=== PATIENT | male | born 1935 | race Caucasian/White ===

== ENCOUNTER → 2017-02-21 | Outpatient (CLI) | payer MEDICARE ==
[~2017-02-21] MED LIST: ACET-62 PO; AMIO200T7 PO; ASPI81TA2 PO; CALC-696 PO; CALC600T12 PO; DABI150C PO; FAMO20TA8 PO; FERR-70 PO; FEXO180T94 PO; FLUT9.9S EA NOSTRIL; IOHEXOL 300 MG/ML 100ml INJECTION ONE; LEVO500T63 PO; LOVA20TA3 PO; MAGN400C PO; METR-116 PO; NAPR220C11 PO; NORMAL SALINE 100 ML ONE; SALINE FLUSH 10ml SYRINGE ONE; TAMS0.4C47 PO
--- NOTE | 2017-02-21 11:30 | DI ---
EXAM: CT ABD/PELVIS W/CONTRAST ONLY DATE: 02/21/2017 LOCATION OF DICTATION[facility] HISTORY: ITS.REASON: R19.04 Left lower quadrant abdominal swelling, mass and lump COMPARISON: There are no prior CT scans available for comparison at the time of interpretation PROCEDURE: Axial images were obtained throughout the entire abdomen and pelvis with IV contrast demonstration. 100 cc of Omnipaque 300 was administered for the exam. Coronal and sagittal reconstruction imaging was utilized. The current CT scan was performed using radiation dose-reduction techniques. FINDINGS: LUNG BASES: Bullous emphysematous lung changes and parenchymal scarring is seen at the lung bases. There is also scattered subpleural honeycombing suggesting underlying pulmonary fibrosis. The heart appears mildly enlarged and there is artifact from pacemaker wires. LIVER: Mildly enlarged measuring 19.5 cm demonstrating fatty infiltration. Hepatic parenchyma appears homogeneous without discrete lesions. SPLEEN: Enlarged measuring 16.6 cm appearing homogeneous without discrete lesions. GALLBLADDER: Minimal cholelithiasis is suspected but there is no evidence of wall thickening. PANCREAS: No focal enlargement, ductal dilatation or enhancing lesions. ADRENAL GLANDS: Not enlarged. KIDNEYS: Symmetrical size, contour and enhancement showing no evidence of hydronephrosis, hydroureter or ureterolith. VASCULAR: The abdominal aorta and IVC are normal caliber. Mild to moderate scattered plaque formation is seen in the abdominal aorta and iliac arteries. LYMPH NODES: No abdominal pelvic adenopathy. STOMACH BOWEL LOOPS: Stomach is decompressed. There is a small hiatal hernia the stomach is otherwise unremarkable. The bowel loops are of normal caliber, there is no evidence of mechanical bowel obstruction. There are scattered diverticula seen along the course of the colon which appears concentrated along the course of the descending colon and sigmoid colon. There is acute inflammatory involvement of the mid sigmoid colon which shows bowel wall thickening and enhancement consistent with acute diverticulitis. This inflamed loop of bowel extends into the region of a small left inguinal hernia and there is associated thickening and inflammatory change of the adjacent bowel wall. There is no evidence of bowel incarceration. There is no obvious pericolonic abscess collection, free air or free fluid. URINARY BLADDER: Normal size showing no wall thickening. There is mass effect on the base of the bladder by an enlarged prostate gland which appears somewhat irregular along the superior margin of the prostate gland and intraluminal extension of the irregular superior margin of the prostate gland is not excluded. PROSTATE: Enlarged measuring 4.8 cm the transverse dimension. There is some irregularity along the superior margin of the prostate gland and extension of the irregular mass effect on the superior margin of the prostate gland into the urinary bladder is not excluded. OSSEOUS STRUCTURES: Postsurgical changes are seen in the lumbar spine consistent with lumbosacral spine fusion. There is grade 2 anterolisthesis of L5 on S1 with bilateral L5 pars defects. PERITONEAL CAVITY: No free air or free fluid ABDOMINAL WALL: Small bilateral fat-containing inguinal hernias are evident but there is extension of the inflamed loop of sigmoid colon to the origin of the left inguinal hernia where diverticulitis is identified. There is also adjacent inflammatory involvement of the subcutaneous tissues of the adjacent abdominal wall including the adjacent left rectus abdominous muscle. IMPRESSION: 1. Findings are most consistent with acute diverticulitis involving the mid sigmoid colon. There is an inflamed loop of sigmoid colon extends to the origin of the left inguinal hernia and there is associated inflammatory involvement of the abdominal wall at the level of the left inguinal hernia suggesting cellulitis and possible myositis involving the left rectus abdominis muscle. Post therapeutic follow-up is recommended to ensure resolution as underlying inflammatory carcinoma is not excluded. There is no evidence of bowel incarceration at this time. 2. Hepatosplenomegaly. 3. The prostate gland is enlarged and irregular along the superior margin with potential extension of the irregular prostate gland into the urinary bladder. Further evaluation with cystoscopy is recommended. 4. No free air or free fluid. 5. Chronic emphysematous changes in the lung tucker with pulmonary fibrosis. A preliminary report was called to Dr. Arauz 02/21/2017 .
== END ==
LOC: IMA 09:18
PROVIDERS: ATTEND Internal Medicine
DX: R19.04 Left lower quadrant abdominal swelling, mass and lump (principal); K52.9 Noninfective gastroenteritis and colitis, unspecified; K40.90 Unilateral inguinal hernia, without obstruction or gangrene, not specified as recurrent; R16.2 Hepatomegaly with splenomegaly, not elsewhere classified; N40.0 Benign prostatic hyperplasia without lower urinary tract symptoms; J43.9 Emphysema, unspecified; J84.10 Pulmonary fibrosis, unspecified
CPT/HCPCS: 74177; J7050; Q9967

== ENCOUNTER 2017-02-25 10:10 | Inpatient (IN) | payer MEDICARE ==
[~2017-02-25] VITALS: Ht 185.4 cm; Wt 93.6 kg
[~2017-02-25 10:10] MED LIST changes: -ACET-62 PO; -CALC600T12 PO; -FAMO20TA8 PO; -FLUT9.9S EA NOSTRIL; -IOHEXOL 300 MG/ML 100ml INJECTION ONE; -LEVO500T63 PO; -METR-116 PO; -NORMAL SALINE 100 ML ONE; -SALINE FLUSH 10ml SYRINGE ONE
--- OUTSIDE RECORDS SUMMARY | 2017-02-25 10:13 | XMS REPORT | Continuity of Care Document ---
Author Author [facility] Organization [facility] Address Unknown Phone Unavailable Support Name Relationship Address Phone AUDRA GUEVARA MD Caregiver [address] [place] [address] [address] [place] [address] Unavailable AUDRA GUEVARA MD Caregiver [address] [place] [address] [place] [address] Unavailable ELLIOT MENDOZA DO Caregiver [address] [place] [address] [address] [place] [address] Unavailable JUJU PERALES Next Of Kin [address] [place] [address] Insurance Providers Guarantor Darvin Perales Address [address] [place] [address] [place] [address] Email DENIED NO TO PT [place] Payer Medicareadvantra Ppo Policy Number [id number] Subscriber's Name Darvin Perales Relationship 18 Self Group Number [id number] Advance Directives Directive Response Recorded Date/Time Ordered Resuscitation Status Full Code 10/25/16 8:42am Resuscitation Documents on File N FULL CODE 10/25/16 8:49am DPOA for Healthcare Only No 10/25/16 8:49am Living Will No 10/25/16 8:49am Problems Active Problems Medical Problem Onset Date Status Bradycardia Unknown Acute Brugada syndrome Unknown Chronic Essential hypertension Unknown Chronic Hyperlipidemia Unknown Chronic Near syncope Unknown Acute Observed seizure-like activity Unknown Acute Paroxysmal atrial fibrillation ~10/18/2016 Acute Presence of automatic implantable cardioverter-defibrillator Unknown Syncope and collapse Unknown Acute Ventricular tachycardia Unknown Chronic Surgical Problem Onset Date Status Status post cardiac pacemaker procedure Unknown Chronic Past Problems Medical Problem Onset Date Finger laceration Unknown Vagal reaction Unknown Visit for suture removal Unknown Medications Current Home Medications Medication Dose Units Route Directions Days Qty Instructions Start Date Amiodarone Hcl (Pacerone) 200 Mg Tablet 200 Mg Oral Onetime 30 Days 10/26/16 Amiodarone Hcl (Pacerone) 200 Mg Tablet 400 Mg Oral Three Times A Day 6 Days 36 Tablet 10/26/16 Aspirin 81 Mg Tab.chew 81 Mg Oral Daily 12/05/15 Calcium Carb/Mag Oxide/Vit D3 (Calcium Magnesium + D Tablet) 1 Each Tablet 1 Tab Oral Daily 03/14/16 Dabigatran Etexilate Mesylate (Pradaxa) 150 Mg Capsule 150 Mg Oral Twice A Day 30 Days 60 Capsule 10/26/16 Ferrous Sulfate 325 Mg Tablet 1 Tab Oral Bedtime BEST WITH FOOD. Fexofenadine Hcl (Ivanna Allergy) 180 Mg Tablet 1 Tab Oral Daily Do not drink Apple, Chilton, or Grapefruit juice within 4 hours of this medication, causes decreased absorption 10/24/16 Lovastatin 20 Mg Tablet 20 Mg Oral Daily 12/05/15 Magnesium Oxide (Magnesium) 400 Mg Capsule 400 Mg Oral Twice A Day 12/05/15 Naproxen Sodium (Aleve) 220 Mg Capsule 220 Mg Oral Twice Daily With Meals as needed for Pain 12/05/15 Tamsulosin Hcl 0.4 Mg Cap.er.24h 1 Cap Oral Bedtime 30 10/24/16 Social History Social History Problem Response Recorded Date/Time Onset Date Status Reason for Hospitalization Antiarrhythmic therapy 10/26/2016 11:02am Not Applicable Not Applicable Hx Substance Use No 10/24/2016 2:57pm Not Applicable Not Applicable Hx Alcohol Use Y RARE 10/24/2016 2:57pm Not Applicable Not Applicable Has the pt used tobacco in the last 12 months No 10/25/2016 8:51am Not Applicable Not Applicable Query Response Start Date Stop Date Smoking Status Never smoker Hospital Discharge Instructions Instructions: Care Instructions: I was in the hospital because (patient own words): THE DOCTOR SAID I SHOULD Discharge Diet: Resume heart healthy diet Discharge Activity: May resume usual activity as tolerated. Change positions from laying to standing slowly Follow Up Appointments: Follow up with Dr. Guevara on: 11/22/16 at 11:40 Pending Lab / Results: No Pending Lab Patient Instructions: New prescriptions: Amiodarone 400mg three times a day for 1 week, then on 11/01/16 you will take 200mg every day for antiarrhythmic. Pradaxa 150mg every morning and evening to reduce your risk of stroke. DO NOT STOP the medications without an order from Dr. Guevara. Expected Signs/Symptoms: NA Notify Physician If: chest pain, or if ICD device discharges. During Business Hours:: Please call the physician's office at [phone] After Business Hours:: Please call [phone] and have the electronic imaging system operator page the physician. Pain Management/Treatment: NA Wound/Incision Care: NA Condition at time of discharge: Good Plan of Care Discharge Date 10/26/16 12:06pm Disposition 01 DISCHARGED HOME, SELF-CARE Instructions/Education Provided DI for Atrial Fibrillation Prescriptions See Medication Section Care Plan and Goals See Discharge Instructions Section Functional Status Query Response Date Recorded Mobility Status Ambulatory October 25, 2016 3:49pm Assistive Devices None October 25, 2016 3:49pm Activity Limitations None October 25, 2016 3:49pm Feeding Ability Independent October 25, 2016 3:49pm Toileting Ability Independent October 25, 2016 3:49pm Grooming Ability Independent October 25, 2016 3:49pm Dressing Ability Independent October 25, 2016 3:49pm Driving Ability Independent October 25, 2016 3:49pm Housework Ability Independent October 25, 2016 3:49pm Meal Preparation Ability Independent October 25, 2016 3:49pm Stair Climbing Ability Independent October 25, 2016 3:49pm Ability to complete ADL's impeded by No change October 25, 2016 3:49pm Cognitive/Perceptual Impairments None October 25, 2016 3:49pm Allergies, Adverse Reactions, Alerts Allergen Type Severity Reaction Status Last Updated promethazine HCl Adverse Reaction Intermediate HALLUCINATIONS Active 12/05 Soap Allergy Unknown Active 12/05/15 Povidone-iodine Allergy Unknown Active 12/05/15 Immunizations Query Response on File Recorded Date/Time Hx Influenza Vaccination Y OCT 2016 10/25/16 8:51am Hx Pneumococcal Vaccination Y UP TO DATE OF 201510/25/16 8:51am Hx Influenza Vaccination Y OCT 2016 10/25/16 8:51am Influenza Vaccine Hx FALL 201407/27/16 10:33am Vital Signs Acute Vital Signs Vital Response Date/Time Temperature (Fahrenheit) 96.0 deg F (96.8 - 99.1) 10/25/2016 11:56pm Temperature (Calculated Celsius) 35.13174 degrees C (36.0 - 37.3) 10/25/2016 11:56pm Pulse Rate (adult) 66 bpm (60 - 100) 10/26/2016 8:00am Respiratory Rate 16 breaths/min (10 - 20) 10/26/2016 8:00am O2 Sat by Pulse Oximetry 94 % (90 - 100) 10/26/2016 8:00am Oxygen Delivery Method Room Air 10/26/2016 8:00am Blood Pressure 117/55 mm Hg 10/26/2016 8:00am Blood Pressure Source Automatic Cuff 10/26/2016 8:00am Height (Feet) 6 feet 10/25/2016 9:09am Height (Inches) 1.00 inches 10/25/2016 9:09am Weight (Kilograms) 94.100 kg 10/26/2016 8:00am Body Mass Index (BMI) 27.6 10/25/2016 8:48am Results Laboratory Results Test Name Result Units Flags Reference Collection Date/Time Result Date/ Time Comments White Blood Count 8.9 T/MM3 4.5-11.0 10/25/2016 9:10a10/25/2016 9: 26am Red Blood Count 4.40 M/MM3 L 4.50-5.90 10/25/2016 9:10a10/25/2016 9: 26am Hemoglobin 13.4 GM/DL L 13.5-17.5 10/25/2016 9:10/25/2016 9:26am Hematocrit 40.5 % L 41-53 10/25/2016 9:10/25/2016 9:26am Mean Corpuscular Volume 92.0 UM3 80-100 10/25/2016 9:10/25/2016 9: 26am Mean Corpuscular Hemoglobin 30.5 UUG 26-34 10/25/2016 9:10a2015 9:26am Mean Corpuscular Hemoglobin Concent 33.1 GM/DL 31-37 10/25/2016 9:10/25/2016 9:26am RDW Standard Deviation 42.9 FL 36.9-50.2 10/25/2016 9:10/25/2016 9 :26am Platelet Count 158 T/MM3 130-400 10/25/2016 9:10a10/25/2016 9:26am Mean Platelet Volume 9.0 UM3 L 9.4-12.4 10/25/2016 9:10a10/25/2016 9: 26am Neutrophils (%) (Auto) 67.1 % H 33-66 10/25/2016 9:10/25/2016 9: 26am Lymphocytes (%) (Auto) 16.2 % L 23-45 10/25/2016 9:10/25/2016 9: 26am Monocytes (%) (Auto) 14.1 % H 0-9.0 10/25/2016 9:10/25/2016 9:26am Eosinophils (%) (Auto) 2.2 % 0-4 10/25/2016 9:10/25/2016 9:26am Basophils (%) (Auto) 0.2 % 0-2 10/25/2016 9:10/25/2016 9:26am Immature Granulocyte % (Auto) 0.2 % 0.0-0.5 10/25/2016 9:2015 9:26am Absolute Neutrophils (auto) 6.0 T/MM3 1.8-7.7 10/25/2016 9:2015 9:26am Absolute Lymphocytes (auto) 1.5 T/MM3 1-4.8 10/25/2016 9:2015 9:26am Absolute Monocytes (auto) 1.3 T/MM3 H 0-0.8 10/25/2016 9:2015 9:26am Absolute Eosinophils (auto) 0.2 T/MM3 0-0.5 10/25/2016 9:2015 9:26am Absolute Basophils (auto) 0.0 T/MM3 0-0.2 10/25/2016 9:10/25/2016 9:26am Absolute Immature Granulocyte (auto 0.02 T/MM3 0.00-0.03 10/25/2016 9: 10/25/2016 9:26am Icterus Index < 2 0-7 10/26/2016 4:58am 10/26/2016 5:55am Chemistry Specimen Hemolysis < 15 0-25 10/26/2016 4:58am 10/26/2016 5 :55am 0-25: Specimen Exhibited No Hemolysis. Turbidity < 20 0-20 10/26/2016 4:58am 10/26/2016 5:55am Sodium Level 141 MEQ/L 134-144 10/26/2016 4:58am 10/26/2016 5:55am Potassium Level 4.5 MEQ/L 3.6-5 10/26/2016 4:58am 10/26/2016 5:55am Chloride Level 106 MEQ/L 98-107 10/26/2016 4:58am 10/26/2016 5:55am Carbon Dioxide Level 23 MEQ/L 22-30 10/26/2016 4:58am 10/26/2016 5: 55am Anion Gap 12 MEQ/L 5-15 10/26/2016 4:58am 10/26/2016 5:55am Blood Urea Nitrogen 23.0 MG/DL H 9-20 10/26/2016 4:58am 10/26/2016 5: 55am Creatinine 1.2 MG/DL D 0.8-1.5 10/26/2016 4:58am 10/26/2016 5:55am BUN/Creatinine Ratio 19 RATIO 6-26 10/26/2016 4:58am 10/26/2016 5:55am Glomerular Filtration Rate Calc 58 10/26/2016 4:58am 10/26/2016 5: 55am Glucose Level 99 MG/DL 75-110 10/26/2016 4:58am 10/26/2016 5:55am Calculated Osmolality 275 MOSM/KG 261-280 10/26/2016 4:58am 10/26/2016 5:55am Calcium Level 8.8 MG/DL 8.4-10.2 10/26/2016 4:58am 10/26/2016 5:55am Total Bilirubin 0.60 MG/DL 0.20-1.30 10/25/2016 9:10am 10/25/2016 9: 34am Alkaline Phosphatase 63 U/L 38-126 10/25/2016 9:10am 10/25/2016 9:34am Total Protein 7.3 G/DL 6.3-8.2 10/25/2016 9:10am 10/25/2016 9:34am Albumin 3.8 G/DL 3.5-5.0 10/25/2016 9:10am 10/25/2016 9:34am Globulin 3.5 G/DL 2.4-3.6 10/25/2016 9:10am 10/25/2016 9:34am Albumin/Globulin Ratio 1.1 RATIO 1.1-2.2 10/25/2016 9:10am 10/25/2016 9 :34am Aspartate Amino Transf (AST/SGOT) 32 U/L 17-59 10/25/2016 9:10am 2015 9:34am Alanine Aminotransferase (ALT/SGPT) 33 U/L 21-72 10/25/2016 9:10am 9:34am Magnesium Level 2.2 MG/DL 1.6-2.3 10/26/2016 4:58am 10/26/2016 5:55am Free Thyroxine 0.98 NG/DL 0.78-2.19 10/25/2016 9:10am 10/25/2016 4: 27pm Thyroid Stimulating Hormone (TSH) 2.92 MIU/L 0.47-4.68 10/25/2016 9: 10am 10/25/2016 10:03am Glucometer 96 mg/dL 75-110 10/26/2016 1:35am 10/26/2016 11:53am Procedures No known history of procedures. Encounters Encounter Location Arrival/Admit Date Discharge/Depart Date Attending Provider Discharged Inpatient (obs) [facility] 10/25/16 7:51am 10/26/16 12 :06pm AUDRA GUEVARA MD Departed Emergency Room [facility] 08/07/16 10:16am 08/07/16 11: 07am ADA HOPKINS APRN Registered Emergency Room [facility] 08/04/16 10:17am EDDIE KING APRN
--- OUTSIDE RECORDS SUMMARY | 2017-02-25 10:13 | XMS REPORT | Continuity of Care Document ---
Author Author [facility] Organization [facility] Address Unknown Phone Unavailable Allergies Active Description Code Type Severity Reaction Onset Reported/Identified Relationship to Patient Clinical Status Yes No Known Medication Allergies NKMA N/A N/A 08/23/2015 Medications Problems Procedures Results Encounters ACCT No. Visit Date/Time Discharge Status Pt. Type Provider Facility Loc./Unit Complaint [id number] 09/03/2015 15:10:00 2014 23:59:00 DIS Outpatient Rochelle Adams [facility] [address] [id number] 08/23/2015 11:14:00 2014 23:59:00 DIS Outpatient Rochelle Adams [facility] [address] NPT/GL 09/23 [place] BUT DID HAVE EXAM LAST YEAR
[2017-02-25] MEDS ORDERED: CALC600T12 PO (10:28)
[2017-02-25] MEDS ORDERED: FAMO20TA8 PO (10:30)
[2017-02-25] MEDS ORDERED: FLUT9.9S EA NOSTRIL (10:30)
[2017-02-25] MEDS ORDERED: DABI150C PO (10:30)
[2017-02-25] MEDS ORDERED: METR-116 PO (10:33)
[2017-02-25] MEDS ORDERED: ACET-62 PO (10:33)
[2017-02-25] MEDS ORDERED: LEVO500T63 PO (10:33)
[2017-02-25] MEDS ORDERED: NORMAL SALINE 1,000 ML IV ONE (11:55)
[2017-02-25] MEDS ORDERED: ONDANSETRON 4mg/2ml INJECTION IV ONE (12:00)
[2017-02-25] MEDS ORDERED: KETOROLAC 30mg/ml INJECTION IV ONE (12:00)
--- NOTE | 2017-02-25 12:00 | ERPDOC ---
Departure Impression Impression Referrals: ELLIOT MENDOZA DO (Family) Mental Status: Alert, Oriented HPI - Abdominal Pain General Chief Complaint: Abdominal Pain Stated Complaint: ABD PAIN/DIABETIC DIVERTICULITIS Time Seen by Provider: 11:55 HPI - Abdominal Pain Initial Comments 81-year-old gentleman presents with left lower quadrant abdominal pain, radiating into left upper quadrant. He has been diagnosed with diverticulitis before. He also has pain in the left pelvis. He feels a lump in his concern the infection is pushing through. Allergies: Coded Allergies: Soap (Verified Allergy, Unknown, 12/05/15) povidone-iodine (Verified Allergy, Unknown, 12/05/15) promethazine HCl (Verified Adverse Reaction, Intermediate, HALLUCINATIONS , 12/05/15) Past History Past Medical History Metabolic: hypercholesterolemia, hypertension, other Cardiac: A-fib, other GI: ulcers Musculoskeletal: back pain, osteoarthritis Surgical History General: appendix, back, hernia Cardiac: pacemaker Family History Family PMH: FOUND: cancer Vaccines Hx Influenza Vaccination: Yes (OCT 2016) Hx Pneumococcal Vaccination: Yes (UP TO DATE 2015) Social History Second Hand Exposure: No Quit Date: Nov 12, 1985 Substance Use Type: does not use Alcohol Intake: none Marital Status: Sexuality: female partner Housing: house Household Members: spouse Current Occupational Status: employed Physical Exam General Vitals and Pain First Documented Vital Signs Date Time Temp Pulse Resp B/P Pulse Ox O2 Delivery O2 Flow Rate FiO2 02/25/17 10:13 97.4 71 18 137/64 97 Room Air Weight: Kilograms: 88.300 Height (feet): 6 Height (inches): 1.00 Triage Pain Scale: Progress Results/Orders Orders Procedure Category Date Status Time Iv Lock (Ed Only) EDM 02/25/17 Transmitted 11:55 Nothing By Mouth (Ed EDM 02/25/17 Transmitted Only) 11:55 Cbc W/Auto LAB 02/25/17 Transmitted Diff-Reflex Manual 11:55 Cmp - Comprehensive LAB 02/25/17 Transmitted Metabolic 11:55 Lipase LAB 02/25/17 Transmitted 11:55 Ua, Dip Wreflex LAB 02/25/17 Transmitted Microsc & Canal Driver 11:55 Ct Abd/Pelvis CT 02/25/17 Transmitted W/Contrast Only 11:55 Normal Saline (Normal PHA 02/25/17 Transmitted Saline Iv) 11:55 Ondansetron Inj PHA 02/25/17 Transmitted (Zofran) 12:00 Ketorolac (Toradol) PHA 02/25/17 Transmitted 12:00 Lactate - Lactic Acid LAB 02/25/17 Transmitted Progress Progress Inguinal lump is reducible, I do think this is an inguinal hernia. CT is pending. We'll still workup the history of diverticulitis with left lower quadrant and upper quadrant pain. VIVIAN RICARDO MD Feb 25, 2017 12:00
--- OUTSIDE RECORDS SUMMARY | 2017-02-25 12:00 | XMS REPORT | Continuity of Care Document ---
Author Author [facility] Organization [facility] Address Unknown Phone Unavailable Allergies Active Description Code Type Severity Reaction Onset Reported/Identified Relationship to Patient Clinical Status Yes No Known Medication Allergies NKMA N/A N/A 08/23/2015 Medications Problems Procedures Results Encounters ACCT No. Visit Date/Time Discharge Status Pt. Type Provider Facility Loc./Unit Complaint [id number] 09/03/2015 15:10:00 2014 23:59:00 DIS Outpatient Rochelle Adams [facility] [address] [place] [id number] 08/23/2015 11:14:00 2014 23:59:00 DIS Outpatient Rochelle Adams [facility] [address] Opt NPT/GL 09/23 [place] BUT DID HAVE EXAM LAST YEAR
[2017-02-25] MEDS ORDERED: IOHEXOL 300 MG/ML 100ml INJECTION ONE (12:18)
[2017-02-25] MEDS ORDERED: SALINE FLUSH 10ml SYRINGE ONE (12:19)
[2017-02-25] MEDS ORDERED: NORMAL SALINE 100 ML ONE (12:19)
[2017-02-25 12:33] LABS: BLOOD, URINE NEGATIVE (NEGATIVE); COLOR,URINE YELLOW (YELLOW); LEUKOCYTE ESTERASE ,URINE NEGATIVE (NEGATIVE); NITRITE,URINE NEGATIVE (NEGATIVE); UROBILINOGEN,URINE 0.2 EU/DL (NORMAL)
[2017-02-25 12:38] LABS: BASOPHILS % (AUTO) 0.2 % (0-2); EOSINOPHILS # (AUTO) 0.2 T/MM3 (0-0.5); EOSINOPHILS % (AUTO) 1.5 % (0-4); HCT - HEMATOCRIT 39.9 % (41-53); HGB - HEMOGLOBIN 12.9 GM/DL (13.5-17.5); IMMATURE GRANULOCYTE # (AUTO) 0.03 T/MM3 (0.00-0.03); IMMATURE GRANULOCYTE % (AUTO) 0.3 % (0.0-0.5); LYMPHOCYTES # (AUTO) 1.6 T/MM3 (1-4.8); LYMPHOCYTES % (AUTO) 15.2 % (23-45); MEAN CORPUSCULAR HGB 27.9 UUG (26-34); MEAN CORPUSCULAR HGB CONC(MCHC 32.3 GM/DL (31-37); MEAN CORPUSCULAR VOLUME 86.2 UM3 (80-100); MEAN PLATELET VOLUME 8.7 UM3 (9.4-12.4); MONOCYTES # (AUTO) 1.7 T/MM3 (0-0.8); MONOCYTES % (AUTO) 16.3 % (0-9.0); NEUTROPHILS #(AUTO)-ABSOLUTE 6.8 T/MM3 (1.8-7.7); NEUTROPHILS % (AUTO) 66.5 % (33-66); RED BLOOD COUNT 4.63 M/MM3 (4.50-5.90); WBC - WHITE BLOOD COUNT 10.2 T/MM3 (4.5-11.0)
[2017-02-25 12:41] LABS: ALBUMIN 3.4 G/DL (3.5-5.0); ALBUMIN/GLOBULIN RATIO 0.9 RATIO (1.1-2.2); ALKALINE PHOSPHATASE 219 U/L (38-126); ALT (SGPT) 48 U/L (21-72); ANION GAP 12 MEQ/L (5-15); AST (SGOT) 65 U/L (17-59); BUN/CREATININE RATIO 15 RATIO (6-26); CALCIUM 9.1 MG/DL (8.4-10.2); CHLORIDE 102 MEQ/L (98-107); CO2 - CARBON DIOXIDE 24 MEQ/L (22-30); CREATININE 1.1 MG/DL (0.8-1.5); GLOMERULAR FILTRATION RATE 64; GLUCOSE 105 MG/DL (75-110); LIPASE 109 U/L (23-300); POTASSIUM 5.1 MEQ/L (3.6-5); SODIUM 138 MEQ/L (134-144); TOTAL PROTEIN 7.1 G/DL (6.3-8.2)
--- NOTE | 2017-02-25 14:15 | NUR ---
STATUS PT RESTING IN BED. FAMILY AT BEDSIDE. AWAITING DECISION ON CT REPORT
--- NOTE | 2017-02-25 15:30 | NUR ---
STATUS PT UP TO BATHROOM WITH STAND BY ASSIST.
--- NOTE | 2017-02-25 16:23 | DI ---
Indication: ITS.REASON: abdominal pain, patient has allergy to IV contrast/iodine PROCEDURE: CT ABD/PELVIS W/CONTRAST ONLY: Encounter: Initial Comparison: CT abdomen and pelvis dated February 21, 2017 Technique: Axial CT images were performed through the abdomen and pelvis after the administration of intravenous contrast. Coronal and sagittal two-dimensional reformats. Automated Exposure Control and Iterative Reconstruction dose reducing techniques were utilized. Contrast: Omnipaque 300 100 mL Findings: Fibrotic changes with bullous emphysema in both lower lobes. The liver appears normal. Gallbladder is unremarkable. The spleen, pancreas and adrenal glands are within normal limits. The kidneys are normal. No abdominal or pelvic lymphadenopathy. Bladder is unremarkable. Prostate is unremarkable. Sigmoid diverticulosis is again seen. There is a rim-enhancing abscess seen in the left anterior pelvis extending near or just deep to the inguinal canal with fluid and gas. This collection measures 4 x 4.6 cm on axial image #79 and is slightly larger than the comparison study from four days previously. The gas and feculent material within this collection suggests continuity with the sigmoid colon lumen. The collection starts approximately 1 1/2 to 2 cm above the left inguinal canal region and involves the abdominal wall and lateral aspect of the rectus sheath. No evidence of a bowel obstruction. No free intraperitoneal air. Bone windows show degenerative and postoperative changes in the lumbar spine. Impression: Slight interval increase in size of the left anterior lateral pelvic and inguinal canal region abscess presumably due to a perforated sigmoid diverticulitis. This collection probably communicates with the sigmoid colonic lumen. This would be accessible to percutaneous image guided aspiration and attempted drainage. Getting a locking loop drainage catheter to form within the small pocket could be challenging. Findings were reviewed with Drs. Davis and Soumya at 1615 on February 25, 2017. There is a preliminary report by [email or web address]. .
--- NOTE | 2017-02-25 16:39 | NUR ---
PO INTAKE PT PROVIDED WITH SANDWICH, JUICE AND APPLESAUCE PER DR HALEIGH CASON
--- NOTE | 2017-02-25 16:50 | NUR ---
STATUS DR WERNER AND DR RICARDO DISCUSS PT
--- NOTE | 2017-02-25 17:02 | NUR ---
IT GERRI RN ASSIGNS ROOM 138 TO PT WITH JAVIER MARCUS RN
--- OUTSIDE RECORDS SUMMARY | 2017-02-25 17:07 | XMS REPORT | Continuity of Care Document ---
Author Author [facility] Organization [facility] Address Unknown Phone Unavailable Allergies Active Description Code Type Severity Reaction Onset Reported/Identified Relationship to Patient Clinical Status Yes No Known Medication Allergies NKMA N/A N/A 08/23/2015 Medications Problems Procedures Results Encounters ACCT No. Visit Date/Time Discharge Status Pt. Type Provider Facility Loc./Unit Complaint [id number] 09/03/2015 15:10:00 2014 23:59:00 DIS Outpatient Rochelle Adams [facility] [address] [place] [id number] 08/23/2015 11:14:00 2014 23:59:00 DIS Outpatient Rochelle Adams [facility] [address] Opt NPT/GL 09/23 [place] BUT DID HAVE EXAM LAST YEAR
--- NOTE | 2017-02-25 17:11 | NUR ---
REPORT GIVEN TO DEBI NAYAK ON MEDICAL
[2017-02-25 17:15] VITALS: RESP 16
[2017-02-25 17:21] VITALS: BP 159/73; PULSE 75; RESP 16; TEMP 96.9; O2SAT 94
[2017-02-25 17:24] VITALS: Ht 185.4 cm; Wt 93.6 kg
--- NOTE | 2017-02-25 17:27 | HPPDOC ---
DINORA HAY V ENERGY RATER 02/25/17 1708: HPI - Adult Date DATE: 02/25/17 TIME: 17:02 General Chief Complaint: left inguinal hernia/abscess History of Present Illness Patient is a pleasant 81-year-old male who has had intermittent left inguinal discomfort for several weeks. He has been seen by his primary care provider, Dr. Arauz and was being monitored in the outpatient setting. On 02/[address] performed that did reveal some acute diverticulitis of the sigmoid colon. It is reported that he did start Flagyl and Levaquin at that time. Incidentally, he was found to have inflamed loop of sigmoid colon that extended into the origin of the left inguinal hernia associated with inflammation. Patient reports that this morning, pain seemed to worsen and he did have an episode of emesis, this prompting him to present to the emergency room for acute evaluation and treatment. Laboratory studies were obtained obtained in the ER. WBC count was found to be normal at 10.2, hemoglobin 12.9, hematocrit 39.9, platelet count 197. Sodium is normal at 138, potassium slightly elevated at 5.1, BUN 16, creatinine 1.1. AST is slightly elevated at 65 and ALT of 48. Venous lactate is normal 0.8, lipase 109. A urinalysis was obtained that was unremarkable. Repeat CT scan was performed today showing a slight interval increase in size of the left anterior lateral pelvis and inguinal canal region abscess, presumably due to perforated sigmoid diverticulitis. Given these findings, radiologistLyle was notified by the emergency room provider and verified that percutaneous guided aspiration and drainage could be arranged for tomorrow 02/26. The hospitalist services were then contacted and accepted patient for outpatient admission for further evaluation and treatment. It is expected that his stay will be less than 2 overnights. Past Medical History Past Medical History Hypertension. Atrial fibrillation. History of Burgada syndrome Pacemaker / defibrillator History of bleeding ulcer-1989 Surgical History Patient's Surgical History: Left inguinal hernia repair-2000 Appendectomy Hemorrhoidectomy Colonoscopy Lumbar spine surgery [id number] Current Medications Home Meds Reported Medications Levofloxacin (Levaquin) 500 Mg Tablet, 500 MG PO DAILY for diverticulitis 02/25/17 Metronidazole (Metronidazole) 500 Mg Tablet, 500 MG PO TID for diverticulitis 02/25/17 Acetaminophen (Acetaminophen) 500 Mg Tablet, 1000 MG PO Q8H Y for PAIN 02/25/17 Fluticasone Propionate (Flonase Allergy Relief 50 mcg/actuation Nasal) 9.9 Ml [place].susp, 1 SPRAY EA NOSTRIL HS 02/25/17 Famotidine (Famotidine) 20 Mg Tablet, 20 MG PO DAILY 02/25/17 Dabigatran Etexilate Mesylate (Pradaxa) 150 Mg Capsule, 150 MG PO BID 02/25/17 Calcium Carbonate (Calcium) 600 Mg Tablet, 600 MG PO DAILY 02/25/17 Tamsulosin HCl (Tamsulosin HCl) 0.4 Mg Cap.er.24h, 0.4 MG PO HS 10/24/16 Magnesium Oxide (Magnesium) 400 Mg Capsule, 400 MG PO BID 12/05/15 Lovastatin (Lovastatin) 20 Mg Tablet, 20 MG PO DAILY 12/05/15 Allergies: Coded Allergies: Soap (Verified Allergy, Unknown, 12/05/15) povidone-iodine (Verified Allergy, Unknown, 12/05/15) promethazine HCl (Verified Adverse Reaction, Intermediate, HALLUCINATIONS , 12/05/15) Family History Family History: Mother-breast cancer Father lived until he was 100, and of old age. Sister-breast cancer. Brother-prostate cancer Social History Smoking Status: Former smoker Second Hand Exposure: No Quit Date: Nov 12, 1985 Substance Use Type: does not use Alcohol Intake: none Marital Status: Sexuality: female partner Housing: house Household Members: spouse Current Occupational Status: employed Advance Directives: Yes Full Code Social History Comments Primary care provider, Dr. Arauz Keypuncher Dr. Cuevas Review of Systems GI Upper Abdomen: nausea, vomiting (this morning) Lower Abdomen: pain (left inguinal pain), see HPI All Other Systems All Other Systems: Reviewed (remainder of 10-point ROS Neg.) Physical Exam General General Nourishment: well nourished, well developed Vital Signs Vital Signs Date Time Temp Pulse Resp B/P Pulse Ox O2 Delivery O2 Flow Rate FiO2 02/25/17 10:13 97.4 71 18 137/64 97 Room Air Height (Feet): 6 Height (Inches): 1.00 Eyes Brief: FOUND: EOMI, PERRL Neck Brief: FOUND: midline, NOT FOUND: adenopathy, carotid bruits, tracheal deviation Respiratory Brief: FOUND: clear all tucker, equal bilaterally, NOT FOUND: wheezes Cardiovascular (brief) Cardiac Brief: FOUND: regular rate, regular rhythm, NOT FOUND: murmur, pedal edema Abdomen (brief) Abdominal Brief: FOUND: BS normo active x4, soft, tender (left inguinal groin tenderness) Integumentary (brief) Integumentary Brief: FOUND: dry, pink, warm Neurologic (brief) Neurological Brief: FOUND: cranial 2-12 intact, motor (result extremities equally 4) Neurologic RN Documented GCS Eye Opening: Verbal: Motor: Total: Psychiatric (brief) FOUND: alert, attentive, normal affect, oriented Laboratory Laboratory Tests Test 02/25/17 12:22 02/25/17 12:26 Urine Collection Type Voided-not cc-midstr Urine Color Yellow Urine Turbidity Clear Urine pH 6.5 Urine Specific [place] <=1.005 Urine Protein Negative Urine Glucose (UA) Negative Urine Ketones Negative Urine Blood Negative Urine Nitrite Negative Urine Bilirubin Negative Urine Urobilinogen 0.2EU/DL Urine Leukocyte Esterase Negative Urinalysis Comment Microscopic not ind. White Blood Count 10.2T/MM3 Red Blood Count 4.63M/MM3 Hemoglobin 12.9GM/DL Hematocrit 39.9% Mean Corpuscular Volume 86.2UM3 Mean Corpuscular Hemoglobin 27.9UUG Mean Corpuscular Hemoglobin Concent 32.3GM/DL RDW Standard Deviation 46.4FL Platelet Count 197T/MM3 Mean Platelet Volume 8.7UM3 Immature Granulocyte % (Auto) 0.3% Neutrophils (%) (Auto) 66.5% Lymphocytes (%) (Auto) 15.2% Monocytes (%) (Auto) 16.3% Eosinophils (%) (Auto) 1.5% Basophils (%) (Auto) 0.2% Absolute Immature Granulocyte (auto 0.03T/MM3 Absolute Neutrophils (auto) 6.8T/MM3 Absolute Lymphocytes (auto) 1.6T/MM3 Absolute Monocytes (auto) 1.7T/MM3 Absolute Eosinophils (auto) 0.2T/MM3 Absolute Basophils (auto) 0.0T/MM3 Turbidity < 20 Sodium Level 138MEQ/L Potassium Level 5.1MEQ/L Chloride Level 102MEQ/L Carbon Dioxide Level 24MEQ/L Anion Gap 12MEQ/L Blood Urea Nitrogen 16.0MG/DL Creatinine 1.1MG/DL Glomerular Filtration Rate Calc 64 BUN/Creatinine Ratio 15RATIO Glucose Level 105MG/DL Calculated Osmolality 267MOSM/KG Calcium Level 9.1MG/DL Total Bilirubin 0.90MG/DL Icterus Index < 2 Aspartate Amino Transf (AST/SGOT) 65U/L Alanine Aminotransferase (ALT/SGPT) 48U/L Alkaline Phosphatase 219U/L Total Protein 7.1G/DL Albumin 3.4G/DL Globulin 3.7G/DL Albumin/Globulin Ratio 0.9RATIO Lipase 109U/L Plasma Lactate 0.8MMOL/L Chemistry Specimen Hemolysis < 15 Assessment & Plan Problems: (1) Inguinal abscess Status: Acute (2) Diverticulitis Status: Acute Qualifiers: Diverticulitis complication: with abscess (3) Chronic anticoagulation Status: Chronic Assessment & Plan: Pradaxa chronically (4) Pacemaker Status: Chronic (5) Hyperlipidemia Status: Chronic (6) Essential hypertension Status: Chronic (7) Presence of automatic implantable cardioverter-defibrillator Status: Chronic (8) Brugada syndrome Status: Resolved (9) History of atrial fibrillation Status: Resolved Plan/Intensity of Service Admit patient to outpatient observation under the care of Dr. Worthy for inguinal abscess. ER Provider spoke with Lyle Seth- radiologist. Will plan for ultrasound-guided percutaneous drain tomorrow, Sunday02/26/17. Patient last took Pradaxa this morning 02/25/17. We will place this on hold now for scheduled procedure. He has been on Levaquin and Flagyl for antimicrobial coverage. Will switch to IV Zosyn for ongoing coverage. Will be able follow abscess cultures for further C/S. No evidence of sepsis currently. Normal saline at 100ml/hr for gentle hydration overnight. He may have regular diet now and NPO at midnight for planned procedure tomorrow SCDs to bilateral lower ext for DVT prophylaxis Up in room with assistance Will recheck CBC and BMP tomorrow morning to follow blood counts, renal function and electrolytes. Again he requests to be a Full Code and this order is written Will discuss further orders with attending, Dr Worthy Care will be turned over to PCP tomorrow morning- Dr Arauz. Code Status Full Code Hospital Course Summary Disclaimer The hospital course summary below is not to be considered part of the above Progress Note. Hospital Course Summary Admit patient to outpatient observation under the care of Dr. Worthy for inguinal abscess. ER Provider spoke with Lyle Seth- radiologist. Will plan for ultrasound-guided percutaneous drain tomorrow, Sunday02/26/17. Patient last took Pradaxa this morning 02/25/17. We will place this on hold now for scheduled procedure. He has been on Levaquin and Flagyl for antimicrobial coverage. Will switch to IV Zosyn for ongoing coverage. Will be able follow abscess cultures for further C/S. No evidence of sepsis currently. Normal saline at 100ml/hr for gentle hydration overnight. He may have regular diet now and NPO at midnight for planned procedure tomorrow SCDs to bilateral lower ext for DVT prophylaxis Up in room with assistance Will recheck CBC and BMP tomorrow morning to follow blood counts, renal function and electrolytes. Again he requests to be a Full Code and this order is written Will discuss further orders with attending, Dr Worthy Care will be turned over to PCP tomorrow morning- SHAI Pena MD 02/25/17 1805: Past Medical History Current Medications Home Meds Reported Medications Levofloxacin (Levaquin) 500 Mg Tablet, 500 MG PO DAILY for diverticulitis 02/25/17 Metronidazole (Metronidazole) 500 Mg Tablet, 500 MG PO TID for diverticulitis 02/25/17 Acetaminophen (Acetaminophen) 500 Mg Tablet, 1000 MG PO Q8H Y for PAIN 02/25/17 Fluticasone Propionate (Flonase Allergy Relief 50 mcg/actuation Nasal) 9.9 Ml [place].susp, 1 SPRAY EA NOSTRIL HS 02/25/17 Famotidine (Famotidine) 20 Mg Tablet, 20 MG PO DAILY 02/25/17 Dabigatran Etexilate Mesylate (Pradaxa) 150 Mg Capsule, 150 MG PO BID 02/25/17 Calcium Carbonate (Calcium) 600 Mg Tablet, 600 MG PO DAILY 02/25/17 Tamsulosin HCl (Tamsulosin HCl) 0.4 Mg Cap.er.24h, 0.4 MG PO HS 10/24/16 Magnesium Oxide (Magnesium) 400 Mg Capsule, 400 MG PO BID 12/05/15 Lovastatin (Lovastatin) 20 Mg Tablet, 20 MG PO DAILY 12/05/15 Allergies: Coded Allergies: Soap (Verified Allergy, Unknown, 12/05/15) povidone-iodine (Verified Allergy, Unknown, 12/05/15) promethazine HCl (Verified Adverse Reaction, Intermediate, HALLUCINATIONS , 12/05/15) Assessment & Plan Assessment 02/25/2017-I reviewed this chart, the patient history, and the ENERGY RATER's/PA's documented findings as above. We discussed and formulated the assessment and plan as above with the additions below.-Dr. Worthy The patient states he is having some mild increased pain in his left groin at this time but states that is better than when he went to the emergency room initially. He has had some nausea and vomiting but feels hungry now. He has had some chills but no fevers that he is aware of. He denies any chest pains or palpitations. He has had some progressive shortness of breath over the past 6 months. He had some diarrhea yesterday but that has resolved. He denies any hematemesis or red blood in his stools. He states his stools are dark because of iron. On exam he is alert and oriented and in no acute distress. Chest is clear to auscultation. Cardiovascular reveals a regular rate and rhythm with a 2/6 systolic murmur. Abdomen is soft and nontender. He does have a firm area about the size of a tennis ball in his left lower quadrant without any overlying erythema. Patient states this is the area where he has had the abscess. Extremities are free of clubbing cyanosis or edema. Skin is warm and dry and without rashes. Lab work was reviewed. CT was reviewed. I did call and discuss the above findings with Dr. Arauz. He agrees with keeping the patient nothing by mouth and holding pradaxa. He is considering a second surgical opinion prior to CT-guided drainage. We will therefore hold off on ordering the CT-guided drainage at this time. DINORA HAY APRN Feb 25, 2017 17:08 SHAI WORTHY MD Feb 25, 2017 18:05
[2017-02-25] MEDS ORDERED: MORPHINE SULFATE 2 MG SYRINGE IV PRN (17:45)
[2017-02-25] MEDS: NORMAL SALINE 1,000 ML IV SCH ×2 (18:05→23:45)
--- NOTE | 2017-02-25 18:14 | NUR ---
ADMISSION UPDATE PT ARRIVES TO ROOM 138 AT 1715. PT IS A&OX3, AND RATING HIS PAIN A 4/10 TO HIS LLQ. PTS IS AT BEDSIDE. PY IS ORIENTED TO HIS ROOM AND IS SHOWN HOW TO ORDER FOOD. PT WILL BE NPO AFTER MIDNIGHT FOR SURGERY TOMORROW, HE IS AWARE. VS ARE STABLE CHARTED. WILL CONTINUE TO MONITOR, SHUTDOWN PLANNER CALLED FOR ANTIBIOTIC ORDER FOR ZOSYN. SHE WILL BRING MED WHEN AVAILABLE. PT OFFERED PAIN MEDICATION BUT STATES HE DOES NOT NEED IT AT THIS TIME.
[2017-02-25] MEDS: PIPERACILLIN/TAZOBACTAM 3.375 G in NORMAL SALINE 100 ML IV SCH ×2 (18:56→21:00)
[2017-02-25 20:00] VITALS: RESP 18
[2017-02-25] MEDS: TAMSULOSIN 0.4 MG CAPSULE PO SCH (21:17)
[2017-02-25] MEDS: FLUTICASONE NASAL SPRAY 50 MCG EA NOSTRIL SCH (21:18)
[2017-02-25 23:57] VITALS: BP 144/65; PULSE 87; RESP 20; TEMP 100.7; O2SAT 95
[2017-02-26] MEDS: ACETAMINOPHEN 500 MG TABLET PO PRN ×2 (01:24→17:45)
--- NOTE | 2017-02-26 04:47 | NUR ---
SHIFT SUMMARY: PT IS A&OX3, HARD OF HEARING, FRIENDLY AND COOPERATIVE. PT SLEPT WELL THROUGH THE NIGHT AND DENIES PAIN. PT HAS BEEN NPO SINCE MIDNIGHT AWAITING THE POSSIBILITY OF A PERCUTANEOUS ASPIRATION PROCEDURE THIS MORNING. PT IS UP WITH STANDBY ASSIST, FLUIDS RUNNING, AND ON RA. SCHEDULED MEDICATIONS REC'D FROM [employer] INSURANCE SALESPERSON. CALL LIGHT WITHIN REACH, BED ALARM ON.
[2017-02-26] MEDS: NORMAL SALINE 1,000 ML IV SCH ×2 (05:38→17:32)
[2017-02-26 05:47] LABS: HCT - HEMATOCRIT 33.9 % (41-53); MEAN CORPUSCULAR HGB 27.9 UUG (26-34); MEAN CORPUSCULAR HGB CONC(MCHC 32.4 GM/DL (31-37); MEAN PLATELET VOLUME 9.7 UM3 (9.4-12.4); RED BLOOD COUNT 3.94 M/MM3 (4.50-5.90); WBC - WHITE BLOOD COUNT 8.9 T/MM3 (4.5-11.0)
[2017-02-26 05:58] LABS: ANION GAP 6 MEQ/L (5-15); BUN/CREATININE RATIO 16 RATIO (6-26); CALCIUM 7.9 MG/DL (8.4-10.2); CHLORIDE 107 MEQ/L (98-107); CO2 - CARBON DIOXIDE 23 MEQ/L (22-30); CREATININE 1.3 MG/DL (0.8-1.5); GLOMERULAR FILTRATION RATE 53; GLUCOSE 103 MG/DL (75-110); POTASSIUM 4.9 MEQ/L (3.6-5); SODIUM 136 MEQ/L (134-144)
[2017-02-26 06:42] LABS: BAND NEUTROPHILS # 0.2 T/MM3; EOSINOPHILS # (MANUAL) 0.1 T/MM3 (0-0.5); LYMPHOCYTES # (MANUAL) 1.2 T/MM3 (1-4.8); MONOCYTES # (MANUAL) 1.3 T/MM3 (0-0.8); NEUTROPHILS #(MANUAL)-ABSOLUTE 6.1 T/MM3 (1.8-7.7); TOTAL CELLS COUNTED 100 %
[2017-02-26 07:41] VITALS: BP 125/60; PULSE 62; RESP 18; TEMP 96.9; O2SAT 96
--- NOTE | 2017-02-26 07:41 | NUR ---
AM MED: NENOD POPPED UP ON PT'S EMAR AT 06:30 AM. SINCE PT MAY HAVE INGUINAL ABSCESS DRAINED THIS MORNING AND IS NPO, I WITHHELD IT AND PASSED WORD ON TO DAY SHIFT RN. DAY SHIFT RN WILL DISCUSS THIS SITUATION WITH DR. MENDOZA.
[2017-02-26 08:50] VITALS: PULSE 62; RESP 18
[2017-02-26] MEDS: PIPERACILLIN/TAZOBACTAM 3.375 G in NORMAL SALINE 100 ML IV SCH ×3 (08:57→21:33)
--- NOTE | 2017-02-26 09:11 | CONSPD ---
Consultation Info Date DATE: 02/26/17 TIME: 09:06 Date of Consultation: Feb 26, 2017 Reason for Consultation: Ingunal absess, HPI - Adult Date DATE: 02/26/17 TIME: 09:06 General Chief Complaint: left inguinal hernia/abscess History of Present Illness Per Dr. Joya Past Medical History Past Medical History Hypertension. Atrial fibrillation. History of Burgada syndrome Pacemaker / defibrillator History of bleeding ulcer-1989 Surgical History Patient's Surgical History: Left inguinal hernia repair-2000 Appendectomy Hemorrhoidectomy Colonoscopy 03-14-2007 = diverticulosis- [place] Flex Sig 10-18-2001, pt had syncopal episode and scope could not be completed-Dr. Hendrix Lumbar spine surgery 2001 [id number] Right knee scope 2008 Current Medications Home Meds Reported Medications Levofloxacin (Levaquin) 500 Mg Tablet, 500 MG PO DAILY for diverticulitis 02/25/17 Metronidazole (Metronidazole) 500 Mg Tablet, 500 MG PO TID for diverticulitis 02/25/17 Acetaminophen (Acetaminophen) 500 Mg Tablet, 1000 MG PO Q8H Y for PAIN 02/25/17 Fluticasone Propionate (Flonase Allergy Relief 50 mcg/actuation Nasal) 9.9 Ml [place].susp, 1 SPRAY EA NOSTRIL HS 02/25/17 Famotidine (Famotidine) 20 Mg Tablet, 20 MG PO DAILY 02/25/17 Dabigatran Etexilate Mesylate (Pradaxa) 150 Mg Capsule, 150 MG PO BID 02/25/17 Calcium Carbonate (Calcium) 600 Mg Tablet, 600 MG PO DAILY 02/25/17 Tamsulosin HCl (Tamsulosin HCl) 0.4 Mg Cap.er.24h, 0.4 MG PO HS 10/24/16 Magnesium Oxide (Magnesium) 400 Mg Capsule, 400 MG PO BID 12/05/15 Lovastatin (Lovastatin) 20 Mg Tablet, 20 MG PO DAILY 12/05/15 Allergies: Coded Allergies: Soap (Verified Allergy, Unknown, 12/05/15) povidone-iodine (Verified Allergy, Unknown, 12/05/15) promethazine HCl (Verified Adverse Reaction, Intermediate, HALLUCINATIONS , 12/05/15) Family History Family History: Mother-breast cancer Father lived until he was 100, and of old age. Sister-breast cancer. Brother-prostate cancer Social History Smoking Status: Former smoker Second Hand Exposure: No Quit Date: Nov 12, 1985 Substance Use Type: does not use Alcohol Intake: occasionally Marital Status: Sexuality: female partner Housing: house Household Members: spouse Current Occupational Status: employed (2 days a week), retired Advance Directives: Yes Full Code, No DPOA for Healthcare Only GS Review of Systems General REPORTS other (fatigue) Ear, Nose, and Throat REPORTS hearing problems Cardiovascular REPORTS other (pacemaker/defibrilator) Gastrointestional REPORTS other (see HPI) Musculoskeletal REPORTS back pain, REPORTS joint pain Hematologic REPORTS use of blood thinners 10-point Review of Systems otherwise negative except HPI GS Physical Exam Vital Signs Date Time Temp Pulse Resp B/P Pulse Ox O2 Delivery O2 Flow Rate FiO2 02/26/17 08:50 62 18 02/26/17 07:41 96.9 125/60 96 Room Air Height (Feet): 6 Height (Inches): 1.00 Weight (Kilograms): 89.400 BMI 26.2 Laboratory Laboratory Tests 02/25/17 12:26 02/26/17 04:31 Laboratory Tests 02/25/17 12:26 02/26/17 04:31 CARTER DAVIS APRN Feb 26, 2017 09:09
[2017-02-26] MEDS: KETOROLAC 15mg/ml INJECTION IV PRN ×2 (09:47→21:35)
[2017-02-26] MEDS ORDERED: LIDOCAINE 1% 30ml (STERI-PAK) ONE (13:07)
--- NOTE | 2017-02-26 13:13 | CONSF ---
DATE OF CONSULTATION 02/26/2017 FINDINGS Mr. Perales is an 81-year-old gentleman whom I was asked to see today as a result of his history for diverticulitis, left inguinal discomfort, recently obtained abnormal CT scan. Upon questioning Mr. Perales , he informs me that he has not felt well now for about the last three weeks. He informs me that he has noted a "general decline" in his overall health for the last several months but has been progressively "getting a lot worse" over the last three weeks. was also present during the interview process and participated in the interview process. Apparently Mr. Perales has been experiencing a component of some fever and chills over the last three weeks. He has been experiencing increasing left inguinal discomfort. This left inguinal discomfort is made worse with palpation. He denies specific increased pain with ambulation or movement. Patient states that he "feels pretty lousy this morning". He states he is experiencing a moderate amount of discomfort within the left inguinal region. Patient states that the area of involvement is "getting bigger". Apparently the patient did undergo a CT scan that revealed evidence for diverticulitis on February 21, 2017. The patient has been undergoing antibiotic therapy on an outpatient basis. Despite his attempt of managing his diverticulitis on an outpatient basis, he has continued to worsen as stated above. The patient states he has had some nausea and vomiting in association with the pain. He denies any prior bouts of diverticulitis in the past. PAST MEDICAL HISTORY Performed by my nurse practitioner, Vern Jackson. PAST SURGICAL HISTORY Performed by my nurse practitioner, Vern Jackson. It should be noted that apparently the patient did undergo a colonoscopy in 2006, about 10 years ago, which did reveal evidence for diverticulosis at that time. MEDICATIONS Performed by my nurse practitioner, Vern Jackson. ALLERGIES Performed by my nurse practitioner, Vern Jackson. SOCIAL HISTORY Performed by my nurse practitionerVern. FAMILY HISTORY Performed by my nurse practitionerVern. REVIEW OF SYSTEMS Performed by my nurse practitionerVern. PHYSICAL EXAMINATION GENERAL: Mr. Perales is an 81-year-old male who this morning did not appear to be in acute distress. VITALS: T-max 100.7. Last recorded temperature is 96.9, pulse 62, respirations 18, blood pressure 125/60, SAO2 96% on room air. HEENT: Normocephalic. Pupils are equally round and react to light and accommodation. CHEST: Clear to auscultation bilaterally. HEART: Regular rate and rhythm. Normal S1, S2, without gallops, murmurs or clicks. ABDOMEN: Visualization of the abdomen does not reveal any marked abnormalities. I do not see any evidence for significant erythema within the left inguinal region. Palpation of the abdomen itself was then undertaken. Abdomen was soft and nontender. Palpation however overlying the left inguinal region did indeed elicit a fair amount of discomfort to the patient. He did have a component of some voluntary and involuntary guarding with palpation within the left inguinal region. I did not appreciate any evidence for hepatomegaly or other abnormal masses. EXTREMITIES: Without clubbing, cyanosis, or edema. NEURO: Cranial nerves II-XII grossly intact. Patient without focal, motor, or sensory deficits. Of for HEENT: CHEST: HEART: Have extremities and neuro change ABDOMEN: ABDOMEN: LABORATORY/RADIOGRAPHIC EVALUATION Patient's white count yesterday was 10.2. Today his white count was 8.9. Hemoglobin slightly low at 11.0. BMP was obtained and found to be essentially within normal limits. BUN was slightly elevated 21.0. From a radiographic standpoint, the patient had a CT scan of his abdomen and pelvis yesterday. The patient was found to have interval increase in the size of the abscess involving the left lateral pelvic and inguinal canal region. This abscess is felt to be secondary to perforated sigmoid diverticulitis. There was felt to perhaps be some communication with the sigmoid colonic lumen. The abscess itself was about 4 cm x 4.6 cm. ASSESSMENT 81-year-old gentleman with probable bout of diverticulitis with associated abscess involving abdominal wall/left inguinal region. PLAN Radiographic-guided percutaneous drainage of left inguinal/abdominal wall abscess. Continue IV antibiotics. Serial abdominal examinations. I informed the patient that it would be my recommendation that today we do proceed as scheduled with a radiographic-guided drainage of this abscess involving the left inguinal region/anterior abdominal wall. Would recommend continued ongoing broad-spectrum antibiotics. Upon reviewing the patient's chart, he is on Zosyn 3.375 g IV q.6h. Hopefully this diverticular abscess will be able to be resolved nonoperatively with drainage and IV antibiotics. Will continue to follow along the patient's care and intervene accordingly. I informed the patient and his that there is a potential that this process may require surgical intervention if he fails to improve with medical management. If this abscess and diverticulitis are able to be managed nonoperatively, the patient will need to undergo a followup colonoscopy in 4-6 weeks' period of time. If this is able to be managed nonoperatively, will address the issue about proceeding with an elective sigmoid resection at a later date. Given the fact that he has not had prior bouts of diverticulitis, it is my first intuition that we will likely not recommend elective sigmoid resection at a delayed time if this process is able to be managed nonoperatively. ELSIE
--- NOTE | 2017-02-26 14:30 | DI ---
EXAM: US PERCUTANEOUS ABSC DRAINAGE LOCATION OF DICTATION: [place] HISTORY: ITS.REASON: left inguinal abscess COMPARISON: No prior studies available for comparison. Technique/findings: After obtaining informed consent and brief history, the patient was positioned supine on the ultrasound bed. The right lower abdomen/inguinal region was prepped and draped in normal sterile fashion. 1% lidocaine was used for local anesthesia. A small dermatotomy was made. An 8.5 Croatian catheter was advanced into the superficial abscess about the right lower abdomen. The catheter was deployed and secured in place. Approximately 15 cc of dark reddish-brown fluid was aspirated and sent for laboratory evaluation. The patient left the department in good condition. IMPRESSION: 1. Successful ultrasound-guided percutaneous abscess drainage catheter placement within the right lower abdomen. .
--- NOTE | 2017-02-26 14:52 | NUR ---
CM CM IN TO VISIT WITH PT. CM EXPLAINED ROLE AND PROVIDED CONTACT INFORMATION. PT DANY HOME NEEDS AT THIS TIME. PT AWARE TO CALL CM SHOULD NEEDS ARISE.
[2017-02-26] MEDS: CALCIUM CARBONATE 600 MG TABLET PO SCH (15:32)
[2017-02-26] MEDS: FAMOTIDINE 20 MG TABLET PO SCH (15:32)
[2017-02-26 16:00] VITALS: BP 140/66; PULSE 64; RESP 16; TEMP 97.3; O2SAT 98
[2017-02-26] MEDS: LOVASTATIN 20 MG TABLET PO SCH (17:45)
--- NOTE | 2017-02-26 18:16 | PNPDOC ---
Subjective Date DATE: 02/26/17 TIME: 18:08 Subjective Patient seen and examined. Chart notes and labs radiographs and consults all reviewed. Patient is back from interventional radiology where pigtail catheter drain was placed in the left lower abdomen. The radiology procedure report indicates right lower quadrant, but this was actually placed in the left lower quadrant. His and daughter at the bedside. Questions answered. He is feeling better at this time and is actually hungry. His only pain is at the surgical site. Location: abdomen Quality: acute, chronic Duration: other (worsening over 2-3 months) Associated Symptoms: abdominal pain, shortness of breath Objective Vital Signs Vital signs Vital Signs 02/26/17 02/26/17 02/26/17 07:41 08:50 16:00 Temp 96.9 97.3 Pulse 62 62 64 Resp 18 18 16 B/P 125/60 140/66 Pulse Ox 96 98 O2 Delivery Room Air Room Air Telemetry Rhythm: Sinus Rhythm Height (Feet): 6 Height (Inches): 1.00 Weight (Kilograms): 89.400 General General Appearance: Alert, Orientated x 3, Cooperative, No Acute Distress Eyes (Brief) Eyes: FOUND: EOMI, PERRL, NOT FOUND: scleral icterus Neck (Brief) Neck Brief: NOT FOUND: JVD, adenopathy, carotid bruits, thyromegaly Respiratory (Brief) Respiratory Brief: FOUND: clear all tucker, equal bilaterally, NOT FOUND: rales , wheezes Cardiovascular (Brief) Cardiac: FOUND: regular rate, regular rhythm, NOT FOUND: gallop, murmur, pedal edema Abdomen (Brief) Abdominal: FOUND: soft, tender (left lower quadrant with pigtail catheter drain placed), NOT FOUND: distended, hepatosplenomegaly Extremities (Brief) Extremity : Side: Bilateral Extremity Finding: NOT FOUND: edema, pain Lymphatic (Brief) Lymphatic Brief: FOUND: adenopathy (left inguinal), NOT FOUND: lymphedema Musculoskeletal (Brief) Musculoskeletal Brief: NOT FOUND: deformity, loss of motion, spasm, tenderness Integumentary (Brief) Integumentary: FOUND: dry, pink, warm, NOT FOUND: rash Neurologic (Brief) Neurologic: FOUND: cranial 2-12 intact, motor, sensory Psychiatric (Brief) Psychiatric: FOUND: alert, attentive, normal affect, oriented Laboratory Laboratory Laboratory Tests 02/26/17 04:31 Laboratory Tests 02/26/17 04:31 Microbiology Microbiology Microbiology Date/Time Source Procedure Growth Status 02/26/17 13:47 Abscess Gram Stain - Final Resulted 02/26/17 13:47 Abscess - Preliminary CULTURE INITIATED - RESULTS PENDING Resulted Radiology CT of the abdomen and procedure note of the pigtail catheter placed in the left lower quadrant reviewed Sepsis Diagnostic Criteria Sepsis Confirmed/Suspected Infection: Yes SIRS Criteria: Temp<=96.8 or >=100.4, RR > or = to 20 Severe Sepsis None Seen Assessment & Plan Problems: (1) Inguinal abscess Status: Acute (2) Diverticulitis Status: Acute Qualifiers: Diverticulitis site: large intestine Diverticulitis complication: with abscess Assessment & Plan: Pigtail catheter drain placed (3) Chronic anticoagulation Status: Chronic Assessment & Plan: Pradaxa chronically (4) Pacemaker Status: Chronic (5) Hyperlipidemia Status: Chronic (6) Essential hypertension Status: Chronic (7) 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 We discussed and formulated the assessment and plan as above with the additions below.-Dr. Worthy The patient states he is having some mild increased pain in his left groin at this time but states that is better than when he went to the emergency room initially. He has had some nausea and vomiting but feels hungry now. He has had some chills but no fevers that he is aware of. He denies any chest pains or palpitations. He has had some progressive shortness of breath over the past 6 months. He had some diarrhea yesterday but that has resolved. He denies any hematemesis or red blood in his stools. He states his stools are dark because of iron. On exam he is alert and oriented and in no acute distress. Chest is clear to auscultation. Cardiovascular reveals a regular rate and rhythm with a 2/6 systolic murmur. Abdomen is soft and nontender. He does have a firm area about the size of a tennis ball in his left lower quadrant without any overlying erythema. Patient states this is the area where he has had the abscess. Extremities are free of clubbing cyanosis or edema. Skin is warm and dry and without rashes. Lab work was reviewed. CT was reviewed. I did call and discuss the above findings with Dr. Mendoaz. He agrees with keeping the patient nothing by mouth and holding pradaxa. He is considering a second surgical opinion prior to CT-guided drainage. We will therefore hold off on ordering the CT-guided drainage at this time. Plan/Intensity of Service Admit patient to outpatient observation under the care of Dr. Worthy for inguinal abscess. ER Provider spoke with Lyle Seth- radiologist. Will plan for ultrasound-guided percutaneous drain tomorrow, Sunday02/26/17. Patient last took Pradaxa this morning 02/25/17. We will place this on hold now for scheduled procedure. He has been on Levaquin and Flagyl for antimicrobial coverage. Will switch to IV Zosyn for ongoing coverage. Will be able follow abscess cultures for further C/S. No evidence of sepsis currently. Normal saline at 100ml/hr for gentle hydration overnight. He may have regular diet now and NPO at midnight for planned procedure tomorrow SCDs to bilateral lower ext for DVT prophylaxis Up in room with assistance Will recheck CBC and BMP tomorrow morning to follow blood counts, renal function and electrolytes. Again he requests to be a Full Code and this order is written Will discuss further orders with attending, Dr Worthy Care will be turned over to PCP tomorrow morning- Dr Mendoza. Code Status Full Code Hospital Course Summary Disclaimer The hospital course summary below is not to be considered part of the above Progress Note. Hospital Course Summary Admit patient to outpatient observation under the care of Dr. Worthy for inguinal abscess. ER Provider spoke with Lyle Seth- alba. Will plan for ultrasound-guided percutaneous drain tomorrow, Sunday02/26/17. Patient last took Pradaxa this morning 02/25/17. We will place this on hold now for scheduled procedure. He has been on Levaquin and Flagyl for antimicrobial coverage. Will switch to IV Zosyn for ongoing coverage. Will be able follow abscess cultures for further C/S. No evidence of sepsis currently. Normal saline at 100ml/hr for gentle hydration overnight. He may have regular diet now and NPO at midnight for planned procedure tomorrow SCDs to bilateral lower ext for DVT prophylaxis Up in room with assistance Will recheck CBC and BMP tomorrow morning to follow blood counts, renal function and electrolytes. Again he requests to be a Full Code and this order is written Will discuss further orders with attending, Dr Worthy Care will be turned over to PCP tomorrow morning- Dr Mendoza. 02/26/2017: Patient is back from radiology where pigtail catheter drain was placed in the left lower quadrant. He is feeling better at this time. Surgical consultation appreciated. White count remains normal. He is on Zosyn. ELLIOT MENDOZA DO Feb 26, 2017 18:11
--- NOTE | 2017-02-26 19:40 | NUR ---
SHIFT SUMMARY PT IS PLEASANT AND COOPERATIVE. PT IS ALERT AND ORIENTED X3. PT HAD ULTRASOUND GUIDED PERCUTANEOUS DRAINAGE OF ABSCESS. PLACEMENT OF PATRICK DRAINAGE. PATRICK DRAINAGE IS SEROSANGUINEOUS. PT REPORTED ABDOMINAL PAIN AND TORADOL WAS GIVEN SEE EMAR. PT USES HIS URINAL. IV IS INFUSING ORDER THROUGH RIGHT AC.
[2017-02-26 20:00] VITALS: PULSE 64; RESP 20
[2017-02-26] MEDS: TAMSULOSIN 0.4 MG CAPSULE PO SCH (21:34)
[2017-02-26] MEDS: FLUTICASONE NASAL SPRAY 50 MCG EA NOSTRIL SCH (21:36)
[2017-02-27] VITALS (7 sets, daily range): BP systolic 139–144; BP diastolic 66–77; PULSE 64–81; RESP 17–22; TEMP 97.2–100.4; O2SAT 93–98
[2017-02-27] MEDS: PIPERACILLIN/TAZOBACTAM 3.375 G in NORMAL SALINE 100 ML IV SCH ×4 (02:56→23:01)
--- NOTE | 2017-02-27 06:44 | NUR ---
SHIFT SUMMARY: Pleasant and cooperative. PATRICK drain to left inguinal area secured with stat lock. Has experienced pain in the area of excised absess and drain. TORADOL 15 mg. given IV at 2200. Effective. Sleeps okay during the night. Uses call light after use of urinal. Takes clear liquids well. NS infuses at 100 cc/hr.
[2017-02-27] MEDS: CALCIUM CARBONATE 600 MG TABLET PO SCH (07:49)
[2017-02-27] MEDS: FAMOTIDINE 20 MG TABLET PO SCH (07:49)
[2017-02-27 09:37] LABS: HCT - HEMATOCRIT 37.2 % (41-53); HGB - HEMOGLOBIN 11.8 GM/DL (13.5-17.5); MEAN CORPUSCULAR HGB 27.4 UUG (26-34); MEAN CORPUSCULAR HGB CONC(MCHC 31.7 GM/DL (31-37); MEAN CORPUSCULAR VOLUME 86.5 UM3 (80-100); MEAN PLATELET VOLUME 9.2 UM3 (9.4-12.4); WBC - WHITE BLOOD COUNT 6.6 T/MM3 (4.5-11.0)
[2017-02-27] MEDS: NORMAL SALINE 1,000 ML IV SCH ×2 (09:45→15:17)
[2017-02-27 09:46] LABS: ALBUMIN 2.8 G/DL (3.5-5.0); ALBUMIN/GLOBULIN RATIO 0.9 RATIO (1.1-2.2); ALKALINE PHOSPHATASE 203 U/L (38-126); ALT (SGPT) 42 U/L (21-72); ANION GAP 9 MEQ/L (5-15); AST (SGOT) 58 U/L (17-59); BUN/CREATININE RATIO 11 RATIO (6-26); CHLORIDE 110 MEQ/L (98-107); CO2 - CARBON DIOXIDE 21 MEQ/L (22-30); CREATININE 1.2 MG/DL (0.8-1.5); GLOMERULAR FILTRATION RATE 58; GLUCOSE 106 MG/DL (75-110); POTASSIUM 4.6 MEQ/L (3.6-5); SODIUM 140 MEQ/L (134-144)
[2017-02-27 09:57] LABS: EOSINOPHILS # (MANUAL) 0.3 T/MM3 (0-0.5); LYMPHOCYTES # (MANUAL) 0.7 T/MM3 (1-4.8); MONOCYTES # (MANUAL) 0.7 T/MM3 (0-0.8); TOTAL CELLS COUNTED 100 %
--- NOTE | 2017-02-27 11:15 | NUR ---
HAKAN CM VISITED PT. CM EXPLAINED ROLE AND PROVIDED CONTACT INFORMATION. PT PLANS TO RETURN HOME AT TIME OF D/C FROM [facility]. PT DENIES NEEDS AT THIS TIME. PT IS AWARE TO CONTACT CM IF NEEDS [facility].
--- NOTE | 2017-02-27 14:04 | PNF ---
DATE 02/27/2017 FINDINGS Mr. Perales today states that he is experiencing less discomfort within the left inguinal region. He states he believes the swelling has also subsided within the left inguinal region. VITALS: Temperature - afebrile, normotensive. Current vitals include temperature 97.3, pulse 69, respirations 22, blood pressure 139/69, SaO2 93% on room air. HEENT: Normocephalic. Pupils are equal, round and reactive to light and accommodation. CHEST: Clear to auscultation bilaterally. HEART: Regular rate and rhythm. Normal S1 and S2 without gallops, murmurs or clicks. ABDOMEN: Abdomen soft. Palpation of the abdomen reveals it to be soft and nontender. Attention was focused to the left inguinal region. There does appear to be less swelling noted within the left inguinal region. There is no evidence of erythema. There is a drain exiting from the inguinal region. Patient informs me that the drain was emptied earlier this morning. One can see some purulent material within the drain itself. ASSESSMENT 81-year-old gentleman with left inguinal abscess most likely secondary to ruptured diverticulitis. Patient doing well from clinical standpoint. PLAN I did review the patient's chart. His white count continues on a downward trend and is 6.6 today. A CMP was obtained and found to be essentially within normal limits. Alk phos was slightly elevated at 203. Chloride was slightly elevated at 110. Initial culture from the aspiration yesterday did not reveal any growth. Gram stain does reveal gram-positive cocci and gram-negative rods. Many white blood cells were noted consistent with purulent material, consistent with drainage of an abscess. Overall I am pleased with the patient's progress at this time. Would recommend that we continue with broad-spectrum antibiotics at this time and continue to follow the patient from a clinical standpoint. Hopefully, this process will resolve with the percutaneous drainage and ongoing broad-spectrum intravenous antibiotics. ELSIE
[2017-02-27] MEDS: ACETAMINOPHEN 500 MG TABLET PO PRN (15:16)
--- NOTE | 2017-02-27 17:15 | PNPDOC ---
Subjective Date DATE: 02/27/17 TIME: 17:11 Subjective Patient was seen and examined in his room. Family at the bedside. I did discuss his morning lab findings as well as the initial Gram stain of the abscess drainage. I will continue him on Zosyn at this time. He indicates that his left lower quadrant abdominal pain has somewhat less than yesterday. He does have pain at the surgical site but otherwise normal. He denies any fevers, chills, night sweats, chills or rigors. He has a good appetite. Location: abdomen Quality: acute, chronic Duration: other (worsening over 2-3 months) Associated Symptoms: abdominal pain, shortness of breath Objective Vital Signs Vital signs Vital Signs 02/27/17 02/27/17 02/27/17 02/27/17 07:38 08:00 09:27 15:10 Temp 97.3 100.4 Pulse 69 69 69 81 Resp 22 17 22 22 B/P 139/69 144/77 Pulse Ox 93 93 96 O2 Delivery Room Air Room Air Room Air 02/27/17 16:48 Temp 97.2 Telemetry Rhythm: Sinus Rhythm Height (Feet): 6 Height (Inches): 1.00 Weight (Kilograms): 91.200 General General Appearance: Alert, Orientated x 3, Well Developed, Cooperative, No Acute Distress Eyes (Brief) Eyes: FOUND: EOMI, PERRL, NOT FOUND: scleral icterus Neck (Brief) Neck Brief: NOT FOUND: JVD, adenopathy, carotid bruits, thyromegaly Respiratory (Brief) Respiratory Brief: FOUND: clear all tucker, equal bilaterally, NOT FOUND: rales , wheezes Cardiovascular (Brief) Cardiac: FOUND: regular rate, regular rhythm, NOT FOUND: gallop, murmur, pedal edema Abdomen (Brief) Abdominal: FOUND: BS normo active x4, soft, tender (left lower quadrant at the surgical site), NOT FOUND: distended, hepatosplenomegaly Extremities (Brief) Extremity : Extremity Finding: NOT FOUND: edema, pain Lymphatic (Brief) Lymphatic Brief: NOT FOUND: adenopathy, lymphedema Musculoskeletal (Brief) Musculoskeletal Brief: NOT FOUND: deformity, loss of motion, spasm, tenderness Integumentary (Brief) Integumentary: FOUND: dry, pink, warm, NOT FOUND: rash Neurologic (Brief) Neurologic: FOUND: cranial 2-12 intact, motor, sensory Psychiatric (Brief) Psychiatric: FOUND: alert, attentive, normal affect, oriented Laboratory Laboratory Laboratory Tests 02/27/17 08:50 Laboratory Tests 02/27/17 08:50 Microbiology Microbiology Microbiology Date/Time Source Procedure Growth Status 02/26/17 13:47 Abscess Gram Stain - Final Resulted 02/26/17 13:47 Abscess - Preliminary No growth Resulted Sepsis Diagnostic Criteria Sepsis Confirmed/Suspected Infection: Yes SIRS Criteria: Temp<=96.8 or >=100.4, RR > or = to 20 Severe Sepsis None Seen Assessment & Plan Problems: (1) Inguinal abscess Status: Acute Assessment & Plan: Patient appears to be improving with abscess drain and antibiotics (2) Diverticulitis Status: Acute Qualifiers: Diverticulitis site: large intestine Diverticulitis complication: with abscess Assessment & Plan: Pigtail catheter drain placed (3) Chronic anticoagulation Status: Chronic Assessment & Plan: Pradaxa chronically (4) Pacemaker Status: Chronic (5) Hyperlipidemia Status: Chronic (6) Essential hypertension Status: Chronic (7) 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 We discussed and formulated the assessment and plan as above with the additions below.-Dr. Worthy The patient states he is having some mild increased pain in his left groin at this time but states that is better than when he went to the emergency room initially. He has had some nausea and vomiting but feels hungry now. He has had some chills but no fevers that he is aware of. He denies any chest pains or palpitations. He has had some progressive shortness of breath over the past 6 months. He had some diarrhea yesterday but that has resolved. He denies any hematemesis or red blood in his stools. He states his stools are dark because of iron. On exam he is alert and oriented and in no acute distress. Chest is clear to auscultation. Cardiovascular reveals a regular rate and rhythm with a 2/6 systolic murmur. Abdomen is soft and nontender. He does have a firm area about the size of a tennis ball in his left lower quadrant without any overlying erythema. Patient states this is the area where he has had the abscess. Extremities are free of clubbing cyanosis or edema. Skin is warm and dry and without rashes. Lab work was reviewed. CT was reviewed. I did call and discuss the above findings with Dr. Mendoza. He agrees with keeping the patient nothing by mouth and holding pradaxa. He is considering a second surgical opinion prior to CT-guided drainage. We will therefore hold off on ordering the CT-guided drainage at this time. Plan/Intensity of Service Admit patient to outpatient observation under the care of Dr. Worthy for inguinal abscess. ER Provider spoke with Lyle Seth- radiologist. Will plan for ultrasound-guided percutaneous drain tomorrow, Sunday02/26/17. Patient last took Pradaxa this morning 02/25/17. We will place this on hold now for scheduled procedure. He has been on Levaquin and Flagyl for antimicrobial coverage. Will switch to IV Zosyn for ongoing coverage. Will be able follow abscess cultures for further C/S. No evidence of sepsis currently. Normal saline at 100ml/hr for gentle hydration overnight. He may have regular diet now and NPO at midnight for planned procedure tomorrow SCDs to bilateral lower ext for DVT prophylaxis Up in room with assistance Will recheck CBC and BMP tomorrow morning to follow blood counts, renal function and electrolytes. Again he requests to be a Full Code and this order is written Will discuss further orders with attending, Dr Worthy Care will be turned over to PCP tomorrow morning- Dr Mendoza. Code Status Full Code Hospital Course Summary Disclaimer The hospital course summary below is not to be considered part of the above Progress Note. Hospital Course Summary Admit patient to outpatient observation under the care of Dr. Worthy for inguinal abscess. ER Provider spoke with Lyle Seth- radiologist. Will plan for ultrasound-guided percutaneous drain tomorrow, Sunday02/26/17. Patient last took Pradaxa this morning 02/25/17. We will place this on hold now for scheduled procedure. He has been on Levaquin and Flagyl for antimicrobial coverage. Will switch to IV Zosyn for ongoing coverage. Will be able follow abscess cultures for further C/S. No evidence of sepsis currently. Normal saline at 100ml/hr for gentle hydration overnight. He may have regular diet now and NPO at midnight for planned procedure tomorrow SCDs to bilateral lower ext for DVT prophylaxis Up in room with assistance Will recheck CBC and BMP tomorrow morning to follow blood counts, renal function and electrolytes. Again he requests to be a Full Code and this order is written Will discuss further orders with attending, Dr Worthy Care will be turned over to PCP tomorrow morning- Dr Mendoza. 02/26/2017: Patient is back from radiology where pigtail catheter drain was placed in the left lower quadrant. He is feeling better at this time. Surgical consultation appreciated. White count remains normal. He is on Zosyn. ELLIOT MENDOZA DO Feb 27, 2017 17:14
[2017-02-27] MEDS: LOVASTATIN 20 MG TABLET PO SCH (17:23)
--- NOTE | 2017-02-27 18:48 | NUR ---
UPDATE PT IS A&OX3, HAS BEEN COOPERATIVE TODAY, DID HAVE A TEMPERATURE DURING THE AFTERNOON AND WAS GIVEN 1000MG OF TYLENOL TO TREAT IT, PT NO LONGER HAS A FEVER. PT WAS ENCOURAGED TO AMBULATE BEFORE DINNER ORDERED BY PHYSICIAN, PT WOULD LIKE TO SO AFTER DINNER TODAY. PT HAS NOT COMPLAINED OF PAIN TODAY, JUST TENDERNESS TO [facility] WHERE PATRICK IS LOCATED.
[2017-02-27] MEDS: KETOROLAC 15mg/ml INJECTION IV PRN (20:45)
[2017-02-27] MEDS: FLUTICASONE NASAL SPRAY 50 MCG EA NOSTRIL SCH (22:00)
[2017-02-27] MEDS: TAMSULOSIN 0.4 MG CAPSULE PO SCH (23:01)
[2017-02-28] VITALS: BP 152/69; PULSE 67; RESP 18; TEMP 97.3; O2SAT 96
[2017-02-28] MEDS: PIPERACILLIN/TAZOBACTAM 3.375 G in NORMAL SALINE 100 ML IV SCH ×4 (03:00→21:40)
[2017-02-28] MEDS: NORMAL SALINE 1,000 ML IV SCH ×2 (03:00→15:23)
[2017-02-28] MEDS: KETOROLAC 15mg/ml INJECTION IV PRN ×2 (04:16→13:50)
[2017-02-28] MEDS: ACETAMINOPHEN 500 MG TABLET PO PRN ×2 (04:16→20:06)
[2017-02-28 05:27] LABS: HCT - HEMATOCRIT 34.5 % (41-53); HGB - HEMOGLOBIN 10.9 GM/DL (13.5-17.5); MEAN CORPUSCULAR HGB 27.2 UUG (26-34); MEAN CORPUSCULAR HGB CONC(MCHC 31.6 GM/DL (31-37); MEAN PLATELET VOLUME 9.1 UM3 (9.4-12.4); RED BLOOD COUNT 4.01 M/MM3 (4.50-5.90); WBC - WHITE BLOOD COUNT 8.4 T/MM3 (4.5-11.0)
[2017-02-28 05:44] LABS: ALBUMIN 2.6 G/DL (3.5-5.0); ALBUMIN/GLOBULIN RATIO 0.8 RATIO (1.1-2.2); ALKALINE PHOSPHATASE 206 U/L (38-126); ALT (SGPT) 46 U/L (21-72); ANION GAP 7 MEQ/L (5-15); AST (SGOT) 58 U/L (17-59); BUN/CREATININE RATIO 12 RATIO (6-26); CALCIUM 7.7 MG/DL (8.4-10.2); CHLORIDE 108 MEQ/L (98-107); CO2 - CARBON DIOXIDE 22 MEQ/L (22-30); CREATININE 1.1 MG/DL (0.8-1.5); GLOMERULAR FILTRATION RATE 64; GLUCOSE 102 MG/DL (75-110); POTASSIUM 4.3 MEQ/L (3.6-5); SODIUM 137 MEQ/L (134-144); TOTAL PROTEIN 5.7 G/DL (6.3-8.2)
[2017-02-28] MEDS: FAMOTIDINE 20 MG TABLET PO SCH (06:30)
[2017-02-28 06:43] LABS: BAND NEUTROPHILS # 0.3 T/MM3; BASOPHILS # (MANUAL) 0.1 T/MM3 (0-0.2); EOSINOPHILS # (MANUAL) 0.1 T/MM3 (0-0.5); LYMPHOCYTES # (MANUAL) 1.8 T/MM3 (1-4.8); MONOCYTES # (MANUAL) 0.9 T/MM3 (0-0.8); NEUTROPHILS #(MANUAL)-ABSOLUTE 5.3 T/MM3 (1.8-7.7); TOTAL CELLS COUNTED 100 %
[2017-02-28 07:28] VITALS: BP 130/66; PULSE 66; RESP 24; TEMP 96.1; O2SAT 66
--- NOTE | 2017-02-28 07:38 | NUR ---
SHIFT SUMMARY PT ALERT AND ORIENTED X 3. WALKED IN THE CARDOSO BEFORE BED. PT STATES IT FELT GOOD TO WALK. NO TEMP THROUGH THE NIGHT. TYLENOL 500 MG X 2 TABS GIVEN FOR PAIN. TORADOL 15 MG IVP GIVEN X 2 FOR [facility] PAIN. PT STATES THE PATRICK DRAIN IS PAINFUL. 15 ML OF BLOODY DRAINAGE OUT OF PATRICK AT 2300.
[2017-02-28] MEDS: CALCIUM CARBONATE 600 MG TABLET PO SCH (09:24)
--- NOTE | 2017-02-28 13:10 | PNF ---
DATE 02/28/2017 FINDINGS Mr. Perales is sitting upright on the side of the bed this morning eating a regular breakfast. He states he is feeling significantly better. OBJECTIVE VITALS: The patient did have low grade temperature last night of 100.4. This morning he is afebrile at 96.1. Pulse 66, respirations 24, blood pressure 130/66, SaO2 was stated at 66% although earlier it was 96%. I do believe this is a typo for he did not appear to be in acute distress on rounds. CHEST: Clear to auscultation bilaterally. HEART: Regular rate and rhythm. Normal S1, S2, without gallops, murmurs or clicks. ABDOMEN: Abdomen soft, completely nontender. Attention was focused to the left inguinal region. A drain is present within the left inguinal region. There is some brown purulent-like material within the catheter itself. There is only about perhaps 10-15 mL within the bulb suction. Palpation within the inguinal region did not reveal any significant tenderness to the patient. LABORATORY/RADIOGRAPHIC EVALUATION The patient had a CBC today and his white count remained stable at 8.4. Hemoglobin is overall stable at 10.9. The patient did not have a left shift. CMP obtained and reviewed. CMP essentially within normal limits. Alkaline phosphatase slightly elevated at 206. ASSESSMENT 81-year-old gentleman with probable diverticulitis with pericolonic abscess extending into left inguinal region. Status post percutaneous drainage of abscess. Patient doing well from a clinical standpoint. PLAN I did review the microbiology and cultures are still pending. As stated yesterday, he was found have gram-negative rods and gram positive cocci. It would be my thought that once we do have some culture and sensitivity results that we could place him on the appropriate oral antibiotics and discharge him to home with some additional oral antibiotics over the course of the next 10-14 days. I would leave the drain in over this course of period time. In perhaps two weeks or so, would recommend repeating CT scan to document resolution of this pericolonic inflammation and abscess. Will continue with broad-spectrum antibiotics today and hopefully tomorrow will have some culture results and will proceed accordingly. I would like to see the patient afebrile as well over a 24 hours period of time before discharge. ELSIE
[2017-02-28 15:04] VITALS: BP 145/71; PULSE 73; RESP 20; TEMP 98.8; O2SAT 95
[2017-02-28] MEDS: LOVASTATIN 20 MG TABLET PO SCH (17:40)
--- NOTE | 2017-02-28 17:55 | NUR ---
Shift Summary Patient alert and oriented x3. VSS. On RA. Patient up ad valeria in room. Patient walked in the halls with daughter this evening. IV infusing as ordered through right AC IV. Patient has had adequate urine output using urinal today, no BM. No c/o n/v/d. Patient c/o pain this afternoon around incision site for drain. Toradol given, see eMar. Drain was cleaned at incision site today and tegaderm dressing placed over site. 5ml of brown drainage removed from drain today.
--- NOTE | 2017-02-28 19:15 | PNPDOC ---
Subjective Date DATE: 02/28/17 TIME: 19:08 Subjective Patient seen and examined in his room. He did walk twice today. His pain is well controlled. He had all of his dinner with very mild nausea but no vomiting. His temperature climb briefly over 100 last night but is back down. His white count improves every day. I did review Dr. Joya surgical note and that was appreciated. Location: abdomen Quality: acute, chronic Duration: other (worsening over 2-3 months) Associated Symptoms: abdominal pain Objective Vital Signs Vital signs Vital Signs 02/28/17 02/28/17 07:28 15:04 Temp 96.1 98.8 Pulse 66 73 Resp 24 20 B/P 130/66 145/71 Pulse Ox 66 95 O2 Delivery Room Air Room Air Telemetry Rhythm: Sinus Rhythm Height (Feet): 6 Height (Inches): 1.00 Weight (Kilograms): 91.800 General General Appearance: Alert, Orientated x 3, Cooperative, No Acute Distress Eyes (Brief) Eyes: FOUND: EOMI, PERRL, NOT FOUND: scleral icterus Neck (Brief) Neck Brief: NOT FOUND: JVD, adenopathy, carotid bruits, thyromegaly Respiratory (Brief) Respiratory Brief: FOUND: clear all tucker, equal bilaterally, NOT FOUND: rales , wheezes Cardiovascular (Brief) Cardiac: FOUND: regular rate, regular rhythm, NOT FOUND: gallop, murmur, pedal edema Abdomen (Brief) Abdominal: FOUND: BS normo active x4, soft, tender (in the left lower quadrant at the surgical site), NOT FOUND: distended, hepatosplenomegaly Comments There is minimal drainage today with some brownish material as well as dark blood Extremities (Brief) Extremity : Extremity Finding: NOT FOUND: edema, pain Lymphatic (Brief) Lymphatic Brief: NOT FOUND: adenopathy, lymphedema Musculoskeletal (Brief) Musculoskeletal Brief: FOUND: extremities move equally, NOT FOUND: deformity, loss of motion, spasm, tenderness Integumentary (Brief) Integumentary: FOUND: dry, pink, warm, NOT FOUND: rash Comments Surgical site looks good without evidence of infection Psychiatric (Brief) Psychiatric: FOUND: alert, attentive, normal affect, oriented Laboratory Laboratory Laboratory Tests 02/28/17 04:28 Laboratory Tests 02/28/17 04:28 Microbiology Microbiology Microbiology Date/Time Source Procedure Growth Status 02/26/17 13:47 Abscess Gram Stain - Final Resulted 02/26/17 13:47 - Preliminary Gram Negative Noel Resulted Sepsis Diagnostic Criteria Sepsis Confirmed/Suspected Infection: Yes SIRS Criteria: Temp<=96.8 or >=100.4, RR > or = to 20 Severe Sepsis None Seen Assessment & Plan Problems: (1) Inguinal abscess Status: Acute Assessment & Plan: Patient appears to be improving with abscess drain and antibiotics (2) Diverticulitis Status: Acute Qualifiers: Diverticulitis site: large intestine Diverticulitis complication: with abscess Assessment & Plan: Pigtail catheter drain placed (3) Chronic anticoagulation Status: Chronic Assessment & Plan: Pradaxa chronically (4) Pacemaker Status: Chronic (5) Hyperlipidemia Status: Chronic (6) Essential hypertension Status: Chronic (7) 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 We discussed and formulated the assessment and plan as above with the additions below.-Dr. Worthy The patient states he is having some mild increased pain in his left groin at this time but states that is better than when he went to the emergency room initially. He has had some nausea and vomiting but feels hungry now. He has had some chills but no fevers that he is aware of. He denies any chest pains or palpitations. He has had some progressive shortness of breath over the past 6 months. He had some diarrhea yesterday but that has resolved. He denies any hematemesis or red blood in his stools. He states his stools are dark because of iron. On exam he is alert and oriented and in no acute distress. Chest is clear to auscultation. Cardiovascular reveals a regular rate and rhythm with a 2/6 systolic murmur. Abdomen is soft and nontender. He does have a firm area about the size of a tennis ball in his left lower quadrant without any overlying erythema. Patient states this is the area where he has had the abscess. Extremities are free of clubbing cyanosis or edema. Skin is warm and dry and without rashes. Lab work was reviewed. CT was reviewed. I did call and discuss the above findings with Dr. Mendoza. He agrees with keeping the patient nothing by mouth and holding pradaxa. He is considering a second surgical opinion prior to CT-guided drainage. We will therefore hold off on ordering the CT-guided drainage at this time. Plan/Intensity of Service Admit patient to outpatient observation under the care of Dr. Worthy for inguinal abscess. ER Provider spoke with Lyle Seth- radiologist. Will plan for ultrasound-guided percutaneous drain tomorrow, Sunday02/26/17. Patient last took Pradaxa this morning 02/25/17. We will place this on hold now for scheduled procedure. He has been on Levaquin and Flagyl for antimicrobial coverage. Will switch to IV Zosyn for ongoing coverage. Will be able follow abscess cultures for further C/S. No evidence of sepsis currently. Normal saline at 100ml/hr for gentle hydration overnight. He may have regular diet now and NPO at midnight for planned procedure tomorrow SCDs to bilateral lower ext for DVT prophylaxis Up in room with assistance Will recheck CBC and BMP tomorrow morning to follow blood counts, renal function and electrolytes. Again he requests to be a Full Code and this order is written Will discuss further orders with attending, Dr Worthy Care will be turned over to PCP tomorrow morning- Dr Mendoza. Code Status Full Code Hospital Course Summary Disclaimer The hospital course summary below is not to be considered part of the above Progress Note. Hospital Course Summary Admit patient to outpatient observation under the care of Dr. Worthy for inguinal abscess. ER Provider spoke with Lyle Seth- radiologist. Will plan for ultrasound-guided percutaneous drain tomorrow, Sunday02/26/17. Patient last took Pradaxa this morning 02/25/17. We will place this on hold now for scheduled procedure. He has been on Levaquin and Flagyl for antimicrobial coverage. Will switch to IV Zosyn for ongoing coverage. Will be able follow abscess cultures for further C/S. No evidence of sepsis currently. Normal saline at 100ml/hr for gentle hydration overnight. He may have regular diet now and NPO at midnight for planned procedure tomorrow SCDs to bilateral lower ext for DVT prophylaxis Up in room with assistance Will recheck CBC and BMP tomorrow morning to follow blood counts, renal function and electrolytes. Again he requests to be a Full Code and this order is written Will discuss further orders with attending, Dr Worthy Care will be turned over to PCP tomorrow morning- Dr Mendoza. 02/26/2017: Patient is back from radiology where pigtail catheter drain was placed in the left lower quadrant. He is feeling better at this time. Surgical consultation appreciated. White count remains normal. He is on Zosyn. 02/28/2017: Darvin continues to improve. He does have minimal nausea this evening after supper. His surgical site appears to be without infection. He has minimal brownish material with dark blood in his drain. Should he continue to improve without relapse of fever or an elevation in his white count, I anticipate him going home soon. He would continue with the drain as an outpatient. He would then follow up with myself as well as Dr. Joya as an outpatient final culture and sensitivity is still pending. Gram-negative noel as grown but has yet to be identified along with sensitivity. This would determine his outpatient oral antibiotics. ELLIOT MENDOZA DO Feb 28, 2017 19:12
[2017-02-28 21:30] VITALS: TEMP 99.9
[2017-02-28] MEDS: FLUTICASONE NASAL SPRAY 50 MCG EA NOSTRIL SCH (21:40)
[2017-02-28] MEDS: TAMSULOSIN 0.4 MG CAPSULE PO SCH (21:40)
[2017-03-01 00:45] VITALS: BP 138/66; PULSE 65; RESP 18; TEMP 97.6; O2SAT 95
[2017-03-01] MEDS: NORMAL SALINE 1,000 ML IV SCH ×2 (02:17→14:15)
[2017-03-01] MEDS: PIPERACILLIN/TAZOBACTAM 3.375 G in NORMAL SALINE 100 ML IV SCH ×2 (02:17→07:53)
--- NOTE | 2017-03-01 05:47 | NUR ---
SUMMARY PT ALERT AND ORIENTED. DENIES PAIN AT THIS TIME. PATRICK DRAIN WITH MINIMAL DRAINAGE. DRESSING WITH A LITTLE SEROSANGUINEOUS DRAINAGE. VSS. IV IN THE RT AC RUNNING NS AT 100 MLS/HR. PT SLEPT WELL THIS SHIFT.
[2017-03-01] MEDS: FAMOTIDINE 20 MG TABLET PO SCH (07:00)
[2017-03-01] MEDS: ACETAMINOPHEN 500 MG TABLET PO PRN (07:00)
[2017-03-01] MEDS: CALCIUM CARBONATE 600 MG TABLET PO SCH (07:53)
[2017-03-01 09:40] VITALS: BP 128/66; PULSE 84; RESP 18; TEMP 97.5; O2SAT 95
[2017-03-01] MEDS ORDERED: LEVOFLOXACIN 500 MG TABLET PO ONE (13:45)
--- NOTE | 2017-03-01 14:13 | NUR ---
[facility] Student nurse documentation reviewed by this community health nursing director.
[2017-03-01] MEDS ORDERED: RANITIDINE 150 MG TABLET PO ONE (14:15)
[2017-03-01] MEDS: KETOROLAC 15mg/ml INJECTION IV PRN (15:18)
[2017-03-01 15:22] VITALS: BP 172/73; PULSE 82; RESP 18; TEMP 97.8; O2SAT 97
--- NOTE | 2017-03-01 16:32 | PNF ---
DATE OF SERVICE 03/01/17 FINDINGS Mr. Perales was in good spirits today. Denies any element of abdominal pain. He informs me that he is "ready to go home." EXAM VITAL SIGNS: Afebrile, normotensive. Current vitals include temperature 97.5, pulse 84, respirations 18. HEENT: Normocephalic. Pupils are equally round and react to light and accommodation. CHEST: Clear to auscultation bilaterally. HEART: Regular rate and rhythm. Normal S1 and S2 without gallops, murmurs or clicks. ABDOMEN: Soft, nontender throughout. No tenderness noted within the left inguinal region. LABORATORY/RADIOGRAPHIC EVALUATION Lab was not repeated today. Cultures have begun to return revealing evidence for Staph and Pseudomonas. Pseudomonas is sensitive to Levaquin. ASSESSMENT 81-year-old gentleman with probable diverticulitis resulting in diverticular abscess with extension into the left inguinal region, status post percutaneous drainage. Patient currently doing well. PLAN I do believe we could go ahead and discharge the patient to home this evening. He is tolerating a regular diet. Would send the patient home on Levaquin 500 mg daily in conjunction with Flagyl 500 mg p.o. b.i.d. I would leave drain in place. Would recommend repeating CT scan in roughly two weeks to document resolution of this abscess. Following CT scan would then recommend discontinuing the drain in the office. Will plan on patient seeing me in the office in about two weeks. Will discuss the above plan with Dr. Arauz. He may wish to keep the patient overnight to document that he does not have another febrile episode while switching to p.o. antibiotics. I am quite pleased with the patient's progress. ELSIE
--- NOTE | 2017-03-01 16:59 | PNF ---
DATE 03/01/2017 FINDINGS Mr. Perales today is without complaints. He informs me that he is "ready go home." He informs me that Dr. Arauz earlier today had informed him that he was "ready to go but Dr. Arauz was going to check with me." EXAM VITAL SIGNS: Afebrile, normotensive. Current vitals include temperature 97.5, pulse 84, respirations 18, blood pressure 128/66, SAO2 95% room air. CHEST: Clear to auscultation bilaterally. HEART: Regular rate and rhythm. Normal S1 and S2 without gallops, murmurs or clicks. ABDOMEN: Palpation of the abdomen soft and completely nontender. Initially I did not evaluate the patient's left inguinal region for there were patient's friends within the room. I did go back and reexamine the inguinal region once his company had left. Unfortunately, there is indeed increasing induration and erythema surrounding the exit site of the drain. Palpation surrounding the exit site of the drain within the inguinal region does elicit a fair amount of discomfort to the patient. OpSite surrounding the insertion site of the drain was removed. One can see some purulent material coming forth from around the drain. Next, utilizing alcohol swab, the drain was stripped multiple times. Unfortunately, one could see what appeared to be that of feculent-like material coming forth from the drain itself and towards the PATRICK bulb. LABORATORY/RADIOGRAPHIC EVALUATION The patient did have microbiology results today that returned revealing Pseudomonas and Staph. ASSESSMENT 81-year-old gentleman with probable ruptured diverticulitis with associated pericolonic abscess extending into the left inguinal region. 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 PLAN I informed the patient I am a little concerned now that the area within the inguinal region is becoming more indurated and erythematous in nature. Furthermore, I am concerned after stripping his drain that it does appear there is some feculent-like material coming forth into the drain. I informed the patient that I did not feel that it was in his best interest to be discharged at this time. Will make the patient n.p.o. after midnight. Tomorrow will have Radiology place some contrast through his drain under fluoroscopy to see if indeed they can document if there is indeed a colocutaneous fistula. If they are unsuccessful with this attempt/method, will then proceed with repeat CT scan of pelvis with rectal contrast. 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 Will proceed, as stated above, tomorrow. I have reviewed electronic medical record and antibiotics have been changed appropriately, given the Pseudomonas findings. The patient has been subsequently changed to Levaquin and the Zosyn has been discontinued at this time. MTDD
[2017-03-01] MEDS: LOVASTATIN 20 MG TABLET PO SCH (17:40)
--- NOTE | 2017-03-01 18:34 | PNPDOC ---
Subjective Date DATE: 03/01/17 TIME: 18:13 Subjective Patient seen and examined. He admits to an increase in pain at the LLQ drain site. I examined the site and found it to have increased erythema, tender to palpation, and markedly more firm. I did review the culture and sensitivity wfrom the abscess with patient. It is positive for Pseudomonas most sensitive to Levaquin. I will make the appropriate antibiotic change. Tmax was 99.9 over the last 24 hours. I did indicate to the patient that I would have surgery re- evaluate him based on my exam today. Location: abdomen Quality: acute, chronic Duration: other (worsening over 2-3 months) Associated Symptoms: abdominal pain Objective Vital Signs Vital signs Vital Signs 03/01/17 03/01/17 09:40 15:22 Temp 97.5 97.8 Pulse 84 82 Resp 18 18 B/P 128/66 172/73 Pulse Ox 95 97 O2 Delivery Room Air Room Air Telemetry Rhythm: Sinus Rhythm Height (Feet): 6 Height (Inches): 1.00 Weight (Kilograms): 93.300 General General Appearance: Alert, Orientated x 3, Well Developed, Cooperative, Able to walk Eyes (Brief) Eyes: FOUND: EOMI, PERRL, NOT FOUND: scleral icterus Neck (Brief) Neck Brief: NOT FOUND: JVD, adenopathy, carotid bruits, thyromegaly Respiratory (Brief) Respiratory Brief: FOUND: clear all tucker, equal bilaterally, NOT FOUND: rales , wheezes Cardiovascular (Brief) Cardiac: FOUND: regular rate, regular rhythm, NOT FOUND: gallop, murmur, pedal edema Abdomen (Brief) Abdominal: FOUND: BS normo active x4, tender, NOT FOUND: distended, hepatosplenomegaly Comments area of induration, pain, and erythema at the LLQ drain site. Extremities (Brief) Extremity : Extremity Finding: NOT FOUND: edema, pain Lymphatic (Brief) Lymphatic Brief: NOT FOUND: adenopathy, lymphedema Musculoskeletal (Brief) Musculoskeletal Brief: NOT FOUND: deformity, loss of motion, spasm, tenderness Integumentary (Brief) Integumentary: FOUND: dry, warm Comments Erythema and induration at the drain site as above Neurologic (Brief) Neurologic: FOUND: cranial 2-12 intact, motor, sensory Psychiatric (Brief) Psychiatric: FOUND: alert, attentive, normal affect, oriented Sepsis Diagnostic Criteria Sepsis Confirmed/Suspected Infection: Yes SIRS Criteria: Temp<=96.8 or >=100.4, RR > or = to 20 Severe Sepsis None Seen Assessment & Plan Problems: (1) Inguinal abscess Status: Acute Assessment & Plan: Patient appears to be improving with abscess drain and antibiotics. Patient now has increased erythema, induration, and pain at the drain site. Pseudomonas cultured. 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 We discussed and formulated the assessment and plan as above with the additions below.-Dr. Worthy The patient states he is having some mild increased pain in his left groin at this time but states that is better than when he went to the emergency room initially. He has had some nausea and vomiting but feels hungry now. He has had some chills but no fevers that he is aware of. He denies any chest pains or palpitations. He has had some progressive shortness of breath over the past 6 months. He had some diarrhea yesterday but that has resolved. He denies any hematemesis or red blood in his stools. He states his stools are dark because of iron. On exam he is alert and oriented and in no acute distress. Chest is clear to auscultation. Cardiovascular reveals a regular rate and rhythm with a 2/6 systolic murmur. Abdomen is soft and nontender. He does have a firm area about the size of a tennis ball in his left lower quadrant without any overlying erythema. Patient states this is the area where he has had the abscess. Extremities are free of clubbing cyanosis or edema. Skin is warm and dry and without rashes. Lab work was reviewed. CT was reviewed. I did call and discuss the above findings with Dr. Mendoza. He agrees with keeping the patient nothing by mouth and holding pradaxa. He is considering a second surgical opinion prior to CT-guided drainage. We will therefore hold off on ordering the CT-guided drainage at this time. Plan/Intensity of Service Admit patient to outpatient observation under the care of Dr. Worthy for inguinal abscess. ER Provider spoke with Lyle Seth- radiologist. Will plan for ultrasound-guided percutaneous drain tomorrow, Sunday02/26/17. Patient last took Pradaxa this morning 02/25/17. We will place this on hold now for scheduled procedure. He has been on Levaquin and Flagyl for antimicrobial coverage. Will switch to IV Zosyn for ongoing coverage. Will be able follow abscess cultures for further C/S. No evidence of sepsis currently. Normal saline at 100ml/hr for gentle hydration overnight. He may have regular diet now and NPO at midnight for planned procedure tomorrow SCDs to bilateral lower ext for DVT prophylaxis Up in room with assistance Will recheck CBC and BMP tomorrow morning to follow blood counts, renal function and electrolytes. Again he requests to be a Full Code and this order is written Will discuss further orders with attending, Dr Worthy Care will be turned over to PCP tomorrow morning- Dr Mendoza. Code Status Full Code Hospital Course Summary Disclaimer The hospital course summary below is not to be considered part of the above Progress Note. Hospital Course Summary Admit patient to outpatient observation under the care of Dr. Worthy for inguinal abscess. ER Provider spoke with Lyle Seth- radiologist. Will plan for ultrasound-guided percutaneous drain tomorrow, Sunday02/26/17. Patient last took Pradaxa this morning 02/25/17. We will place this on hold now for scheduled procedure. He has been on Levaquin and Flagyl for antimicrobial coverage. Will switch to IV Zosyn for ongoing coverage. Will be able follow abscess cultures for further C/S. No evidence of sepsis currently. Normal saline at 100ml/hr for gentle hydration overnight. He may have regular diet now and NPO at midnight for planned procedure tomorrow SCDs to bilateral lower ext for DVT prophylaxis Up in room with assistance Will recheck CBC and BMP tomorrow morning to follow blood counts, renal function and electrolytes. Again he requests to be a Full Code and this order is written Will discuss further orders with attending, Dr Worthy Care will be turned over to PCP tomorrow morning- Dr Mendoza. 02/26/2017: Patient is back from radiology where pigtail catheter drain was placed in the left lower quadrant. He is feeling better at this time. Surgical consultation appreciated. White count remains normal. He is on Zosyn. 02/28/2017: Darvin continues to improve. He does have minimal nausea this evening after supper. His surgical site appears to be without infection. He has minimal brownish material with dark blood in his drain. Should he continue to improve without relapse of fever or an elevation in his white count, I anticipate him going home soon. He would continue with the drain as an outpatient. He would then follow up with myself as well as Dr. Joya as an outpatient final culture and sensitivity is still pending. Gram-negative giorgio as grown but has yet to be identified along with sensitivity. This would determine his outpatient oral antibiotics. 03/01/17: Today Darvin's drain site looks worse. It has erythema, induration, and pain. I have spoken with Dr. Joya and he has evaluated him and agrees. He will order CT with rectal contrast and evaluated for fistula formation tomorrow. He may need surgery following these findings. ELLIOT MENDOZA DO Mar 01, 2017 18:17
--- NOTE | 2017-03-01 18:53 | NUR ---
Shift Summary Patient alert and oriented x3. VSS. On RA. Patient complained of mild pain in left abscess area throughout the day but denied need for pain medication other than one dose of PRN Toradol. Patient up ad valeria in room and walked in halls today. IV infusing as ordered through right AC IV. Patient has had adequate output and several BM today. Complained of gas and bloating, Zantac ordered by Dr. Arauz. Adequate oral intake. Patient to get CT scan of abdomen with contrast tomorrow to determine whether surgery is necessary.
[2017-03-01] MEDS: TAMSULOSIN 0.4 MG CAPSULE PO SCH (21:44)
[2017-03-01] MEDS: RANITIDINE 150 MG TABLET PO SCH (21:44)
[2017-03-01] MEDS: FLUTICASONE NASAL SPRAY 50 MCG EA NOSTRIL SCH (22:00)
[2017-03-01 23:46] VITALS: BP 147/74; PULSE 86; RESP 18; TEMP 98.7; O2SAT 95
[2017-03-02] VITALS (22 sets, daily range): BP systolic 94–178; BP diastolic 51–79; PULSE 61–88; RESP 15–35; TEMP 96.3–97.2; O2SAT 90–97
[2017-03-02] MEDS: NORMAL SALINE 1,000 ML IV SCH ×4 (00:49→17:07)
[2017-03-02] MEDS ORDERED: LORAZEPAM 2 MG/ML INJECTION IV ONE (01:30)
--- NOTE | 2017-03-02 05:56 | NUR ---
SUMMARY PT IS ALERT AND ORIENTED, AD EDDIE IN ROOM. VSS. IV NS SALINE RUNNING AT 100 IN THE RT AC. NPO AT MIDNIGHT FOR PROCEDURE TODAY. PT HAD REPORTED BEING UNABLE TO SLEEP BECAUSE OF JITTERS ABOUT PROCEDURE, TELE-HOSPITALIST CONTACTED AND ORDER RECEIVED FOR ONE TIME DOSE OF ATIVAN O.5 MG PER IV. DOSE GIVEN AND PT WAS ABLE FALL ASLEEP SHORTLY AFTER.
[2017-03-02] MEDS ORDERED: LEVOFLOXACIN 500 MG TABLET PO SCH (06:30)
[2017-03-02] MEDS: FAMOTIDINE 20 MG TABLET PO SCH (07:22)
--- NOTE | 2017-03-02 08:00 | NUR ---
RECEIVED REPORT PATIENT IS ALERT AND ORIENTED. DENIES PAIN THIS MORNING. MAINTAINS NPO STATU FOR THE SCHEDULED PROCEDURE. RA. VSS. NS AT 100ML/HR PER RIGHT A/C PIV.
[2017-03-02 08:03] LABS: BASOPHILS % (AUTO) 0.1 % (0-2); EOSINOPHILS # (AUTO) 0.1 T/MM3 (0-0.5); EOSINOPHILS % (AUTO) 0.6 % (0-4); HCT - HEMATOCRIT 34.8 % (41-53); HGB - HEMOGLOBIN 11.2 GM/DL (13.5-17.5); IMMATURE GRANULOCYTE # (AUTO) 0.02 T/MM3 (0.00-0.03); IMMATURE GRANULOCYTE % (AUTO) 0.2 % (0.0-0.5); LYMPHOCYTES # (AUTO) 1.3 T/MM3 (1-4.8); LYMPHOCYTES % (AUTO) 11.7 % (23-45); MEAN CORPUSCULAR HGB 27.6 UUG (26-34); MEAN CORPUSCULAR HGB CONC(MCHC 32.2 GM/DL (31-37); MEAN CORPUSCULAR VOLUME 85.7 UM3 (80-100); MEAN PLATELET VOLUME 8.8 UM3 (9.4-12.4); MONOCYTES # (AUTO) 1.6 T/MM3 (0-0.8); MONOCYTES % (AUTO) 14.2 % (0-9.0); NEUTROPHILS #(AUTO)-ABSOLUTE 8.4 T/MM3 (1.8-7.7); NEUTROPHILS % (AUTO) 73.2 % (33-66); RED BLOOD COUNT 4.06 M/MM3 (4.50-5.90); WBC - WHITE BLOOD COUNT 11.5 T/MM3 (4.5-11.0)
[2017-03-02 08:12] LABS: ANION GAP 11 MEQ/L (5-15); BUN/CREATININE RATIO 12 RATIO (6-26); CALCIUM 8.1 MG/DL (8.4-10.2); CHLORIDE 107 MEQ/L (98-107); CO2 - CARBON DIOXIDE 22 MEQ/L (22-30); GLOMERULAR FILTRATION RATE 72; GLUCOSE 98 MG/DL (75-110); POTASSIUM 4.3 MEQ/L (3.6-5); SODIUM 140 MEQ/L (134-144)
[2017-03-02] MEDS: CALCIUM CARBONATE 600 MG TABLET PO SCH (09:00)
[2017-03-02] MEDS: RANITIDINE 150 MG TABLET PO SCH (09:00)
[2017-03-02] MEDS ORDERED: IOHEXOL 300 MG/ML 50ml INJECTION ONE (12:29)
--- NOTE | 2017-03-02 12:50 | NUR ---
RADIOLOGY IS HERE FOR PACK UP PATIENT FOR THE SCHEDULED DRAIN CHECK WITH FLUOROSCOPY.
--- NOTE | 2017-03-02 13:49 | DI ---
Indication: ITS.REASON: Evaluate for colocutaneous fistula PROCEDURE: ABSCESS DRAIN CHANGE/CHK FLUOR: Encounter: Initial Comparison: CT abdomen and pelvis dated February 25, 2017 Technique/findings: Patient was placed supine on the fluoroscopy table. Tetryl Wringer Operator fluoroscopic spot images were obtained of the pigtail catheter drain in the left lower pelvis. Next gentle hand injection of water soluble contrast was performed which showed fistulous connection of the abscess cavity with the sigmoid colon after approximately 5 mL of contrast had been injected. A total of 10 mL of contrast was injected with fluoroscopic spot images confirming contrast within the sigmoid colon lumen. A total of seven fluoroscopic spot images were obtained. Impression: The abscess drain has a fistulous connection to the sigmoid colon. Fluoroscopy dose 7.79 mGy .
--- NOTE | 2017-03-02 15:00 | NUR ---
PROCEDURE PATIENT LEAVES THE FLOOR TO OR PER CART. FAMILY ACCOMPANIES PATIENT TO OR WAITING AREA.
--- NOTE | 2017-03-02 15:22 | NUR ---
PANKAJ RIVAS RN HERE TO PLACE MIDLINE PREOP
[2017-03-02] MEDS ORDERED: METRONIDAZOLE IVPB 500 MG in NORMAL SALINE 100 ML IV ONE (15:45)
--- NOTE | 2017-03-02 16:01 | ANESPREOP ---
Anesthesia Record Date and Time DATE: 03/02/17 TIME: 15:58 Proposed Surgical Procedure I/D right inguinal area NPO since: 2199 Allergies: Coded Allergies: Soap (Verified Allergy, Unknown, 12/05/15) povidone-iodine (Verified Allergy, Unknown, 12/05/15) promethazine HCl (Verified Adverse Reaction, Intermediate, HALLUCINATIONS , 12/05/15) Ht/Wt/BMI Height: 6 ' 1.00 " Weight: 92.200 kg BMI: 26.2 kg/m2 Vital Signs Date Time Temp Pulse Resp B/P Pulse Ox O2 Delivery O2 Flow Rate FiO2 03/02/17 14:45 81 19 178/79 93 Room Air 03/02/17 08:00 96.5 Medications Inpatient Medications Current Medications Medications (Trade) Dose Ordered Sig/Blaine Start Time Stop Time Status Last Admin Dose Admin Sodium Chloride (Normal Saline IV) 1,000 ml @ 100 mls/hr Q10H 02/25/17 17:45 03/02/17 11:31 100 MLS/HR Ondansetron HCl (Zofran) 4 mg Q6H PRN 02/25/17 17:45 Morphine Sulfate (Morphine) 2 mg Q4H PRN 02/25/17 17:45 02/27/17 02:56 2 MG Calcium Carbonate (Caltrate) 600 mg DAILY 02/26/17 09:00 03/01/17 07:53 600 MG Fluticasone Propionate (Flonase) 1 spray HS 02/25/17 22:00 03/01/17 22:00 1 SPRAY Lovastatin (Mevacor) 20 mg WS 02/26/17 17:30 03/01/17 17:40 20 MG Tamsulosin HCl 0.4 mg 0.4 mg HS 02/25/17 22:00 03/01/17 21:44 0.4 MG Piperacillin Sod/ Tazobactam Sod/ Sodium Chloride (Zosyn/NS) 100 ml @ 200 mls/hr Q6HR 02/25/17 17:45 02/26/17 01:33 DC 02/25/17 21:00 200 MLS/HR Acetaminophen (Tylenol Extra Strength) 1,000 mg Q8H PRN 02/25/17 18:15 03/01/17 07:00 1,000 MG Famotidine 20 mg 20 mg ACB 02/26/17 06:30 03/02/17 07:22 20 MG Piperacillin Sod/ Tazobactam Sod/ Sodium Chloride (Zosyn/NS) 100 ml @ 200 mls/hr Q6HR 02/26/17 09:00 03/01/17 13:35 DC 03/01/17 07:53 200 MLS/HR Ketorolac Tromethamine (Toradol) 15 mg Q6H PRN 02/26/17 09:45 03/01/17 15:18 15 MG Levofloxacin (LEVAQUIN 500 mg tablet) 500 mg ACB 03/02/17 06:30 03/02/17 07:21 500 MG Ranitidine HCl (Zantac) 150 mg BID 03/01/17 21:00 03/01/17 21:44 150 MG Acetaminophen (Acetaminophen) 500 Mg Tablet, 1,000 MG PO Q8H PRN for PAIN, ( Reported) Last Taken: on 02/25/17 06 Calcium Carbonate (Calcium) 600 Mg Tablet, 600 MG PO DAILY, (Reported) Last Taken: on 02/25/17 08 Dabigatran Etexilate Mesylate (Pradaxa) 150 Mg Capsule, 150 MG PO BID, (Reported) Last Taken: on 02/25/17 08 Famotidine (Famotidine) 20 Mg Tablet, 20 MG PO DAILY, (Reported) Last Taken: on 02/25/17 08 Fluticasone Propionate (Flonase Allergy Relief 50 mcg/actuation Nasal) 9.9 Ml [place].susp, 1 SPRAY EA NOSTRIL HS, (Reported) Last Taken: on 02/24/17 2200 Levofloxacin (Levaquin) 500 Mg Tablet, 500 MG PO DAILY, (Reported) Last Taken: on 02/25/17 08 Lovastatin (Lovastatin) 20 Mg Tablet, 20 MG PO DAILY, (Reported) Last Taken: on 02/25/17 08 Magnesium Oxide (Magnesium) 400 Mg Capsule, 400 MG PO BID, (Reported) Last Taken: on 02/25/17 08 Metronidazole (Metronidazole) 500 Mg Tablet, 500 MG PO TID, (Reported) Last Taken: on 02/25/17 08 Tamsulosin HCl (Tamsulosin HCl) 0.4 Mg Cap.er.24h, 0.4 MG PO HS, (Reported) Last Taken: on 02/24/17 2200 Currently on Beta Zahida: No Medical/Surgical History Anesthesia PMH: Reports: *Hypertension, Arthritis, Cardiac Arrythmia (PPM AICD) , Murmur, Pacemaker, Denies: *Angina, *Diabetes, *SC, Anesthesia Reactions (NO AIRWAY ISSUES), Asthma, Blood Transfusion Reac, CHF, COPD, CVA/Stroke/TIA, Cancer, Clotting Problems, Deep Vein Thrombosis, Glaucoma, Hepatitis, Hiatal Hernia, Malignant Hyperthermia, Reflux, Renal Disease, Rheumatic Fever, Seizures , Sleep Apnea, Thyroid Disease Smoking Status: Former smoker Has pt. smoked today?: No Use Chewing Tobacco?: No Second Hand Exposure: No Quit Date: Nov 12, 1985 Substance Use Type: does not use Alcohol Intake: none Past Surgical History Orthopedic Surgeries: Yes - FUSION TO LOWER BACK Abdominal Surgeries: Yes - HERNIA REPAIR TO ABD/APPENDECTOMY Genitourinary Surgeries: No Cardiac Surgeries: Yes - PACEMAKER/DEBRIBILATOR Endocrine Surgeries: No Reproductive Surgeries: No Neurological Surgeries: No Ear Surgeries: No Nose Surgeries: No Throat Surgeries: No Other Surgeries: Yes - HEMORRHOIDECTOMY Anesthesia Adverse Reactions: FOUND none Family Hx of Anesthesia Advers: none Hx of Motion Sickness: No Pertinent Findings Laboratory Tests 03/02/17 07:46 EKG Rhythm: Sinus Rhythm Physical Exam Respiratory: Lungs clear Cardiovascular: FOUND Regular rate, rhythm, FOUND Systolic murmur Airway Assessment Mallampati Score: I TMD: 3 Fingerbreadths Neck Extension: Fair Teeth: Upper Dentures Overall Assessment: No Airway Concerns ASA: 3 Plan Anesthesia Plan: TIVA, LMA Discussion Discussed risks/options/alternatives of anesthesia and questions answered. Patient consents. Nursing pain assessment noted. Present: Children, Spouse Attestation Statement Prior to the delivery of any anesthetic medication, I examined the patient, developed the plan, obtained the patient's consent and discussed the risk and benefits of the procedure with the patient/guardian. MIRNA YOUNG CRNA Mar 02, 2017 16:00
[2017-03-02] MEDS ORDERED: PROPOFOL 500mg 50 ML IV ONE (16:14)
[2017-03-02] MEDS ORDERED: FENTANYL 250mcg/5ml INJECTION ONE (16:30)
[2017-03-02] MEDS ORDERED: BUPIVACAINE 0.25%/EPI 1:200,000 30ml SDV ONE (16:32)
--- NOTE | 2017-03-02 17:04 | GSPOSTPN ---
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 Vital Signs See Anesthesia and PACU record. CARTER DAVIS AGING DEPARTMENT SUPERVISOR Mar 02, 2017 17:04
--- NOTE | 2017-03-02 17:17 | ANESPO ---
Post-Op Note Date 03/02/17 Time: 17:15 Status Pt Participated in Evaluation: Pt participated in person Vital Signs Date Time Temp Pulse Resp B/P Pulse Ox O2 Delivery O2 Flow Rate FiO2 03/02/17 16:58 97.0 65 16 99/53 94 Room Air 6.00 Respiratory Function: Airway patent, Regular respirations Cardiovascular Function: Regular pulse Pain Level Intensity: 0 Unable to Assess Pain Due To: Pt Sleeping Hydration: IV infusing Complications during Recovery None apparent Follow-Up Instructions Instructions Per Surgeon MIRNA YOUNG CRNA Mar 02, 2017 17:17
[2017-03-02] MEDS ORDERED: HYDROMORPHONE 2mg/ml INJECTION IV PRN (17:30)
--- NOTE | 2017-03-02 17:45 | NUR ---
RETURN FROM OR PATIENT RETURNS FROM OR WITH DRESSING TO PREVIOUSLY SITE OF PIG TAIL DRAIN. NOTED NEW ORDERS TO LEAVE DRESSING IN PLACE UNTIL. POST OP VITAL SIGNS INITIATED. PATIENT IS ALERT AWAKE. RA. VSS.
--- NOTE | 2017-03-02 18:12 | PNF ---
DATE OF SERVICE 03/02/2017 FINDINGS The patient today was without new complaints. He denied significant abdominal pain. EXAM VITAL SIGNS: Afebrile, normotensive. Last recorded vitals include temperature 96.5, pulse 81, respirations 19, blood pressure 178/79, SAO2 93% on CHEST: Clear to auscultation bilaterally. HEART: Regular rate and rhythm. Normal S1 and S2 without gallops, murmurs or clicks. ABDOMEN: Palpation of the abdomen reveals it to be soft and completely nontender. Patient continues to have ongoing induration, erythema and discomfort within the left inguinal region adjacent to the exit site of the drain. Earlier today the patient did undergo a contrast study through his drain. Radiology contacted me earlier today stating that almost immediately after injecting contrast into the drain one could see contrast into the colon. There was definitely a fistulous connection between the sigmoid colon and the abscess indicative of a colocutaneous fistula. LABORATORY/RADIOGRAPHIC EVALUATION The patient had a CBC today and his white count is slightly elevated at 11.5. Hemoglobin is overall stable at 11.2. BMP was obtained and found be essentially within normal limits. Preliminary report from the culture and sensitivities reveal Pseudomonas and Staph. ASSESSMENT 81-year-old gentleman with probable bout of diverticulitis resulting in fistula formation to left inguinal region with associated abscess. Patient status post percutaneous drainage of abscess which unfortunately is not adequately draining the underlying abscess cavity. PLAN I did review the patient's radiographic evaluation earlier today. As stated above, I did discuss this with Radiology. It was my recommendation to the patient and his family that this afternoon we proceed with incision and drainage of the abscess within the left inguinal region so that the underlying stool and purulent material can be adequately drained. We would then be dealing more with a controlled colocutaneous fistula. Will add Flagyl to his antibiotic regimen. Will continue with broad-spectrum antibiotics over the weekend in an attempt to decrease the inflammatory process within the intraperitoneal cavity as well as within the inguinal region. I informed the patient it is my plan that on Sunday we would proceed with robotic-assisted laparoscopic sigmoid resection with creation of a coloproctostomy versus end colostomy. I informed the patient's family that we would discuss this to a greater extent over the weekend but that for this afternoon I would like to focus on proceeding with adequate incision and drainage of the abscess present within the left inguinal region. I did discuss what this procedure would entail and its associated risks which included but was not inclusive of bleeding and/or infection. Patient and family understood and wished to proceed as stated above. MTDD
[2017-03-02] MEDS: LOVASTATIN 20 MG TABLET PO SCH (18:23)
[2017-03-02] MEDS: KETOROLAC 15mg/ml INJECTION IV PRN (18:35)
--- NOTE | 2017-03-02 18:39 | PNPDOC ---
Subjective Date DATE: 03/02/17 TIME: 18:33 Subjective Patient seen and examined in his room. Family at the bedside. I discussed this case with Dr. Leo of surgery earlier today. 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 He is just back from surgery where they incised and drained this site. I agree with the addition of Flagyl to his antibiotic regimen and the plan for surgical resection and primary reanastomosis on Sunday. At this time he is complaining of abdominal pain 4 out of 10. He also has some mild wheezing in his left chest. Family states that he coughed up some dark material earlier today but are unsure of its origin. Location: abdomen Quality: acute, chronic Duration: other (worsening over 2-3 months) Associated Symptoms: abdominal pain Objective Vital Signs Vital signs Vital Signs 03/02/17 03/02/17 03/02/17 03/02/17 08:00 08:00 14:45 16:58 Temp 96.5 97.0 Pulse 88 88 81 65 Resp 17 17 19 16 B/P 147/68 178/79 99/53 Pulse Ox 92 93 94 O2 Delivery Room Air Room Air Room Air O2 Flow Rate 6.00 03/02/17 03/02/17 03/02/17 03/02/17 17:00 17:05 17:10 17:15 Pulse 64 61 61 74 Resp 15 22 24 20 B/P 100/52 103/51 94/52 109/57 Pulse Ox 91 93 94 94 O2 Delivery Mask Mask Mask Mask O2 Flow Rate 6.00 6.00 6.00 3.00 03/02/17 03/02/17 03/02/17 03/02/17 17:20 17:25 17:28 17:30 Pulse 77 70 69 Resp 22 27 20 19 B/P 135/57 136/60 141/65 Pulse Ox 93 92 90 O2 Delivery Room Air Room Air Room Air 03/02/17 03/02/17 03/02/17 03/02/17 17:35 17:40 17:42 17:45 Temp 97.2 96.3 Pulse 68 69 73 Resp 20 35 18 B/P 144/67 144/70 151/71 Pulse Ox 96 97 O2 Delivery Nasal Cannula Nasal Cannula Room Air O2 Flow Rate 2.00 2.00 03/02/17 18:18 Pulse 69 B/P 156/69 Pulse Ox 93 O2 Delivery Room Air Telemetry Rhythm: Sinus Rhythm Height (Feet): 6 Height (Inches): 1.00 Weight (Kilograms): 92.200 General General Appearance: Alert, Orientated x 3, Cooperative, Mild Distress Eyes (Brief) Eyes: FOUND: EOMI, PERRL, NOT FOUND: scleral icterus Comments Glasses Neck (Brief) Neck Brief: NOT FOUND: JVD, adenopathy, carotid bruits, thyromegaly Respiratory (Brief) Respiratory Brief: FOUND: wheezes (left anterior chest), NOT FOUND: clear all tucker Comments Soft bibasilar crackles that clear with deep inspiration consistent with atelectasis Cardiovascular (Brief) Cardiac: FOUND: regular rate, regular rhythm, NOT FOUND: gallop, murmur, pedal edema Abdomen (Brief) Abdominal: FOUND: soft, NOT FOUND: distended, hepatosplenomegaly Comments He has diminished bowel sounds but present. He is nontender to palpation on the right abdomen as well as the epigastric area. Left lower quadrant was not palpated due to recent surgery Extremities (Brief) Extremity : Extremity Finding: NOT FOUND: edema, pain Lymphatic (Brief) Lymphatic Brief: NOT FOUND: adenopathy, lymphedema Musculoskeletal (Brief) Musculoskeletal Brief: FOUND: extremities move equally, NOT FOUND: deformity, loss of motion, spasm, tenderness Integumentary (Brief) Integumentary: FOUND: dry, pink, warm Comments Surgical bandage in place over the left lower abdomen Neurologic (Brief) Neurologic: FOUND: cranial 2-12 intact, motor, sensory, NOT FOUND: facial droop , ptosis Psychiatric (Brief) Psychiatric: FOUND: alert, attentive, normal affect, oriented Laboratory Laboratory Laboratory Tests 03/02/17 07:46 Laboratory Tests 03/02/17 07:46 Radiology DATE OF EXAM: 03/02/17 ORDERING DOCTOR: CARLA LEO MD, FACS, CWS TYPE OF EXAM: ABSCESS DRAIN CHANGE/CHK FLUOR REASON FOR EXAM: rule out colocutanous fistula Indication: ITS.REASON: Evaluate for colocutaneous fistula PROCEDURE: ABSCESS DRAIN CHANGE/CHK FLUOR: Encounter: Initial Comparison: CT abdomen and pelvis dated February 25, 2017 Technique/findings: Patient was placed supine on the fluoroscopy table. Fire Control Technician G fluoroscopic spot images were obtained of the pigtail catheter drain in the left lower pelvis. Next gentle hand injection of water soluble contrast was performed which showed fistulous connection of the abscess cavity with the sigmoid colon after approximately 5 mL of contrast had been injected. A total of 10 mL of contrast was injected with fluoroscopic spot images confirming contrast within the sigmoid colon lumen. A total of seven fluoroscopic spot images were obtained. Impression: The abscess drain has a fistulous connection to the sigmoid colon. Fluoroscopy dose 7.79 mGy . Sepsis Diagnostic Criteria Sepsis Confirmed/Suspected Infection: Yes SIRS Criteria: Temp<=96.8 or >=100.4, RR > or = to 20 Severe Sepsis None Seen Assessment & Plan Problems: (1) Inguinal abscess Status: Acute Assessment & Plan: Patient appears to be improving with abscess drain and antibiotics. Patient now has increased erythema, induration, and pain at the drain site. Pseudomonas cultured. (2) Colocutaneous fistula Status: Acute Assessment & Plan: Abscess was incised and drained earlier today. Surgical correction of a colocutaneous fistula scheduled for Sunday (3) Diverticulitis Status: Acute Qualifiers: Diverticulitis site: large intestine Diverticulitis complication: with abscess Assessment & Plan: Pigtail catheter drain placed (4) Chronic anticoagulation Status: Chronic Assessment & Plan: Pradaxa chronically (5) Pacemaker Status: Chronic (6) Hyperlipidemia Status: Chronic (7) Essential hypertension Status: Chronic (8) Presence of automatic implantable cardioverter-defibrillator Status: Chronic (9) Brugada syndrome Status: Resolved (10) History of atrial fibrillation Status: Resolved Assessment 02/25/2017-I reviewed this chart, the patient history, and the SHOT PEEN OPERATOR's/PA's documented findings as above. We discussed and formulated the assessment and plan as above with the additions below.-Dr. Worthy The patient states he is having some mild increased pain in his left groin at this time but states that is better than when he went to the emergency room initially. He has had some nausea and vomiting but feels hungry now. He has had some chills but no fevers that he is aware of. He denies any chest pains or palpitations. He has had some progressive shortness of breath over the past 6 months. He had some diarrhea yesterday but that has resolved. He denies any hematemesis or red blood in his stools. He states his stools are dark because of iron. On exam he is alert and oriented and in no acute distress. Chest is clear to auscultation. Cardiovascular reveals a regular rate and rhythm with a 2/6 systolic murmur. Abdomen is soft and nontender. He does have a firm area about the size of a tennis ball in his left lower quadrant without any overlying erythema. Patient states this is the area where he has had the abscess. Extremities are free of clubbing cyanosis or edema. Skin is warm and dry and without rashes. Lab work was reviewed. CT was reviewed. I did call and discuss the above findings with Dr. Mendoza. He agrees with keeping the patient nothing by mouth and holding pradaxa. He is considering a second surgical opinion prior to CT-guided drainage. We will therefore hold off on ordering the CT-guided drainage at this time. Plan/Intensity of Service Admit patient to outpatient observation under the care of Dr. Worthy for inguinal abscess. ER Provider spoke with Lyle Seth- radiologist. Will plan for ultrasound-guided percutaneous drain tomorrow, Sunday02/26/17. Patient last took Pradaxa this morning 02/25/17. We will place this on hold now for scheduled procedure. He has been on Levaquin and Flagyl for antimicrobial coverage. Will switch to IV Zosyn for ongoing coverage. Will be able follow abscess cultures for further C/S. No evidence of sepsis currently. Normal saline at 100ml/hr for gentle hydration overnight. He may have regular diet now and NPO at midnight for planned procedure tomorrow SCDs to bilateral lower ext for DVT prophylaxis Up in room with assistance Will recheck CBC and BMP tomorrow morning to follow blood counts, renal function and electrolytes. Again he requests to be a Full Code and this order is written Will discuss further orders with attending, Dr Worthy Care will be turned over to PCP tomorrow morning- Dr Mendoza. Code Status Full Code Hospital Course Summary Disclaimer The hospital course summary below is not to be considered part of the above Progress Note. Hospital Course Summary Admit patient to outpatient observation under the care of Dr. Worthy for inguinal abscess. ER Provider spoke with Lyle Seth- alba. Will plan for ultrasound-guided percutaneous drain tomorrow, Sunday02/26/17. Patient last took Pradaxa this morning 02/25/17. We will place this on hold now for scheduled procedure. He has been on Levaquin and Flagyl for antimicrobial coverage. Will switch to IV Zosyn for ongoing coverage. Will be able follow abscess cultures for further C/S. No evidence of sepsis currently. Normal saline at 100ml/hr for gentle hydration overnight. He may have regular diet now and NPO at midnight for planned procedure tomorrow SCDs to bilateral lower ext for DVT prophylaxis Up in room with assistance Will recheck CBC and BMP tomorrow morning to follow blood counts, renal function and electrolytes. Again he requests to be a Full Code and this order is written Will discuss further orders with attending, Dr Worthy Care will be turned over to PCP tomorrow morning- Dr Mendoza. 02/26/2017: Patient is back from radiology where pigtail catheter drain was placed in the left lower quadrant. He is feeling better at this time. Surgical consultation appreciated. White count remains normal. He is on Zosyn. 02/28/2017: Darvin continues to improve. He does have minimal nausea this evening after supper. His surgical site appears to be without infection. He has minimal brownish material with dark blood in his drain. Should he continue to improve without relapse of fever or an elevation in his white count, I anticipate him going home soon. He would continue with the drain as an outpatient. He would then follow up with myself as well as Dr. Leo as an outpatient final culture and sensitivity is still pending. Gram-negative giorgio as grown but has yet to be identified along with sensitivity. This would determine his outpatient oral antibiotics. 03/01/17: Today Darvin's drain site looks worse. It has erythema, induration, and pain. I have spoken with Dr. Leo and he has evaluated him and agrees. He will order CT with rectal contrast and evaluated for fistula formation tomorrow. He may need surgery following these findings. ELLIOT MENDOZA DO Mar 02, 2017 18:37
[2017-03-02] MEDS: TAMSULOSIN 0.4 MG CAPSULE PO SCH (21:47)
[2017-03-02] MEDS: FLUTICASONE NASAL SPRAY 50 MCG EA NOSTRIL SCH (21:48)
[2017-03-03 00:01] VITALS: BP 153/72; PULSE 81; RESP 18; TEMP 99.1; O2SAT 95
[2017-03-03] MEDS: KETOROLAC 15mg/ml INJECTION IV PRN ×2 (05:06→22:48)
[2017-03-03] MEDS: HYDROCODONE/APAP 5 mg/325 mg TABLET PO PRN (05:06)
--- NOTE | 2017-03-03 05:15 | NUR ---
SHIFT SUMMARY PT ALERT AND ORIENTED X 3. PLEASANT AND COOPERATIVE WITH CARES. PT STAYED IN BED THROUGH NIGHT. USED THE URINAL PRN. PT DENIED PAIN UNTIL NOW. NORCO 5 MG GIVEN PER ORDER. PT HAD TEMP OF 99.1. STATES FEELING VERY DRY, ICE WATER PROVIDED.
[2017-03-03 05:24] LABS: BASOPHILS % (AUTO) 0.1 % (0-2); EOSINOPHILS # (AUTO) 0.2 T/MM3 (0-0.5); EOSINOPHILS % (AUTO) 1.6 % (0-4); HCT - HEMATOCRIT 31.2 % (41-53); HGB - HEMOGLOBIN 10.1 GM/DL (13.5-17.5); IMMATURE GRANULOCYTE # (AUTO) 0.03 T/MM3 (0.00-0.03); IMMATURE GRANULOCYTE % (AUTO) 0.3 % (0.0-0.5); LYMPHOCYTES % (AUTO) 10.5 % (23-45); MEAN CORPUSCULAR HGB 27.7 UUG (26-34); MEAN CORPUSCULAR HGB CONC(MCHC 32.4 GM/DL (31-37); MEAN CORPUSCULAR VOLUME 85.5 UM3 (80-100); MONOCYTES # (AUTO) 1.2 T/MM3 (0-0.8); MONOCYTES % (AUTO) 12.2 % (0-9.0); NEUTROPHILS #(AUTO)-ABSOLUTE 7.3 T/MM3 (1.8-7.7); NEUTROPHILS % (AUTO) 75.3 % (33-66); RED BLOOD COUNT 3.65 M/MM3 (4.50-5.90); WBC - WHITE BLOOD COUNT 9.7 T/MM3 (4.5-11.0)
[2017-03-03 05:41] LABS: ANION GAP 10 MEQ/L (5-15); BUN/CREATININE RATIO 18 RATIO (6-26); CHLORIDE 109 MEQ/L (98-107); CO2 - CARBON DIOXIDE 20 MEQ/L (22-30); GLOMERULAR FILTRATION RATE 72; GLUCOSE 105 MG/DL (75-110); POTASSIUM 4.3 MEQ/L (3.6-5); SODIUM 139 MEQ/L (134-144)
[2017-03-03 07:33] VITALS: BP 138/72; PULSE 78; RESP 18; TEMP 97.1; O2SAT 94
[2017-03-03 07:39] VITALS: PULSE 77
[2017-03-03] MEDS: LEVOFLOXACIN 500 mg IVPB 500 MG in D5W 100 ML IV SCH (08:31)
[2017-03-03] MEDS: PANTOPRAZOLE 40mg INJECTION IV SCH (08:31)
[2017-03-03 09:05] VITALS: O2SAT 95
[2017-03-03] MEDS: METRONIDAZOLE IVPB 500 MG in NORMAL SALINE 100 ML IV SCH ×2 (09:35→21:00)
--- NOTE | 2017-03-03 10:04 | OPNOTEF ---
DATE OF SERVICE 03/02/2017 SURGEON Joseph Joya MD PREOPERATIVE DIAGNOSIS Inadequately drained abscess involving left inguinal region secondary to colocutaneous fistula. POSTOPERATIVE DIAGNOSIS Inadequately drained abscess involving left inguinal region secondary to colocutaneous fistula. PROCEDURE Incision and drainage of abscess from left inguinal region. ANESTHESIA TIVA/local. BRIEF HISTORY/INDICATIONS Mr. Perales is an 81-year-old gentleman who recently presented with an area of tenderness and erythema involving the left inguinal region. He did have a CT scan that revealed evidence for diverticulitis with an associated abscess involving the left inguinal region. Patient did undergo placement of a percutaneous catheter into the abscess. This did result in improvement for about the first 24 to 48 hours but thereafter the abscess began to reaccumulate despite placement of the drain. It did appear that there was amandeep feculent material within the drain and therefore a study was performed earlier today under fluoroscopy through the previously placed drain. This radiograph evaluation revealed that the patient had direct communication with the abscess to an underlying portion of the colon. It was recommended to the patient and his family that he undergo a more formal incision and drainage of this abscess involving the left inguinal region so that it could be adequately drained. Patient presents this afternoon to undergo this procedure. DESCRIPTION OF PROCEDURE After informed consent was obtained, patient was brought to the operative suite, placed on the table in a supine fashion. The drain from the left inguinal region was removed by myself. One could then see amandeep stool-like purulent material begin to exit from the prior drain site. Left inguinal region was then prepped and draped in a sterile fashion. Formal time-out was then completed. Hemostat was then introduced into the small opening and into the underlying subcutaneous tissues. Hemostat did course in a [id number] and slightly medial direction. Then 0.25% Marcaine with epinephrine was injected overlying the skin in the same direction that the hemostat coursed. Skin overlying the hemostat was initially opened with a knife and then the underlying subcutaneous tissues were opened with cautery down to the underlying abscess cavity. Amandeep feculent and purulent material was suctioned and expressed. The fistula tract continued to course into the deeper tissues. The fistula tract was opened about 2 to 3 cm beneath the surface of the skin so that it was now adequately drained. Wound was then copiously irrigated and subsequently packed with a 2-inch Burke/gauze moistened in normal saline. Patient is in the process of awakening from his sedation and will be sent back to recovery room once deemed in stable condition. ELSIE
--- NOTE | 2017-03-03 11:09 | PNPDOC ---
Subjective Date DATE: 03/03/17 TIME: 11:00 Subjective F/U: Coverage for Dr Arauz. Doing well this morning-less ab pain since I/D yesterday. No nausea-did well with breakfast. Had sweats overnight, but no f/c. Breathing well without SOA cough or congestion. No chest pain. Urinating well. Objective Vital Signs Vital signs Vital Signs Date Time Temp Pulse Resp B/P Pulse Ox O2 Delivery O2 Flow Rate FiO2 03/03/17 09:05 95 Room Air 03/03/17 07:39 77 03/03/17 07:33 97.1 18 138/72 1.00 Telemetry Rhythm: Sinus Rhythm Height (Feet): 6 Height (Inches): 1.00 Weight (Kilograms): 94.600 General General Appearance: Alert, Orientated x 3, Well Nourished, Well Developed, Cooperative, Looks Stated Age Eyes (Brief) Eyes: FOUND: EOMI, PERRL, NOT FOUND: scleral icterus ENMT (Brief) ENMT: FOUND: hearing intact, mucosa moist Neck (Brief) Neck: FOUND: midline, NOT FOUND: nuchal rigidity, spasm Respiratory (Brief) Respiratory: FOUND: clear all tucker, equal bilaterally, NOT FOUND: rales, wheezes Cardiovascular (Brief) Cardiac: FOUND: regular rate, regular rhythm, NOT FOUND: pedal edema Abdomen (Brief) Abdominal: FOUND: BS normo active x4, soft, NOT FOUND: distended, tender Extremities (Brief) Extremity : Side: Bilateral Extremity: leg Extremity Finding: NOT FOUND: edema Musculoskeletal (Brief) Musculoskeletal: FOUND: extremities move equally, NOT FOUND: deformity, spasm Integumentary (Brief) Integumentary: FOUND: dry, other (Surgical ab wound covered and dry. ), warm Neurologic (Brief) Neurological: FOUND: cranial 2-12 intact, motor (Intact ) Psychiatric (Brief) Psychiatric: FOUND: alert, attentive, normal affect, oriented Laboratory Laboratory Laboratory Tests 03/02/17 07:46 03/03/17 04:55 Laboratory Tests 03/02/17 07:46 03/03/17 04:55 Sepsis Diagnostic Criteria Sepsis Confirmed/Suspected Infection: Yes SIRS Criteria: Temp<=96.8 or >=100.4, RR > or = to 20 Severe Sepsis None Seen Assessment & Plan Problems: (1) Inguinal abscess Status: Acute Assessment & Plan: Pseudomonas cultured. (2) Colocutaneous fistula Status: Acute Assessment & Plan: 03/02: Abscess was incised and drained. Surgical correction of a colocutaneous fistula scheduled for Sunday (03/05). 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 Continue Zosyn and metronidazole for antibiotic coverage. Continue pain control. Encourage activities. Recheck lab in am. Chart reviewed. Case discussed with CM. Time spent with pt care 25 minutes. DVT Prophylaxis: SCD'S Code Status Full Code Hospital Course Summary Disclaimer The hospital course summary below is not to be considered part of the above Progress Note. Hospital Course Summary 02/25 Admit patient to outpatient observation under the care of Dr. Worthy for inguinal abscess. ER Provider spoke with Lyle Seth- radiologist. Will plan for ultrasound-guided percutaneous drain tomorrow, Sunday02/26/17. Patient last took Pradaxa this morning 02/25/17. We will place this on hold now for scheduled procedure. He has been on Levaquin and Flagyl for antimicrobial coverage. Will switch to IV Zosyn for ongoing coverage. Will be able follow abscess cultures for further C/S. No evidence of sepsis currently. Normal saline at 100ml/hr for gentle hydration overnight. He may have regular diet now and NPO at midnight for planned procedure tomorrow SCDs to bilateral lower ext for DVT prophylaxis Up in room with assistance Will recheck CBC and BMP tomorrow morning to follow blood counts, renal function and electrolytes. Again he requests to be a Full Code and this order is written Will discuss further orders with attending, Dr Worthy Care will be turned over to PCP tomorrow morning- Dr Arauz. 02/26/2017: Patient is back from radiology where pigtail catheter drain was placed in the left lower quadrant. He is feeling better at this time. Surgical consultation appreciated. White count remains normal. He is on Zosyn. 02/28/2017: Darvin continues to improve. He does have minimal nausea this evening after supper. His surgical site appears to be without infection. He has minimal brownish material with dark blood in his drain. Should he continue to improve without relapse of fever or an elevation in his white count, I anticipate him going home soon. He would continue with the drain as an outpatient. He would then follow up with myself as well as Dr. Joya as an outpatient final culture and sensitivity is still pending. Gram-negative giorgio as grown but has yet to be identified along with sensitivity. This would determine his outpatient oral antibiotics. 03/01/17: Today Darvin's drain site looks worse. It has erythema, induration, and pain. I have spoken with Dr. Joya and he has evaluated him and agrees. He will order CT with rectal contrast and evaluated for fistula formation tomorrow. He may need surgery following these findings. 03/02/17: Discussed this case with Dr. Joya of surgery earlier today. 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 He is just back from surgery where they incised and drained this site. I agree with the addition of Flagyl to his antibiotic regimen and the plan for surgical resection and primary reanastomosis on Sunday. At this time he is complaining of abdominal pain 4 out of 10. He also has some mild wheezing in his left chest. Family states that he coughed up some dark material earlier today but are unsure of its origin. 03/03/17: Teressa covering for Dr Arauz: Doing well this morning-less ab pain since I/D yesterday. No nausea-did well with breakfast. Had sweats overnight, but no f/c. Breathing well without SOA cough or congestion. No chest pain. Urinating well. Will D/C IVF as taking po well and weight increased from admit. Continue Zosyn and metronidazole for antibiotic coverage. Continue pain control. Encourage activities. Recheck lab in am. PELON ALMODOVAR MD Mar 03, 2017 11:04
[2017-03-03] MEDS: MORPHINE SULFATE 4 MG SYRINGE IV PRN ×2 (11:18→22:47)
[2017-03-03] MEDS: ONDANSETRON 4mg/2ml INJECTION IV PRN (12:42)
--- NOTE | 2017-03-03 12:45 | NUR ---
Nausea Patient complains of nausea, zofran given.
--- NOTE | 2017-03-03 13:24 | PNF ---
DATE OF SERVICE 03/03/2017 FINDINGS Mr. Perales this morning was stating he was feeling better. He was having less discomfort. PHYSICAL EXAMINATION VITAL SIGNS: Afebrile. Normotensive. HEENT: Normocephalic. Pupils are equally round and react to light and accommodation. CHEST: Clear to auscultation bilaterally. HEART: Regular rate and rhythm. Normal S1 and S2 without gallops, murmurs or clicks. ABDOMEN: Attention was focused to the area of concern involving the left inguinal region. Packing was removed. This did elicit a fair amount of discomfort to the patient. He was given intravenous morphine as a result of his onset of discomfort. One could see amandeep stool within the wound. The dressing was beginning to become somewhat saturated with the stool-like contents. There was no evidence for active bleeding. LABORATORY/RADIOGRAPH EVALUATION Patient had a CBC today, and his white count was 9.7. Hemoglobin overall was stable at 10.1. BMP obtained and found to be essentially within normal limits. Chloride was evaluated at 109. ASSESSMENT An 81-year-old gentleman with probable bout of ruptured diverticulitis resulting in colocutaneous fistula. PLAN Orders were given to pack the wound on a b.i.d./p.r.n. basis. Will continue with broad-spectrum antibiotics to cover the organisms that are present within the culture. One is now beginning to see Pseudomonas bacteroides and Staph. Patient is on Levaquin and Flagyl. It is my thought that tomorrow we will go ahead and proceed with bowel prep and on Sunday proceed with robotic- assisted laparoscopic sigmoid resection with possible coloproctostomy, possible creation of end colostomy. Overall patient is stable this morning. [facility] CENTERBhargav
[2017-03-03 16:24] VITALS: BP 152/69; PULSE 94; RESP 16; TEMP 98.2; O2SAT 92
--- NOTE | 2017-03-03 16:54 | NUR ---
Status Patient alert and oriented, up in room on own. Able to rest this afternoon. Breathing comfortably on RA.
[2017-03-03] MEDS: LOVASTATIN 20 MG TABLET PO SCH (17:37)
[2017-03-03] MEDS: ACETAMINOPHEN 325 MG TABLET PO PRN (17:37)
[2017-03-03 20:00] VITALS: PULSE 94; RESP 16
[2017-03-03] MEDS: FLUTICASONE NASAL SPRAY 50 MCG EA NOSTRIL SCH (22:50)
[2017-03-03] MEDS: TAMSULOSIN 0.4 MG CAPSULE PO SCH (22:52)
[2017-03-04] VITALS: BP 136/66; PULSE 85; RESP 18; TEMP 98.7; O2SAT 92
--- NOTE | 2017-03-04 03:19 | NUR ---
STATUS PT ALERT AND ORIENTED X3. PLEASANT AND COOPERATIVE WITH CARES. SAT UP IN THE RECLINER TO WATCH A BASEBALL GAME. ABD DRESSING CHANGED AT THE START OF THE SHIFT AT 1999. PT TOLERATED IT WELL, NEW ABD APPLIED. WHEN PT IS READY FOR BED THE DRSG AND PACKING IN THE WOUND WILL BE CHANGED. PT SHAVED AND BRUSHED HIS TEETH BEFORE GOING TO BED. PT STATES HIS SPOUSE WAS STAYING HOME TODAY. DRSG WAS CHANGED WITH WOUND PACKING AROUND 2244. MORPHING 4 MG IVP GIVEN PER ORDER FOR DRSG CHANGE. OLD DRSG AND WOUND PACKING WAS REMOVED SLOWLY. NOTED A LARGE AMOUNT OF BROWN LIQUID STOOL ON GAUZE WITH RED DRAINAGE. 2" INCH SOF-FORM STRETCH GAUZE MOISTEN. GAUZE WAS PACKED INTO THE WOUND'S TUNNELING AREAS AND COVERED WITH ABD WITH FOAM TAPE. PT TOLERATED IT WELL, DENIED PAIN AFTER COMPLETED.
[2017-03-04 05:38] LABS: HGB - HEMOGLOBIN 9.2 GM/DL (13.5-17.5); MEAN CORPUSCULAR HGB 26.8 UUG (26-34); MEAN CORPUSCULAR HGB CONC(MCHC 30.7 GM/DL (31-37); MEAN CORPUSCULAR VOLUME 87.5 UM3 (80-100); MEAN PLATELET VOLUME 8.7 UM3 (9.4-12.4); RED BLOOD COUNT 3.43 M/MM3 (4.50-5.90); WBC - WHITE BLOOD COUNT 10.2 T/MM3 (4.5-11.0)
[2017-03-04 05:42] LABS: ANION GAP 8 MEQ/L (5-15); BUN/CREATININE RATIO 20 RATIO (6-26); CHLORIDE 109 MEQ/L (98-107); CO2 - CARBON DIOXIDE 22 MEQ/L (22-30); CREATININE 1.1 MG/DL (0.8-1.5); GLOMERULAR FILTRATION RATE 64; GLUCOSE 103 MG/DL (75-110); POTASSIUM 4.2 MEQ/L (3.6-5); SODIUM 139 MEQ/L (134-144)
[2017-03-04 06:25] LABS: BURR CELLS 1+; EOSINOPHILS # (MANUAL) 0.1 T/MM3 (0-0.5); LYMPHOCYTES # (MANUAL) 1.3 T/MM3 (1-4.8); MONOCYTES # (MANUAL) 0.7 T/MM3 (0-0.8); POIKILOCYTOSIS 1+; REACTIVE LYMPHOCYTES # 0.1 T/MM3 (0-0); TOTAL CELLS COUNTED 100 %
[2017-03-04 06:57] VITALS: BP 127/64; PULSE 76; RESP 16; TEMP 97.6; O2SAT 94
[2017-03-04] MEDS: PANTOPRAZOLE 40mg INJECTION IV SCH (08:20)
[2017-03-04] MEDS: METRONIDAZOLE IVPB 500 MG in NORMAL SALINE 100 ML IV SCH ×2 (08:20→22:51)
[2017-03-04] MEDS: LEVOFLOXACIN 500 mg IVPB 500 MG in D5W 100 ML IV SCH (09:35)
[2017-03-04] MEDS: ACETAMINOPHEN 325 MG TABLET PO PRN ×2 (09:35→15:37)
[2017-03-04] MEDS: MORPHINE SULFATE 4 MG SYRINGE IV PRN ×2 (09:57→20:08)
[2017-03-04] MEDS ORDERED: BISACODYL 5 MG E.C. TABLET PO ONE (10:00)
[2017-03-04] MEDS ORDERED: POLYETHYL.GLYCOL 3350 BOTTLE 238 GM PO ONE (13:00)
--- NOTE | 2017-03-04 15:07 | PNPDOC ---
Subjective Date DATE: 03/04/17 TIME: 14:59 Subjective F/U: Inguinal abscess, Colocutaneous fistula. Coverage for Dr Arauz. Doing okay this afternoon-on bowel prep for tomorrow. Feels stools just about to let go. Some ab bloating and cramping with bowel prep. No nausea. Breathing well, but needed O2 at night the last 2 nights. Rare cough; no pain with breathing. No chest pain or pressure. Denies f/c. Objective Vital Signs Vital signs Vital Signs Date Time Temp Pulse Resp B/P Pulse Ox O2 Delivery O2 Flow Rate FiO2 03/04/17 08:34 Room Air 03/04/17 06:57 97.6 76 16 127/64 94 1.00 Telemetry Rhythm: Sinus Rhythm Height (Feet): 6 Height (Inches): 1.00 Weight (Kilograms): 94.900 General General Appearance: Alert, Orientated x 3, Overweight, Well Nourished, Well Developed, Cooperative, Looks Stated Age Eyes (Brief) Eyes: FOUND: EOMI, PERRL, NOT FOUND: scleral icterus ENMT (Brief) ENMT: FOUND: hearing intact, mucosa moist Neck (Brief) Neck: FOUND: midline, NOT FOUND: nuchal rigidity, spasm Respiratory (Brief) Respiratory: FOUND: clear all tucker, equal bilaterally, NOT FOUND: rales, wheezes Cardiovascular (Brief) Cardiac: FOUND: regular rate, regular rhythm, NOT FOUND: pedal edema Abdomen (Brief) Abdominal: FOUND: BS normo active x4, soft, NOT FOUND: distended, tender Extremities (Brief) Extremity : Side: Bilateral Extremity: leg Extremity Finding: NOT FOUND: edema Musculoskeletal (Brief) Musculoskeletal: FOUND: extremities move equally, NOT FOUND: deformity, loss of motion, spasm, tenderness Psychiatric (Brief) Psychiatric: FOUND: alert, attentive, normal affect, oriented Laboratory Laboratory Laboratory Tests 03/03/17 04:55 03/04/17 04:40 Laboratory Tests 03/03/17 04:55 03/04/17 04:40 Sepsis Diagnostic Criteria Sepsis Confirmed/Suspected Infection: Yes SIRS Criteria: Temp<=96.8 or >=100.4, RR > or = to 20 Severe Sepsis None Seen Assessment & Plan Problems: (1) Inguinal abscess Status: Acute Assessment & Plan: Pseudomonas cultured. (2) Colocutaneous fistula Status: Acute Assessment & Plan: 03/02: Abscess was incised and drained. Surgical correction of a colocutaneous fistula scheduled for Sunday (03/05). 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 Continue Zosyn and metronidazole for antibiotic coverage. Start Incentive Spirometry to help pulmonary toilet. Continue pain control. Encourage activities. Recheck lab in am. Anticipate Dr Arauz's return in am. Chart reviewed. Time spent with pt care 25 minutes. DVT Prophylaxis: SCD'S Code Status Full Code Hospital Course Summary Disclaimer The hospital course summary below is not to be considered part of the above Progress Note. Hospital Course Summary 02/25 Admit patient to outpatient observation under the care of Dr. Worthy for inguinal abscess. ER Provider spoke with Lyle Seth- radiologist. Will plan for ultrasound-guided percutaneous drain tomorrow, Sunday02/26/17. Patient last took Pradaxa this morning 02/25/17. We will place this on hold now for scheduled procedure. He has been on Levaquin and Flagyl for antimicrobial coverage. Will switch to IV Zosyn for ongoing coverage. Will be able follow abscess cultures for further C/S. No evidence of sepsis currently. Normal saline at 100ml/hr for gentle hydration overnight. He may have regular diet now and NPO at midnight for planned procedure tomorrow SCDs to bilateral lower ext for DVT prophylaxis Up in room with assistance Will recheck CBC and BMP tomorrow morning to follow blood counts, renal function and electrolytes. Again he requests to be a Full Code and this order is written Will discuss further orders with attending, Dr Worthy Care will be turned over to PCP tomorrow morning- Dr Arauz. 02/26/2017: Patient is back from radiology where pigtail catheter drain was placed in the left lower quadrant. He is feeling better at this time. Surgical consultation appreciated. White count remains normal. He is on Zosyn. 02/28/2017: Darvin continues to improve. He does have minimal nausea this evening after supper. His surgical site appears to be without infection. He has minimal brownish material with dark blood in his drain. Should he continue to improve without relapse of fever or an elevation in his white count, I anticipate him going home soon. He would continue with the drain as an outpatient. He would then follow up with myself as well as Dr. Joya as an outpatient final culture and sensitivity is still pending. Gram-negative giorgio as grown but has yet to be identified along with sensitivity. This would determine his outpatient oral antibiotics. 03/01/17: Today Darvin's drain site looks worse. It has erythema, induration, and pain. I have spoken with Dr. Joya and he has evaluated him and agrees. He will order CT with rectal contrast and evaluated for fistula formation tomorrow. He may need surgery following these findings. 03/02/17: Discussed this case with Dr. Joya of surgery earlier today. 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 He is just back from surgery where they incised and drained this site. I agree with the addition of Flagyl to his antibiotic regimen and the plan for surgical resection and primary reanastomosis on Sunday. At this time he is complaining of abdominal pain 4 out of 10. He also has some mild wheezing in his left chest. Family states that he coughed up some dark material earlier today but are unsure of its origin. 03/03/17: Teressa covering for Dr Arauz: Doing well this morning-less ab pain since I/D yesterday. No nausea-did well with breakfast. Had sweats overnight, but no f/c. Breathing well without SOA cough or congestion. No chest pain. Urinating well. Will D/C IVF as taking po well and weight increased from admit. Continue Zosyn and metronidazole for antibiotic coverage. Continue pain control. Encourage activities. Recheck lab in am. 03/04/17: Teressa covering for Dr Arauz: Doing okay this afternoon-on bowel prep for tomorrow. Feels stools just about to let go. Some ab bloating and cramping with bowel prep. No nausea. Breathing well, but needed O2 at night the last 2 nights. Rare cough; no pain with breathing. No chest pain or pressure. Denies f/c. Start NS at 75cc/hr this evening in anticipation of Sx tomorrow. Continue Zosyn and metronidazole for antibiotic coverage. Start Incentive Spirometry to help pulmonary toilet. Continue pain control. Encourage activities. Recheck lab in am. Anticipate Dr Arauz's return in am. PELON ALMODOVAR MD Mar 04, 2017 15:03
[2017-03-04 15:16] VITALS: BP 149/71; PULSE 77; RESP 20; O2SAT 91
--- NOTE | 2017-03-04 17:45 | NUR ---
Status Patient completed bowel prep this afternoon. Has been having loose stools. Up on own in room. RA. Family has been at bedside.
[2017-03-04] MEDS: LOVASTATIN 20 MG TABLET PO SCH (18:03)
[2017-03-04] MEDS: TAMSULOSIN 0.4 MG CAPSULE PO SCH (22:51)
[2017-03-04] MEDS: NORMAL SALINE 1,000 ML IV SCH (22:51)
[2017-03-04] MEDS: FLUTICASONE NASAL SPRAY 50 MCG EA NOSTRIL SCH (22:52)
[2017-03-05] VITALS (31 sets, daily range): BP systolic 87–184; BP diastolic 43–84; PULSE 72–101; RESP 12–59; TEMP 97.4–97.7; O2SAT 83–98
[2017-03-05] MEDS: MORPHINE SULFATE 4 MG SYRINGE IV PRN ×3 (03:51→23:12)
--- NOTE | 2017-03-05 04:42 | NUR ---
SUMMARY PT ALERT, ORIENTED. VSS, 2L NC FOR NIGHT TIME ONLY. DRESSING CHANGED 2X THIS SHIFT. IV FLUIDS STARTED AT 2200 75 ML/HR IN MIDLINE IN UPPER RIGHT ARM, PT NPO AT 0000. PT AD EDDIE IN ROOM.
[2017-03-05 05:37] LABS: HCT - HEMATOCRIT 29.3 % (41-53); HGB - HEMOGLOBIN 9.5 GM/DL (13.5-17.5); MEAN CORPUSCULAR HGB 27.7 UUG (26-34); MEAN CORPUSCULAR HGB CONC(MCHC 32.4 GM/DL (31-37); MEAN CORPUSCULAR VOLUME 85.4 UM3 (80-100); MEAN PLATELET VOLUME 10.2 UM3 (9.4-12.4); RED BLOOD COUNT 3.43 M/MM3 (4.50-5.90)
[2017-03-05 05:43] LABS: ANION GAP 9 MEQ/L (5-15); BUN/CREATININE RATIO 17 RATIO (6-26); CALCIUM 7.9 MG/DL (8.4-10.2); CHLORIDE 108 MEQ/L (98-107); CO2 - CARBON DIOXIDE 21 MEQ/L (22-30); CREATININE 0.9 MG/DL (0.8-1.5); GLOMERULAR FILTRATION RATE 81; GLUCOSE 89 MG/DL (75-110); POTASSIUM 5.2 MEQ/L (3.6-5); SODIUM 138 MEQ/L (134-144)
[2017-03-05 06:19] LABS: BAND NEUTROPHILS # 0.2 T/MM3; EOSINOPHILS # (MANUAL) 0.1 T/MM3 (0-0.5); LYMPHOCYTES # (MANUAL) 1.4 T/MM3 (1-4.8); MONOCYTES # (MANUAL) 0.3 T/MM3 (0-0.8); TOTAL CELLS COUNTED 100 %
[2017-03-05] MEDS: PANTOPRAZOLE 40mg INJECTION IV SCH (09:08)
[2017-03-05] MEDS: METRONIDAZOLE IVPB 500 MG in NORMAL SALINE 100 ML IV SCH ×2 (09:08→22:56)
[2017-03-05] MEDS: LEVOFLOXACIN 500 mg IVPB 500 MG in D5W 100 ML IV SCH (09:09)
[2017-03-05] MEDS: NORMAL SALINE 1,000 ML IV SCH ×2 (10:37→15:04)
[2017-03-05] MEDS: ACETAMINOPHEN 325 MG TABLET PO PRN (11:08)
--- NOTE | 2017-03-05 11:21 | NUR ---
UPDATE PT IS A&OX3, WOUND IS DRY AND INTACT AT THIS TIME. PT IS NPO FOR SURGERY PROCEDURE TODAY. WILL CONTINUE TO MONITOR.
--- NOTE | 2017-03-05 11:27 | ANESPREOP ---
Anesthesia Record Date and Time DATE: 03/05/17 TIME: 11:25 Pre-Op Diagnosis Perforated sigmoid Proposed Surgical Procedure Sigmoid resection NPO since: 2199 Allergies: Coded Allergies: Soap (Verified Allergy, Unknown, 12/05/15) povidone-iodine (Verified Allergy, Unknown, 12/05/15) promethazine HCl (Verified Adverse Reaction, Intermediate, HALLUCINATIONS , 12/05/15) Ht/Wt/BMI Height: 6 ' 1.00 " Weight: 93.600 kg BMI: 26.2 kg/m2 Vital Signs Date Time Temp Pulse Resp B/P Pulse Ox O2 Delivery O2 Flow Rate FiO2 03/05/17 08:00 97.4 77 17 133/64 92 Room Air 03/04/17 06:57 1.00 Medications Inpatient Medications Current Medications Medications (Trade) Dose Ordered Sig/Blaine Start Time Stop Time Status Last Admin Dose Admin Sodium Chloride (Normal Saline IV) 1,000 ml @ 100 mls/hr Q10H 02/25/17 17:45 03/03/17 09:35 DC 03/02/17 17:07 100 MLS/HR Ondansetron HCl (Zofran) 4 mg Q6H PRN 02/25/17 17:45 03/03/17 12:42 4 MG Morphine Sulfate (Morphine) 2 mg Q4H PRN 02/25/17 17:45 03/02/17 17:03 DC 02/27/17 02:56 2 MG Calcium Carbonate (Caltrate) 600 mg DAILY 02/26/17 09:00 03/02/17 17:03 DC 03/01/17 07:53 600 MG Fluticasone Propionate (Flonase) 1 spray HS 02/25/17 22:00 03/04/17 22:52 1 SPRAY Lovastatin (Mevacor) 20 mg WS 02/26/17 17:30 03/04/17 18:03 20 MG Tamsulosin HCl 0.4 mg 0.4 mg HS 02/25/17 22:00 03/04/17 22:51 0.4 MG Piperacillin Sod/ Tazobactam Sod/ Sodium Chloride (Zosyn/NS) 100 ml @ 200 mls/hr Q6HR 02/25/17 17:45 02/26/17 01:33 DC 02/25/17 21:00 200 MLS/HR Acetaminophen (Tylenol Extra Strength) 1,000 mg Q8H PRN 02/25/17 18:15 03/02/17 17:03 DC 03/01/17 07:00 1,000 MG Famotidine 20 mg 20 mg ACB 02/26/17 06:30 03/02/17 17:03 DC 03/02/17 07:22 20 MG Piperacillin Sod/ Tazobactam Sod/ Sodium Chloride (Zosyn/NS) 100 ml @ 200 mls/hr Q6HR 02/26/17 09:00 03/01/17 13:35 DC 03/01/17 07:53 200 MLS/HR Ketorolac Tromethamine (Toradol) 15 mg Q6H PRN 02/26/17 09:45 03/03/17 22:48 15 MG Levofloxacin (LEVAQUIN 500 mg tablet) 500 mg ACB 03/02/17 06:30 03/02/17 15:45 DC 03/02/17 07:21 500 MG Ranitidine HCl 150 mg 150 mg BID 03/01/17 21:00 03/02/17 17:03 DC 03/01/17 21:44 150 MG Metronidazole 500 mg/Sodium Chloride 100 ml @ 100 mls/hr Q12H 03/03/17 09:00 03/05/17 09:08 100 MLS/HR Levofloxacin/ Dextrose/Water (LEVAQUIN 500 mg IVPB/D5W) 100 ml @ 100 mls/hr DAILY 03/03/17 09:00 03/05/17 09:09 100 MLS/HR Morphine Sulfate (Morphine) SEE DOSE Q1H PRN 03/02/17 17:00 03/05/17 03:51 4 MG Acetaminophen/ Hydrocodone Bitart (Waldorf 5/325) When taking PO well (f... Q5H PRN 03/02/17 17:00 03/03/17 05:06 1 TAB Pantoprazole Sodium (Protonix Iv) 40 mg DAILY 03/03/17 09:00 03/05/17 09:08 40 MG Hydromorphone HCl (Dilaudid) Dilaudid 0.5-1 mg IVP every 10 minutes... Q10M PRN 03/02/17 17:30 03/02/17 19:30 DC 03/02/17 17:28 0.5 MG Acetaminophen 650 mg 650 mg Q5H PRN 03/03/17 17:45 03/05/17 11:08 650 MG Sodium Chloride (Normal Saline IV) 1,000 ml @ 100 mls/hr Q10H 03/04/17 22:00 03/04/17 22:51 75 MLS/HR Acetaminophen (Acetaminophen) 500 Mg Tablet, 1,000 MG PO Q8H PRN for PAIN, ( Reported) Last Taken: on 02/25/17 06 Calcium Carbonate (Calcium) 600 Mg Tablet, 600 MG PO DAILY, (Reported) Last Taken: on 02/25/17799 Dabigatran Etexilate Mesylate (Pradaxa) 150 Mg Capsule, 150 MG PO BID, (Reported) Last Taken: on 02/25/17799 Famotidine (Famotidine) 20 Mg Tablet, 20 MG PO DAILY, (Reported) Last Taken: on 02/25/17799 Fluticasone Propionate (Flonase Allergy Relief 50 mcg/actuation Nasal) 9.9 Ml Printer.susp, 1 SPRAY EA NOSTRIL HS, (Reported) Last Taken: on 02/24/172199 Levofloxacin (Levaquin) 500 Mg Tablet, 500 MG PO DAILY, (Reported) Last Taken: on 02/25/17799 Lovastatin (Lovastatin) 20 Mg Tablet, 20 MG PO DAILY, (Reported) Last Taken: on 02/25/17799 Magnesium Oxide (Magnesium) 400 Mg Capsule, 400 MG PO BID, (Reported) Last Taken: on 02/25/17799 Metronidazole (Metronidazole) 500 Mg Tablet, 500 MG PO TID, (Reported) Last Taken: on 02/25/17799 Tamsulosin HCl (Tamsulosin HCl) 0.4 Mg Cap.er.24h, 0.4 MG PO HS, (Reported) Last Taken: on 02/24/172199 Currently on Beta Zahida: No Medical/Surgical History Anesthesia PMH: Reports: *Hypertension, Arthritis, Cardiac Arrythmia ([facility] AICD 03/2016- ), Hyperlipidemia, Murmur, Pacemaker, Denies: *Angina, *Diabetes, *AK, Anesthesia Reactions (NO AIRWAY ISSUES), Asthma, Blood Transfusion Reac, CHF, COPD, CVA/Stroke/TIA, Cancer, Clotting Problems, Deep Vein Thrombosis, Glaucoma , Hepatitis, Hiatal Hernia, Malignant Hyperthermia, Reflux, Renal Disease, Rheumatic Fever, Seizures, Sleep Apnea, Thyroid Disease Smoking Status: Former smoker Has pt. smoked today?: No Use Chewing Tobacco?: No Second Hand Exposure: No Quit Date: Nov 12, 1985 Substance Use Type: does not use Alcohol Intake: none Past Surgical History Orthopedic Surgeries: Yes - FUSION TO LOWER BACK Abdominal Surgeries: Yes - HERNIA REPAIR TO ABD/APPENDECTOMY Genitourinary Surgeries: No Cardiac Surgeries: Yes - PACEMAKER/DEBRIBILATOR Endocrine Surgeries: No Reproductive Surgeries: No Neurological Surgeries: No Ear Surgeries: No Nose Surgeries: No Throat Surgeries: No Other Surgeries: Yes - HEMORRHOIDECTOMY Anesthesia Adverse Reactions: FOUND none Family Hx of Anesthesia Advers: none Hx of Motion Sickness: No Pertinent Findings Laboratory Tests 03/05/17 04:13 EKG Rhythm: Sinus Rhythm Physical Exam Respiratory: Lungs clear Cardiovascular: FOUND Regular rate, rhythm, FOUND Systolic murmur Airway Assessment Mallampati Score: I TMD: 3 Fingerbreadths Neck Extension: Fair Teeth: Upper Dentures Overall Assessment: No Airway Concerns ASA: 3 Plan Anesthesia Plan: TIVA, LMA Discussion Discussed risks/options/alternatives of anesthesia and questions answered. Patient consents. Nursing pain assessment noted. Present: Children, Spouse Attestation Statement Prior to the delivery of any anesthetic medication, I examined the patient, developed the plan, obtained the patient's consent and discussed the risk and benefits of the procedure with the patient/guardian. NABILA MUNROE CRNA Mar 05, 2017 11:27
--- NOTE | 2017-03-05 11:44 | NUR ---
CM CM VISITED WITH PT AND SPOUSE. PT WILL HAVE PROCEDURE TODAY. PT/SPOUSE WILL DISCUSS D/C NEEDS. SPOUSE FEELS THAT LONG PT CAN WALK HE CAN RETURN HOME WITH HOME HEALTH. PT AWARE THAT CM WILL VISIT TOMORROW TO DISCUSS D/C PLAN. PT/SPOUSE AWARE TO CONTACT CM IF NEEDS ARISE.
[2017-03-05] MEDS ORDERED: HEPARIN SUB-Q 5,000 unit/0.5ml vial SQ ONE (15:15)
--- NOTE | 2017-03-05 15:22 | NUR ---
UPDATE PT HEADING TO PRE-OP AT THIS TIME BY WHEELCHAIR WITH RN.
[2017-03-05] MEDS ORDERED: BUPIVACAINE 0.25%/EPI 1:200,000 30ml SDV ONE (16:23)
[2017-03-05] MEDS ORDERED: FENTANYL 250mcg/5ml INJECTION ONE (16:48)
--- NOTE | 2017-03-05 18:26 | PNPDOC ---
Subjective Date DATE: 03/05/17 TIME: 18:25 Subjective Chart and labs reviewed. Patient unavailable to be seen. He is currently in surgery. Location: abdomen Quality: acute, chronic Duration: other (worsening over 2-3 months) Associated Symptoms: abdominal pain Objective Vital Signs Vital signs Vital Signs 03/05/17 03/05/17 08:00 08:00 Temp 97.4 Pulse 77 77 Resp 17 B/P 133/64 Pulse Ox 92 O2 Delivery Room Air Telemetry Rhythm: Sinus Rhythm Height (Feet): 6 Height (Inches): 1.00 Weight (Kilograms): 93.600 Extremities (Brief) Extremity : Extremity Finding: NOT FOUND: edema, pain Laboratory Laboratory Laboratory Tests 03/05/17 04:13 Laboratory Tests 03/05/17 04:13 Sepsis Diagnostic Criteria Sepsis Confirmed/Suspected Infection: Yes SIRS Criteria: Temp<=96.8 or >=100.4, RR > or = to 20 Severe Sepsis None Seen Assessment & Plan Problems: (1) Inguinal abscess Status: Acute Assessment & Plan: Pseudomonas cultured. (2) Colocutaneous fistula Status: Acute Assessment & Plan: 03/02: Abscess was incised and drained. Surgical correction of a colocutaneous fistula scheduled for Sunday (03/05). 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 Continue Zosyn and metronidazole for antibiotic coverage. Start Incentive Spirometry to help pulmonary toilet. Continue pain control. Encourage activities. Recheck lab in am. Anticipate Dr Mendoza's return in am. Chart reviewed. Time spent with pt care 25 minutes. Code Status Full Code Hospital Course Summary Disclaimer The hospital course summary below is not to be considered part of the above Progress Note. Hospital Course Summary 02/25 Admit patient to outpatient observation under the care of Dr. Worthy for inguinal abscess. ER Provider spoke with Lyle Seth- radiologist. Will plan for ultrasound-guided percutaneous drain tomorrow, Sunday02/26/17. Patient last took Pradaxa this morning 02/25/17. We will place this on hold now for scheduled procedure. He has been on Levaquin and Flagyl for antimicrobial coverage. Will switch to IV Zosyn for ongoing coverage. Will be able follow abscess cultures for further C/S. No evidence of sepsis currently. Normal saline at 100ml/hr for gentle hydration overnight. He may have regular diet now and NPO at midnight for planned procedure tomorrow SCDs to bilateral lower ext for DVT prophylaxis Up in room with assistance Will recheck CBC and BMP tomorrow morning to follow blood counts, renal function and electrolytes. Again he requests to be a Full Code and this order is written Will discuss further orders with attending, Dr Worthy Care will be turned over to PCP tomorrow morning- Dr Mendoza. 02/26/2017: Patient is back from radiology where pigtail catheter drain was placed in the left lower quadrant. He is feeling better at this time. Surgical consultation appreciated. White count remains normal. He is on Zosyn. 02/28/2017: Darvin continues to improve. He does have minimal nausea this evening after supper. His surgical site appears to be without infection. He has minimal brownish material with dark blood in his drain. Should he continue to improve without relapse of fever or an elevation in his white count, I anticipate him going home soon. He would continue with the drain as an outpatient. He would then follow up with myself as well as Dr. Joya as an outpatient final culture and sensitivity is still pending. Gram-negative giorgio as grown but has yet to be identified along with sensitivity. This would determine his outpatient oral antibiotics. 03/01/17: Today Darvin's drain site looks worse. It has erythema, induration, and pain. I have spoken with Dr. Joya and he has evaluated him and agrees. He will order CT with rectal contrast and evaluated for fistula formation tomorrow. He may need surgery following these findings. 03/02/17: Discussed this case with Dr. Joya of surgery earlier today. 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 He is just back from surgery where they incised and drained this site. I agree with the addition of Flagyl to his antibiotic regimen and the plan for surgical resection and primary reanastomosis on Sunday. At this time he is complaining of abdominal pain 4 out of 10. He also has some mild wheezing in his left chest. Family states that he coughed up some dark material earlier today but are unsure of its origin. 03/03/17: Teressa covering for Dr Mendoza: Doing well this morning-less ab pain since I/D yesterday. No nausea-did well with breakfast. Had sweats overnight, but no f/c. Breathing well without SOA cough or congestion. No chest pain. Urinating well. Will D/C IVF as taking po well and weight increased from admit. Continue Zosyn and metronidazole for antibiotic coverage. Continue pain control. Encourage activities. Recheck lab in am. 03/04/17: Teressa covering for Dr Mendoza: Doing okay this afternoon-on bowel prep for tomorrow. Feels stools just about to let go. Some ab bloating and cramping with bowel prep. No nausea. Breathing well, but needed O2 at night the last 2 nights. Rare cough; no pain with breathing. No chest pain or pressure. Denies f/c. Start NS at 75cc/hr this evening in anticipation of Sx tomorrow. Continue Zosyn and metronidazole for antibiotic coverage. Start Incentive Spirometry to help pulmonary toilet. Continue pain control. Encourage activities. Recheck lab in am. Anticipate Dr Mendoza's return in am. ELLIOT MENDOZA DO Mar 05, 2017 18:26
[2017-03-05] MEDS ORDERED: DESFLURANE 240 ML LIQUID IH ONE (19:06)
[2017-03-05] MEDS ORDERED: ROCURONIUM 50mg/5ml INJECTION IV ONE (19:12)
--- NOTE | 2017-03-05 19:16 | NUR ---
END OF SHIFT SUMMARY PT STILL IN SURGERY AT THIS TIME, REPORT GIVEN TO DEEDEE NAYAK IN CCU FOR CONTINUED CARE. PTS BELONGINGS PLACE ON CART INSIDE ROOM 138, PTS FAMILY STILL IN ROOM WAITING FOR PT TO COME OUT OF SURGERY, PTS FAMILY IS AWARE PT WILL BE GOING TO CCU AFTER HE IS DONE WITH SURGERY.
--- NOTE | 2017-03-05 21:15 | GSPOSTPN ---
Procedure Procedure Date: Mar 05, 2017 Surgeon: Toan Assisting Surgeon: Vern Jackson Anesthesia: Local, GETA ASA: 3 Procedure 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 GS Diagnosis Postop Diagnosis Colocutaneous fistula with abscess left inguinal region. Complications Complications Estimated Blood Loss See Anesthesia Record. Vital Signs See Anesthesia and PACU record. CARTER JACKSON FLEXOGRAPHIC PRESS PLATE SETTER Mar 05, 2017 21:15
--- NOTE | 2017-03-05 21:25 | NUR ---
TRANSFER TO CCU1 PER BED FROM OR. PT INTUBATED AND NOT RESPONSIVE TO PAIN. RT HERE TO SET UP VENT. NABILA FIELD SERVICE REP HERE. DR LEO HERE.
[2017-03-05] MEDS: TAMSULOSIN 0.4 MG CAPSULE PO SCH (22:00)
[2017-03-05] MEDS: LOVASTATIN 20 MG TABLET PO SCH (22:00)
[2017-03-05] MEDS: FLUTICASONE NASAL SPRAY 50 MCG EA NOSTRIL SCH (22:00)
[2017-03-05] MEDS: MIDAZOLAM 2mg/2ml INJECTION IV PRN ×4 (22:19→23:21)
--- NOTE | 2017-03-05 22:30 | NUR ---
FAMILY HERE TO SEE PT. PT OPENS EYES AND AT TIMES MOVING HEAD BACK AND FORTH, TRYING TO GRAB AT ET TUBE. HANDS ARE RESTRAINED WITH SOFT RESTRAINS. SEE MAR FOR MEDS GIVEN.
[2017-03-05] MEDS: KETOROLAC 15mg/ml INJECTION IV PRN (22:56)
[2017-03-05] MEDS: ONDANSETRON 4mg/2ml INJECTION IV PRN (23:20)
--- NOTE | 2017-03-05 23:30 | NUR ---
DR LEO CALLED ABOUT PT RESTLESSNESS, OVER RIDING VENT AND STATUS REPORT. DR LEO WANTS TO LEAVE ORDERS IS.
[2017-03-06] VITALS (106 sets, daily range): BP systolic 76–168; BP diastolic 41–75; PULSE 63–96; RESP 9–46; TEMP 96.9–98.9; O2SAT 79–100
[2017-03-06] MEDS ORDERED: NORMAL SALINE 500 ML IV ONE ×2 (00:15→20:45)
--- NOTE | 2017-03-06 00:30 | NUR ---
EMESIS MOD AMT OF BROWN/BLOOD TINGED EMESIS. TURNED PT TO SIDE AND ET AND MOUTH SUCTIONED.
[2017-03-06] MEDS: MIDAZOLAM 2mg/2ml INJECTION IV PRN (00:34)
[2017-03-06] MEDS: MORPHINE SULFATE 4 MG SYRINGE IV PRN ×6 (02:47→20:18)
--- NOTE | 2017-03-06 02:47 | NUR ---
COMFORT AWAKE, COUGHS. SUCTIONED SM AMT ORAL SECRETIONS, MOD AMT AGUIAR PER ET TUBE. MS 4 MG IVP SLOWLY GIVEN FOR COMFORT.
--- NOTE | 2017-03-06 02:49 | NUR ---
DRESSING MOD AMT SEROUS DRAINAGE TO LEFT ABD DRESSING, LINENS. DRESSING REINFORCED.
[2017-03-06] MEDS ORDERED: BUMETANIDE 1 MG/4 ML INJECTION IV PRN (03:45)
[2017-03-06] MEDS: KETOROLAC 15mg/ml INJECTION IV PRN ×2 (05:29→13:45)
[2017-03-06] MEDS: NORMAL SALINE 1,000 ML IV SCH ×2 (05:31→17:10)
--- NOTE | 2017-03-06 05:39 | NUR ---
Comfort Toradol 15 mg IVP slowly given for comfort. Wakens easily, occas coughing noted . Repositioned .
--- NOTE | 2017-03-06 05:41 | NUR ---
Fluid Balance BP more stable since fluid bolus given earlier. HR 60's. Urine output borderline, with last 2 hrs below 25 cc per hr. Bumex 2 mg IVP slowly given as ordered for lo urine output.
[2017-03-06] MEDS ORDERED: MIDAZOLAM 2mg/2ml INJECTION IV PRN (06:30)
[2017-03-06] MEDS ORDERED: FENTANYL 250mcg/5ml INJECTION ONE (07:17)
[2017-03-06] MEDS ORDERED: ONDANSETRON 4mg/2ml INJECTION ONE (07:45)
[2017-03-06] MEDS ORDERED: DEXAMETHASONE 4mg/ml - 1ml INJECTION ONE (07:45)
[2017-03-06 07:49] LABS: BASOPHILS % (AUTO) 0.1 % (0-2); EOSINOPHILS % (AUTO) 0.2 % (0-4); HCT - HEMATOCRIT 30.4 % (41-53); HGB - HEMOGLOBIN 9.4 GM/DL (13.5-17.5); IMMATURE GRANULOCYTE # (AUTO) 0.04 T/MM3 (0.00-0.03); IMMATURE GRANULOCYTE % (AUTO) 0.3 % (0.0-0.5); LYMPHOCYTES # (AUTO) 1.1 T/MM3 (1-4.8); LYMPHOCYTES % (AUTO) 8.3 % (23-45); MEAN CORPUSCULAR HGB 27.4 UUG (26-34); MEAN CORPUSCULAR HGB CONC(MCHC 30.9 GM/DL (31-37); MEAN CORPUSCULAR VOLUME 88.6 UM3 (80-100); MEAN PLATELET VOLUME 9.1 UM3 (9.4-12.4); MONOCYTES # (AUTO) 1.4 T/MM3 (0-0.8); MONOCYTES % (AUTO) 10.3 % (0-9.0); NEUTROPHILS % (AUTO) 80.8 % (33-66); RED BLOOD COUNT 3.43 M/MM3 (4.50-5.90); WBC - WHITE BLOOD COUNT 13.6 T/MM3 (4.5-11.0)
[2017-03-06 08:03] LABS: ALBUMIN 2.3 G/DL (3.5-5.0); ALBUMIN/GLOBULIN RATIO 0.8 RATIO (1.1-2.2); ALKALINE PHOSPHATASE 125 U/L (38-126); ALT (SGPT) 41 U/L (21-72); ANION GAP 9 MEQ/L (5-15); AST (SGOT) 55 U/L (17-59); BUN/CREATININE RATIO 19 RATIO (6-26); CALCIUM 7.7 MG/DL (8.4-10.2); CHLORIDE 112 MEQ/L (98-107); CO2 - CARBON DIOXIDE 22 MEQ/L (22-30); GLOMERULAR FILTRATION RATE 72; GLUCOSE 99 MG/DL (75-110); POTASSIUM 4.2 MEQ/L (3.6-5); SODIUM 143 MEQ/L (134-144); TOTAL PROTEIN 5.3 G/DL (6.3-8.2)
--- NOTE | 2017-03-06 08:04 | ANESPO ---
Post-Op Note Date 03/06/17 Time: 08:00 Status Pt Participated in Evaluation: Pt intubated Vital Signs Date Time Temp Pulse Resp B/P Pulse Ox O2 Delivery O2 Flow Rate FiO2 03/06/17 07:56 18 03/06/17 06:00 40 03/06/17 06:00 69 115/54 94 03/06/17 05:45 Mechanical Ventilator 03/06/17 04:20 98.0 03/04/17 06:57 1.00 Respiratory Function: Regular respirations, Intubated Cardiovascular Function: Regular pulse Telemetry Pattern: SR Mental Status: Alert/oriented Pain Level Intensity: 0 Unable to Assess Pain Due To: Pt Sleeping Hydration: IV infusing Complications during Recovery None apparent Post-Anesthesia Notes Patient transported to ICU room 1 last night. I had initially extubated in the operating room but unfortunately he was unable to maintain adequate oxygen saturations. I then reintubated him in the OR and called for a vent in the ICU. He responds to voice this AM and is maintaining a saturation of 95% on 30% oxygen. Follow-Up Instructions Instructions Per Surgeon NABILA MUNROE PRISON KEEPER Mar 06, 2017 08:04
[2017-03-06] MEDS ORDERED: DESFLURANE 240 ML LIQUID IH ONE (08:21)
--- NOTE | 2017-03-06 08:27 | NUR ---
RESTRAINT BILATERAL UE RESTRAINTS DISCONTINUED POST EXTUBATION. PT IS ALERT TO PERSON AND PLACE, CALM AND COOPERATIVE.
--- NOTE | 2017-03-06 08:52 | DI ---
Indication: ITS.REASON: intubated PROCEDURE: CHEST 1 VIEW: Encounter: Initial Comparison: March 15, 2016 Findings: Endotracheal tube in place with the tip projecting 5.2 cm above the lizzie. Left cardiac pacemaker defibrillator. Multiple overlying monitoring leads. No gross pneumothorax on this semiupright view. Subcutaneous emphysema in the left chest wall consistent with the patient's recent surgery. Moderate emphysematous changes with increasing prominence of the perihilar interstitial markings. Heart size and mediastinal contours are grossly stable. Impression: 1. Endotracheal tube appears in satisfactory position. 2. Moderate pulmonary edema. .
[2017-03-06] MEDS: METRONIDAZOLE IVPB 500 MG in NORMAL SALINE 100 ML IV SCH ×2 (08:53→20:46)
[2017-03-06] MEDS: PANTOPRAZOLE 40mg INJECTION IV SCH (08:53)
--- NOTE | 2017-03-06 08:57 | PNSURG ---
Subjective DATE: 03/06/17 TIME: 08:51 Interval History Post robotic repair colocutaneous fistula. He remained intubated over night, extubated earlier this am. States he hurts everywhere with activity. Not so much at rest. Nursing changed the ABD LLQ earlier this am. Objective Vital Signs Date Time Temp Pulse Resp B/P Pulse Ox O2 Delivery O2 Flow Rate FiO2 03/06/17 08:39 68 16 03/06/17 08:00 97.9 118/56 97 Nasal Cannula 2.00 03/06/17 07:45 40 Height (Feet): 6 Height (Inches): 1.00 Weight (Kilograms): 93.600 BMI 26.2 General Appearance: Alert, Awake, Orientated x 3 Respiratory: FOUND: other (crackles bilateral) Cardiac: FOUND: regular rate, regular rhythm Abdominal Brief: FOUND: appropriately tender, hypoactive bowel sounds Incision: FOUND: marina present (at trocar sites), NOT FOUND: erythema Wound Management Wound : Location Modifier: Left, Lower Wound Location: Abdomen (wound packed with Kerlex roll last night) Laboratory Laboratory Tests 03/04/17 04:40 03/05/17 04:13 03/06/17 07:34 Laboratory Tests 03/04/17 04:40 03/05/17 04:13 03/06/17 07:34 Procedure Procedure Date: Mar 05, 2017 Surgeon: Toan Echeverria 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 GS Assessment & Plan Problems: (1) Diverticulitis Status: Acute Qualifiers: Diverticulitis site: large intestine Diverticulitis complication: with abscess (2) Colocutaneous fistula Status: Acute (3) Inguinal abscess Status: Acute Assessment Doing ok for less about 12 hours post robotic repair of colocutaneous fistula and removal of mesh as well as debridement of left inguinal abscess. Extubated this morning. Labs stable, not surprised with bump in WBC. Will start clears. Continue ABX as ordered. DVT Prophylaxis: SCD'S, Lovenox GI Prophylaxis: Protonix Code Status Full Code Hospital Course Summary Disclaimer The visit summary below is not to be considered part of the above Progress Note. Hospital Course Summary 02/25 Admit patient to outpatient observation under the care of Dr. Worthy for inguinal abscess. ER Provider spoke with Lyle Seth- radiologist. Will plan for ultrasound-guided percutaneous drain tomorrow, Sunday02/26/17. Patient last took Pradaxa this morning 02/25/17. We will place this on hold now for scheduled procedure. He has been on Levaquin and Flagyl for antimicrobial coverage. Will switch to IV Zosyn for ongoing coverage. Will be able follow abscess cultures for further C/S. No evidence of sepsis currently. Normal saline at 100ml/hr for gentle hydration overnight. He may have regular diet now and NPO at midnight for planned procedure tomorrow SCDs to bilateral lower ext for DVT prophylaxis Up in room with assistance Will recheck CBC and BMP tomorrow morning to follow blood counts, renal function and electrolytes. Again he requests to be a Full Code and this order is written Will discuss further orders with attending, Dr Worthy Care will be turned over to PCP tomorrow morning- Dr Arauz. 02/26/2017: Patient is back from radiology where pigtail catheter drain was placed in the left lower quadrant. He is feeling better at this time. Surgical consultation appreciated. White count remains normal. He is on Zosyn. 02/28/2017: Darvin continues to improve. He does have minimal nausea this evening after supper. His surgical site appears to be without infection. He has minimal brownish material with dark blood in his drain. Should he continue to improve without relapse of fever or an elevation in his white count, I anticipate him going home soon. He would continue with the drain as an outpatient. He would then follow up with myself as well as Dr. Joya as an outpatient final culture and sensitivity is still pending. Gram-negative giorgio as grown but has yet to be identified along with sensitivity. This would determine his outpatient oral antibiotics. 03/01/17: Today Darvin's drain site looks worse. It has erythema, induration, and pain. I have spoken with Dr. Joya and he has evaluated him and agrees. He will order CT with rectal contrast and evaluated for fistula formation tomorrow. He may need surgery following these findings. 03/02/17: Discussed this case with Dr. Joya of surgery earlier today. 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 He is just back from surgery where they incised and drained this site. I agree with the addition of Flagyl to his antibiotic regimen and the plan for surgical resection and primary reanastomosis on Sunday. At this time he is complaining of abdominal pain 4 out of 10. He also has some mild wheezing in his left chest. Family states that he coughed up some dark material earlier today but are unsure of its origin. 03/03/17: Plasmon covering for Dr Arauz: Doing well this morning-less ab pain since I/D yesterday. No nausea-did well with breakfast. Had sweats overnight, but no f/c. Breathing well without SOA cough or congestion. No chest pain. Urinating well. Will D/C IVF as taking po well and weight increased from admit. Continue Zosyn and metronidazole for antibiotic coverage. Continue pain control. Encourage activities. Recheck lab in am. 03/04/17: Teressa covering for Dr Arauz: Doing okay this afternoon-on bowel prep for tomorrow. Feels stools just about to let go. Some ab bloating and cramping with bowel prep. No nausea. Breathing well, but needed O2 at night the last 2 nights. Rare cough; no pain with breathing. No chest pain or pressure. Denies f/c. Start NS at 75cc/hr this evening in anticipation of Sx tomorrow. Continue Zosyn and metronidazole for antibiotic coverage. Start Incentive Spirometry to help pulmonary toilet. Continue pain control. Encourage activities. Recheck lab in am. Anticipate Dr Arauz's return in am. CARTER DAVIS APRN Mar 06, 2017 08:54
[2017-03-06] MEDS ORDERED: ALBUTEROL/IPRATROPIUM INHAL. 2.5mg-0.5mg/3ml Neb. AEROSOL PRN (09:15)
--- NOTE | 2017-03-06 09:37 | OPNOTEF ---
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 PROCEDURE Robotic-assisted laparoscopic takedown of colocutaneous fistula with repair of colotomy, extraction of previously placed mesh plug, surgical debridement of wound within the left inguinal region, intraoperative sigmoidoscopy. ANESTHESIA General endotracheal. EBL AND FLUIDS Please see chart. BRIEF HISTORY/INDICATIONS Mr. Perales is an 81-year-old gentleman who I was recently asked to see as a result of a suspected bout of diverticulitis. It was felt the patient had a bout of diverticulitis that had ruptured and extended into his inguinal region. He initially underwent a percutaneous drainage of this abscess within the left inguinal region that appeared to be arising from the colon. The area of erythema and induration within the left inguinal region initially improved but began to reoccur. The drain was stripped and then one could see that the drain had become "clogged" and there appeared to be some fecal material within the drain itself. Radiologic examination was then performed through the drain. Under fluoroscopy contrast was injected into the drain and, unfortunately, one could quickly see the contrast entering into the colon indicative that the patient had essentially a colocutaneous fistula. The abscess cavity within the inguinal region was then incised in the operative setting and the wound was packed. It was recommended to the patient that he undergo surgical intervention in regard to this colocutaneous fistula. For completeness please refer to notes included in the patient's chart. FINDINGS Upon laparoscopy liver edge was smooth without nodularities. There was a segment of sigmoid colon that was densely adherent to the left inguinal region. During the process of freeing the segment of colon from the left inguinal region, one could see a previously placed mesh plug that appeared to have eroded through the peritoneum and was within the bowel wall itself of the colon. Once the colon had been excised, there was a resultant colotomy where the mesh had been that was on the order about a qtvrghkgyp-pmk-p-half to 2 cm in diameter. I elected to repair the colotomy primarily and excise the visible mesh. This was able to be completed without incident. Intraoperative colonoscopy was also performed to evaluate the repair of the colon. The inguinal region was also explored and debrided. DESCRIPTION OF PROCEDURE After informed consent was obtained, the patient was brought to the operative suite and placed on the table in supine fashion. The abdomen was then prepped and draped in sterile fashion. Formal time-out was then completed. 0.25% Marcaine with epinephrine was injected just beneath the left subcostal margin. A 4-5 mm incision was made through the area of analgesia. A Veress needle was then introduced through this small incision into the peritoneal cavity. Pneumoperitoneum was established to a patient pressure of 15 mmHg utilizing carbon dioxide. Additional 0.25% Marcaine with epinephrine was injected just above and to the right of the umbilicus. A 1.5 cm incision was then made overlying the area of analgesia. A 12 mm port was then advanced through this small incision and into the peritoneal cavity. Laparoscope was then inserted and one could see the Veress needle as it coursed through the anterior abdominal wall within the left upper quadrant. Veress needle was removed under direct visualization. Two 8 mm da Debora ports were then placed within the epigastric region along the left lateral abdominal wall. Additional 12 mm da Debora staple port was placed within the right lower quadrant just medial to the right anterior iliac spine. A 12 mm air-assist port was also placed within the right upper quadrant under direct visualization. Abdominal cavity was explored via laparoscope. There were some adhesions between the omentum and the right lateral abdominal wall. These adhesions were taken down under direct visualization. Next, the robot was then docked overlying the patient's left hip. The patient was placed in Trendelenburg position and slightly rotated towards his right. Next, attention was then focused to the segment of sigmoid colon that was adherent to the left inguinal region. Utilizing laparoscopic scissors and a fenestrated bipolar grasper, the colon was began to be freed from the anterior abdominal wall. During the process, the colon was entered. There was essentially no spillage of stool contents. One could then see that there was a previously placed mesh plug that had protruded through the internal ring and appeared to have eroded into the colon wall itself. The mesh was completely excised from the colon itself. This resulted in a colotomy that was on the order of about a naravhhkcb-cwk-ldrp to 2 cm in dimension along the antimesenteric portion of the sigmoid:. Edges of this colotomy were then incised/"freshened up" under direct visualization. Next I placed two stay sutures along the apex of the colotomy. The colotomy was then closed in two layers transversely. The first layer was closed in a running fashion utilizing a 2-0 V-Loc suture. Next, this suture line was then closed by placing numerous single interrupted sutures of 3-0 Vicryl. The Lembert sutures were then tied sequentially resulting in a nice imbrication of the adjacent colon overlying the repair. Next, attention was then focused towards removal of the mesh itself. There was a large mesh plug that was adherent to the left inguinal region. The mesh plug, with careful meticulous dissection, was eventually able to be excised in its entirety and removed. Once the mesh had been excised and the colon had been repaired, attention was then directed towards evaluating the anastomosis. Utilizing the third arm of the robot, a bowel grasper/Graptor was placed through the third arm and the sigmoid colon was grasped proximal to the repair. A colonoscope was then inserted into the anus and advanced past the repair. The colon was then insufflated. I also placed saline overlying the colotomy as the colonoscope was being insufflated. There was no evidence of any extravasation of air bubbles from the repair. I.e. the repair appeared to be airtight. The repair of the colotomy did not narrow the lumen of the colon to any extent. The colonoscope was then slowly withdrawn and the air within the colon was suctioned. Robot was then undocked. The camera port, stapler port within the right lower quadrant and the air-assist port were all closed in a [id number] fashion laparoscopically with 0 Vicryl utilizing laparoscopic suture passer. Remaining ports were then removed under direct visualization. Previously placed 0 Vicryl sutures were then tied securely resulting in imbrication of the fascia at the larger port sites. All skin incisions were then closed with marina. It should be noted that prior to removing the ports the irrigant was suctioned till clear. There was no evidence for bleeding. Next, once the incisions had been closed, a sterile towel was placed overlying the abdomen. Attention was then focused to the left inguinal region. Previously placed OpSite was removed. Packing was then removed. Attention was then focused to the wound. The prior wound within the left inguinal region did tunnel out laterally about 3-4 cm beneath the surface of the skin. The skin overlying the area of the wound that was tunneling was then opened with a knife and further divided with electrocautery. The wound was then further debrided utilizing a sharp surgical curette, tissue forceps and electrocautery. All nonviable tissue was excised. One could still see one small piece of mesh externally within the internal ring. This piece of mesh was grasped and retracted outwardly and excised. Wound was then packed with Kerlix moistened in normal saline. The patient was subsequently sent to the ICU in stable condition. Additionally, it should be noted that Vern Jackson APRN, was present throughout the entire case and played a pivotal role in providing assistance and exposure during the course of the procedure. ELSIE
[2017-03-06] MEDS: LEVOFLOXACIN 500 mg IVPB 500 MG in D5W 100 ML IV SCH (09:53)
--- NOTE | 2017-03-06 10:38 | NUR ---
CM CM VISITED PT AND FAMILY. PT STATES HE FEELS BETTER THAN EXPECTED. PT/FAMILY AWARE TO CONTACT CM IF NEEDS ARISE.
[2017-03-06] MEDS: ALBUTEROL/IPRATROPIUM INHAL. 2.5mg-0.5mg/3ml Neb. AEROSOL SCH ×3 (10:43→18:57)
--- NOTE | 2017-03-06 13:34 | PNPDOC ---
Subjective Date DATE: 03/06/17 TIME: 13:27 Subjective Patient seen and examined in the ICU. Surgical report reviewed and appreciated. Labs also reviewed as well as chest x-ray. Family at bedside. Darvin has some abdominal pain this morning which is in his upper abdomen most consistent with gas pains. He does have bowel sounds. He denies any chest pain at this time. He does however, indicate that while he was intubated the endotracheal tube seemed to progress up against something and cough his ability to breathe. This caused him quite a scare and he related the story to me in detail. He is much better at this time. Location: abdomen Quality: acute, chronic Duration: other (worsening over 2-3 months) Associated Symptoms: abdominal pain Objective Vital Signs Vital signs Vital Signs 03/06/17 03/06/17 03/06/17 03/06/17 01:30 01:34 01:45 02:00 Pulse 63 63 67 Resp 14 14 13 23 B/P 105/55 106/58 114/57 Pulse Ox 97 97 98 03/06/17 03/06/17 03/06/17 03/06/17 02:00 02:15 02:30 02:36 Pulse 64 65 74 Resp 15 13 19 B/P 120/58 127/60 Pulse Ox 99 100 100 O2 Delivery Mechanical Ventilator FiO2 40 40 30 03/06/17 03/06/17 03/06/17 03/06/17 02:46 02:47 03:00 03:00 Pulse 73 69 Resp 15 15 9 B/P 140/65 125/58 Pulse Ox 98 98 O2 Delivery Mechanical Ventilator Mechanical Ventilator FiO2 40 03/06/17 03/06/17 03/06/17 03/06/17 03:15 03:30 03:45 03:47 Pulse 72 70 70 Resp 32 20 24 14 B/P 134/61 137/59 124/60 Pulse Ox 98 98 98 O2 Delivery Mechanical Ventilator Mechanical Ventilator Mechanical Ventilator 03/06/17 03/06/17 03/06/17 03/06/17 04:00 04:00 04:00 04:15 Pulse 69 71 71 Resp 19 19 20 B/P 129/60 121/57 Pulse Ox 96 97 O2 Delivery Mechanical Ventilator Mechanical Ventilator FiO2 40 03/06/17 03/06/17 03/06/17 03/06/17 04:20 04:30 04:45 04:55 Temp 98.0 Pulse 69 72 70 Resp 23 21 20 B/P 123/60 122/58 Pulse Ox 95 96 99 O2 Delivery Mechanical Ventilator Mechanical Ventilator FiO2 30 03/06/17 03/06/17 03/06/17 03/06/17 05:00 05:00 05:15 05:30 Pulse 70 80 73 Resp 24 43 16 B/P 121/60 112/48 127/59 Pulse Ox 95 97 94 O2 Delivery Mechanical Ventilator Mechanical Ventilator Mechanical Ventilator FiO2 40 03/06/17 03/06/17 03/06/17 03/06/17 05:45 06:00 06:00 06:15 Pulse 69 69 67 Resp 13 22 21 B/P 134/61 115/54 113/54 Pulse Ox 93 94 94 O2 Delivery Mechanical Ventilator Mechanical Ventilator FiO2 40 03/06/17 03/06/17 03/06/17 03/06/17 06:30 06:45 07:00 07:00 Pulse 66 66 66 Resp 25 22 18 B/P 113/56 112/55 111/55 Pulse Ox 94 94 95 O2 Delivery Mechanical Ventilator Mechanical Ventilator Mechanical Ventilator FiO2 40 03/06/17 03/06/17 03/06/17 03/06/17 07:15 07:30 07:35 07:45 Pulse 65 77 72 Resp 16 13 17 13 B/P 98/54 127/60 127/55 Pulse Ox 94 96 97 O2 Delivery Mechanical Ventilator Mechanical Ventilator Mechanical Ventilator 03/06/17 03/06/17 03/06/17 03/06/17 07:45 07:56 08:00 08:39 Temp 97.9 Pulse 68 68 Resp 18 16 16 B/P 118/56 Pulse Ox 97 O2 Delivery Nasal Cannula O2 Flow Rate 2.00 FiO2 40 03/06/17 03/06/17 03/06/17 03/06/17 10:35 10:35 10:50 11:11 Pulse 75 75 Resp 18 17 Pulse Ox 96 03/06/17 13:14 Resp 19 Telemetry Rhythm: Sinus Rhythm Height (Feet): 6 Height (Inches): 1.00 Weight (Kilograms): 93.600 General General Appearance: Alert, Obese, Orientated x 3, Cooperative, Mild Distress Eyes (Brief) Eyes: FOUND: EOMI, PERRL, NOT FOUND: scleral icterus Neck (Brief) Neck Brief: NOT FOUND: JVD, adenopathy, carotid bruits, thyromegaly Respiratory (Brief) Respiratory Brief: FOUND: equal bilaterally, rales (bibasilar), NOT FOUND: clear all tucker, wheezes Cardiovascular (Brief) Cardiac: FOUND: pedal edema (trace), regular rate, regular rhythm, NOT FOUND: gallop, murmur Abdomen (Brief) Abdominal: FOUND: distended (mildly) Comments He has bowel sounds on his right abdomen Extremities (Brief) Extremity : Extremity Finding: NOT FOUND: edema, pain Lymphatic (Brief) Lymphatic Brief: NOT FOUND: adenopathy, lymphedema Musculoskeletal (Brief) Musculoskeletal Brief: NOT FOUND: deformity, loss of motion, spasm, tenderness Integumentary (Brief) Integumentary: FOUND: dry, pink, warm, NOT FOUND: rash Neurologic (Brief) Neurologic: FOUND: cranial 2-12 intact, motor, sensory Psychiatric (Brief) Psychiatric: FOUND: attentive, normal affect, NOT FOUND: alert (awake) Laboratory Laboratory Laboratory Tests 03/06/17 07:34 Laboratory Tests 03/06/17 07:34 Microbiology Microbiology Microbiology Date/Time Source Procedure Growth Status 03/06/17 07:35 Sputum Endotracheal Wash Gram Stain Pending Resulted 03/06/17 07:35 Sputum Endotracheal Wash Sputum Culture - Preliminary CULTURE INITIATED - RESULTS PENDING Resulted Radiology Chest x-ray reviewed demonstrating pulmonary edema and appropriate endotracheal tube placement Sepsis Diagnostic Criteria Sepsis Confirmed/Suspected Infection: Yes SIRS Criteria: Temp<=96.8 or >=100.4, RR > or = to 20 Severe Sepsis None Seen Assessment & Plan Problems: (1) Inguinal abscess Status: Acute Assessment & Plan: Pseudomonas cultured. (2) Colocutaneous fistula Status: Acute Assessment & Plan: 03/02: Abscess was incised and drained. Surgical correction of a colocutaneous fistula scheduled for Sunday (03/05). 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 Continue Zosyn and metronidazole for antibiotic coverage. Start Incentive Spirometry to help pulmonary toilet. Continue pain control. Encourage activities. Recheck lab in am. Anticipate Dr Mendoza's return in am. Chart reviewed. Time spent with pt care 25 minutes. Code Status Full Code Hospital Course Summary Disclaimer The hospital course summary below is not to be considered part of the above Progress Note. Hospital Course Summary 02/25 Admit patient to outpatient observation under the care of Dr. Worthy for inguinal abscess. ER Provider spoke with Lyle Seth- radiologist. Will plan for ultrasound-guided percutaneous drain tomorrow, Sunday02/26/17. Patient last took Pradaxa this morning 02/25/17. We will place this on hold now for scheduled procedure. He has been on Levaquin and Flagyl for antimicrobial coverage. Will switch to IV Zosyn for ongoing coverage. Will be able follow abscess cultures for further C/S. No evidence of sepsis currently. Normal saline at 100ml/hr for gentle hydration overnight. He may have regular diet now and NPO at midnight for planned procedure tomorrow SCDs to bilateral lower ext for DVT prophylaxis Up in room with assistance Will recheck CBC and BMP tomorrow morning to follow blood counts, renal function and electrolytes. Again he requests to be a Full Code and this order is written Will discuss further orders with attending, Dr Worthy Care will be turned over to PCP tomorrow morning- Dr Mendoza. 02/26/2017: Patient is back from radiology where pigtail catheter drain was placed in the left lower quadrant. He is feeling better at this time. Surgical consultation appreciated. White count remains normal. He is on Zosyn. 02/28/2017: Darvin continues to improve. He does have minimal nausea this evening after supper. His surgical site appears to be without infection. He has minimal brownish material with dark blood in his drain. Should he continue to improve without relapse of fever or an elevation in his white count, I anticipate him going home soon. He would continue with the drain as an outpatient. He would then follow up with myself as well as Dr. Joya as an outpatient final culture and sensitivity is still pending. Gram-negative giorgio as grown but has yet to be identified along with sensitivity. This would determine his outpatient oral antibiotics. 03/01/17: Today Darvin's drain site looks worse. It has erythema, induration, and pain. I have spoken with Dr. Joya and he has evaluated him and agrees. He will order CT with rectal contrast and evaluated for fistula formation tomorrow. He may need surgery following these findings. 03/02/17: Discussed this case with Dr. Joya of surgery earlier today. 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 He is just back from surgery where they incised and drained this site. I agree with the addition of Flagyl to his antibiotic regimen and the plan for surgical resection and primary reanastomosis on Sunday. At this time he is complaining of abdominal pain 4 out of 10. He also has some mild wheezing in his left chest. Family states that he coughed up some dark material earlier today but are unsure of its origin. 03/03/17: Blink Booking covering for Dr Mendoza: Doing well this morning-less ab pain since I/D yesterday. No nausea-did well with breakfast. Had sweats overnight, but no f/c. Breathing well without SOA cough or congestion. No chest pain. Urinating well. Will D/C IVF as taking po well and weight increased from admit. Continue Zosyn and metronidazole for antibiotic coverage. Continue pain control. Encourage activities. Recheck lab in am. 03/04/17: Teressa covering for Dr Mendoza: Doing okay this afternoon-on bowel prep for tomorrow. Feels stools just about to let go. Some ab bloating and cramping with bowel prep. No nausea. Breathing well, but needed O2 at night the last 2 nights. Rare cough; no pain with breathing. No chest pain or pressure. Denies f/c. Start NS at 75cc/hr this evening in anticipation of Sx tomorrow. Continue Zosyn and metronidazole for antibiotic coverage. Start Incentive Spirometry to help pulmonary toilet. Continue pain control. Encourage activities. Recheck lab in am. Anticipate Dr Mendoza's return in am. 03/06/2017: Patient came back from surgery late last night. He is extubated now awake and still groggy. He answers questions appropriately. He denies any chest pain but does complain of some abdominal pain actually in his upper abdomen. He does have bowel sounds. His surgery appears to have gone well. ELLIOT MENDOZA DO Mar 06, 2017 13:30
[2017-03-06] MEDS: LOVASTATIN 20 MG TABLET PO SCH (17:10)
--- NOTE | 2017-03-06 18:49 | PNF ---
DATE OF SERVICE 03/06/2017 FINDINGS Mr. Perales was seen earlier this morning. The patient was extubated earlier today. He informs me that he was experiencing some incisional discomfort but overall did not have severe pain. EXAM Vitals: Afebrile, normotensive. Please refer to EMR. CHEST: Clear to auscultation bilaterally. HEART: Regular rate and rhythm. Normal S1 and S2 without gallops, murmurs or clicks. ABDOMEN: Palpation of the abdomen reveals some minimal incisional tenderness. There is no evidence for guarding or rebound. LABORATORY/RADIOGRAPHIC EVALUATION The patient had a CBC this morning that was unremarkable. White count is minimally elevated at 13.6. Hemoglobin overall stable at 9.4. CMP obtained and found to be without marked abnormalities. ASSESSMENT 81-year-old gentleman status post robotic-assisted laparoscopic repair of colocutaneous fistula with repair of colotomy and extraction of mesh. The patient is currently doing well. PLAN Will continue with current care. Will go ahead and give some clear liquids. Will continue to monitor closely. Will likely transfer out of unit tomorrow if the patient continues to improve. ELSIE
[2017-03-06] MEDS: ONDANSETRON 4mg/2ml INJECTION IV PRN (19:08)
--- NOTE | 2017-03-06 20:10 | NUR ---
STATUS PT ORIENTED X3. REPORTS SOME GAS PAIN, PT IS NOTED TO BE DISTENDED AND HAVE TYMPANIC BOWEL SOUNDS. PT DENIES BEING ABLE TO PASS ANY GAS. PT WAS GIVEN SOME MORPHINE FOR PAIN RATING 8/10.
[2017-03-06] MEDS ORDERED: BISACODYL 10 MG SUPPOSITORY RECTALLY ONE (20:45)
[2017-03-06] MEDS: TAMSULOSIN 0.4 MG CAPSULE PO SCH (20:45)
[2017-03-06] MEDS: ENOXAPARIN 40 MG/0.4 ML INJECTION SQ SCH (20:46)
--- NOTE | 2017-03-06 21:55 | NUR ---
STATUS PT REPORTS GAS PAIN IS BETTER. STILL DENIES PASSING ANY GAS BUT REPORTS THAT THERE IS LESS PRESSURE
[2017-03-06] MEDS: FLUTICASONE NASAL SPRAY 50 MCG EA NOSTRIL SCH (22:00)
[2017-03-07] VITALS (32 sets, daily range): BP systolic 96–169; BP diastolic 46–79; PULSE 75–100; RESP 14–46; TEMP 97.6–98.4; O2SAT 91–99
[2017-03-07] MEDS: KETOROLAC 15mg/ml INJECTION IV PRN ×2 (00:03→08:02)
[2017-03-07] MEDS: NORMAL SALINE 1,000 ML IV SCH (01:26)
[2017-03-07] MEDS: MORPHINE SULFATE 4 MG SYRINGE IV PRN ×6 (03:50→17:58)
--- NOTE | 2017-03-07 06:24 | NUR ---
STATUS PT DIDN'T SLEEP MUCH THROUGH THE NIGHT. PT WAS UP SEVERAL TIMES WALKING AROUND IN THE ROOM WITH ASSIST OF TWO WITH A GAIT BELT. PT CONTINUES TO REPORT BEING UNCOMFORTABLE FROM GAS PAIN. PT WAS ABLE TO PASS SOME GAS. URINE OUTPUT HAS REMAINED BORDERLINE AND IS STARTING TO GET CLOUDY AND DARKER IN COLOR.
[2017-03-07] MEDS: ALBUTEROL/IPRATROPIUM INHAL. 2.5mg-0.5mg/3ml Neb. AEROSOL SCH ×4 (07:02→19:06)
--- NOTE | 2017-03-07 08:46 | DI ---
Indication: ITS.REASON: ? post op ileus? PROCEDURE: KUB W/UPRIGHT: Encounter: Initial Comparison: CT abdomen and pelvis dated February 25, 2017 Findings: Small bilateral pleural effusions. No free intraperitoneal air identified. Overlying monitoring leads. Extensive subcutaneous gas in the lower abdomen and pelvis probably related to the patient's recent surgery. Surgical skin marina noted in the right lower abdominal region. Postoperative changes in the lumbar spine. Colonic air-fluid levels are noted with a dilated cecum. Dilated small bowel is seen in the left upper abdomen measuring up to 5 cm in diameter. Impression: Generalized dilation of small and large bowel consistent with an ileus. .
[2017-03-07] MEDS: METRONIDAZOLE IVPB 500 MG in NORMAL SALINE 100 ML IV SCH ×2 (09:00→21:43)
[2017-03-07 09:15] LABS: HCT - HEMATOCRIT 31.3 % (41-53); HGB - HEMOGLOBIN 9.6 GM/DL (13.5-17.5); MEAN CORPUSCULAR HGB 27.1 UUG (26-34); MEAN CORPUSCULAR HGB CONC(MCHC 30.7 GM/DL (31-37); MEAN CORPUSCULAR VOLUME 88.4 UM3 (80-100); MEAN PLATELET VOLUME 8.6 UM3 (9.4-12.4); RED BLOOD COUNT 3.54 M/MM3 (4.50-5.90); WBC - WHITE BLOOD COUNT 13.1 T/MM3 (4.5-11.0)
[2017-03-07] MEDS ORDERED: BISACODYL 10 MG SUPPOSITORY RECTALLY ONE (09:15)
[2017-03-07 09:20] LABS: ALBUMIN 2.4 G/DL (3.5-5.0); ALBUMIN/GLOBULIN RATIO 0.8 RATIO (1.1-2.2); ALKALINE PHOSPHATASE 107 U/L (38-126); ALT (SGPT) 38 U/L (21-72); ANION GAP 9 MEQ/L (5-15); AST (SGOT) 49 U/L (17-59); BUN/CREATININE RATIO 19 RATIO (6-26); CALCIUM 7.9 MG/DL (8.4-10.2); CHLORIDE 112 MEQ/L (98-107); CO2 - CARBON DIOXIDE 23 MEQ/L (22-30); GLOMERULAR FILTRATION RATE 72; GLUCOSE 115 MG/DL (75-110); POTASSIUM 3.8 MEQ/L (3.6-5); SODIUM 144 MEQ/L (134-144); TOTAL PROTEIN 5.5 G/DL (6.3-8.2)
[2017-03-07 09:32] LABS: BAND NEUTROPHILS # 0.1 T/MM3; EOSINOPHILS # (MANUAL) 0.4 T/MM3 (0-0.5); LYMPHOCYTES # (MANUAL) 1.2 T/MM3 (1-4.8); MONOCYTES # (MANUAL) 0.4 T/MM3 (0-0.8); POIKILOCYTOSIS 1+; TOTAL CELLS COUNTED 100 %
--- NOTE | 2017-03-07 09:43 | PNSURG ---
Subjective DATE: 03/07/17 TIME: 09:37 Interval History [facility] No stool, but states he has passed a lot of flatus. He feels that the "gas/bloating" has decreased since yesterday. Denies nausea this am, but was troubled with some nausea last evening. States he does not have an appetite, nothing sounds good. Urine output down again, breath sounds slightly course, more at the right base. Objective Vital Signs Date Time Temp Pulse Resp B/P Pulse Ox O2 Delivery O2 Flow Rate FiO2 03/07/17 09:00 82 28 107/53 95 Nasal Cannula 3.00 03/07/17 08:17 97.6 03/06/17 07:45 40 Height (Feet): 6 Height (Inches): 1.00 Weight (Kilograms): 95.400 BMI 26.2 General Appearance: Alert, Awake, Orientated x 3, No Acute Distress Respiratory: FOUND: rales (faint crackles right base) Cardiac: FOUND: irregular rhythm Abdominal Brief: FOUND: appropriately tender, hypoactive bowel sounds, soft Incision: FOUND: Clean, Dry, Intact, marina present, NOT FOUND: erythema Wound Management Wound : Location Modifier: Left, Lower Wound Location: Abdomen Wound Drainage Amount: Minimal Wound Drainage Description: Serosanguineous (no purulence or feces visible) Wound Bed: gran red Wound Length (cm): 11 (11 cm) Wound Width (cm): 2 (2 ccm) Wound Depth (cm): 2 Exposed: subtissue, muscle Wound Packing Type: FOUND: Gauze Roll Wound Primary Dressing Type: Gauze Pads Wound Undermining : Wound Undermining (cm): 5 (5 cm along the cephalad boreder, and aobut 1-2 cm on the medial and lateral corners.) Male: FOUND: other (Chow in place, urine dark parag, output marginal at best, 7 ml to low 20's ml per hour over the last 15 hours) Laboratory Trend Hemoglobin Test 03/05/17 04:13 03/06/17 07:34 03/07/17 08:39 Hemoglobin 9.5GM/DL (13.5-17.5) 9.4GM/DL (13.5-17.5) 9.6GM/DL (13.5-17.5) Trend WBC's Test 03/05/17 04:13 03/06/17 07:34 03/07/17 08:39 White Blood Count 9.0T/MM3 (4.5-11.0) 13.6T/MM3 (4.5-11.0) 13.1T/MM3 (4.5-11.0) Laboratory Tests 03/05/17 04:13 03/06/17 07:34 03/07/17 08:39 Laboratory Tests 03/05/17 04:13 03/06/17 07:34 03/07/17 08:39 Imaging 03-07 KUB upright Findings: Small bilateral pleural effusions. No free intraperitoneal air identified. Overlying monitoring leads. Extensive subcutaneous gas in the lower abdomen and pelvis probably related to the patient's recent surgery. Surgical skin marina noted in the right lower abdominal region. Postoperative changes in the lumbar spine. Colonic air-fluid levels are noted with a dilated cecum. Dilated small bowel is seen in the left upper abdomen measuring up to 5 cm in diameter. Impression: Generalized dilation of small and large bowel consistent with an ileus. 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 Assessment & Plan Problems: (1) Diverticulitis Status: Acute Qualifiers: Diverticulitis site: large intestine Diverticulitis complication: with abscess (2) Colocutaneous fistula Status: Resolved (3) Inguinal abscess Status: Acute (4) Oliguria Status: Acute Assessment Oliguria, will bolus another 500 ml cautiously and give 0.5 mg Bumex IV. Potassium slowly drifting down, will change IVF to D5 1/2 with 10 KCL Encourage Breeze, the high protein juice. KUB indicates likely ileus pattern, although he is passing flatus and not nauseated, will continue clears today, possible advance to fulls this evening if he is still doing well and/or has some stool. HOpe to start feeding the gut soon and avoid PICC and TPN. WBC still 13.1 (13.6 yesterday) some of this may be stress response. Continue ABX as ordered. Daily labs Lovenox daily. Protonix daily. Keep in CCU today if possible. Consider transfer to floor tonight or tomorrow. Daily packing changes of the left inguinal wound and plan possible wound vac tomorrow. DVT Prophylaxis: SCD'S, Lovenox GI Prophylaxis: Protonix Code Status Full Code Hospital Course Summary Disclaimer The visit summary below is not to be considered part of the above Progress Note. Hospital Course Summary 02/25 Admit patient to outpatient observation under the care of Dr. Worthy for inguinal abscess. ER Provider spoke with Lyle Seth- radiologist. Will plan for ultrasound-guided percutaneous drain tomorrow, Sunday02/26/17. Patient last took Pradaxa this morning 02/25/17. We will place this on hold now for scheduled procedure. He has been on Levaquin and Flagyl for antimicrobial coverage. Will switch to IV Zosyn for ongoing coverage. Will be able follow abscess cultures for further C/S. No evidence of sepsis currently. Normal saline at 100ml/hr for gentle hydration overnight. He may have regular diet now and NPO at midnight for planned procedure tomorrow SCDs to bilateral lower ext for DVT prophylaxis Up in room with assistance Will recheck CBC and BMP tomorrow morning to follow blood counts, renal function and electrolytes. Again he requests to be a Full Code and this order is written Will discuss further orders with attending, Dr Worthy Care will be turned over to PCP tomorrow morning- Dr Arauz. 02/26/2017: Patient is back from radiology where pigtail catheter drain was placed in the left lower quadrant. He is feeling better at this time. Surgical consultation appreciated. White count remains normal. He is on Zosyn. 02/28/2017: Darvin continues to improve. He does have minimal nausea this evening after supper. His surgical site appears to be without infection. He has minimal brownish material with dark blood in his drain. Should he continue to improve without relapse of fever or an elevation in his white count, I anticipate him going home soon. He would continue with the drain as an outpatient. He would then follow up with myself as well as Dr. Joya as an outpatient final culture and sensitivity is still pending. Gram-negative giorgio as grown but has yet to be identified along with sensitivity. This would determine his outpatient oral antibiotics. 03/01/17: Today Darvin's drain site looks worse. It has erythema, induration, and pain. I have spoken with Dr. Joya and he has evaluated him and agrees. He will order CT with rectal contrast and evaluated for fistula formation tomorrow. He may need surgery following these findings. 03/02/17: Discussed this case with Dr. Joya of surgery earlier today. 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 He is just back from surgery where they incised and drained this site. I agree with the addition of Flagyl to his antibiotic regimen and the plan for surgical resection and primary reanastomosis on Sunday. At this time he is complaining of abdominal pain 4 out of 10. He also has some mild wheezing in his left chest. Family states that he coughed up some dark material earlier today but are unsure of its origin. 03/03/17: Teressa covering for Dr Arauz: Doing well this morning-less ab pain since I/D yesterday. No nausea-did well with breakfast. Had sweats overnight, but no f/c. Breathing well without SOA cough or congestion. No chest pain. Urinating well. Will D/C IVF as taking po well and weight increased from admit. Continue Zosyn and metronidazole for antibiotic coverage. Continue pain control. Encourage activities. Recheck lab in am. 03/04/17: Teressa covering for Dr Arauz: Doing okay this afternoon-on bowel prep for tomorrow. Feels stools just about to let go. Some ab bloating and cramping with bowel prep. No nausea. Breathing well, but needed O2 at night the last 2 nights. Rare cough; no pain with breathing. No chest pain or pressure. Denies f/c. Start NS at 75cc/hr this evening in anticipation of Sx tomorrow. Continue Zosyn and metronidazole for antibiotic coverage. Start Incentive Spirometry to help pulmonary toilet. Continue pain control. Encourage activities. Recheck lab in am. Anticipate Dr Arauz's return in am. 03/06/2017: Patient came back from surgery late last night. He is extubated now awake and still groggy. He answers questions appropriately. He denies any chest pain but does complain of some abdominal pain actually in his upper abdomen. He does have bowel sounds. His surgery appears to have gone well. 03-07 Surgery note Oliguria, will bolus another 500 ml cautiously and give 0.5 mg Bumex IV. Potassium slowly drifting down, will change IVF to D5 1/2 with 10 KCL Encourage Breeze, the high protein juice. KUB indicates likely ileus pattern, although he is passing flatus and not nauseated, will continue clears today, possible advance to fulls this evening if he is still doing well and/or has some stool. HOpe to start feeding the gut soon and avoid PICC and TPN. WBC still 13.1 (13.6 yesterday) some of this may be stress response. Continue ABX as ordered. Keep in CCU today if possible. Consider transfer to floor tonight or tomorrow. Daily packing changes of the left inguinal wound and plan possible wound vac tomorrow. CARTER DAVIS APRN Mar 07, 2017 09:42
[2017-03-07] MEDS ORDERED: BUMETANIDE 1 MG/4 ML INJECTION IV ONE (09:45)
[2017-03-07] MEDS ORDERED: NORMAL SALINE 500 ML IV SCH (09:45)
[2017-03-07] MEDS: PANTOPRAZOLE 40mg INJECTION IV SCH (10:00)
[2017-03-07] MEDS: LEVOFLOXACIN 500 mg IVPB 500 MG in D5W 100 ML IV SCH (10:00)
[2017-03-07] MEDS: D5 IV SCH ×2 (12:00→17:48)
[2017-03-07] MEDS: POTASSIUM CHLORIDE IV SCH ×2 (12:00→17:48)
[2017-03-07] MEDS: 1/2 NS IV SCH ×2 (12:00→17:48)
[2017-03-07] MEDS: ONDANSETRON 4mg/2ml INJECTION IV PRN (17:59)
[2017-03-07] MEDS: LOVASTATIN 20 MG TABLET PO SCH (17:59)
--- NOTE | 2017-03-07 18:09 | PNPDOC ---
Subjective Date DATE: 03/07/17 TIME: 17:59 Subjective Patient seen and examined in the ICU. He states that he had nausea last night and even has a little bit right now. He did walk some inside the ICU last night and this morning passed a lot of flatus. He had one small mucousy bowel movement today. At this time he has some low-grade nausea and decreased bowel sounds with mild abdominal distention. He denies chest pain or shortness of breath. He has coughed up some blood tinged sputum today. His weight is up approximately 3 kg from the time prior to surgery. I did discuss the possibility of transferring him to the medical floor with Dr. Joya. At this time however I think I will leave him in the ICU tonight and have him try to walk some more. If his abdominal exam was better I would transfer him tonight. Location: abdomen Quality: acute, chronic Duration: other (worsening over 2-3 months) Associated Symptoms: abdominal pain Objective Vital Signs Vital signs Vital Signs 03/07/17 03/07/17 03/07/17 03/07/17 06:00 07:00 07:00 07:00 Pulse 83 85 88 Resp 19 22 18 B/P 167/79 165/76 Pulse Ox 93 96 96 O2 Delivery Nasal Cannula O2 Flow Rate 3.00 03/07/17 03/07/17 03/07/17 03/07/17 07:13 08:00 08:17 08:36 Temp 97.6 Pulse 87 87 92 91 Resp 22 22 19 B/P 96/46 101/54 Pulse Ox 95 93 O2 Delivery Nasal Cannula Nasal Cannula O2 Flow Rate 3.00 3.00 03/07/17 03/07/17 03/07/17 03/07/17 09:00 10:01 10:04 11:00 Pulse 82 83 75 Resp 28 28 16 19 B/P 107/53 136/63 129/61 Pulse Ox 95 96 97 O2 Delivery Nasal Cannula Nasal Cannula Nasal Cannula O2 Flow Rate 3.00 3.00 3.00 03/07/17 03/07/17 03/07/17 03/07/17 11:45 11:50 11:50 12:00 Pulse 77 77 Resp 9 15 14 Pulse Ox 98 03/07/17 03/07/17 03/07/17 03/07/17 12:00 12:02 13:00 13:33 Pulse 77 72 80 Resp 14 24 23 B/P 126/61 117/57 Pulse Ox 99 93 O2 Delivery Nasal Cannula Nasal Cannula O2 Flow Rate 3.00 3.00 03/07/17 03/07/17 03/07/17 03/07/17 14:00 14:33 15:02 15:22 Pulse 75 89 78 Resp 18 26 23 B/P 123/58 167/72 Pulse Ox 91 92 O2 Delivery Nasal Cannula Nasal Cannula O2 Flow Rate 3.00 3.00 03/07/17 03/07/17 03/07/17 03/07/17 15:22 15:34 15:36 16:00 Temp 97.9 Pulse 84 83 78 Resp 14 14 21 B/P 138/61 Pulse Ox 95 91 O2 Delivery Nasal Cannula O2 Flow Rate 3.00 Telemetry Rhythm: Sinus Rhythm Height (Feet): 6 Height (Inches): 1.00 Weight (Kilograms): 95.400 General General Appearance: Alert, Overweight, Cooperative, Mild Distress Eyes (Brief) Eyes: FOUND: EOMI, PERRL Neck (Brief) Neck Brief: NOT FOUND: JVD, adenopathy, carotid bruits, thyromegaly Respiratory (Brief) Respiratory Brief: FOUND: clear all tucker, equal bilaterally, NOT FOUND: rales , wheezes Cardiovascular (Brief) Cardiac: FOUND: regular rate, regular rhythm (with occasional ectopy), NOT FOUND: gallop, murmur Abdomen (Brief) Abdominal: FOUND: distended (mildly), tender (mildly), NOT FOUND: BS normo active x4 (diminished bowel sounds but present) (Brief) Comments Chow catheter in place Extremities (Brief) Extremity : Extremity Finding: NOT FOUND: edema, pain Lymphatic (Brief) Lymphatic Brief: NOT FOUND: adenopathy, lymphedema Musculoskeletal (Brief) Musculoskeletal Brief: NOT FOUND: deformity, loss of motion, spasm, tenderness Integumentary (Brief) Integumentary: FOUND: dry, pink, warm, NOT FOUND: rash Neurologic (Brief) Neurologic: FOUND: cranial 2-12 intact, motor, sensory Psychiatric (Brief) Psychiatric: FOUND: alert, attentive, normal affect, oriented Laboratory Laboratory Laboratory Tests 03/07/17 08:39 Laboratory Tests 03/07/17 08:39 Microbiology Microbiology Microbiology Date/Time Source Procedure Growth Status 03/06/17 07:35 Sputum Endotracheal Wash Gram Stain - Final Resulted 03/06/17 07:35 Sputum Endotracheal Wash Sputum Culture - Preliminary CULTURE INITIATED - RESULTS PENDING Resulted Radiology DATE OF EXAM: 03/07/17 ORDERING DOCTOR: CARTER DAVIS APRN TYPE OF EXAM: KUB W/UPRIGHT REASON FOR EXAM: ? post op ileus? Indication: ITS.REASON: ? post op ileus? PROCEDURE: KUB W/UPRIGHT: Encounter: Initial Comparison: CT abdomen and pelvis dated February 25, 2017 Findings: Small bilateral pleural effusions. No free intraperitoneal air identified. Overlying monitoring leads. Extensive subcutaneous gas in the lower abdomen and pelvis probably related to the patient's recent surgery. Surgical skin marina noted in the right lower abdominal region. Postoperative changes in the lumbar spine. Colonic air-fluid levels are noted with a dilated cecum. Dilated small bowel is seen in the left upper abdomen measuring up to 5 cm in diameter. Impression: Generalized dilation of small and large bowel consistent with an ileus. . Sepsis Diagnostic Criteria Sepsis Confirmed/Suspected Infection: Yes SIRS Criteria: Temp<=96.8 or >=100.4, RR > or = to 20 Severe Sepsis None Seen Assessment & Plan Problems: (1) Inguinal abscess Status: Acute Assessment & Plan: Pseudomonas cultured. (2) Colocutaneous fistula Status: Acute Assessment & Plan: 03/02: Abscess was incised and drained. Surgical correction of a colocutaneous fistula scheduled for Sunday (03/05). 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 Continue Zosyn and metronidazole for antibiotic coverage. Start Incentive Spirometry to help pulmonary toilet. Continue pain control. Encourage activities. Recheck lab in am. Anticipate Dr Mendoza's return in am. Chart reviewed. Time spent with pt care 25 minutes. Code Status Full Code Hospital Course Summary Disclaimer The hospital course summary below is not to be considered part of the above Progress Note. Hospital Course Summary 02/25 Admit patient to outpatient observation under the care of Dr. Worthy for inguinal abscess. ER Provider spoke with Lyle Seth- radiologist. Will plan for ultrasound-guided percutaneous drain tomorrow, Sunday02/26/17. Patient last took Pradaxa this morning 02/25/17. We will place this on hold now for scheduled procedure. He has been on Levaquin and Flagyl for antimicrobial coverage. Will switch to IV Zosyn for ongoing coverage. Will be able follow abscess cultures for further C/S. No evidence of sepsis currently. Normal saline at 100ml/hr for gentle hydration overnight. He may have regular diet now and NPO at midnight for planned procedure tomorrow SCDs to bilateral lower ext for DVT prophylaxis Up in room with assistance Will recheck CBC and BMP tomorrow morning to follow blood counts, renal function and electrolytes. Again he requests to be a Full Code and this order is written Will discuss further orders with attending, Dr Worthy Care will be turned over to PCP tomorrow morning- Dr Mendoza. 02/26/2017: Patient is back from radiology where pigtail catheter drain was placed in the left lower quadrant. He is feeling better at this time. Surgical consultation appreciated. White count remains normal. He is on Zosyn. 02/28/2017: Darvin continues to improve. He does have minimal nausea this evening after supper. His surgical site appears to be without infection. He has minimal brownish material with dark blood in his drain. Should he continue to improve without relapse of fever or an elevation in his white count, I anticipate him going home soon. He would continue with the drain as an outpatient. He would then follow up with myself as well as Dr. Joya as an outpatient final culture and sensitivity is still pending. Gram-negative giorgio as grown but has yet to be identified along with sensitivity. This would determine his outpatient oral antibiotics. 03/01/17: Today Darvin's drain site looks worse. It has erythema, induration, and pain. I have spoken with Dr. Joya and he has evaluated him and agrees. He will order CT with rectal contrast and evaluated for fistula formation tomorrow. He may need surgery following these findings. 03/02/17: Discussed this case with Dr. Joya of surgery earlier today. 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 He is just back from surgery where they incised and drained this site. I agree with the addition of Flagyl to his antibiotic regimen and the plan for surgical resection and primary reanastomosis on Sunday. At this time he is complaining of abdominal pain 4 out of 10. He also has some mild wheezing in his left chest. Family states that he coughed up some dark material earlier today but are unsure of its origin. 03/03/17: Bomgar covering for Dr Mendoza: Doing well this morning-less ab pain since I/D yesterday. No nausea-did well with breakfast. Had sweats overnight, but no f/c. Breathing well without SOA cough or congestion. No chest pain. Urinating well. Will D/C IVF as taking po well and weight increased from admit. Continue Zosyn and metronidazole for antibiotic coverage. Continue pain control. Encourage activities. Recheck lab in am. 03/04/17: Bomgar covering for Dr Mendoza: Doing okay this afternoon-on bowel prep for tomorrow. Feels stools just about to let go. Some ab bloating and cramping with bowel prep. No nausea. Breathing well, but needed O2 at night the last 2 nights. Rare cough; no pain with breathing. No chest pain or pressure. Denies f/c. Start NS at 75cc/hr this evening in anticipation of Sx tomorrow. Continue Zosyn and metronidazole for antibiotic coverage. Start Incentive Spirometry to help pulmonary toilet. Continue pain control. Encourage activities. Recheck lab in am. Anticipate Dr Mendoza's return in am. 03/06/2017: Patient came back from surgery late last night. He is extubated now awake and still groggy. He answers questions appropriately. He denies any chest pain but does complain of some abdominal pain actually in his upper abdomen. He does have bowel sounds. His surgery appears to have gone well. 03-07 Surgery note Oliguria, will bolus another 500 ml cautiously and give 0.5 mg Bumex IV. Potassium slowly drifting down, will change IVF to D5 1/2 with 10 KCL Encourage Breeze, the high protein juice. KUB indicates likely ileus pattern, although he is passing flatus and not nauseated, will continue clears today, possible advance to fulls this evening if he is still doing well and/or has some stool. HOpe to start feeding the gut soon and avoid PICC and TPN. WBC still 13.1 (13.6 yesterday) some of this may be stress response. Continue ABX as ordered. Keep in CCU today if possible. Consider transfer to floor tonight or tomorrow. Daily packing changes of the left inguinal wound and plan wound vac tomorrow. 03/07/2017: I discussed this case with Dr. Joya. I also discussed the events of today with nursing staff. Patient did walk some today and he did pass a large amount of flatus earlier. He had a small mucous stool earlier today. At this time he has mildly nauseous with some abdominal distention and decreased bowel sounds. I don't I would transfer him out tonight to the medical floor, however I think I will keep him in the ICU tonight. I would hate for him to have more trouble with the developing or worsening ileus on the medical floor and be transferred back. I'll have him walk again tonight and use Zofran for nausea. Hopefully, he will continue to improve enough to be transferred in the morning. ELLIOT MENDOZA DO Mar 07, 2017 18:02
--- NOTE | 2017-03-07 19:20 | NUR ---
Status: the patient has sat up in the chair this pm. He walked x2 with o2 on at 2l/nc. Pain is treated with prn MS. The patient reports pain relief. He is passing flatus and has passed x1 mucoid stool. The patient is taking clear liquids but reports feeling bloated and slightly nauseated. Zofran 4 mg IV is given for the nausea.
[2017-03-07] MEDS: ENOXAPARIN 40 MG/0.4 ML INJECTION SQ SCH (21:42)
[2017-03-07] MEDS: TAMSULOSIN 0.4 MG CAPSULE PO SCH (21:42)
[2017-03-07] MEDS: FLUTICASONE NASAL SPRAY 50 MCG EA NOSTRIL SCH (22:20)
--- NOTE | 2017-03-07 22:44 | NUR ---
DRSG CHANGE PREFORMED PER DO, PT TOLERATED PROCEDURE WELL, RESTING IN BED, WILL CONTINUE TO MONITOR.
[2017-03-08] VITALS (25 sets, daily range): BP systolic 124–174; BP diastolic 56–78; PULSE 7–93; RESP 16–27; TEMP 96.4–98.8; O2SAT 90–97
[2017-03-08] MEDS: KETOROLAC 15mg/ml INJECTION IV PRN ×2 (04:33→18:01)
[2017-03-08 04:59] LABS: BASOPHILS % (AUTO) 0.2 % (0-2); EOSINOPHILS # (AUTO) 0.2 T/MM3 (0-0.5); EOSINOPHILS % (AUTO) 2.3 % (0-4); HCT - HEMATOCRIT 29.9 % (41-53); HGB - HEMOGLOBIN 9.4 GM/DL (13.5-17.5); IMMATURE GRANULOCYTE # (AUTO) 0.02 T/MM3 (0.00-0.03); IMMATURE GRANULOCYTE % (AUTO) 0.2 % (0.0-0.5); LYMPHOCYTES # (AUTO) 0.9 T/MM3 (1-4.8); LYMPHOCYTES % (AUTO) 8.7 % (23-45); MEAN CORPUSCULAR HGB 27.5 UUG (26-34); MEAN CORPUSCULAR HGB CONC(MCHC 31.4 GM/DL (31-37); MEAN CORPUSCULAR VOLUME 87.4 UM3 (80-100); MEAN PLATELET VOLUME 8.6 UM3 (9.4-12.4); MONOCYTES # (AUTO) 1.4 T/MM3 (0-0.8); MONOCYTES % (AUTO) 12.7 % (0-9.0); NEUTROPHILS #(AUTO)-ABSOLUTE 8.1 T/MM3 (1.8-7.7); NEUTROPHILS % (AUTO) 75.9 % (33-66); RED BLOOD COUNT 3.42 M/MM3 (4.50-5.90); WBC - WHITE BLOOD COUNT 10.6 T/MM3 (4.5-11.0)
--- NOTE | 2017-03-08 05:08 | NUR ---
ACTIVITY THIS RN HAS MADE SEVERAL ATTEMPTS TO HELP PT REPOSITION THIS SHIFT, PT REFUSES MAKING STATEMENTS LIKE "I'M TOO COMFORTABLE TO MOVE RIGHT NOW" & "I TRIED THAT ALREADY AND I DIDN'T LIKE IT". RN HAS PROVIDED PT WITH EDU ON MOBILITY, RISK FACTORS, ETC SEVERAL TIMES THIS SHIFT, PT IS UNINTERESTED, ROLLS HIS EYES, AND AT TIMES IS SOMEWHAT ARGUMENTATIVE. RN REQUESTS PT PREFORM IS THIS AM, PT IS RELUCTANT BUT AGREES, IS NOTED TO BE VERY BREATHLESS UPON COMPLETION. RN DID PLACE PT ON CONTINUOUS LATERAL ROTATION FOR APPROX 2.5-3HRS DURING THE NIGHT, PT PROMPTLY REQUESTS TO HAVE IT TURNED OFF, EDU REINFORCED, PT LAUGHS. LUNGS ARE COURSE THROUGHOUT. WILL CONTINUE TO MONITOR AND REINFORCE EDU.
[2017-03-08 05:09] LABS: ANION GAP 8 MEQ/L (5-15); BUN/CREATININE RATIO 16 RATIO (6-26); CALCIUM 7.6 MG/DL (8.4-10.2); CHLORIDE 107 MEQ/L (98-107); CO2 - CARBON DIOXIDE 25 MEQ/L (22-30); CREATININE 0.8 MG/DL (0.8-1.5); GLOMERULAR FILTRATION RATE 93; GLUCOSE 129 MG/DL (75-110); POTASSIUM 3.8 MEQ/L (3.6-5); SODIUM 140 MEQ/L (134-144)
--- NOTE | 2017-03-08 05:16 | NUR ---
PO PT IS WITNESSES TRYING TO DRINK FLUIDS WITH HOB APPROX 15 DEGREES, RN PROVIDES EDU ON CHOKING/ASPIRATION RISK, PT ROLLS HIS EYES AND ALLOWS RN TO ELEVATE HIS HOB TO APPROX 25 DEGREES.
[2017-03-08] MEDS: ALBUTEROL/IPRATROPIUM INHAL. 2.5mg-0.5mg/3ml Neb. AEROSOL SCH ×4 (06:35→21:12)
[2017-03-08] MEDS: HYDROCODONE/APAP 5 mg/325 mg TABLET PO PRN ×3 (06:58→21:35)
[2017-03-08] MEDS: METRONIDAZOLE IVPB 500 MG in NORMAL SALINE 100 ML IV SCH ×2 (08:15→20:52)
[2017-03-08] MEDS: PANTOPRAZOLE 40mg INJECTION IV SCH (08:15)
[2017-03-08] MEDS: D5 IV SCH ×4 (08:29→18:38)
[2017-03-08] MEDS: POTASSIUM CHLORIDE IV SCH ×4 (08:29→18:38)
[2017-03-08] MEDS: 1/2 NS IV SCH ×4 (08:29→18:38)
[2017-03-08] MEDS: MORPHINE SULFATE 4 MG SYRINGE IV PRN (08:40)
--- NOTE | 2017-03-08 09:00 | NUR ---
Strong spontaneous cough after dressing change. O2 down to one liter NC, sats in low 90s.
[2017-03-08] MEDS ORDERED: BISACODYL 10 MG SUPPOSITORY RECTALLY ONE ×2 (09:15→18:30)
--- NOTE | 2017-03-08 09:31 | PNSURG ---
Subjective DATE: 03/08/17 TIME: 09:24 Interval History He has had a couple of small stools, denies nausea currently. His abd is a little more distended than yesterday but not tender on palpation. Will continue full liquids sparingly. Dulcolax suppository. Will hold off on wound vac till next week, allow more time for the colonic and inguinal fistula incisions/wounds to heal. Urine output better. He is transferring to the surgical floor. Objective Vital Signs Date Time Temp Pulse Resp B/P Pulse Ox O2 Delivery O2 Flow Rate FiO2 03/08/17 08:00 97.4 77 27 124/56 94 Nasal Cannula 2.00 03/06/17 07:45 40 Height (Feet): 6 Height (Inches): 1.00 Weight (Kilograms): 95.400 BMI 26.2 General Appearance: Alert, Awake, Orientated x 2 Respiratory: FOUND: clear all tucker Cardiac: FOUND: irregular rhythm (slightly) Abdominal Brief: FOUND: BS normo active x4, appropriately tender, distended Incision: FOUND: marina present, NOT FOUND: erythema Wound Management Wound : Location Modifier: Left, Lower Wound Location: Abdomen Wound Drainage Amount: Minimal Wound Drainage Description: Serosanguineous (no purulence or feces visible) Wound Bed: gran red Wound Length (cm): 11 (11 cm) Wound Width (cm): 2 (2 ccm) Wound Depth (cm): 2 Exposed: subtissue, muscle Wound Packing Type: FOUND: Gauze Roll Wound Primary Dressing Type: Gauze Pads Wound Undermining : Wound Undermining (cm): 5 (5 cm along the cephalad boreder, and aobut 1-2 cm on the medial and lateral corners.) Laboratory Laboratory Tests 03/06/17 07:34 03/07/17 08:39 03/08/17 04:45 Laboratory Tests 03/06/17 07:34 03/07/17 08:39 03/08/17 04:45 Procedure Procedure Date: Mar 05, 2017 Surgeon: Toan Echeverria 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 GS Assessment & Plan Problems: (1) Diverticulitis Status: Acute Qualifiers: Diverticulitis site: large intestine Diverticulitis complication: with abscess (2) Colocutaneous fistula Status: Resolved (3) Inguinal abscess Status: Acute (4) Oliguria Status: Acute Assessment He has had a couple of small stools, denies nausea currently. His abd is a little more distended than yesterday but not particularly tender on palpation. Will continue full liquids sparingly. Dulcolax suppository. Will hold off on wound vac till next week, allow more time for the colonic and inguinal fistula incisions/wounds to heal. Urine output better. He is transferring to the surgical floor. DVT Prophylaxis: SCD'S, Lovenox GI Prophylaxis: Protonix Code Status Full Code Hospital Course Summary Disclaimer The visit summary below is not to be considered part of the above Progress Note. Hospital Course Summary 02/25 Admit patient to outpatient observation under the care of Dr. Worthy for inguinal abscess. ER Provider spoke with Lyle Seth- radiologist. Will plan for ultrasound-guided percutaneous drain tomorrow, Sunday02/26/17. Patient last took Pradaxa this morning 02/25/17. We will place this on hold now for scheduled procedure. He has been on Levaquin and Flagyl for antimicrobial coverage. Will switch to IV Zosyn for ongoing coverage. Will be able follow abscess cultures for further C/S. No evidence of sepsis currently. Normal saline at 100ml/hr for gentle hydration overnight. He may have regular diet now and NPO at midnight for planned procedure tomorrow SCDs to bilateral lower ext for DVT prophylaxis Up in room with assistance Will recheck CBC and BMP tomorrow morning to follow blood counts, renal function and electrolytes. Again he requests to be a Full Code and this order is written Will discuss further orders with attending, Dr Worthy Care will be turned over to PCP tomorrow morning- Dr Arauz. 02/26/2017: Patient is back from radiology where pigtail catheter drain was placed in the left lower quadrant. He is feeling better at this time. Surgical consultation appreciated. White count remains normal. He is on Zosyn. 02/28/2017: Darvin continues to improve. He does have minimal nausea this evening after supper. His surgical site appears to be without infection. He has minimal brownish material with dark blood in his drain. Should he continue to improve without relapse of fever or an elevation in his white count, I anticipate him going home soon. He would continue with the drain as an outpatient. He would then follow up with myself as well as Dr. Joya as an outpatient final culture and sensitivity is still pending. Gram-negative giorgio as grown but has yet to be identified along with sensitivity. This would determine his outpatient oral antibiotics. 03/01/17: Today Darvin's drain site looks worse. It has erythema, induration, and pain. I have spoken with Dr. Joya and he has evaluated him and agrees. He will order CT with rectal contrast and evaluated for fistula formation tomorrow. He may need surgery following these findings. 03/02/17: Discussed this case with Dr. Joya of surgery earlier today. 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 He is just back from surgery where they incised and drained this site. I agree with the addition of Flagyl to his antibiotic regimen and the plan for surgical resection and primary reanastomosis on Sunday. At this time he is complaining of abdominal pain 4 out of 10. He also has some mild wheezing in his left chest. Family states that he coughed up some dark material earlier today but are unsure of its origin. 03/03/17: Teressa covering for Dr Arauz: Doing well this morning-less ab pain since I/D yesterday. No nausea-did well with breakfast. Had sweats overnight, but no f/c. Breathing well without SOA cough or congestion. No chest pain. Urinating well. Will D/C IVF as taking po well and weight increased from admit. Continue Zosyn and metronidazole for antibiotic coverage. Continue pain control. Encourage activities. Recheck lab in am. 03/04/17: Teressa covering for Dr Arauz: Doing okay this afternoon-on bowel prep for tomorrow. Feels stools just about to let go. Some ab bloating and cramping with bowel prep. No nausea. Breathing well, but needed O2 at night the last 2 nights. Rare cough; no pain with breathing. No chest pain or pressure. Denies f/c. Start NS at 75cc/hr this evening in anticipation of Sx tomorrow. Continue Zosyn and metronidazole for antibiotic coverage. Start Incentive Spirometry to help pulmonary toilet. Continue pain control. Encourage activities. Recheck lab in am. Anticipate Dr Arauz's return in am. 03/06/2017: Patient came back from surgery late last night. He is extubated now awake and still groggy. He answers questions appropriately. He denies any chest pain but does complain of some abdominal pain actually in his upper abdomen. He does have bowel sounds. His surgery appears to have gone well. 03-07 Surgery note Oliguria, will bolus another 500 ml cautiously and give 0.5 mg Bumex IV. Potassium slowly drifting down, will change IVF to D5 1/2 with 10 KCL Encourage Breeze, the high protein juice. KUB indicates likely ileus pattern, although he is passing flatus and not nauseated, will continue clears today, possible advance to fulls this evening if he is still doing well and/or has some stool. HOpe to start feeding the gut soon and avoid PICC and TPN. WBC still 13.1 (13.6 yesterday) some of this may be stress response. Continue ABX as ordered. Keep in CCU today if possible. Consider transfer to floor tonight or tomorrow. Daily packing changes of the left inguinal wound and plan possible wound vac tomorrow. 03/07/2017: I discussed this case with Dr. Joya. I also discussed the events of today with nursing staff. Patient did walk some today and he did pass a large amount of flatus earlier. He had a small mucous stool earlier today. At this time he has mildly nauseous with some abdominal distention and decreased bowel sounds. I don't I would transfer him out tonight to the medical floor, however I think I will keep him in the ICU tonight. I would hate for him to have more trouble with the developing or worsening ileus on the medical floor and be transferred back. I'll have him walk again tonight and use Zofran for nausea. Hopefully, he will continue to improve enough to be transferred in the morning. 03-08 He has had a couple of small stools, denies nausea currently. His abd is a little more distended than yesterday but not tender on palpation. Will continue full liquids sparingly. Dulcolax suppository. Will hold off on wound vac till next week, allow more time for the colonic and inguinal fistula incisions/wounds to heal. Urine output better. He is transferring to the surgical floor. CARTER DAVIS APRN Mar 08, 2017 09:27
[2017-03-08] MEDS: LEVOFLOXACIN 500 mg IVPB 500 MG in D5W 100 ML IV SCH (09:52)
--- NOTE | 2017-03-08 10:00 | NUR ---
Ambulates well 150 feet in CCU, trialed without O2, becomes slightly short of breath. When returns Sats in upper 80s. O2 at 1L put back on, quickly returns to 93%. Strong coarse nonproductive cough with splinting.
--- NOTE | 2017-03-08 13:13 | NUR ---
CM CM IN TO VISIT PATIENT, HE IS A&O. IS PRESENT AND ASKED TO SPEAK WITH ME. SHE HAS CONCERNS WITH PATIENT GOING HOME UNTIL HE IS STRONGER, PATIENT AND ARE AGREEABLE TO LOOKING AT IRU AFTER IP DISCHARGE. IRU SCREEN PLACED. CM CONTACT INFORMATION GIVEN.
--- NOTE | 2017-03-08 13:35 | NUR ---
Transferred to surgical unit per ambulation and wheelchair after report given to MALINI Hood. And after tang DCd and dulcolax suppository given. walks 100 feet on R/A with mild shortness of breath.
[2017-03-08] MEDS: MAG-AL + SIM LIQUID 30 ML UDC PO PRN (15:25)
[2017-03-08] MEDS: LOVASTATIN 20 MG TABLET PO SCH (17:45)
--- NOTE | 2017-03-08 18:07 | PNF ---
DATE OF SERVICE 03/08/2017 FINDINGS Mr. Perales was sitting upright and eating lunch when seen earlier today. He states he has had a couple of small bowel movements. He states that he continues to "feel better each day." EXAM VITAL SIGNS: Afebrile, normotensive. Please refer to EMR. ABDOMEN: Soft. Minimal incisional tenderness present. No evidence for guarding or rebound. LABORATORY/RADIOGRAPHIC EVALUATION The patient had CBC today and his white count was 10.6. Hemoglobin is stable at 9.4. BMP obtained and found to be within normal limits. The nurse practitioner had looked at his inguinal incision and stated that the wound is markedly improved. ASSESSMENT 81-year-old gentleman status post takedown of colocutaneous fistula with excision of mesh within the left inguinal region and repair of colotomy. Patient currently doing well. PLAN Transfer to floor. Continue with current care. I am quite pleased with the patient's progress. I would like to delay utilizing negative wound pressure therapy for about a week after surgery within the wound involving the left inguinal region. I am concerned that the pressure may be transmitted to the peritoneal cavity and would prefer not to have any type of negative pressure applied to the repair of the colotomy. After a week's duration from his recent surgery, however, I would recommend that we begin to utilize negative wound pressure therapy to facilitate closure of the wound involving the left inguinal region. ELSIE
--- NOTE | 2017-03-08 18:24 | NUR ---
STATUS PT A/O X3. UP WITH ASSIST OF ONE WITH GAIT BELT. PT COMPLAINS OF PAIN RATING 6-7/10. PRN NORCO AND TORADOL GIVEN DOCUMENTED. PT ON 1L PER NC, TOLERATING WELL. SOA WITH ACTIVITY. PT AMBULATED IN HALLS WITH ASSITANCE. PT ABLE TO URINATE AFTER ROLAND REMOVAL. PRN MAALOX GIVEN FOR INDIGESTION. PT RESTING IN BED WITH ALARM. CALL LIGHT WITHIN REACH. WILL CONTINUE TO MONITOR.
--- NOTE | 2017-03-08 18:28 | PNPDOC ---
Subjective Date DATE: 03/08/17 TIME: 18:22 Subjective Patient was seen and examined in the ICU earlier today. This evening he is transferred to the surgical floor. He seems to have more distention in his abdomen this evening than this morning. He states that he has had very little pass per rectum. He denies chest pain or shortness of breath. He states that he did walk 5 times today. Surgical note reviewed and appreciated. Darvin maintains a sense of humor but appears to me to be suffering from the distention in his abdomen. Location: abdomen Quality: acute, chronic Duration: other (worsening over 2-3 months) Associated Symptoms: abdominal pain Objective Vital Signs Vital signs Vital Signs 03/08/17 03/08/17 03/08/17 03/08/17 06:34 06:36 06:42 07:00 Pulse 76 79 79 Resp 13 26 Pulse Ox 93 94 O2 Delivery Nasal Cannula O2 Flow Rate 2.00 03/08/17 03/08/17 03/08/17 03/08/17 08:00 08:00 09:00 09:40 Temp 97.4 Pulse 84 77 75 Resp 18 21 18 B/P 124/56 140/64 Pulse Ox 94 91 O2 Delivery Nasal Cannula Nasal Cannula O2 Flow Rate 2.00 1.00 03/08/17 03/08/17 03/08/17 03/08/17 10:00 10:06 10:08 10:12 Pulse 74 82 75 Resp 23 14 B/P 137/61 Pulse Ox 92 93 O2 Delivery Nasal Cannula O2 Flow Rate 1.00 03/08/17 03/08/17 03/08/17 03/08/17 11:00 12:00 12:00 13:00 Temp 98.1 Pulse 78 71 75 78 Resp 26 20 22 20 B/P 126/61 140/66 134/63 Pulse Ox 93 96 90 O2 Delivery Nasal Cannula Nasal Cannula Room Air O2 Flow Rate 1.00 1.00 03/08/17 03/08/17 03/08/17 03/08/17 13:39 13:39 14:15 14:19 Temp 96.4 Pulse 87 75 81 Resp 18 18 82 B/P 153/69 Pulse Ox 92 93 O2 Delivery Nasal Cannula O2 Flow Rate 1.00 03/08/17 03/08/17 03/08/17 14:22 16:28 16:52 Temp 97.6 Pulse 88 86 Resp 16 B/P 159/75 Pulse Ox 95 O2 Delivery Nasal Cannula O2 Flow Rate 1.00 Telemetry Rhythm: Sinus Rhythm Height (Feet): 6 Height (Inches): 1.00 Weight (Kilograms): 95.400 General General Appearance: Alert, Orientated x 3, Cooperative, Mild Distress Eyes (Brief) Eyes: FOUND: EOMI, PERRL, NOT FOUND: scleral icterus Neck (Brief) Neck Brief: NOT FOUND: JVD, adenopathy, carotid bruits, thyromegaly Respiratory (Brief) Respiratory Brief: FOUND: equal bilaterally, rales (soft bibasilar), NOT FOUND : wheezes Cardiovascular (Brief) Cardiac: FOUND: pedal edema, regular rate, regular rhythm, NOT FOUND: gallop, murmur Abdomen (Brief) Abdominal: FOUND: distended, tender, NOT FOUND: BS normo active x4, soft Comments Diminished bowel sounds throughout, yet present Extremities (Brief) Extremity : Side: Bilateral Extremity Finding: FOUND: edema, NOT FOUND: pain Lymphatic (Brief) Lymphatic Brief: NOT FOUND: adenopathy, lymphedema Musculoskeletal (Brief) Musculoskeletal Brief: FOUND: extremities move equally, NOT FOUND: deformity, loss of motion, spasm, tenderness Integumentary (Brief) Integumentary: FOUND: dry, pink, warm, NOT FOUND: rash Neurologic (Brief) Neurologic: FOUND: cranial 2-12 intact, motor, sensory Psychiatric (Brief) Psychiatric: FOUND: alert, attentive, normal affect, oriented Laboratory Laboratory Laboratory Tests 03/08/17 04:45 Laboratory Tests 03/08/17 04:45 Microbiology Microbiology Microbiology Date/Time Source Procedure Growth Status 03/06/17 07:35 Sputum Endotracheal Wash Gram Stain - Final Resulted 03/06/17 07:35 Sputum Endotracheal Wash Sputum Culture - Preliminary EARLY GROWTH Resulted Sepsis Diagnostic Criteria Sepsis Confirmed/Suspected Infection: Yes SIRS Criteria: Temp<=96.8 or >=100.4, RR > or = to 20 Severe Sepsis None Seen Assessment & Plan Problems: (1) Inguinal abscess Status: Acute Assessment & Plan: Pseudomonas cultured. (2) Colocutaneous fistula Status: Resolved Assessment & Plan: 03/02: Abscess was incised and drained. Surgical correction of a colocutaneous fistula scheduled for Sunday (03/05). 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 He is more distended today Plan/Intensity of Service Start NS at 75cc/hr this evening in anticipation of Sx tomorrow. Continue Zosyn and metronidazole for antibiotic coverage. Start Incentive Spirometry to help pulmonary toilet. Continue pain control. Encourage activities. Recheck lab in am. Anticipate Dr Mendoza's return in am. Chart reviewed. Time spent with pt care 25 minutes. Code Status Full Code Hospital Course Summary Disclaimer The hospital course summary below is not to be considered part of the above Progress Note. Hospital Course Summary 02/25 Admit patient to outpatient observation under the care of Dr. Worthy for inguinal abscess. ER Provider spoke with Lyle Seth- radiologist. Will plan for ultrasound-guided percutaneous drain tomorrow, Sunday02/26/17. Patient last took Pradaxa this morning 02/25/17. We will place this on hold now for scheduled procedure. He has been on Levaquin and Flagyl for antimicrobial coverage. Will switch to IV Zosyn for ongoing coverage. Will be able follow abscess cultures for further C/S. No evidence of sepsis currently. Normal saline at 100ml/hr for gentle hydration overnight. He may have regular diet now and NPO at midnight for planned procedure tomorrow SCDs to bilateral lower ext for DVT prophylaxis Up in room with assistance Will recheck CBC and BMP tomorrow morning to follow blood counts, renal function and electrolytes. Again he requests to be a Full Code and this order is written Will discuss further orders with attending, Dr Worthy Care will be turned over to PCP tomorrow morning- Dr Mendoza. 02/26/2017: Patient is back from radiology where pigtail catheter drain was placed in the left lower quadrant. He is feeling better at this time. Surgical consultation appreciated. White count remains normal. He is on Zosyn. 02/28/2017: Darvin continues to improve. He does have minimal nausea this evening after supper. His surgical site appears to be without infection. He has minimal brownish material with dark blood in his drain. Should he continue to improve without relapse of fever or an elevation in his white count, I anticipate him going home soon. He would continue with the drain as an outpatient. He would then follow up with myself as well as Dr. Joya as an outpatient final culture and sensitivity is still pending. Gram-negative giorgio as grown but has yet to be identified along with sensitivity. This would determine his outpatient oral antibiotics. 03/01/17: Today Darvin's drain site looks worse. It has erythema, induration, and pain. I have spoken with Dr. Joya and he has evaluated him and agrees. He will order CT with rectal contrast and evaluated for fistula formation tomorrow. He may need surgery following these findings. 03/02/17: Discussed this case with Dr. Joya of surgery earlier today. 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 He is just back from surgery where they incised and drained this site. I agree with the addition of Flagyl to his antibiotic regimen and the plan for surgical resection and primary reanastomosis on Sunday. At this time he is complaining of abdominal pain 4 out of 10. He also has some mild wheezing in his left chest. Family states that he coughed up some dark material earlier today but are unsure of its origin. 03/03/17: Trendient covering for Dr Mendoza: Doing well this morning-less ab pain since I/D yesterday. No nausea-did well with breakfast. Had sweats overnight, but no f/c. Breathing well without SOA cough or congestion. No chest pain. Urinating well. Will D/C IVF as taking po well and weight increased from admit. Continue Zosyn and metronidazole for antibiotic coverage. Continue pain control. Encourage activities. Recheck lab in am. 03/04/17: Teressa covering for Dr Mendoza: Doing okay this afternoon-on bowel prep for tomorrow. Feels stools just about to let go. Some ab bloating and cramping with bowel prep. No nausea. Breathing well, but needed O2 at night the last 2 nights. Rare cough; no pain with breathing. No chest pain or pressure. Denies f/c. Start NS at 75cc/hr this evening in anticipation of Sx tomorrow. Continue Zosyn and metronidazole for antibiotic coverage. Start Incentive Spirometry to help pulmonary toilet. Continue pain control. Encourage activities. Recheck lab in am. Anticipate Dr Mendoza's return in am. 03/06/2017: Patient came back from surgery late last night. He is extubated now awake and still groggy. He answers questions appropriately. He denies any chest pain but does complain of some abdominal pain actually in his upper abdomen. He does have bowel sounds. His surgery appears to have gone well. 03-07 Surgery note Oliguria, will bolus another 500 ml cautiously and give 0.5 mg Bumex IV. Potassium slowly drifting down, will change IVF to D5 1/2 with 10 KCL Encourage Breeze, the high protein juice. KUB indicates likely ileus pattern, although he is passing flatus and not nauseated, will continue clears today, possible advance to fulls this evening if he is still doing well and/or has some stool. HOpe to start feeding the gut soon and avoid PICC and TPN. WBC still 13.1 (13.6 yesterday) some of this may be stress response. Continue ABX as ordered. Keep in CCU today if possible. Consider transfer to floor tonight or tomorrow. Daily packing changes of the left inguinal wound and plan possible wound vac tomorrow. 03/08/2017: Patient appears more distended today. His weight is up approximately 10 kg. I will encourage him to walk, give Dulcolax suppository, and Bumex 1 mg IV ELLIOT MENDOZA DO Mar 08, 2017 18:25
[2017-03-08] MEDS ORDERED: BUMETANIDE 1 MG/4 ML INJECTION IV ONE (18:30)
--- NOTE | 2017-03-08 20:22 | NUR ---
FLUSH BAG FOUND THAT ABX WASN'T COMPATIBLE WITH CURRENT FLUIDS THAT ARE HANGING, PUT IN ORDER FOR A NORMAL SALINE FLUSH BAG. NEW PRIMARY TUBING PLACED FOR ABX USE ONLY.
[2017-03-08] MEDS: ENOXAPARIN 40 MG/0.4 ML INJECTION SQ SCH (20:51)
[2017-03-08] MEDS: TAMSULOSIN 0.4 MG CAPSULE PO SCH (20:52)
[2017-03-08] MEDS: FLUTICASONE NASAL SPRAY 50 MCG EA NOSTRIL SCH (20:52)
[2017-03-08] MEDS: NS 500 ML IV PRN (20:52)
[2017-03-09] VITALS (10 sets, daily range): BP systolic 139–156; BP diastolic 67–75; PULSE 78–88; RESP 16–18; TEMP 96.1–97.8; O2SAT 91–98
[2017-03-09] MEDS: ONDANSETRON 4mg/2ml INJECTION IV PRN ×2 (01:35→07:05)
[2017-03-09] MEDS: KETOROLAC 15mg/ml INJECTION IV PRN (01:35)
[2017-03-09] MEDS: 1/2 NS IV SCH ×3 (04:23→15:56)
[2017-03-09] MEDS: D5 IV SCH ×3 (04:23→15:56)
[2017-03-09] MEDS: POTASSIUM CHLORIDE IV SCH ×3 (04:23→15:56)
[2017-03-09] MEDS: HYDROCODONE/APAP 5 mg/325 mg TABLET PO PRN (04:46)
[2017-03-09 05:18] LABS: BASOPHILS % (AUTO) 0.2 % (0-2); EOSINOPHILS # (AUTO) 0.3 T/MM3 (0-0.5); EOSINOPHILS % (AUTO) 3.2 % (0-4); HGB - HEMOGLOBIN 9.2 GM/DL (13.5-17.5); IMMATURE GRANULOCYTE # (AUTO) 0.04 T/MM3 (0.00-0.03); IMMATURE GRANULOCYTE % (AUTO) 0.4 % (0.0-0.5); LYMPHOCYTES # (AUTO) 0.9 T/MM3 (1-4.8); LYMPHOCYTES % (AUTO) 9.5 % (23-45); MEAN CORPUSCULAR HGB 27.5 UUG (26-34); MEAN CORPUSCULAR HGB CONC(MCHC 31.7 GM/DL (31-37); MEAN CORPUSCULAR VOLUME 86.8 UM3 (80-100); MEAN PLATELET VOLUME 9.1 UM3 (9.4-12.4); MONOCYTES % (AUTO) 10.8 % (0-9.0); NEUTROPHILS #(AUTO)-ABSOLUTE 6.9 T/MM3 (1.8-7.7); NEUTROPHILS % (AUTO) 75.9 % (33-66); RED BLOOD COUNT 3.34 M/MM3 (4.50-5.90); WBC - WHITE BLOOD COUNT 9.1 T/MM3 (4.5-11.0)
[2017-03-09 05:28] LABS: ANION GAP 8 MEQ/L (5-15); BUN/CREATININE RATIO 14 RATIO (6-26); CALCIUM 7.7 MG/DL (8.4-10.2); CHLORIDE 106 MEQ/L (98-107); CO2 - CARBON DIOXIDE 25 MEQ/L (22-30); CREATININE 0.9 MG/DL (0.8-1.5); GLOMERULAR FILTRATION RATE 81; GLUCOSE 129 MG/DL (75-110); POTASSIUM 3.6 MEQ/L (3.6-5); SODIUM 139 MEQ/L (134-144)
[2017-03-09] MEDS: ALBUTEROL/IPRATROPIUM INHAL. 2.5mg-0.5mg/3ml Neb. AEROSOL SCH ×4 (07:00→19:36)
[2017-03-09] MEDS ORDERED: BISACODYL 10 MG SUPPOSITORY RECTALLY ONE (07:30)
[2017-03-09] MEDS: LEVOFLOXACIN 500 mg IVPB 500 MG in D5W 100 ML IV SCH (07:37)
[2017-03-09] MEDS: METRONIDAZOLE IVPB 500 MG in NORMAL SALINE 100 ML IV SCH ×2 (07:37→20:44)
--- NOTE | 2017-03-09 07:41 | NUR ---
SHIFT REPORT PT A/O X3. VITAL SIGNS STABLE ON 1 LITER 02 NC. UP WITH ASSIST OF ONE WITH GAIT BELT. PT COMPLAINS OF PAIN RATING 4/10. PRN NORCO AND TORADOL GIVEN (SEE MAR). TOLERATING WELL. ZOFRAN GIVEN FOR SEVERAL BOUTS OF NAUSEA THROUGHOUT SHIFT. PT RESTING IN CHAIR WITH ALARM. CALL LIGHT WITHIN REACH. WILL CONTINUE TO MONITOR.
[2017-03-09] MEDS: PANTOPRAZOLE 40mg INJECTION IV SCH (07:43)
--- NOTE | 2017-03-09 08:07 | PNSURG ---
Subjective DATE: 03/09/17 TIME: 07:59 Interval History He has taken a step backwards today, more abd distention, nausea and vomiting, stating he spent about an hour vomiting earlier. KUB looks like post op ileus. We discussed NG placement, that it is uncomfortable going in, but patients often feel better once it is down. He indicated he would like to try the NG. He had a few small mucous BM's in the last 2 days. Urine output is ok. Objective Vital Signs Date Time Temp Pulse Resp B/P Pulse Ox O2 Delivery O2 Flow Rate FiO2 03/09/17 04:00 96.5 81 16 139/67 94 Nasal Cannula 1.50 03/06/17 07:45 40 Height (Feet): 6 Height (Inches): 1.00 Weight (Kilograms): 95.400 BMI 26.2 General Appearance: Alert, Awake, Orientated x 3 Respiratory: FOUND: clear bilaterally Incision: FOUND: marina present, NOT FOUND: erythema Wound Management Wound : Location Modifier: Left, Lower Wound Location: Abdomen Wound Drainage Amount: Minimal Wound Drainage Description: Serosanguineous (no purulence or feces visible) Wound Bed: gran red Wound Length (cm): 11 (11 cm) Wound Width (cm): 2 (2 ccm) Wound Depth (cm): 2 Exposed: subtissue, muscle Wound Packing Type: FOUND: Gauze Roll Wound Primary Dressing Type: Gauze Pads Wound Undermining : Wound Undermining (cm): 5 (5 cm along the cephalad boreder, and aobut 1-2 cm on the medial and lateral corners.) Male: FOUND: other (adequate output) Laboratory Laboratory Tests 03/07/17 08:39 03/08/17 04:45 03/09/17 04:21 Laboratory Tests 03/07/17 08:39 03/08/17 04:45 03/09/17 04:21 Imaging ABD series, looks like post op ileus, official report pending Procedure Procedure Date: Mar 05, 2017 Surgeon: Toan Echeverria 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 GS Assessment & Plan Problems: (1) Ileus, postoperative Status: Acute (2) Diverticulitis Status: Acute Qualifiers: Diverticulitis site: large intestine Diverticulitis complication: with abscess (3) Colocutaneous fistula Status: Resolved (4) Inguinal abscess Status: Acute (5) Oliguria Status: Acute Assessment Change diet to sips and chips place NG repeat films tomorrow consider PICC and TPN daily labs ADDENDUM: PICC line inserted and TPN started at 50 ml.hr for 8 hours, then 75 ml.hr for 8 hours, then 100 ml/hr. Q6/hr BGM with SSI low dose regular after TPN started DVT Prophylaxis: SCD'S, Lovenox GI Prophylaxis: Protonix Code Status Full Code Hospital Course Summary Disclaimer The visit summary below is not to be considered part of the above Progress Note. Hospital Course Summary 02/25 Admit patient to outpatient observation under the care of Dr. Worthy for inguinal abscess. ER Provider spoke with Lyle Seth- radiologist. Will plan for ultrasound-guided percutaneous drain tomorrow, Sunday02/26/17. Patient last took Pradaxa this morning 02/25/17. We will place this on hold now for scheduled procedure. He has been on Levaquin and Flagyl for antimicrobial coverage. Will switch to IV Zosyn for ongoing coverage. Will be able follow abscess cultures for further C/S. No evidence of sepsis currently. Normal saline at 100ml/hr for gentle hydration overnight. He may have regular diet now and NPO at midnight for planned procedure tomorrow SCDs to bilateral lower ext for DVT prophylaxis Up in room with assistance Will recheck CBC and BMP tomorrow morning to follow blood counts, renal function and electrolytes. Again he requests to be a Full Code and this order is written Will discuss further orders with attending, Dr Worthy Care will be turned over to PCP tomorrow morning- Dr Arauz. 02/26/2017: Patient is back from radiology where pigtail catheter drain was placed in the left lower quadrant. He is feeling better at this time. Surgical consultation appreciated. White count remains normal. He is on Zosyn. 02/28/2017: Darvin continues to improve. He does have minimal nausea this evening after supper. His surgical site appears to be without infection. He has minimal brownish material with dark blood in his drain. Should he continue to improve without relapse of fever or an elevation in his white count, I anticipate him going home soon. He would continue with the drain as an outpatient. He would then follow up with myself as well as Dr. Joya as an outpatient final culture and sensitivity is still pending. Gram-negative giorgio as grown but has yet to be identified along with sensitivity. This would determine his outpatient oral antibiotics. 03/01/17: Today Darvin's drain site looks worse. It has erythema, induration, and pain. I have spoken with Dr. Joya and he has evaluated him and agrees. He will order CT with rectal contrast and evaluated for fistula formation tomorrow. He may need surgery following these findings. 03/02/17: Discussed this case with Dr. Joya of surgery earlier today. 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 He is just back from surgery where they incised and drained this site. I agree with the addition of Flagyl to his antibiotic regimen and the plan for surgical resection and primary reanastomosis on Sunday. At this time he is complaining of abdominal pain 4 out of 10. He also has some mild wheezing in his left chest. Family states that he coughed up some dark material earlier today but are unsure of its origin. 03/03/17: Teressa covering for Dr Arauz: Doing well this morning-less ab pain since I/D yesterday. No nausea-did well with breakfast. Had sweats overnight, but no f/c. Breathing well without SOA cough or congestion. No chest pain. Urinating well. Will D/C IVF as taking po well and weight increased from admit. Continue Zosyn and metronidazole for antibiotic coverage. Continue pain control. Encourage activities. Recheck lab in am. 03/04/17: Teressa covering for Dr Arauz: Doing okay this afternoon-on bowel prep for tomorrow. Feels stools just about to let go. Some ab bloating and cramping with bowel prep. No nausea. Breathing well, but needed O2 at night the last 2 nights. Rare cough; no pain with breathing. No chest pain or pressure. Denies f/c. Start NS at 75cc/hr this evening in anticipation of Sx tomorrow. Continue Zosyn and metronidazole for antibiotic coverage. Start Incentive Spirometry to help pulmonary toilet. Continue pain control. Encourage activities. Recheck lab in am. Anticipate Dr Arauz's return in am. 03/06/2017: Patient came back from surgery late last night. He is extubated now awake and still groggy. He answers questions appropriately. He denies any chest pain but does complain of some abdominal pain actually in his upper abdomen. He does have bowel sounds. His surgery appears to have gone well. 03-07 Surgery note Oliguria, will bolus another 500 ml cautiously and give 0.5 mg Bumex IV. Potassium slowly drifting down, will change IVF to D5 1/2 with 10 KCL Encourage Breeze, the high protein juice. KUB indicates likely ileus pattern, although he is passing flatus and not nauseated, will continue clears today, possible advance to fulls this evening if he is still doing well and/or has some stool. HOpe to start feeding the gut soon and avoid PICC and TPN. WBC still 13.1 (13.6 yesterday) some of this may be stress response. Continue ABX as ordered. Keep in CCU today if possible. Consider transfer to floor tonight or tomorrow. Daily packing changes of the left inguinal wound and plan possible wound vac tomorrow. 03/08/2017: Patient appears more distended today. His weight is up approximately 10 kg. I will encourage him to walk, give Dulcolax suppository, and Bumex 1 mg IV 03/09/2017 Surgery note: Change diet to sips and chips place NG repeat films tomorrow PICC line inserted and TPN started at 50 ml.hr for 8 hours, then 75 ml.hr for 8 hours, then 100 ml/hr. Q6/hr BGM with SSI low dose regular after TPN started CARTER DAVIS APRN Mar 09, 2017 08:02
--- NOTE | 2017-03-09 08:20 | NUR ---
NG INSERTION 16 FR NG TUBE IN INSERTED. THERE IS INSTANT DRAINAGE TO INTERMITTENT LOW SUCTION. PATIENT TOLERATES PROCEDURE WELL. THE NG LAST MARKING IS AT THE NOSTRIL ENTRY. WILL CONTINUE TO MONITOR. DRAINAGE IN LIGHT YELLOW.
--- NOTE | 2017-03-09 08:20 | NUR ---
NG 30"MARKING AT NOSTRIL ENTRY. Addendum: 03/09/17 at 0834 by ROSALES MAHER RN Amended: Links added.
--- NOTE | 2017-03-09 09:17 | DI ---
Indication: ITS.REASON: post op ileus, weight up 10 kg PROCEDURE: PA view of the chest with supine and upright AP views of the abdomen Encounter: Initial Comparison: Chest x-ray dated March 06, 2017 and KUB dated March 07, 2017 FINDINGS: Endotracheal tube has been removed. Left pacemaker defibrillator. Lungs are hypoinflated with bibasilar atelectasis. Emphysema is also noted. Patchy right upper and left lower lobe opacities are not significantly changed. No pneumothorax. Small pleural effusions. Heart size and mediastinal contours are stable. Pulmonary vascular congestion is improved. No free air identified. Air-fluid levels in small and large bowel are again noted. Subcutaneous emphysema is seen in the lower abdomen and pelvis. Spinal fusion hardware. Small bowel is dilated up to 5.6 cm in the left lower abdomen. The overall degree of bowel distention is slightly improved from the comparison study. Cecum is dilated up to 13.3 cm. Impression: 1. Mild pulmonary edema superimposed upon a background of emphysema. 2. Slight improvement in the generalized postoperative ileus. .
--- NOTE | 2017-03-09 10:17 | NUR ---
CM CM IN TO VISIT WITH PT. HE IS SLEEPY. HIS IS PRESENT. CM INTRODUCES SELF. SHE REASSURES THEM AT IRU SCREEN HAS BEEN PLACED AND IS PENDING UNTIL CLOSER TO DC. THEY ARE REASSURED THAT CM STAFF WILL CONTINUE TO FOLLOW AND ASSESS FOR DC NEEDS. THEY ARE GIVEN UPDATED CM CONTACT INFORMATION.
--- NOTE | 2017-03-09 14:25 | NUR ---
PICC CONSENT IS SIGNED, PATIENT IS ON HIS WAY TO RADIOLOGY PER WHEELCHAIR FOR PICC PLACEMENT WITH FLUORO
--- NOTE | 2017-03-09 15:54 | NUR ---
TPN CONSULT: Today's Labs: NA 134 CL 106 BUN 13 K 3.6 CO2 25 CR 0.9 GLU 129 OSM 270, CA 7.7 LYTES WNL, WILL BEGIN STANDARD TPN WITH ADDIDTIONAL 20MEQ KCL PER Tequila DAVIS'S RATE INSTRUCTIONS VIA PICC LINE. Thank you.
--- NOTE | 2017-03-09 15:56 | DI ---
Indication:ITS.REASON: TPN AND ANTIBIOTICS ADMINISTRATION Procedure:PICC LINE INSERTION w FLUORO PICC LINE INSERTION: After discussing the details of the procedure, including risks, the patient wished to proceed. Informed consent was obtained. A preprocedural timeout was performed to confirm the correct patient and procedure. Using aseptic technique and local lidocaine anesthetic, the patient's existing midline located in the right basilic vein was slightly retracted. The hub of the midline catheter was removed and a .018 guidewire was advanced through the midline and into the vein. The midline catheter was removed and discarded. Then using fluoroscopic guidance, a dual lumen 5 Fr PICC line was advanced with the tip placed within the distal SVC. Catheter length is 43 cm. A fluoroscopic image was then taken and archived. I was able to aspirate blood and inject freely through both ports. The procedure was completed without complication. Following this, the patient was taken back to his room on the surgical floor. Impression:Successful right-sided PICC line placement with tip residing in the distal SVC. Fluoroscopy dose: 12.47 mGy (Cumulative air kerma) Lyle Stallings RPA/ERINN performed this under my personal supervision. .
--- NOTE | 2017-03-09 16:37 | PNF ---
DATE 03/09/2017 FINDINGS The patient unfortunately began to develop a fair amount of nausea and vomiting. KUB and upright was obtained and he was found to have evidence for ileus. NG was placed earlier today. Patient states that he is feeling better. He states that they have gotten off "about a liter of fluid" of his stomach. OBJECTIVE VITALS: Afebrile. Normotensive. Current vitals include temperature 96.6, pulse 84, respirations 18, blood pressure 143/70, SAO2 95% on 1 liter per nasal cannula. HEENT: Normocephalic. Pupils are equally round and react to light and accommodation. CHEST: Clear to auscultation bilaterally. HEART: Regular rate and rhythm. Normal S1, S2, without gallops, murmurs or clicks. ABDOMEN: Palpation of the abdomen reveals it to be soft. It does appear there is less distention. The patient does not have any element of guarding or rebound. LABORATORY/RADIOGRAPHIC EVALUATION CBC was obtained and his white count is on a downward trend at 9.1. Hemoglobin overall stable at 9.2. BMP was obtained and found to be within normal limits. Radiographically, the patient had a KUB and upright. He does have marked distention of his colon and small bowel. I am little concerned in the fact that the cecum is significantly dilated but does appear to be slightly less dilated in comparison to yesterday. ASSESSMENT 81-year-old gentleman status post robotic assisted laparoscopic takedown of colocutaneous fistula, most likely secondary to erosion into the colon of the previously placed mesh plug. Mesh plug extracted. Patient with development of postoperative ileus. PLAN As stated above, an NG was placed earlier today. I do believe the patient may have a prolonged ileus and it may be beneficial to go ahead and proceed with placement of a PICC line and initiate hyperalimentation/TPN at this time. Orders will be placed. Will continue to follow the patient closely. ELSIE
[2017-03-09] MEDS ORDERED: MULTI TRACE ELEMENTS IV SCH ×4 (17:00)
[2017-03-09] MEDS ORDERED: [UNRECOGNIZED DRUG - OTHER] IV SCH ×4 (17:00)
[2017-03-09] MEDS ORDERED: POTASSIUM CHLORIDE IV SCH ×4 (17:00)
[2017-03-09] MEDS ORDERED: MULTI VIT INF IV SCH ×4 (17:00)
[2017-03-09] MEDS ORDERED: BUMETANIDE 2.5mg INJECTION IV ONE (17:15)
--- NOTE | 2017-03-09 17:15 | PNPDOC ---
Subjective Date DATE: 03/09/17 TIME: 17:09 Subjective Patient seen and examined in his room. His is at the bedside. Questions answered. Surgical note reviewed and appreciated. I had ordered a KUB for this morning. It demonstrated significant ileus. At that time NG tube was placed to intermittent suction. Darvin states that he is better since the NG tube placement and indicates that they have "removed 1 quart and there on the second one now." This has given him some relief, however he still distended in his abdomen. He denies chest pain or shortness of breath. Location: abdomen Quality: acute, chronic Duration: other (worsening over 2-3 months) Associated Symptoms: abdominal pain Objective Vital Signs Vital signs Vital Signs 03/09/17 03/09/17 03/09/17 03/09/17 08:00 08:00 10:49 10:50 Temp 96.1 Pulse 78 78 85 Resp 16 16 18 B/P 143/70 Pulse Ox 93 95 O2 Delivery Nasal Cannula O2 Flow Rate 1.00 03/09/17 03/09/17 03/09/17 03/09/17 10:54 12:00 15:20 15:20 Temp 97.8 Pulse 84 88 70 Resp 18 16 B/P 154/73 Pulse Ox 93 98 O2 Delivery Nasal Cannula O2 Flow Rate 1.00 03/09/17 03/09/17 03/09/17 15:20 15:20 16:00 Temp 97.4 Pulse 75 83 Resp 16 B/P 156/72 Pulse Ox 93 O2 Delivery Nasal Cannula Nasal Cannula O2 Flow Rate 1.50 1.00 Telemetry Rhythm: Sinus Rhythm Height (Feet): 6 Height (Inches): 1.00 Weight (Kilograms): 95.400 General General Appearance: Cooperative, Mild Distress Comments Fatigued Eyes (Brief) Eyes: FOUND: EOMI, PERRL, NOT FOUND: scleral icterus Neck (Brief) Neck Brief: NOT FOUND: JVD, adenopathy, carotid bruits, thyromegaly Respiratory (Brief) Respiratory Brief: FOUND: clear all tucker, equal bilaterally, rales (soft bibasilar) Cardiovascular (Brief) Cardiac: FOUND: pedal edema, regular rate, regular rhythm, NOT FOUND: gallop, murmur Abdomen (Brief) Abdominal: FOUND: distended, tender, NOT FOUND: BS normo active x4 (diminished bowel sounds), hepatosplenomegaly, soft Extremities (Brief) Extremity : Side: Bilateral Extremity Finding: FOUND: edema, NOT FOUND: pain Lymphatic (Brief) Lymphatic Brief: NOT FOUND: adenopathy, lymphedema Musculoskeletal (Brief) Musculoskeletal Brief: FOUND: extremities move equally, NOT FOUND: deformity, loss of motion, spasm, tenderness Integumentary (Brief) Integumentary: FOUND: dry, pink, warm, NOT FOUND: rash Neurologic (Brief) Neurologic: FOUND: cranial 2-12 intact, motor, sensory Psychiatric (Brief) Psychiatric: FOUND: attentive, oriented Laboratory Laboratory Laboratory Tests 03/09/17 04:21 Laboratory Tests 03/09/17 04:21 Radiology DATE OF EXAM: 03/09/17 ORDERING DOCTOR: ELLIOT MENDOZA DO TYPE OF EXAM: ABDOMEN ACUTE (INC. CHEST) REASON FOR EXAM: post op ileus, weight up 10 kg Indication: ITS.REASON: post op ileus, weight up 10 kg PROCEDURE: PA view of the chest with supine and upright AP views of the abdomen Encounter: Initial Comparison: Chest x-ray dated March 06, 2017 and KUB dated March 07, 2017 FINDINGS: Endotracheal tube has been removed. Left pacemaker defibrillator. Lungs are hypoinflated with bibasilar atelectasis. Emphysema is also noted. Patchy right upper and left lower lobe opacities are not significantly changed. No pneumothorax. Small pleural effusions. Heart size and mediastinal contours are stable. Pulmonary vascular congestion is improved. No free air identified. Air-fluid levels in small and large bowel are again noted. Subcutaneous emphysema is seen in the lower abdomen and pelvis. Spinal fusion hardware. Small bowel is dilated up to 5.6 cm in the left lower abdomen. The overall degree of bowel distention is slightly improved from the comparison study. Cecum is dilated up to 13.3 cm. Impression: 1. Mild pulmonary edema superimposed upon a background of emphysema. 2. Slight improvement in the generalized postoperative ileus. . Sepsis Diagnostic Criteria Sepsis Confirmed/Suspected Infection: Yes SIRS Criteria: Temp<=96.8 or >=100.4, RR > or = to 20 Severe Sepsis None Seen Assessment & Plan Problems: (1) Postoperative ileus Status: Acute Assessment & Plan: He has walking and passing small amount of flatus. He is more distended today. 03/09/2017: NG tube placed this morning with good output. (2) Inguinal abscess Status: Acute Assessment & Plan: Pseudomonas cultured. (3) Colocutaneous fistula Status: Resolved Assessment & Plan: 03/02: Abscess was incised and drained. Surgical correction of a colocutaneous fistula scheduled for Sunday (03/05). 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 Continue Zosyn and metronidazole for antibiotic coverage. Start Incentive Spirometry to help pulmonary toilet. Continue pain control. Encourage activities. Recheck lab in am. Anticipate Dr Mendoza's return in am. Chart reviewed. Time spent with pt care 25 minutes. Code Status Full Code Hospital Course Summary Disclaimer The hospital course summary below is not to be considered part of the above Progress Note. Hospital Course Summary 02/25 Admit patient to outpatient observation under the care of Dr. Worthy for inguinal abscess. ER Provider spoke with Lyle Seth- radiologist. Will plan for ultrasound-guided percutaneous drain tomorrow, Sunday02/26/17. Patient last took Pradaxa this morning 02/25/17. We will place this on hold now for scheduled procedure. He has been on Levaquin and Flagyl for antimicrobial coverage. Will switch to IV Zosyn for ongoing coverage. Will be able follow abscess cultures for further C/S. No evidence of sepsis currently. Normal saline at 100ml/hr for gentle hydration overnight. He may have regular diet now and NPO at midnight for planned procedure tomorrow SCDs to bilateral lower ext for DVT prophylaxis Up in room with assistance Will recheck CBC and BMP tomorrow morning to follow blood counts, renal function and electrolytes. Again he requests to be a Full Code and this order is written Will discuss further orders with attending, Dr Worthy Care will be turned over to PCP tomorrow morning- Dr Mendoza. 02/26/2017: Patient is back from radiology where pigtail catheter drain was placed in the left lower quadrant. He is feeling better at this time. Surgical consultation appreciated. White count remains normal. He is on Zosyn. 02/28/2017: Darvin continues to improve. He does have minimal nausea this evening after supper. His surgical site appears to be without infection. He has minimal brownish material with dark blood in his drain. Should he continue to improve without relapse of fever or an elevation in his white count, I anticipate him going home soon. He would continue with the drain as an outpatient. He would then follow up with myself as well as Dr. Joya as an outpatient final culture and sensitivity is still pending. Gram-negative giorgio as grown but has yet to be identified along with sensitivity. This would determine his outpatient oral antibiotics. 03/01/17: Today Darvin's drain site looks worse. It has erythema, induration, and pain. I have spoken with Dr. Joya and he has evaluated him and agrees. He will order CT with rectal contrast and evaluated for fistula formation tomorrow. He may need surgery following these findings. 03/02/17: Discussed this case with Dr. Joya of surgery earlier today. 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 He is just back from surgery where they incised and drained this site. I agree with the addition of Flagyl to his antibiotic regimen and the plan for surgical resection and primary reanastomosis on Sunday. At this time he is complaining of abdominal pain 4 out of 10. He also has some mild wheezing in his left chest. Family states that he coughed up some dark material earlier today but are unsure of its origin. 03/03/17: Teressa covering for Dr Mendoza: Doing well this morning-less ab pain since I/D yesterday. No nausea-did well with breakfast. Had sweats overnight, but no f/c. Breathing well without SOA cough or congestion. No chest pain. Urinating well. Will D/C IVF as taking po well and weight increased from admit. Continue Zosyn and metronidazole for antibiotic coverage. Continue pain control. Encourage activities. Recheck lab in am. 03/04/17: Teerssa covering for Dr Mendoza: Doing okay this afternoon-on bowel prep for tomorrow. Feels stools just about to let go. Some ab bloating and cramping with bowel prep. No nausea. Breathing well, but needed O2 at night the last 2 nights. Rare cough; no pain with breathing. No chest pain or pressure. Denies f/c. Start NS at 75cc/hr this evening in anticipation of Sx tomorrow. Continue Zosyn and metronidazole for antibiotic coverage. Start Incentive Spirometry to help pulmonary toilet. Continue pain control. Encourage activities. Recheck lab in am. Anticipate Dr Mendoza's return in am. 03/06/2017: Patient came back from surgery late last night. He is extubated now awake and still groggy. He answers questions appropriately. He denies any chest pain but does complain of some abdominal pain actually in his upper abdomen. He does have bowel sounds. His surgery appears to have gone well. 03-07 Surgery note Oliguria, will bolus another 500 ml cautiously and give 0.5 mg Bumex IV. Potassium slowly drifting down, will change IVF to D5 1/2 with 10 KCL Encourage Breeze, the high protein juice. KUB indicates likely ileus pattern, although he is passing flatus and not nauseated, will continue clears today, possible advance to fulls this evening if he is still doing well and/or has some stool. HOpe to start feeding the gut soon and avoid PICC and TPN. WBC still 13.1 (13.6 yesterday) some of this may be stress response. Continue ABX as ordered. Keep in CCU today if possible. Consider transfer to floor tonight or tomorrow. Daily packing changes of the left inguinal wound and plan possible wound vac tomorrow. 03/08/2017: Patient appears more distended today. His weight is up approximately 10 kg. I will encourage him to walk, give Dulcolax suppository, and Bumex 1 mg IV 03/09/2017 Surgery note: Change diet to sips and chips place NG repeat films tomorrow PICC line inserted and TPN started at 50 ml.hr for 8 hours, then 75 ml.hr for 8 hours, then 100 ml/hr. Q6/hr BGM with SSI low dose regular after TPN started ELLIOT MENDOZA DO Mar 09, 2017 17:12
[2017-03-09] MEDS: FAT EMULSION 20% 100 ML IV SCH (17:23)
[2017-03-09 17:24] LABS: ALBUMIN 2.5 G/DL (3.5-5.0); ALBUMIN/GLOBULIN RATIO 0.8 RATIO (1.1-2.2); ALKALINE PHOSPHATASE 122 U/L (38-126); ALT (SGPT) 38 U/L (21-72); ANION GAP 9 MEQ/L (5-15); AST (SGOT) 39 U/L (17-59); BUN/CREATININE RATIO 15 RATIO (6-26); CALCIUM 7.9 MG/DL (8.4-10.2); CHLORIDE 106 MEQ/L (98-107); CO2 - CARBON DIOXIDE 24 MEQ/L (22-30); CREATININE 0.8 MG/DL (0.8-1.5); GLOMERULAR FILTRATION RATE 93; GLUCOSE 114 MG/DL (75-110); PHOSPHORUS 2.6 MG/DL (2.5-4.5); POTASSIUM 3.8 MEQ/L (3.6-5); SODIUM 139 MEQ/L (134-144); TOTAL PROTEIN 5.6 G/DL (6.3-8.2)
[2017-03-09] MEDS: LOVASTATIN 20 MG TABLET PO SCH (18:35)
--- NOTE | 2017-03-09 19:00 | NUR ---
EOS PATIENT HAS STAYED ON RECLINER ALL DAY. NO COMPLAINS OF NAUSEA AFTER THE NG INSERTION. PATIENT STAYS RESTING QUIETLY READING A NEWS PAPER.
[2017-03-09] MEDS: NORMAL SALINE 1,000 ML IV SCH (19:28)
[2017-03-09] MEDS: ENOXAPARIN 40 MG/0.4 ML INJECTION SQ SCH (20:43)
[2017-03-09] MEDS: TAMSULOSIN 0.4 MG CAPSULE PO SCH (21:29)
[2017-03-09] MEDS: FLUTICASONE NASAL SPRAY 50 MCG EA NOSTRIL SCH (21:33)
[2017-03-10] VITALS (13 sets, daily range): BP systolic 144–171; BP diastolic 65–80; PULSE 79–93; RESP 16–20; TEMP 96.5–97.8; O2SAT 91–94
[2017-03-10] MEDS: KETOROLAC 15mg/ml INJECTION IV PRN ×2 (02:56→21:07)
[2017-03-10] MEDS ORDERED: PANTOPRAZOLE 40 MG TABLET PO SCH (06:30)
--- NOTE | 2017-03-10 06:43 | NUR ---
Shift summary: PT a/ox3, pt took pain medication as needed overnight. PT On 1.5 L oxygen via NC. RN had 400 out of NG, yellow/green drainage. PT would not let RN changed dressing late last night, states it was just changed. PT used urinal overnight without any issues. PT did not have any bowel movements for RN. LABS drawn out of picc line, TPN/fluids held for 10 minutes before lab draw and wasted before lab collected. PT has pitting edema on legs. PT ambulated to restroom and tolerated well. PT got back in recliner and slept from [id number] in recliner.
[2017-03-10 07:13] LABS: BASOPHILS % (AUTO) 0.1 % (0-2); EOSINOPHILS # (AUTO) 0.3 T/MM3 (0-0.5); EOSINOPHILS % (AUTO) 3.2 % (0-4); HCT - HEMATOCRIT 29.9 % (41-53); HGB - HEMOGLOBIN 9.6 GM/DL (13.5-17.5); IMMATURE GRANULOCYTE # (AUTO) 0.04 T/MM3 (0.00-0.03); IMMATURE GRANULOCYTE % (AUTO) 0.4 % (0.0-0.5); LYMPHOCYTES # (AUTO) 1.3 T/MM3 (1-4.8); LYMPHOCYTES % (AUTO) 12.8 % (23-45); MEAN CORPUSCULAR HGB 27.6 UUG (26-34); MEAN CORPUSCULAR HGB CONC(MCHC 32.1 GM/DL (31-37); MEAN CORPUSCULAR VOLUME 85.9 UM3 (80-100); MEAN PLATELET VOLUME 8.7 UM3 (9.4-12.4); MONOCYTES # (AUTO) 1.5 T/MM3 (0-0.8); MONOCYTES % (AUTO) 14.8 % (0-9.0); NEUTROPHILS #(AUTO)-ABSOLUTE 6.7 T/MM3 (1.8-7.7); NEUTROPHILS % (AUTO) 68.7 % (33-66); RED BLOOD COUNT 3.48 M/MM3 (4.50-5.90); WBC - WHITE BLOOD COUNT 9.8 T/MM3 (4.5-11.0)
[2017-03-10 07:19] LABS: ANION GAP 9 MEQ/L (5-15); BUN/CREATININE RATIO 14 RATIO (6-26); CALCIUM 7.7 MG/DL (8.4-10.2); CHLORIDE 104 MEQ/L (98-107); CO2 - CARBON DIOXIDE 29 MEQ/L (22-30); CREATININE 0.9 MG/DL (0.8-1.5); GLOMERULAR FILTRATION RATE 81; GLUCOSE 105 MG/DL (75-110); POTASSIUM 3.6 MEQ/L (3.6-5); SODIUM 142 MEQ/L (134-144)
[2017-03-10] MEDS: ALBUTEROL/IPRATROPIUM INHAL. 2.5mg-0.5mg/3ml Neb. AEROSOL SCH ×4 (07:29→19:28)
[2017-03-10] MEDS: POTASSIUM CHLORIDE IV SCH ×12 (09:00→20:01)
[2017-03-10] MEDS: MULTI VIT INF IV SCH ×12 (09:00→20:01)
[2017-03-10] MEDS: [UNRECOGNIZED DRUG - OTHER] IV SCH ×12 (09:00→20:01)
[2017-03-10] MEDS: MULTI TRACE ELEMENTS IV SCH ×12 (09:00→20:01)
[2017-03-10] MEDS: LEVOFLOXACIN 500 mg IVPB 500 MG in D5W 100 ML IV SCH (09:22)
[2017-03-10] MEDS: METRONIDAZOLE IVPB 500 MG in NORMAL SALINE 100 ML IV SCH (10:33)
[2017-03-10] MEDS ORDERED: VANCOMYCIN 1,000 MG in NORMAL SALINE 250 ML IV SCH (11:00)
[2017-03-10] MEDS ORDERED: ERTAPENEM 1 G in NORMAL SALINE 100 ML IV SCH (11:00)
--- NOTE | 2017-03-10 11:14 | PNPDOC ---
JUAN ANTONIO TOUSSAINT AGRICULTURAL ECONOMICS TEACHER 03/10/17 1106: Subjective Date DATE: 03/10/17 TIME: 11:03 Subjective Darvin is seen today in follow up. He is up in chair, a bit confused. NGT is in place. Working with nursing staff. Denies acute pain. D/W nursing. LE edematous today. Chart reviewed for collateral information. Objective Vital Signs Vital signs Vital Signs Date Time Temp Pulse Resp B/P Pulse Ox O2 Delivery O2 Flow Rate FiO2 03/10/17 09:11 79 16 03/10/17 08:02 97.7 144/70 91 Nasal Cannula 1.50 03/06/17 07:45 40 Telemetry Rhythm: Sinus Rhythm Height (Feet): 6 Height (Inches): 1.00 Weight (Kilograms): 95.400 General General Appearance: Alert, Confused, Cooperative, No Acute Distress Eyes (Brief) Eyes: FOUND: EOMI, PERRL, NOT FOUND: scleral icterus Neck (Brief) Neck: FOUND: midline, NOT FOUND: JVD, nuchal rigidity, spasm Respiratory (Brief) Respiratory: FOUND: equal bilaterally, symmetrical, NOT FOUND: rales, wheezes Comments Diminished air flow in bases. No crackles on anterior exam. Cardiovascular (Brief) Cardiac: FOUND: pedal edema (2+), regular rate, regular rhythm, NOT FOUND: murmur Abdomen (Brief) Abdominal: FOUND: distended (Hypoactive BS x 4 quadrants. ), soft, tender Comments Distended. Mildly tender. NGT to LIS- light green. Extremities (Brief) Extremity : Side: Bilateral Extremity Finding: FOUND: edema Musculoskeletal (Brief) Musculoskeletal: NOT FOUND: deformity, tenderness Integumentary (Brief) Integumentary: FOUND: dry, warm Laboratory Laboratory Laboratory Tests 03/09/17 04:21 03/09/17 16:23 03/10/17 06:41 Laboratory Tests 03/09/17 04:21 03/10/17 06:41 Microbiology Microbiology MANY WHITE BLOOD CELLS SPUTUM CULTURE Final 03/10/17-0736 Organism 1 S. AUREUS, METH-RESISTANT QUANTITY: SLIGHT GROWTH Organism 2 NORMAL RESPIRATORY GABRIELLA QUANTITY: SLIGHT GROWTH * This is a corrected result. * A prior result that was reported as final has been changed. MRSA INTERP SOL ------ --------- CIPROFLOXACIN R >=8 CLINDAMYCIN R DOXYCYCLINE S <=0.5 ERYTHROMYCIN R >=8 GENTAMICIN S <=0.5 LEVOFLOXACIN R >=8 LINEZOLID S 2 OXACILLIN R TETRACYCLINE S <=1 TRIMETH/SULFA S <=10 VANCOMYCIN S <=0.5 MANY WHITE BLOOD CELLS WOUND CULTURE DEEP TISS-AER/AN Final 03/03/17-829 Organism 1 PSEUDOMONAS AERUGINOSA QUANTITY: SLIGHT GROWTH Organism 2 BACTEROIDES CACCAE Organism 3 BIFIDOBACTERIUM SPECIES P AERUGINO B CACCAE BIFIDOB SP INTERP SOL INTERP SOL INTERP SOL ------ --------- ------ --------- ------ --------- CEFEPIME S <=1 CEFTAZIDIME S 2 GENTAMICIN S <=1 LEVOFLOXACIN S 0.5 MEROPENEM S 0.5 TOBRAMYCIN S <=1 AMOX/CLAV ACID S 2 S 6 CLINDAMYCIN S 1.0 S .125 METRONIDAZOLE S 3 I 12 PIPERACILL/TAZO S <=4 Radiology KUB- Prelim (my impression- images reviewed) Some improvement of ileus. NGT is in small bowel- will need to pull back a little. Mild-mod pulmonary edema. Sepsis Diagnostic Criteria Sepsis Confirmed/Suspected Infection: Yes SIRS Criteria: Temp<=96.8 or >=100.4, RR > or = to 20 Severe Sepsis None Seen Assessment & Plan Problems: (1) Postoperative ileus Status: Acute Assessment & Plan: He has walking and passing small amount of flatus. He is more distended today. 03/09/2017: NG tube placed this morning with good output. (2) Inguinal abscess Status: Acute Assessment & Plan: Pseudomonas cultured. (3) Colocutaneous fistula Status: Resolved Assessment & Plan: 03/02: Abscess was incised and drained. Surgical correction of a colocutaneous fistula scheduled for Sunday (03/05). 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 Arauz *Resp. failure s/p vent- Now on O2. Continue nebs. MRSA on sputum cx. Will add Vanco. Pharmacy consult for management. *Pulmonary edema- Unknown EF, but has PPM. Will add BID Lasix and replace KCL IV today as well. May need to bump the KCL in TPN. Add tele. *FEN- Stopped IVF. Agree with TPN, Lipids. Routine BG check, PRN insulin. *Intraabdominal abscess s/p surgical resection with ileus- Reviewed cultures from abscess. Need to add better anaerobic coverage. Change Levaquin/Flagyl to Invanz. NGT- pull back 2 inches. Some mild improvement in ileus. Continue supportive care. Change PPI back to IV until able to tolerate PO. Surgery team following. Pain control- consider DC Toradol after 5 day max. Monitor kidney function carefully. *AFib, Chronic anticoagulation Holding pradaxa. Continue low dose LMWH. Add tele. HR is controlled. Not requiring rate controlling meds at home. Hold Statin due to NPO status. Very ill, medically complex. Continue supportive care. Recheck KUB, labs in AM. DVT Prophylaxis: Lovenox Code Status Full Code Hospital Course Summary Disclaimer The hospital course summary below is not to be considered part of the above Progress Note. Hospital Course Summary 02/25 Admit patient to outpatient observation under the care of Dr. Worthy for inguinal abscess. ER Provider spoke with Lyle Seth- radiologist. Will plan for ultrasound-guided percutaneous drain tomorrow, Sunday02/26/17. Patient last took Pradaxa this morning 02/25/17. We will place this on hold now for scheduled procedure. He has been on Levaquin and Flagyl for antimicrobial coverage. Will switch to IV Zosyn for ongoing coverage. Will be able follow abscess cultures for further C/S. No evidence of sepsis currently. Normal saline at 100ml/hr for gentle hydration overnight. He may have regular diet now and NPO at midnight for planned procedure tomorrow SCDs to bilateral lower ext for DVT prophylaxis Up in room with assistance Will recheck CBC and BMP tomorrow morning to follow blood counts, renal function and electrolytes. Again he requests to be a Full Code and this order is written Will discuss further orders with attending, Dr Worthy Care will be turned over to PCP tomorrow morning- Dr Arauz. 02/26/2017: Patient is back from radiology where pigtail catheter drain was placed in the left lower quadrant. He is feeling better at this time. Surgical consultation appreciated. White count remains normal. He is on Zosyn. 02/28/2017: Darvin continues to improve. He does have minimal nausea this evening after supper. His surgical site appears to be without infection. He has minimal brownish material with dark blood in his drain. Should he continue to improve without relapse of fever or an elevation in his white count, I anticipate him going home soon. He would continue with the drain as an outpatient. He would then follow up with myself as well as Dr. Joya as an outpatient final culture and sensitivity is still pending. Gram-negative giorgio as grown but has yet to be identified along with sensitivity. This would determine his outpatient oral antibiotics. 03/01/17: Today Darvin's drain site looks worse. It has erythema, induration, and pain. I have spoken with Dr. Joya and he has evaluated him and agrees. He will order CT with rectal contrast and evaluated for fistula formation tomorrow. He may need surgery following these findings. 03/02/17: Discussed this case with Dr. Joya of surgery earlier today. 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 He is just back from surgery where they incised and drained this site. I agree with the addition of Flagyl to his antibiotic regimen and the plan for surgical resection and primary reanastomosis on Sunday. At this time he is complaining of abdominal pain 4 out of 10. He also has some mild wheezing in his left chest. Family states that he coughed up some dark material earlier today but are unsure of its origin. 03/03/17: Teressa covering for Dr Arauz: Doing well this morning-less ab pain since I/D yesterday. No nausea-did well with breakfast. Had sweats overnight, but no f/c. Breathing well without SOA cough or congestion. No chest pain. Urinating well. Will D/C IVF as taking po well and weight increased from admit. Continue Zosyn and metronidazole for antibiotic coverage. Continue pain control. Encourage activities. Recheck lab in am. 03/04/17: Teressa covering for Dr Arauz: Doing okay this afternoon-on bowel prep for tomorrow. Feels stools just about to let go. Some ab bloating and cramping with bowel prep. No nausea. Breathing well, but needed O2 at night the last 2 nights. Rare cough; no pain with breathing. No chest pain or pressure. Denies f/c. Start NS at 75cc/hr this evening in anticipation of Sx tomorrow. Continue Zosyn and metronidazole for antibiotic coverage. Start Incentive Spirometry to help pulmonary toilet. Continue pain control. Encourage activities. Recheck lab in am. Anticipate Dr Arauz's return in am. 03/06/2017: Patient came back from surgery late last night. He is extubated now awake and still groggy. He answers questions appropriately. He denies any chest pain but does complain of some abdominal pain actually in his upper abdomen. He does have bowel sounds. His surgery appears to have gone well. 03-07 Surgery note Oliguria, will bolus another 500 ml cautiously and give 0.5 mg Bumex IV. Potassium slowly drifting down, will change IVF to D5 1/2 with 10 KCL Encourage Breeze, the high protein juice. KUB indicates likely ileus pattern, although he is passing flatus and not nauseated, will continue clears today, possible advance to fulls this evening if he is still doing well and/or has some stool. HOpe to start feeding the gut soon and avoid PICC and TPN. WBC still 13.1 (13.6 yesterday) some of this may be stress response. Continue ABX as ordered. Keep in CCU today if possible. Consider transfer to floor tonight or tomorrow. Daily packing changes of the left inguinal wound and plan possible wound vac tomorrow. 03/08/2017: Patient appears more distended today. His weight is up approximately 10 kg. I will encourage him to walk, give Dulcolax suppository, and Bumex 1 mg IV 03/09/2017 Surgery note: Change diet to sips and chips place NG repeat films tomorrow PICC line inserted and TPN started at 50 ml.hr for 8 hours, then 75 ml.hr for 8 hours, then 100 ml/hr. Q6/hr BGM with SSI low dose regular after TPN started 03/10/17- Teressa covering for Dr. Arauz *Resp. failure s/p vent- Now on O2. Continue nebs. MRSA on sputum cx. Will add Vanco. Pharmacy consult for management. *Pulmonary edema- Unknown EF, but has PPM. Will add BID Lasix and replace KCL IV today as well. May need to bump the KCL in TPN. Add tele. *FEN- Stopped IVF. Agree with TPN, Lipids. Routine BG check, PRN insulin. *Intraabdominal abscess s/p surgical resection with ileus- Reviewed cultures from abscess. Need to add better anaerobic coverage. Change Levaquin/Flagyl to Invanz. NGT- pull back 2 inches. Some mild improvement in ileus. Continue supportive care. Change PPI back to IV until able to tolerate PO. Surgery team following. Pain control- consider DC Toradol after 5 day max. Monitor kidney function carefully. *AFib, Chronic anticoagulation Holding pradaxa. Continue low dose LMWH. Add tele. HR is controlled. Not requiring rate controlling meds at home. Hold Statin due to NPO status. Very ill, medically complex. Continue supportive care. Recheck KUB, labs in AM. PELON ALMODOVAR MD 03/10/17 1600: Assessment & Plan Problems: (1) Postoperative ileus Status: Acute Assessment & Plan: 03/09/2017: NG tube placed this morning with good output. (2) Inguinal abscess Status: Acute Assessment & Plan: Pseudomonas cultured. (3) Colocutaneous fistula Status: Resolved Assessment & Plan: 03/02: Abscess was incised and drained. Surgical correction of a colocutaneous fistula scheduled for Sunday (03/05). 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 Have independently interviewed and examined pt. Chart reviewed. Case discussed with my AGRICULTURAL ECONOMICS TEACHER. Care plan developed with my supervision; agree with above. Doing okay. Tolerating the NG - ab feels less distended. Passing flatus. Some nausea. Mild ab pain. Notes SOA and congestion. Does have increased ab pain if coughs. No f/c. No chest pain or pressure. Lungs: decreased, basilar blunting. No distress on O2. CV: regular AB; Soft, distended. Mild, diffuse tenderness. BS decreased EXT: +2 edema MSE; awake alert appropriate Plan: Vancomycin added for MRSA in sputum. Levaquin/metronidazole changed to Invanz for better abdominal coverage. Lasix 40mg IV BID to help motivate fluids. Encourage IS and Acapella use. Wean O2 as able. TPN for nutritional support due to NPO for ileus. Monitor lab. Continue with supportive care. Case discussed with Dr Joya this morning. JUAN ANTONIO TOUSSAINT APRN Mar 10, 2017 11:06 PELON ALMODOVAR MD Mar 10, 2017 16:00
[2017-03-10] MEDS: MEROPENEM IV SCH ×2 (11:51→17:12)
[2017-03-10] MEDS: NORMAL SALINE IV SCH ×2 (11:51→17:12)
[2017-03-10] MEDS: POTASSIUM CHLORIDE 10 MEQ in WATER FOR INJECTION 100 ML IV SCH ×7 (12:03→18:13)
[2017-03-10] MEDS: FAT EMULSION 20% 100 ML IV SCH (16:14)
[2017-03-10] MEDS: FUROSEMIDE 40 MG/4 ML INJECTION IV SCH (17:13)
[2017-03-10] MEDS: INSULIN REGULAR 100 UNIT/ML SQ PRN (18:16)
--- NOTE | 2017-03-10 19:08 | NUR ---
Summary Pt A&OX3. Pt on 1.5L NC. Pt has been up in the recliner most of this shift, family has visited throughout day. PICC to the right upper arm flushes and aspirates well. NG tube in place to low intermittent suction. Pt up to BR multiple times today with adequate urine output, passing gas. Pt ambulated in hallway and tolerated well. Dressing change done as ordered, Pt tolerated well. Pt has denied nausea. In recliner at this time w/ chair alarm and call light w/in reach.
[2017-03-10] MEDS: ENOXAPARIN 40 MG/0.4 ML INJECTION SQ SCH (21:10)
[2017-03-10] MEDS: VANCOMYCIN 1,250 MG in NORMAL SALINE 250 ML IV SCH (21:10)
[2017-03-10] MEDS: TAMSULOSIN 0.4 MG CAPSULE PO SCH (22:24)
[2017-03-10] MEDS: FLUTICASONE NASAL SPRAY 50 MCG EA NOSTRIL SCH (22:24)
[2017-03-11] VITALS (12 sets, daily range): BP systolic 131–155; BP diastolic 61–73; PULSE 83–91; RESP 16–18; TEMP 95.2–98.2; O2SAT 88–94
--- NOTE | 2017-03-11 | NUR ---
Chart Check 24 hour chart check completed
[2017-03-11] MEDS: NORMAL SALINE IV SCH ×3 (00:23→17:17)
[2017-03-11] MEDS: MEROPENEM IV SCH ×3 (00:23→17:17)
[2017-03-11 05:48] LABS: HCT - HEMATOCRIT 30.8 % (41-53); HGB - HEMOGLOBIN 9.9 GM/DL (13.5-17.5); MEAN CORPUSCULAR HGB 27.3 UUG (26-34); MEAN CORPUSCULAR HGB CONC(MCHC 32.1 GM/DL (31-37); MEAN CORPUSCULAR VOLUME 84.8 UM3 (80-100); MEAN PLATELET VOLUME 9.1 UM3 (9.4-12.4); RED BLOOD COUNT 3.63 M/MM3 (4.50-5.90); WBC - WHITE BLOOD COUNT 8.6 T/MM3 (4.5-11.0)
[2017-03-11 05:56] LABS: ANION GAP 8 MEQ/L (5-15); BUN/CREATININE RATIO 21 RATIO (6-26); CALCIUM 7.8 MG/DL (8.4-10.2); CHLORIDE 103 MEQ/L (98-107); CO2 - CARBON DIOXIDE 29 MEQ/L (22-30); CREATININE 0.8 MG/DL (0.8-1.5); GLOMERULAR FILTRATION RATE 93; GLUCOSE 103 MG/DL (75-110); POTASSIUM 3.9 MEQ/L (3.6-5); SODIUM 140 MEQ/L (134-144)
[2017-03-11] MEDS: INSULIN REGULAR 100 UNIT/ML SQ PRN (06:12)
[2017-03-11 06:27] LABS: BAND NEUTROPHILS # 0.1 T/MM3; BASOPHILS # (MANUAL) 0.1 T/MM3 (0-0.2); EOSINOPHILS # (MANUAL) 0.7 T/MM3 (0-0.5); LYMPHOCYTES # (MANUAL) 1.5 T/MM3 (1-4.8); MONOCYTES # (MANUAL) 0.9 T/MM3 (0-0.8); NEUTROPHILS #(MANUAL)-ABSOLUTE 5.2 T/MM3 (1.8-7.7); TOTAL CELLS COUNTED 100 %
--- NOTE | 2017-03-11 06:47 | NUR ---
shift summary pt has slept off and on during the night, alert and oriented x 3. pt on 2L o2 via nc, otherwise vss. pt transferred to recliner early this morning because he thought it would help him breathe and sleep better. pt given toradol for pain, see emar. tpn and ns infusing as ordered. contact/droplet precautions in use. PICC to the right upper arm, dual lumens flush and aspirate well. NG tube to low intermittent suction. pt transfers with assist x one to bathroom. Dressing change completed last night per order, pt tolerated well. denies n/v. npo-sips and chips diet. In recliner at this time w/ chair alarm and call light w/in reach. will continue to monitor.
[2017-03-11] MEDS: ALBUTEROL/IPRATROPIUM INHAL. 2.5mg-0.5mg/3ml Neb. AEROSOL SCH ×3 (07:20→21:00)
[2017-03-11] MEDS: PANTOPRAZOLE 40mg INJECTION IV SCH (08:38)
[2017-03-11] MEDS: FUROSEMIDE 40 MG/4 ML INJECTION IV SCH ×2 (08:38→17:17)
[2017-03-11] MEDS: VANCOMYCIN 1,250 MG in NORMAL SALINE 250 ML IV SCH ×2 (09:46→20:49)
--- NOTE | 2017-03-11 09:57 | PNF ---
DATE 03/10/2017 FINDINGS Mr. Perales today states he is feeling better. He states he has passed a little bit of flatus. EXAM VITAL SIGNS: Afebrile, normotensive. Please refer to EMR. ABDOMEN: Slightly less distended. The dressing was just replaced in the left inguinal region by the nurse just prior to my arrival. I therefore elected not to remove the dressing. Nurse reports that the wound did appear clean with no evidence for stool content within the wound. LABORATORY/RADIOGRAPHIC EVALUATION The patient had a BMP, CBC today that was within normal limits. White count is stable at 9.8. Hemoglobin stable at 9.6. BMP within normal limits. Blood sugars have been stable since initiating hyperalimentation. ASSESSMENT 81-year-old gentleman status post robotic-assisted laparoscopic takedown of colocutaneous fistula with repair of colotomy and removal of mesh/foreign body. Patient with development postoperative ileus which does appear to be improving. PLAN The patient also had KUB and upright obtained today. There does appear to fortunately be less distention of the cecum and colon. There is still a fair amount of air, however, both within the colon and small bowel but overall I do believe there is less distention. I will continue at this point in time with hyperalimentation, NG suction and serial abdominal examinations. Hopefully over the next 24-48 hours the patient's bowel activity will return and his NG can be discontinued at that time. ELSIE
[2017-03-11] MEDS: NOZIN NASAL SWAB NS SCH ×2 (10:35→17:17)
--- NOTE | 2017-03-11 11:16 | PNPDOC ---
Subjective Date DATE: 03/11/17 TIME: 11:06 Subjective F/U: Colocutaneous fistula, post op ileus. Coverage for Dr Arauz. Doing okay today. Urinating often with Lasix. Had 3050cc urine out yesterday. No nausea with NG tube - 630cc NG output yesterday (880 today so far). Reports is passing flatus. Breathing stable-some SOA, but little cough/congestion. No chest pain. No f/c. Strength decreased. Objective Vital Signs Vital signs Vital Signs Date Time Temp Pulse Resp B/P Pulse Ox O2 Delivery O2 Flow Rate FiO2 03/11/17 07:29 90 03/11/17 07:29 98.2 16 143/69 92 Nasal Cannula 2.00 Telemetry Rhythm: Sinus Rhythm Height (Feet): 6 Height (Inches): 1.00 Weight (Kilograms): 96.500 General General Appearance: Alert, Orientated x 3, Overweight, Well Nourished, Well Developed, Cooperative, Looks Stated Age Eyes (Brief) Eyes: FOUND: EOMI, PERRL, NOT FOUND: scleral icterus ENMT (Brief) ENMT: FOUND: hearing intact, mucosa moist Neck (Brief) Neck: FOUND: midline, NOT FOUND: nuchal rigidity, spasm Respiratory (Brief) Respiratory: FOUND: clear all tucker, equal bilaterally, NOT FOUND: rales, wheezes Cardiovascular (Brief) Cardiac: FOUND: regular rate, regular rhythm Abdomen (Brief) Abdominal: FOUND: distended (slight ), other (NG output 630 yesterday), soft, NOT FOUND: BS normo active x4 (Decreased but present ), tender Extremities (Brief) Extremity : Side: Bilateral Extremity: leg Extremity Finding: FOUND: edema (+1 ), other (SCD in place ) Musculoskeletal (Brief) Musculoskeletal: FOUND: extremities move equally, NOT FOUND: deformity, spasm Integumentary (Brief) Integumentary: FOUND: dry, warm Neurologic (Brief) Neurological: FOUND: cranial 2-12 intact, motor (Intact ) Psychiatric (Brief) Psychiatric: FOUND: alert, attentive, normal affect, oriented Laboratory Laboratory Laboratory Tests 03/09/17 16:23 03/10/17 06:41 03/11/17 04:35 Laboratory Tests 03/10/17 06:41 03/11/17 04:35 Sepsis Diagnostic Criteria Sepsis Confirmed/Suspected Infection: Yes SIRS Criteria: Temp<=96.8 or >=100.4, RR > or = to 20 Severe Sepsis None Seen Assessment & Plan Problems: (1) Postoperative ileus Status: Acute Assessment & Plan: 03/09/2017: NG tube placed this morning with good output. (2) Inguinal abscess Status: Acute Assessment & Plan: Pseudomonas cultured. (3) Colocutaneous fistula Status: Resolved Assessment & Plan: 03/02: Abscess was incised and drained. Surgical correction of a colocutaneous fistula scheduled for Sunday (03/05). 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 Continue Invanz for abdominal coverage - Day #2. Levaquin/Metronidazole stopped on 03/10. Continue Lasix 40mg IV BID to help motivate fluids. Edema and weight are decreasing. Creatinine stable. Encourage IS and Acapella use. Wean O2 as able. Continue TPN for nutritional support due to NPO for ileus. Monitor lab. Continue with supportive care. Anticipate Dr Arauz's return in am. Time spent with pt's care 35 minutes. DVT Prophylaxis: SCD'S, Lovenox Code Status Full Code Hospital Course Summary Disclaimer The hospital course summary below is not to be considered part of the above Progress Note. Hospital Course Summary 02/25 Admit patient to outpatient observation under the care of Dr. Worthy for inguinal abscess. ER Provider spoke with Lyle Seth- radiologist. Will plan for ultrasound-guided percutaneous drain tomorrow, Sunday02/26/17. Patient last took Pradaxa this morning 02/25/17. We will place this on hold now for scheduled procedure. He has been on Levaquin and Flagyl for antimicrobial coverage. Will switch to IV Zosyn for ongoing coverage. Will be able follow abscess cultures for further C/S. No evidence of sepsis currently. Normal saline at 100ml/hr for gentle hydration overnight. He may have regular diet now and NPO at midnight for planned procedure tomorrow SCDs to bilateral lower ext for DVT prophylaxis Up in room with assistance Will recheck CBC and BMP tomorrow morning to follow blood counts, renal function and electrolytes. Again he requests to be a Full Code and this order is written Will discuss further orders with attending, Dr Worthy Care will be turned over to PCP tomorrow morning- Dr Arauz. 02/26/2017: Patient is back from radiology where pigtail catheter drain was placed in the left lower quadrant. He is feeling better at this time. Surgical consultation appreciated. White count remains normal. He is on Zosyn. 02/28/2017: Darvin continues to improve. He does have minimal nausea this evening after supper. His surgical site appears to be without infection. He has minimal brownish material with dark blood in his drain. Should he continue to improve without relapse of fever or an elevation in his white count, I anticipate him going home soon. He would continue with the drain as an outpatient. He would then follow up with myself as well as Dr. Joya as an outpatient final culture and sensitivity is still pending. Gram-negative giorgio as grown but has yet to be identified along with sensitivity. This would determine his outpatient oral antibiotics. 03/01/17: Today Darvin's drain site looks worse. It has erythema, induration, and pain. I have spoken with Dr. Joya and he has evaluated him and agrees. He will order CT with rectal contrast and evaluated for fistula formation tomorrow. He may need surgery following these findings. 03/02/17: Discussed this case with Dr. Joya of surgery earlier today. 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 He is just back from surgery where they incised and drained this site. I agree with the addition of Flagyl to his antibiotic regimen and the plan for surgical resection and primary reanastomosis on Sunday. At this time he is complaining of abdominal pain 4 out of 10. He also has some mild wheezing in his left chest. Family states that he coughed up some dark material earlier today but are unsure of its origin. 03/03/17: [email or web address] covering for Dr Arauz: Doing well this morning-less ab pain since I/D yesterday. No nausea-did well with breakfast. Had sweats overnight, but no f/c. Breathing well without SOA cough or congestion. No chest pain. Urinating well. Will D/C IVF as taking po well and weight increased from admit. Continue Zosyn and metronidazole for antibiotic coverage. Continue pain control. Encourage activities. Recheck lab in am. 03/04/17: [email or web address] covering for Dr Arauz: Doing okay this afternoon-on bowel prep for tomorrow. Feels stools just about to let go. Some ab bloating and cramping with bowel prep. No nausea. Breathing well, but needed O2 at night the last 2 nights. Rare cough; no pain with breathing. No chest pain or pressure. Denies f/c. Start NS at 75cc/hr this evening in anticipation of Sx tomorrow. Continue Zosyn and metronidazole for antibiotic coverage. Start Incentive Spirometry to help pulmonary toilet. Continue pain control. Encourage activities. Recheck lab in am. Anticipate Dr Arauz's return in am. 03/06/2017: Patient came back from surgery late last night. He is extubated now awake and still groggy. He answers questions appropriately. He denies any chest pain but does complain of some abdominal pain actually in his upper abdomen. He does have bowel sounds. His surgery appears to have gone well. 03-07 Surgery note Oliguria, will bolus another 500 ml cautiously and give 0.5 mg Bumex IV. Potassium slowly drifting down, will change IVF to D5 1/2 with 10 KCL Encourage Breeze, the high protein juice. KUB indicates likely ileus pattern, although he is passing flatus and not nauseated, will continue clears today, possible advance to fulls this evening if he is still doing well and/or has some stool. HOpe to start feeding the gut soon and avoid PICC and TPN. WBC still 13.1 (13.6 yesterday) some of this may be stress response. Continue ABX as ordered. Keep in CCU today if possible. Consider transfer to floor tonight or tomorrow. Daily packing changes of the left inguinal wound and plan possible wound vac tomorrow. 03/08/2017: Patient appears more distended today. His weight is up approximately 10 kg. I will encourage him to walk, give Dulcolax suppository, and Bumex 1 mg IV 03/09/2017 Surgery note: Change diet to sips and chips place NG repeat films tomorrow PICC line inserted and TPN started at 50 ml.hr for 8 hours, then 75 ml.hr for 8 hours, then 100 ml/hr. Q6/hr BGM with SSI low dose regular after TPN started 03/10/17- Teressa covering for Dr. Arauz *Resp. failure s/p vent- Now on O2. Continue nebs. MRSA on sputum cx. Will add Vanco. Pharmacy consult for management. *Pulmonary edema- Unknown EF, but has PPM. Will add BID Lasix and replace KCL IV today as well. May need to bump the KCL in TPN. Add tele. *FEN- Stopped IVF. Agree with TPN, Lipids. Routine BG check, PRN insulin. *Intraabdominal abscess s/p surgical resection with ileus- Reviewed cultures from abscess. Need to add better anaerobic coverage. Change Levaquin/Flagyl to Invanz. NGT- pull back 2 inches. Some mild improvement in ileus. Continue supportive care. Change PPI back to IV until able to tolerate PO. Surgery team following. Pain control- consider DC Toradol after 5 day max. Monitor kidney function carefully. *AFib, Chronic anticoagulation Holding pradaxa. Continue low dose LMWH. Add tele. HR is controlled. Not requiring rate controlling meds at home. Hold Statin due to NPO status. Very ill, medically complex. Continue supportive care. Recheck KUB, labs in AM. 03/11/17 Teressa-covering for Dr Arauz Doing okay today. Urinating often with Lasix. Had 3050cc urine out yesterday. No nausea with NG tube - 630cc NG output yesterday (880 today so far). Reports is passing flatus. Breathing stable-some SOA, but little cough/congestion. No chest pain. No f/c. Strength decreased. Continue Vancomycin for MRSA in sputum - Add Nozin nasally. Continue Invanz for abdominal coverage - Day #2. Levaquin/Metronidazole stopped on 03/10. Continue Lasix 40mg IV BID to help motivate fluids. Edema and weight are decreasing. Creatinine stable. Encourage IS and Acapella use. Wean O2 as able. Continue TPN for nutritional support due to NPO for ileus. Monitor lab. Continue with supportive care. Anticipate Dr Arauz's return in am. PELON ALMODOVAR MD Mar 11, 2017 11:09
--- NOTE | 2017-03-11 13:09 | PNF ---
DATE 03/11/2017 FINDINGS Mr. Perales this morning states that he is feeling better. He has had a couple of small liquidy stools. Exam VITAL SIGNS: Afebrile, normotensive. ABDOMEN: Soft. Minimal incisional tenderness present. No evidence for guarding or rebound. LABORATORY/RADIOGRAPHIC EVALUATION Patient had a CBC today that was unremarkable. White count is stable at 8.6. Hemoglobin stable at 9.9. BMP obtained and found to be within normal limits. Blood sugars are stable. ASSESSMENT 81-year-old gentleman status post robotic-assisted laparoscopic takedown of colocutaneous fistula with repair of colotomy and excision of inguinal mesh plug. Patient currently making improvement. PLAN Radiographically, he did have a KUB and upright obtained today. I did review the films and it does appear that he has significantly less colonic distention. There is still some small bowel distention suggesting an ongoing ileus. Clinically, however, the patient is having stools. Will go ahead and clamp his NG today and begin him on some clear liquids. Otherwise, will continue with current care at this time. If he tolerates his NG being clamped and clear liquids, will discontinue NG this evening. ELSIE
[2017-03-11 13:25] LABS: C. DIFFICILE TOXIN B NEGATIVE (NEGATIVE)
--- NOTE | 2017-03-11 13:49 | DI ---
Indication: ITS.REASON: ILEUS PROCEDURE: KUB W/UPRIGHT: Encounter: Initial Comparison: March 10, 2017 Findings: Nasogastric tube remains in place. Motion artifact limits portions of the exam. No obvious free intraperitoneal air. Dilated small bowel loops are again seen in the left abdomen up to 5.3 cm in diameter, similar to the prior exam. There is some scattered colonic gas present. Subcutaneous emphysema is again noted. Impression: No significant change in small and large bowel distention, most likely due to postoperative ileus. .
--- NOTE | 2017-03-11 14:06 | DI ---
Indication: ITS.REASON: f/u ileus PROCEDURE: KUB W/UPRIGHT: Encounter: Initial Comparison: March 07, 2017 Findings: New nasogastric tube in place with the tip in the first portion of the duodenum. Small and large bowel air-fluid levels present. Subcutaneous emphysema noted. Dilated small bowel loops up to 5.1 cm in the left upper quadrant. Gas is present distally to the level of the rectum. Impression: Findings of a postoperative ileus. .
[2017-03-11] MEDS: ONDANSETRON 4mg/2ml INJECTION IV PRN (15:07)
--- NOTE | 2017-03-11 15:30 | NUR ---
NG CLAMPED NG AT 1200. PT NOW COMPLAINS OF NAUSEA. GIVEN IV ZOFRAN AND HOOKED NG BACK UP TO LOW INTERMITTENT SUCTIONING.
--- NOTE | 2017-03-11 15:35 | NUR ---
STATUS PT CURRENTLY RESTING IN BED WITH BED ALARM ON AND CALL LIGHT IN REACH. PT USES CALL LIGHT APPROPRIATELY. BEDSIDE REPORT COMPLETE WITH MALINI DUNLAP. PT DENIES PAIN OR THE NEED FOR PAIN MEDICATION AT THIS TIME. WILL CONTINUE TO MONITOR.
[2017-03-11] MEDS: FAT EMULSION 20% 100 ML IV SCH (15:57)
[2017-03-11] MEDS: MULTI TRACE ELEMENTS IV SCH ×4 (15:58)
[2017-03-11] MEDS: [UNRECOGNIZED DRUG - OTHER] IV SCH ×4 (15:58)
[2017-03-11] MEDS: POTASSIUM CHLORIDE IV SCH ×4 (15:58)
[2017-03-11] MEDS: MULTI VIT INF IV SCH ×4 (15:58)
--- NOTE | 2017-03-11 18:42 | NUR ---
PROGRESS NOTE THIS RN ASSUMED PT CARE AT 1500. PT IS ALERT AND ORIENTED X3. VITAL SIGNS ARE STABLE, PT IS ON 1L O2 PER NC. THE PT HAS BEEN UP TO THE RECLINER SEVERAL TIMES THIS SHIFT AND HAS TOLERATED WELL. THE PT IS CURRENTLY RESTING IN THE RECLINER. NG IS CLAMPED AT THIS TIME AND PT IS TOLERATING WELL. PT IS ON A CLEAR LIQUID DIET AND HAD SOME NAUSEA EARLIER IN THE SHIFT. THE PT HAS HAD ADEQUATE URINE OUTPUT AND SEVERAL SMALL BOWEL MOVEMENTS THIS SHIFT. PT ENCOURAGED TO USE THE IS. DRESSING TO ABDOMEN IS C/D/I. NO OTHER CONCERNS NOTED. WILL CONTINUE TO MONITOR.
[2017-03-11] MEDS: TAMSULOSIN 0.4 MG CAPSULE PO SCH (20:49)
[2017-03-11] MEDS: ENOXAPARIN 40 MG/0.4 ML INJECTION SQ SCH (20:49)
[2017-03-11] MEDS: FLUTICASONE NASAL SPRAY 50 MCG EA NOSTRIL SCH (20:49)
[2017-03-12] VITALS (11 sets, daily range): BP systolic 124–157; BP diastolic 56–67; PULSE 85–89; RESP 16–22; TEMP 96.1–99.2; O2SAT 91–100
[2017-03-12] MEDS: NOZIN NASAL SWAB NS SCH ×3 (00:27→16:32)
[2017-03-12] MEDS: NORMAL SALINE IV SCH ×3 (00:28→16:32)
[2017-03-12] MEDS: MEROPENEM IV SCH ×3 (00:28→16:32)
--- NOTE | 2017-03-12 02:31 | NUR ---
UP TO RECLINER PT STATED THAT HE CAN'T SLEEP IN BED AND REQUESTED MOVING TO THE RECLINER. PT ASSISTED TO CHAIR. PT REPORTS MINIMAL PAIN WHEN MOVING. DENIES NEED FOR ANY PAIN MEDS AT THIS TIME
[2017-03-12] MEDS: NORMAL SALINE 1,000 ML IV SCH (04:54)
[2017-03-12 04:56] LABS: BASOPHILS % (AUTO) 0.2 % (0-2); EOSINOPHILS # (AUTO) 0.3 T/MM3 (0-0.5); EOSINOPHILS % (AUTO) 3.2 % (0-4); HCT - HEMATOCRIT 32.2 % (41-53); HGB - HEMOGLOBIN 10.1 GM/DL (13.5-17.5); IMMATURE GRANULOCYTE # (AUTO) 0.06 T/MM3 (0.00-0.03); IMMATURE GRANULOCYTE % (AUTO) 0.7 % (0.0-0.5); LYMPHOCYTES % (AUTO) 10.8 % (23-45); MEAN CORPUSCULAR HGB 26.6 UUG (26-34); MEAN CORPUSCULAR HGB CONC(MCHC 31.4 GM/DL (31-37); MEAN PLATELET VOLUME 8.6 UM3 (9.4-12.4); MONOCYTES # (AUTO) 1.8 T/MM3 (0-0.8); MONOCYTES % (AUTO) 19.1 % (0-9.0); NEUTROPHILS #(AUTO)-ABSOLUTE 6.1 T/MM3 (1.8-7.7); RED BLOOD COUNT 3.79 M/MM3 (4.50-5.90); WBC - WHITE BLOOD COUNT 9.2 T/MM3 (4.5-11.0)
[2017-03-12 05:03] LABS: ALBUMIN 2.5 G/DL (3.5-5.0); ALBUMIN/GLOBULIN RATIO 0.8 RATIO (1.1-2.2); ALKALINE PHOSPHATASE 101 U/L (38-126); ALT (SGPT) 31 U/L (21-72); ANION GAP 6 MEQ/L (5-15); AST (SGOT) 36 U/L (17-59); BUN/CREATININE RATIO 24 RATIO (6-26); CALCIUM 8.2 MG/DL (8.4-10.2); CHLORIDE 99 MEQ/L (98-107); CO2 - CARBON DIOXIDE 31 MEQ/L (22-30); CREATININE 0.8 MG/DL (0.8-1.5); GLOMERULAR FILTRATION RATE 93; GLUCOSE 137 MG/DL (75-110); MAGNESIUM 1.9 MG/DL (1.6-2.3); PHOSPHORUS 3.2 MG/DL (2.5-4.5); POTASSIUM 3.6 MEQ/L (3.6-5); SODIUM 136 MEQ/L (134-144); TOTAL PROTEIN 5.5 G/DL (6.3-8.2)
--- NOTE | 2017-03-12 06:43 | NUR ---
STATUS PT SLEPT WELL ONCE UP IN THE CHAIR. PT DENIES PAIN, SOA OR CHEST PAIN. PT REQUESTED SOME APPLE JUICE. NG IS CLAMPED AND PT DENIES NAUSEA
[2017-03-12] MEDS: FUROSEMIDE 40 MG/4 ML INJECTION IV SCH ×2 (08:36→16:32)
[2017-03-12] MEDS: PANTOPRAZOLE 40mg INJECTION IV SCH (08:37)
[2017-03-12] MEDS: VANCOMYCIN 1,250 MG in NORMAL SALINE 250 ML IV SCH (09:00)
--- NOTE | 2017-03-12 09:29 | NUR ---
CM CM VISITED PT AND DAUGHTER. CM DISCUSSED D/C PLAN. PT IS GOING TO VISIT WITH . PT NURSE WILL GET PT/OT ON BOARD TO EVALUATE PT NEEDS. PT/FAMILY AWARE TO CONTACT CM IF NEEDS ARISE.
[2017-03-12] MEDS: ALBUTEROL/IPRATROPIUM INHAL. 2.5mg-0.5mg/3ml Neb. AEROSOL SCH ×2 (09:30→19:16)
[2017-03-12] MEDS: VANCOMYCIN 2,000 MG in NORMAL SALINE 500 ML IV SCH ×2 (09:56→22:14)
--- NOTE | 2017-03-12 10:02 | NUR ---
VANCOMYCIN CONSULT: Vancomycin Trough = 11.03 mcg/ml. Today's SCr = 0.8 mg/dl. Will give Vancomycin 2,000 mg IV q12hrs. Will continue to monitor and make adjustments accordingly. Thank you.
--- NOTE | 2017-03-12 13:13 | NUR ---
High Risk Screen R/T NPO or clear liquids > 3 days while in the hospital Diet: Full liquid diet Patient is receiving TPN 100ml @ 50 ml/hour. Patient described his current appetite as "light". Patient was agreeable to adding anibal carter. Addendum: 03/12/17 at 1628 by HANNA YUN FANS notified to sent chocolate anna saeke RD available @ [phone] Addendum: 03/12/17 at [address] Student charting reviewed by Quality Assurance Practice Manager.
--- NOTE | 2017-03-12 13:36 | NUR ---
IRU referral received. Met with patient and shared about programmatic expectations of IRU. Patient acknowledged expectation of 3 hours of therapy, 5 days/week. He stated that at the moment, this sounds like a lot. Shared about rest breaks and acknowledged that therapy expectations are high and some patients are not able to tolerate. Agreed that he will have better sense of his ability to meet expectations when PT/OT evals are completed. Explained process for IRU admission. Discharge date is unknown. Will review case with Dr. Davis when PT/OT notes are available.
[2017-03-12] MEDS: MULTI VIT INF IV SCH ×4 (14:15)
[2017-03-12] MEDS: [UNRECOGNIZED DRUG - OTHER] IV SCH ×4 (14:15)
[2017-03-12] MEDS: MULTI TRACE ELEMENTS IV SCH ×4 (14:15)
[2017-03-12] MEDS: POTASSIUM CHLORIDE IV SCH ×4 (14:15)
--- NOTE | 2017-03-12 14:34 | PNPDOC ---
Subjective Date DATE: 03/12/17 TIME: 14:25 Subjective Patient seen and examined. Chart, notes, radiographs, labs from the weekend reviewed. NGT has been removed. He still has some distension and abdominal soreness. Denies CP, SOB. He is working with PT today.He is on TPN. He does smile today and converse easily. Location: abdomen Quality: acute, chronic Duration: other (worsening over 2-3 months) Associated Symptoms: abdominal pain Objective Vital Signs Vital signs Vital Signs 03/12/17 03/12/17 03/12/17 03/12/17 04:31 07:12 08:09 09:20 Temp 97.9 97.9 Pulse 87 88 88 Resp 18 16 16 16 B/P 140/67 157/67 Pulse Ox 93 93 100 O2 Delivery Nasal Cannula Room Air O2 Flow Rate 2.00 03/12/17 03/12/17 03/12/17 09:20 09:35 11:51 Temp 97.6 Pulse 88 88 85 Resp 16 B/P 147/67 Pulse Ox 91 O2 Delivery Room Air Telemetry Rhythm: Sinus Rhythm Height (Feet): 6 Height (Inches): 1.00 Weight (Kilograms): 93.900 General General Appearance: Alert, Orientated x 3, Cooperative, No Acute Distress Eyes (Brief) Eyes: FOUND: EOMI, PERRL, NOT FOUND: scleral icterus Neck (Brief) Neck Brief: NOT FOUND: JVD, adenopathy, carotid bruits, thyromegaly Respiratory (Brief) Respiratory Brief: FOUND: clear all tucker, equal bilaterally, NOT FOUND: rales , wheezes Cardiovascular (Brief) Cardiac: FOUND: regular rate, regular rhythm, NOT FOUND: gallop, murmur, pedal edema Abdomen (Brief) Abdominal: FOUND: distended, soft, tender, NOT FOUND: BS normo active x4 ( diminished), hepatosplenomegaly Extremities (Brief) Extremity : Extremity Finding: NOT FOUND: edema, pain Lymphatic (Brief) Lymphatic Brief: NOT FOUND: adenopathy, lymphedema Musculoskeletal (Brief) Musculoskeletal Brief: NOT FOUND: deformity, loss of motion, spasm, tenderness Integumentary (Brief) Integumentary: FOUND: dry, pink, warm, NOT FOUND: rash Neurologic (Brief) Neurologic: FOUND: cranial 2-12 intact, motor, sensory, NOT FOUND: facial droop , ptosis Pt. dx of Ischemic stroke: No Psychiatric (Brief) Psychiatric: FOUND: alert, attentive, normal affect, oriented Laboratory Laboratory Laboratory Tests 03/12/17 04:17 Laboratory Tests 03/12/17 04:17 Radiology Reviewed Sepsis Diagnostic Criteria Sepsis Confirmed/Suspected Infection: Yes SIRS Criteria: Temp<=96.8 or >=100.4, RR > or = to 20 Severe Sepsis None Seen Assessment & Plan Problems: (1) Postoperative ileus Status: Acute Assessment & Plan: 03/09/2017: NG tube placed this morning with good output. NGT removed. (2) Inguinal abscess Status: Acute Assessment & Plan: Pseudomonas cultured. (3) Colocutaneous fistula Status: Resolved Assessment & Plan: 03/02: Abscess was incised and drained. Surgical correction of a colocutaneous fistula scheduled for Sunday (03/05). 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 Continue Invanz for abdominal coverage - Day #2. Levaquin/Metronidazole stopped on 03/10. Continue Lasix 40mg IV BID to help motivate fluids. Edema and weight are decreasing. Creatinine stable. Encourage IS and Acapella use. Wean O2 as able. Continue TPN for nutritional support due to NPO for ileus. Monitor lab. Continue with supportive care. Anticipate Dr Mendoza's return in am. Time spent with pt's care 35 minutes. Code Status Full Code Hospital Course Summary Disclaimer The hospital course summary below is not to be considered part of the above Progress Note. Hospital Course Summary 02/25 Admit patient to outpatient observation under the care of Dr. Worthy for inguinal abscess. ER Provider spoke with Lyle Seth- radiologist. Will plan for ultrasound-guided percutaneous drain tomorrow, Sunday02/26/17. Patient last took Pradaxa this morning 02/25/17. We will place this on hold now for scheduled procedure. He has been on Levaquin and Flagyl for antimicrobial coverage. Will switch to IV Zosyn for ongoing coverage. Will be able follow abscess cultures for further C/S. No evidence of sepsis currently. Normal saline at 100ml/hr for gentle hydration overnight. He may have regular diet now and NPO at midnight for planned procedure tomorrow SCDs to bilateral lower ext for DVT prophylaxis Up in room with assistance Will recheck CBC and BMP tomorrow morning to follow blood counts, renal function and electrolytes. Again he requests to be a Full Code and this order is written Will discuss further orders with attending, Dr Worthy Care will be turned over to PCP tomorrow morning- Dr Mendoza. 02/26/2017: Patient is back from radiology where pigtail catheter drain was placed in the left lower quadrant. He is feeling better at this time. Surgical consultation appreciated. White count remains normal. He is on Zosyn. 02/28/2017: Darvin continues to improve. He does have minimal nausea this evening after supper. His surgical site appears to be without infection. He has minimal brownish material with dark blood in his drain. Should he continue to improve without relapse of fever or an elevation in his white count, I anticipate him going home soon. He would continue with the drain as an outpatient. He would then follow up with myself as well as Dr. Joya as an outpatient final culture and sensitivity is still pending. Gram-negative giorgio as grown but has yet to be identified along with sensitivity. This would determine his outpatient oral antibiotics. 03/01/17: Today Darvin's drain site looks worse. It has erythema, induration, and pain. I have spoken with Dr. Joya and he has evaluated him and agrees. He will order CT with rectal contrast and evaluated for fistula formation tomorrow. He may need surgery following these findings. 03/02/17: Discussed this case with Dr. Joya of surgery earlier today. 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 He is just back from surgery where they incised and drained this site. I agree with the addition of Flagyl to his antibiotic regimen and the plan for surgical resection and primary reanastomosis on Sunday. At this time he is complaining of abdominal pain 4 out of 10. He also has some mild wheezing in his left chest. Family states that he coughed up some dark material earlier today but are unsure of its origin. 03/03/17: [employer] covering for Dr Mendoza: Doing well this morning-less ab pain since I/D yesterday. No nausea-did well with breakfast. Had sweats overnight, but no f/c. Breathing well without SOA cough or congestion. No chest pain. Urinating well. Will D/C IVF as taking po well and weight increased from admit. Continue Zosyn and metronidazole for antibiotic coverage. Continue pain control. Encourage activities. Recheck lab in am. 03/04/17: [employer] covering for Dr Mendoza: Doing okay this afternoon-on bowel prep for tomorrow. Feels stools just about to let go. Some ab bloating and cramping with bowel prep. No nausea. Breathing well, but needed O2 at night the last 2 nights. Rare cough; no pain with breathing. No chest pain or pressure. Denies f/c. Start NS at 75cc/hr this evening in anticipation of Sx tomorrow. Continue Zosyn and metronidazole for antibiotic coverage. Start Incentive Spirometry to help pulmonary toilet. Continue pain control. Encourage activities. Recheck lab in am. Anticipate Dr Mendoza's return in am. 03/06/2017: Patient came back from surgery late last night. He is extubated now awake and still groggy. He answers questions appropriately. He denies any chest pain but does complain of some abdominal pain actually in his upper abdomen. He does have bowel sounds. His surgery appears to have gone well. 03-07 Surgery note Oliguria, will bolus another 500 ml cautiously and give 0.5 mg Bumex IV. Potassium slowly drifting down, will change IVF to D5 1/2 with 10 KCL Encourage Breeze, the high protein juice. KUB indicates likely ileus pattern, although he is passing flatus and not nauseated, will continue clears today, possible advance to fulls this evening if he is still doing well and/or has some stool. HOpe to start feeding the gut soon and avoid PICC and TPN. WBC still 13.1 (13.6 yesterday) some of this may be stress response. Continue ABX as ordered. Keep in CCU today if possible. Consider transfer to floor tonight or tomorrow. Daily packing changes of the left inguinal wound and plan possible wound vac tomorrow. 03/08/2017: Patient appears more distended today. His weight is up approximately 10 kg. I will encourage him to walk, give Dulcolax suppository, and Bumex 1 mg IV 03/09/2017 Surgery note: Change diet to sips and chips place NG repeat films tomorrow PICC line inserted and TPN started at 50 ml.hr for 8 hours, then 75 ml.hr for 8 hours, then 100 ml/hr. Q6/hr BGM with SSI low dose regular after TPN started 03/10/17- [employer] covering for Dr. Mendoza *Resp. failure s/p vent- Now on O2. Continue nebs. MRSA on sputum cx. Will add Vanco. Pharmacy consult for management. *Pulmonary edema- Unknown EF, but has PPM. Will add BID Lasix and replace KCL IV today as well. May need to bump the KCL in TPN. Add tele. *FEN- Stopped IVF. Agree with TPN, Lipids. Routine BG check, PRN insulin. *Intraabdominal abscess s/p surgical resection with ileus- Reviewed cultures from abscess. Need to add better anaerobic coverage. Change Levaquin/Flagyl to Invanz. NGT- pull back 2 inches. Some mild improvement in ileus. Continue supportive care. Change PPI back to IV until able to tolerate PO. Surgery team following. Pain control- consider DC Toradol after 5 day max. Monitor kidney function carefully. *AFib, Chronic anticoagulation Holding pradaxa. Continue low dose LMWH. Add tele. HR is controlled. Not requiring rate controlling meds at home. Hold Statin due to NPO status. Very ill, medically complex. Continue supportive care. Recheck KUB, labs in AM. 03/11/17 Teressa-covering for Dr Mendoza Doing okay today. Urinating often with Lasix. Had 3050cc urine out yesterday. No nausea with NG tube - 630cc NG output yesterday (880 today so far). Reports is passing flatus. Breathing stable-some SOA, but little cough/congestion. No chest pain. No f/c. Strength decreased. Continue Vancomycin for MRSA in sputum - Add Nozin nasally. Continue Invanz for abdominal coverage - Day #2. Levaquin/Metronidazole stopped on 03/10. Continue Lasix 40mg IV BID to help motivate fluids. Edema and weight are decreasing. Creatinine stable. Encourage IS and Acapella use. Wean O2 as able. Continue TPN for nutritional support due to NPO for ileus. Monitor lab. Continue with supportive care. Anticipate Dr Mendoza's return in am. 03/12/2017: Patient improving. NGT discontinued. He is working with PT today. ELLIOT MENDOZA DO March 12, 2017 14:28
--- NOTE | 2017-03-12 14:53 | PDWOUND ---
Wound Documentation Wound Management Wound : Location Modifier: Left, Lower Wound Location: Abdomen Wound Type: Surgical Wound Dressing Frequency: three times per week Wound Duration: one week Wound Dressing Status: FOUND: Moist Wound Drainage Amount: Minimal Wound Drainage Description: Serosanguineous (no purulence or feces visible) Wound Bed: gran red Periwound Description: Clear Wound Length (cm): 10 (11 cm) Wound Width (cm): 1 (2 ccm) Wound Depth (cm): 2 Exposed: subtissue, muscle Wound Packing Type: FOUND: Black Foam Wound Primary Dressing Type: Clear Adhesive Cover Wound Undermining : Wound Undermining (cm): 2 (5 cm along the cephalad boreder, and aobut 1-2 cm on the medial and lateral corners.) Undermining Location (o'clock): 7-2 Comments Wound is clean beefy red, Adaptic placed in the medial end of wound where it is deeper. pt has some pain with the incersion of black foam. one piece placed covered and sensor track applied. Good suction obtained. CHUCK VAIL RN March 12, 2017 14:53
[2017-03-12] MEDS: FAT EMULSION 20% 100 ML IV SCH (16:32)
--- NOTE | 2017-03-12 17:37 | NUR ---
STATUS PT ALERT AND ORIENTED X3 TODAY. VITAL SIGNS STABLE ON 2L OF O2 VIA NC. THIS RN ATTEMPTED TO WEAN PT TO ROOM AIR, HOWEVER O2 SATURATIONS DECREASED INTO THE MID 80'S. PT UP X1 STANDBY ASSIST. PHYSICAL THERAPY CONSULTED AND ASSISTED PT IN AMBULATING HALLS. PT TOLERATED WELL. PT UP IN CHAIR THE MAJORITY OF THE SHIFT. ADEQUATE URINARY OUTPUT OBTAINED IN URINAL. NG DISCONTINUED THIS AM AND DIET ADVANCED TO A FULL LIQUID DIET TODAY. PT HAS TOLERATED FULL LIQUIDS AND DENIES N/V THIS SHIFT. PT HAS HAD A SOFT BROWN/GREEN BM X2 THIS SHIFT. PT IN CHAIR AT THIS TIME WITH ALARM ON. PRESENT IN ROOM. WILL CONTINUE TO MONITOR CLOSELY.
[2017-03-12] MEDS: ENOXAPARIN 40 MG/0.4 ML INJECTION SQ SCH (20:37)
[2017-03-12] MEDS: FLUTICASONE NASAL SPRAY 50 MCG EA NOSTRIL SCH (22:00)
[2017-03-12] MEDS: TAMSULOSIN 0.4 MG CAPSULE PO SCH (22:06)
[2017-03-13] VITALS (14 sets, daily range): BP systolic 70–152; BP diastolic 31–71; PULSE 84–101; RESP 16–20; TEMP 96.5–100.4; O2SAT 90–96
[2017-03-13] MEDS: NORMAL SALINE IV SCH ×3 (01:25→16:56)
[2017-03-13] MEDS: MEROPENEM IV SCH ×3 (01:25→16:56)
[2017-03-13] MEDS: NOZIN NASAL SWAB NS SCH ×3 (01:25→16:54)
[2017-03-13] MEDS: NORMAL SALINE 1,000 ML IV SCH (03:09)
--- NOTE | 2017-03-13 05:31 | NUR ---
SHIFT SUMMARY PATIENT ALERT AND ORIENTED X3 THIS SHIFT. VITAL SIGNS ARE STABLE ON 2L NC. PATIENT AMBULATES WITH ASSIST X1. PATIENT HAS DENIED ANY PAIN, NAUSEA, OR VOMITING THIS SHIFT. PATIENT HAS LITTLE DRAINAGE FROM WOUND VAC. DRESSING IS DRY AND INTACT. WILL CONTINUE TO MONITOR.
[2017-03-13] MEDS: PANTOPRAZOLE 40mg INJECTION IV SCH (08:30)
[2017-03-13] MEDS: FUROSEMIDE 40 MG/4 ML INJECTION IV SCH ×2 (08:31→16:55)
[2017-03-13] MEDS: HYDROCODONE/APAP 5 mg/325 mg TABLET PO PRN (08:49)
--- NOTE | 2017-03-13 10:15 | PNF ---
DATE OF SERVICE 03/12/2017 FINDINGS Mr. Perales states he is feeling significantly better. He has been tolerating liquids without difficulty. His NG was discontinued yesterday. He has had several loose bowel movements. EXAM VITAL SIGNS: Afebrile, normotensive. Please refer to EMR. ABDOMEN: Soft, nontender. Attention was focused to the left inguinal region. The wound within the left inguinal region continues to show marked improvement. There is good granulation tissue throughout. No evidence for necrosis. No evidence for colonic contents within the wound. LABORATORY/RADIOGRAPHIC EVALUATION The patient had a CBC today that was unremarkable. White count stable at 9.2. Hemoglobin stable at 10.1. CMP obtained and reviewed. The patient did have C. diff toxin that fortunately was negative. ASSESSMENT 81-year-old gentleman status post robotic-assisted laparoscopic takedown of colocutaneous fistula with repair of colotomy and excision of mesh plug from within the left inguinal region. Patient doing well. PLAN Will go ahead and advance to full liquids. Will go ahead and begin to utilize negative wound pressure therapy to facilitate healing of the wound with the left inguinal region. Will put Adaptic within the deeper portion of the wound medially. Will then place black foam. Will not use VeraFlo VAC in case there is still some potential communication between the peritoneal cavity and the wound itself. Otherwise, will continue with current care. ELSIE
--- NOTE | 2017-03-13 10:37 | NUR ---
VANCOMYCIN CONSULT: Vancomycin Trough = 23.13 mcg/ml. Today's SCr = 0.8 mg/dl. Will reduce Vancomycin to 1,500 mg IV q12hrs. Will continue to monitor and make adjustments accordingly. Thank you.
[2017-03-13] MEDS: ALBUTEROL/IPRATROPIUM INHAL. 2.5mg-0.5mg/3ml Neb. AEROSOL SCH ×2 (10:43→19:34)
[2017-03-13] MEDS: MULTI VIT INF IV SCH ×8 (11:24→17:52)
[2017-03-13] MEDS: MULTI TRACE ELEMENTS IV SCH ×8 (11:24→17:52)
[2017-03-13] MEDS: [UNRECOGNIZED DRUG - OTHER] IV SCH ×8 (11:24→17:52)
[2017-03-13] MEDS: POTASSIUM CHLORIDE IV SCH ×8 (11:24→17:52)
--- NOTE | 2017-03-13 13:30 | NUR ---
BP Physical Therapy here to work with patient. Patient became dizzy when standing up, so the radiation therapy technologist checked his BP. It was 113/54 while sitting and dropped to 82/39 and eventually to 70/31 when standing. Patient was put back to bed and BP returned to normal. See VS intervention documentation. Will monitor. Addendum: 03/13/17 at 1558 by MAYELIN SARMIENTO RN 1315 BP 113/54 sitting 1317 BP 82/39 standing 1319 111/56 sitting (after rest) 1322 85/36 standing 1323 88/39 standing 1325 70/31 (still standing)
[2017-03-13] MEDS: VANCOMYCIN 1,500 MG in NORMAL SALINE 500 ML IV SCH (14:17)
--- NOTE | 2017-03-13 14:23 | NUR ---
CM CM VISITED WITH PT REGARDING D/C PLAN. PT WANTS TO RETURN HOME WITH [facility] TO CHANGE MANAGE WOUND VAC IN CONJUNCTION WITH [facility].PT IS AWARE THAT CM ORDERED HOME WOUND VAC TODAY FROM [facility]. PT IS AWARE TO CONTACT CM IF NEEDS [facility].
--- NOTE | 2017-03-13 15:52 | NUR ---
STATUS Patient has had no further dizziness. Has been up to bathroom and is now sitting in the recliner without complaints.
[2017-03-13] MEDS: FAT EMULSION 20% 100 ML IV SCH (16:54)
--- NOTE | 2017-03-13 18:17 | NUR ---
PHYSICIAN CONTACT DR. MENDOZA IN ROOM FOR PT EVAL/ASSMT
--- NOTE | 2017-03-13 18:31 | PNPDOC ---
Subjective Date DATE: 03/13/17 TIME: 18:26 Subjective Patient seen and examined. at the bedside. He is up to his recliner. Darvin states that he walked earlier today and also worked with physical therapy. He states that soon after his blood pressure dropped down pretty low but he was okay after he sat for a while. He smiles and converses well today. We also discussed his wound VAC and how he and his would be able to take care of that at home. At this time he denies chest pain or shortness of breath. He also denies nausea or vomiting. He states he did have a bowel movement earlier today. Location: abdomen Quality: acute, chronic Duration: other (worsening over 2-3 months) Associated Symptoms: abdominal pain Objective Vital Signs Vital signs Vital Signs 03/13/17 03/13/17 03/13/17 03/13/17 07:58 10:22 10:24 12:00 Temp 96.5 97.9 Pulse 88 81 86 Resp 18 18 18 B/P 134/62 129/59 Pulse Ox 93 96 94 O2 Delivery Nasal Cannula Nasal Cannula O2 Flow Rate 2.00 2.00 03/13/17 03/13/17 03/13/17 03/13/17 13:15 13:17 13:19 13:22 Pulse 86 86 84 87 B/P 113/54 82/39 111/56 85/36 03/13/17 03/13/17 03/13/17 13:23 13:25 16:15 Temp 97.5 Pulse 85 86 97 Resp 16 B/P 88/39 70/31 147/65 Pulse Ox 92 O2 Delivery Nasal Cannula O2 Flow Rate 2.00 Telemetry Rhythm: Sinus Rhythm Height (Feet): 6 Height (Inches): 1.00 Weight (Kilograms): 94.100 General General Appearance: Alert, Orientated x 3, Cooperative, No Acute Distress Eyes (Brief) Eyes: FOUND: EOMI, PERRL, NOT FOUND: scleral icterus Neck (Brief) Neck Brief: NOT FOUND: JVD, adenopathy, carotid bruits, thyromegaly Respiratory (Brief) Respiratory Brief: FOUND: clear all tucker, equal bilaterally, NOT FOUND: rales , wheezes Cardiovascular (Brief) Cardiac: FOUND: pedal edema, regular rate, regular rhythm, NOT FOUND: gallop, murmur Abdomen (Brief) Abdominal: FOUND: BS normo active x4, distended (much less distended), soft, tender (mildly tender), NOT FOUND: hepatosplenomegaly Extremities (Brief) Extremity : Side: Bilateral Extremity Finding: FOUND: edema (trace), NOT FOUND: pain Lymphatic (Brief) Lymphatic Brief: NOT FOUND: adenopathy, lymphedema Musculoskeletal (Brief) Musculoskeletal Brief: NOT FOUND: deformity, loss of motion, spasm, tenderness Integumentary (Brief) Integumentary: FOUND: dry, pink, warm, NOT FOUND: rash Neurologic (Brief) Neurologic: FOUND: cranial 2-12 intact, motor, sensory Psychiatric (Brief) Psychiatric: FOUND: alert, attentive, normal affect, oriented Sepsis Diagnostic Criteria Sepsis Confirmed/Suspected Infection: Yes SIRS Criteria: Temp<=96.8 or >=100.4, RR > or = to 20 Severe Sepsis None Seen Assessment & Plan Problems: (1) Postoperative ileus Status: Acute Assessment & Plan: 03/09/2017: NG tube placed this morning with good output. NGT removed. (2) Inguinal abscess Status: Acute Assessment & Plan: Pseudomonas cultured. (3) Colocutaneous fistula Status: Resolved Assessment & Plan: 03/02: Abscess was incised and drained. Surgical correction of a colocutaneous fistula scheduled for Sunday (03/05). 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 Continue Invanz for abdominal coverage - Day #2. Levaquin/Metronidazole stopped on 03/10. Continue Lasix 40mg IV BID to help motivate fluids. Edema and weight are decreasing. Creatinine stable. Encourage IS and Acapella use. Wean O2 as able. Continue TPN for nutritional support due to NPO for ileus. Monitor lab. Continue with supportive care. Anticipate Dr Mendoza's return in am. Time spent with pt's care 35 minutes. Code Status Full Code Hospital Course Summary Disclaimer The hospital course summary below is not to be considered part of the above Progress Note. Hospital Course Summary 02/25 Admit patient to outpatient observation under the care of Dr. Worthy for inguinal abscess. ER Provider spoke with Lyle Seth- radiologist. Will plan for ultrasound-guided percutaneous drain tomorrow, Sunday02/26/17. Patient last took Pradaxa this morning 02/25/17. We will place this on hold now for scheduled procedure. He has been on Levaquin and Flagyl for antimicrobial coverage. Will switch to IV Zosyn for ongoing coverage. Will be able follow abscess cultures for further C/S. No evidence of sepsis currently. Normal saline at 100ml/hr for gentle hydration overnight. He may have regular diet now and NPO at midnight for planned procedure tomorrow SCDs to bilateral lower ext for DVT prophylaxis Up in room with assistance Will recheck CBC and BMP tomorrow morning to follow blood counts, renal function and electrolytes. Again he requests to be a Full Code and this order is written Will discuss further orders with attending, Dr Worthy Care will be turned over to PCP tomorrow morning- Dr Mendoza. 02/26/2017: Patient is back from radiology where pigtail catheter drain was placed in the left lower quadrant. He is feeling better at this time. Surgical consultation appreciated. White count remains normal. He is on Zosyn. 02/28/2017: Darvin continues to improve. He does have minimal nausea this evening after supper. His surgical site appears to be without infection. He has minimal brownish material with dark blood in his drain. Should he continue to improve without relapse of fever or an elevation in his white count, I anticipate him going home soon. He would continue with the drain as an outpatient. He would then follow up with myself as well as Dr. Joya as an outpatient final culture and sensitivity is still pending. Gram-negative giorgio as grown but has yet to be identified along with sensitivity. This would determine his outpatient oral antibiotics. 03/01/17: Today Darvin's drain site looks worse. It has erythema, induration, and pain. I have spoken with Dr. Joya and he has evaluated him and agrees. He will order CT with rectal contrast and evaluated for fistula formation tomorrow. He may need surgery following these findings. 03/02/17: Discussed this case with Dr. Joya of surgery earlier today. 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 He is just back from surgery where they incised and drained this site. I agree with the addition of Flagyl to his antibiotic regimen and the plan for surgical resection and primary reanastomosis on Sunday. At this time he is complaining of abdominal pain 4 out of 10. He also has some mild wheezing in his left chest. Family states that he coughed up some dark material earlier today but are unsure of its origin. 03/03/17: Teressa covering for Dr Mendoza: Doing well this morning-less ab pain since I/D yesterday. No nausea-did well with breakfast. Had sweats overnight, but no f/c. Breathing well without SOA cough or congestion. No chest pain. Urinating well. Will D/C IVF as taking po well and weight increased from admit. Continue Zosyn and metronidazole for antibiotic coverage. Continue pain control. Encourage activities. Recheck lab in am. 03/04/17: Teressa covering for Dr Mendoza: Doing okay this afternoon-on bowel prep for tomorrow. Feels stools just about to let go. Some ab bloating and cramping with bowel prep. No nausea. Breathing well, but needed O2 at night the last 2 nights. Rare cough; no pain with breathing. No chest pain or pressure. Denies f/c. Start NS at 75cc/hr this evening in anticipation of Sx tomorrow. Continue Zosyn and metronidazole for antibiotic coverage. Start Incentive Spirometry to help pulmonary toilet. Continue pain control. Encourage activities. Recheck lab in am. Anticipate Dr Mendoza's return in am. 03/06/2017: Patient came back from surgery late last night. He is extubated now awake and still groggy. He answers questions appropriately. He denies any chest pain but does complain of some abdominal pain actually in his upper abdomen. He does have bowel sounds. His surgery appears to have gone well. 4-26 Surgery note Oliguria, will bolus another 500 ml cautiously and give 0.5 mg Bumex IV. Potassium slowly drifting down, will change IVF to D5 1/2 with 10 KCL Encourage Breeze, the high protein juice. KUB indicates likely ileus pattern, although he is passing flatus and not nauseated, will continue clears today, possible advance to fulls this evening if he is still doing well and/or has some stool. HOpe to start feeding the gut soon and avoid PICC and TPN. WBC still 13.1 (13.6 yesterday) some of this may be stress response. Continue ABX as ordered. Keep in CCU today if possible. Consider transfer to floor tonight or tomorrow. Daily packing changes of the left inguinal wound and plan possible wound vac tomorrow. 03/08/2017: Patient appears more distended today. His weight is up approximately 10 kg. I will encourage him to walk, give Dulcolax suppository, and Bumex 1 mg IV 03/09/2017 Surgery note: Change diet to sips and chips place NG repeat films tomorrow PICC line inserted and TPN started at 50 ml.hr for 8 hours, then 75 ml.hr for 8 hours, then 100 ml/hr. Q6/hr BGM with SSI low dose regular after TPN started 03/10/17- Teressa covering for Dr. Mendoza *Resp. failure s/p vent- Now on O2. Continue nebs. MRSA on sputum cx. Will add Vanco. Pharmacy consult for management. *Pulmonary edema- Unknown EF, but has PPM. Will add BID Lasix and replace KCL IV today as well. May need to bump the KCL in TPN. Add tele. *FEN- Stopped IVF. Agree with TPN, Lipids. Routine BG check, PRN insulin. *Intraabdominal abscess s/p surgical resection with ileus- Reviewed cultures from abscess. Need to add better anaerobic coverage. Change Levaquin/Flagyl to Invanz. NGT- pull back 2 inches. Some mild improvement in ileus. Continue supportive care. Change PPI back to IV until able to tolerate PO. Surgery team following. Pain control- consider DC Toradol after 5 day max. Monitor kidney function carefully. *AFib, Chronic anticoagulation Holding pradaxa. Continue low dose LMWH. Add tele. HR is controlled. Not requiring rate controlling meds at home. Hold Statin due to NPO status. Very ill, medically complex. Continue supportive care. Recheck KUB, labs in AM. 03/11/17 Teressa-covering for Dr Mendoza Doing okay today. Urinating often with Lasix. Had 3050cc urine out yesterday. No nausea with NG tube - 630cc NG output yesterday (880 today so far). Reports is passing flatus. Breathing stable-some SOA, but little cough/congestion. No chest pain. No f/c. Strength decreased. Continue Vancomycin for MRSA in sputum - Add Nozin nasally. Continue Invanz for abdominal coverage - Day #2. Levaquin/Metronidazole stopped on 03/10. Continue Lasix 40mg IV BID to help motivate fluids. Edema and weight are decreasing. Creatinine stable. Encourage IS and Acapella use. Wean O2 as able. Continue TPN for nutritional support due to NPO for ileus. Monitor lab. Continue with supportive care. Anticipate Dr Mendoza's return in am. 03/12/2017: Patient improving. NGT discontinued. He is working with PT today. 03/13/2017: Patient continues to improve. He will probably be discharged to inpatient rehabilitation prior to going home. At this time he is afebrile and risks precipitating well with physical therapy. ELLIOT MENDOZA DO March 13, 2017 18:29
--- NOTE | 2017-03-13 19:33 | NUR ---
SUMMARY PT WILLING TO TRY PROTEIN DRINK BUT ONLY ABLE TO TOLERATE 1/3 OF IT. DENIES PAIN. DENIES N/V AFTER FULL LIQUID SUPPER OF WHICH HE HAD 20%.
[2017-03-13] MEDS: TAMSULOSIN 0.4 MG CAPSULE PO SCH (22:16)
[2017-03-13] MEDS: ENOXAPARIN 40 MG/0.4 ML INJECTION SQ SCH (22:17)
[2017-03-13] MEDS: FLUTICASONE NASAL SPRAY 50 MCG EA NOSTRIL SCH (22:18)
[2017-03-14] VITALS (8 sets, daily range): BP systolic 95–143; BP diastolic 51–67; PULSE 74–95; RESP 14–23; TEMP 95.9–98.6; O2SAT 89–94
[2017-03-14] MEDS: MEROPENEM IV SCH ×3 (00:33→17:38)
[2017-03-14] MEDS: NORMAL SALINE IV SCH ×3 (00:33→17:38)
[2017-03-14] MEDS: ONDANSETRON 4mg/2ml INJECTION IV PRN (00:34)
[2017-03-14] MEDS: MORPHINE SULFATE 4 MG SYRINGE IV PRN (00:35)
--- NOTE | 2017-03-14 00:40 | NUR ---
C/O of nausea and lower abdominal pain at 0030. ZOFRAN 4 mg IV given at 0034 for nausea. MORPHINE 2 mg. given at 0037 for pain. Abdomen is soft with hypoactive bowel sounds auscultated. Patient has been drinking water this evening.
[2017-03-14] MEDS: NOZIN NASAL SWAB NS SCH ×3 (01:00→17:38)
--- NOTE | 2017-03-14 01:30 | NUR ---
Resting more comfortably now. Pt. reports "feeling better". He burps a few times. Pt. reports feeling "so dry". Continues to drink water. No longer feels nauseated. Pain has subsided. Noticed pt. tounge is dark brown and very dry. Oral care, using toothbrush & toothpaste; mouthwash & toothette swab provided.
[2017-03-14] MEDS: VANCOMYCIN 1,500 MG in NORMAL SALINE 500 ML IV SCH ×2 (02:00→12:08)
[2017-03-14] MEDS: NORMAL SALINE 1,000 ML IV SCH (04:17)
--- NOTE | 2017-03-14 05:00 | NUR ---
Ambulates to bathroom with assistance of two. Weak but steady on his feet. Denies feeling light headed or dizzy. Voids and has small amount loose/liquidy brown stool. Patient asks to sit in chair. Assisted to chair. O2 at 2/L per NC. PICC line intact to right upper arm with TPN infusing at 50 cc/hr via Red port and NS infusing at 25 cc/hr in purple port. Denies pain. SCDs on. Wound Vac functioning to inguinal wound.
[2017-03-14 06:46] LABS: ANION GAP 7 MEQ/L (5-15); BUN/CREATININE RATIO 24 RATIO (6-26); CALCIUM 7.8 MG/DL (8.4-10.2); CHLORIDE 99 MEQ/L (98-107); CO2 - CARBON DIOXIDE 32 MEQ/L (22-30); CREATININE 0.9 MG/DL (0.8-1.5); GLOMERULAR FILTRATION RATE 81; GLUCOSE 114 MG/DL (75-110); POTASSIUM 3.8 MEQ/L (3.6-5); SODIUM 138 MEQ/L (134-144)
--- NOTE | 2017-03-14 07:00 | NUR ---
END OF SHIFT SUMMARY: Alert and orientated. Lungs clear. Telemetry on. Pt. has inplanted Pacemaker. Tele does not show pacer spikes. Tele shows Sinus rythum with heartrate in 70s-80s during the night. Laproscopic incision with 5 marina intact to mid abdominal area. Another Laproscopic incision with 3 marina intact to the left of umbilicus. No drainage. Skin surrounding incisions is red. Wound with Wound Vac attached to left lower quadrant/ inguinal area. PICC line to right upper arm working fine. Blood was drawn from purple port this morning; however sample was rejected due to being hemalized. Sits in reclining chair.
--- NOTE | 2017-03-14 07:49 | PNSURG ---
Subjective DATE: 03/14/17 TIME: 07:41 Interval History He is in the recliner, smiling as I enter the room. He is pleased with diet and bowel function. Still on oxygen by NC. He is working with PT. The would vac has retained a good seal. Objective Vital Signs Date Time Temp Pulse Resp B/P Pulse Ox O2 Delivery O2 Flow Rate FiO2 03/14/17 04:41 97.5 74 16 110/52 91 Room Air 03/14/17 00:37 1.50 Height (Feet): 6 Height (Inches): 1.00 Weight (Kilograms): 94.100 BMI 26.2 General Appearance: Alert, Awake, Orientated x 3 Respiratory: FOUND: clear bilaterally Cardiac: FOUND: irregular rhythm (occasional skip), regular rate, regular rhythm Abdominal Brief: FOUND: BS normo active x4, soft, NOT FOUND: distended, tender Incision: FOUND: Clean, Dry, Intact, erythema (mild around staple legs consistent with foreign body reaction rather than true infection.), open to air , marina present Wound Management Wound : Location Modifier: Left, Lower Wound Location: Abdomen Wound Type: Surgical Wound Dressing Frequency: three times per week Wound Duration: one week Wound Dressing Status: FOUND: Moist Wound Drainage Amount: Minimal Wound Drainage Description: Serosanguineous (no purulence or feces visible) Wound Bed: gran red Periwound Description: Clear Wound Length (cm): 10 (11 cm) Wound Width (cm): 1 (2 ccm) Wound Depth (cm): 2 Exposed: subtissue, muscle Wound Packing Type: FOUND: Black Foam Wound Primary Dressing Type: Clear Adhesive Cover Wound Undermining : Wound Undermining (cm): 2 (5 cm along the cephalad boreder, and aobut 1-2 cm on the medial and lateral corners.) Undermining Location (o'clock): 7-2 Comments Foam nicely compressed, no leak indicated on machine. Laboratory Laboratory Tests 03/12/17 04:17 03/14/17 06:24 Laboratory Tests 03/12/17 04:17 Procedure Procedure Date: Mar 05, 2017 Surgeon: Toan Echeverria 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 GS Assessment & Plan Problems: (1) Ileus, postoperative Status: Resolved (2) Diverticulitis Status: Resolved Qualifiers: Diverticulitis site: large intestine Diverticulitis complication: with abscess (3) Colocutaneous fistula Status: Resolved (4) Inguinal abscess Status: Acute (5) Oliguria Status: Acute (6) Methicillin resistant Staphylococcus aureus culture positive Status: Acute Assessment Doing well, regular diet, having moderate BM.s Denies chest pain. Remains on oxygen by NC. Wound vac left inguinal area in tact, plan change 2-3 times a week and eventually delayed primary closure. Plan staple removal March 19. MRSA cultured sputum, on Vanco DVT Prophylaxis: SCD'S, Lovenox GI Prophylaxis: Protonix Code Status Full Code Hospital Course Summary Disclaimer The visit summary below is not to be considered part of the above Progress Note. Hospital Course Summary 02/25 Admit patient to outpatient observation under the care of Dr. Worthy for inguinal abscess. ER Provider spoke with Lyle Seth- radiologist. Will plan for ultrasound-guided percutaneous drain tomorrow, Sunday02/26/17. Patient last took Pradaxa this morning 02/25/17. We will place this on hold now for scheduled procedure. He has been on Levaquin and Flagyl for antimicrobial coverage. Will switch to IV Zosyn for ongoing coverage. Will be able follow abscess cultures for further C/S. No evidence of sepsis currently. Normal saline at 100ml/hr for gentle hydration overnight. He may have regular diet now and NPO at midnight for planned procedure tomorrow SCDs to bilateral lower ext for DVT prophylaxis Up in room with assistance Will recheck CBC and BMP tomorrow morning to follow blood counts, renal function and electrolytes. Again he requests to be a Full Code and this order is written Will discuss further orders with attending, Dr Worthy Care will be turned over to PCP tomorrow morning- Dr Arauz. 02/26/2017: Patient is back from radiology where pigtail catheter drain was placed in the left lower quadrant. He is feeling better at this time. Surgical consultation appreciated. White count remains normal. He is on Zosyn. 02/28/2017: Darvin continues to improve. He does have minimal nausea this evening after supper. His surgical site appears to be without infection. He has minimal brownish material with dark blood in his drain. Should he continue to improve without relapse of fever or an elevation in his white count, I anticipate him going home soon. He would continue with the drain as an outpatient. He would then follow up with myself as well as Dr. Joya as an outpatient final culture and sensitivity is still pending. Gram-negative giorgio as grown but has yet to be identified along with sensitivity. This would determine his outpatient oral antibiotics. 03/01/17: Today Darvin's drain site looks worse. It has erythema, induration, and pain. I have spoken with Dr. Joya and he has evaluated him and agrees. He will order CT with rectal contrast and evaluated for fistula formation tomorrow. He may need surgery following these findings. 03/02/17: Discussed this case with Dr. Joya of surgery earlier today. 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 He is just back from surgery where they incised and drained this site. I agree with the addition of Flagyl to his antibiotic regimen and the plan for surgical resection and primary reanastomosis on Sunday. At this time he is complaining of abdominal pain 4 out of 10. He also has some mild wheezing in his left chest. Family states that he coughed up some dark material earlier today but are unsure of its origin. 03/03/17: Teressa covering for Dr Arauz: Doing well this morning-less ab pain since I/D yesterday. No nausea-did well with breakfast. Had sweats overnight, but no f/c. Breathing well without SOA cough or congestion. No chest pain. Urinating well. Will D/C IVF as taking po well and weight increased from admit. Continue Zosyn and metronidazole for antibiotic coverage. Continue pain control. Encourage activities. Recheck lab in am. 03/04/17: Teressa covering for Dr Arauz: Doing okay this afternoon-on bowel prep for tomorrow. Feels stools just about to let go. Some ab bloating and cramping with bowel prep. No nausea. Breathing well, but needed O2 at night the last 2 nights. Rare cough; no pain with breathing. No chest pain or pressure. Denies f/c. Start NS at 75cc/hr this evening in anticipation of Sx tomorrow. Continue Zosyn and metronidazole for antibiotic coverage. Start Incentive Spirometry to help pulmonary toilet. Continue pain control. Encourage activities. Recheck lab in am. Anticipate Dr Arauz's return in am. 03/06/2017: Patient came back from surgery late last night. He is extubated now awake and still groggy. He answers questions appropriately. He denies any chest pain but does complain of some abdominal pain actually in his upper abdomen. He does have bowel sounds. His surgery appears to have gone well. 03-07 Surgery note Oliguria, will bolus another 500 ml cautiously and give 0.5 mg Bumex IV. Potassium slowly drifting down, will change IVF to D5 1/2 with 10 KCL Encourage Breeze, the high protein juice. KUB indicates likely ileus pattern, although he is passing flatus and not nauseated, will continue clears today, possible advance to fulls this evening if he is still doing well and/or has some stool. HOpe to start feeding the gut soon and avoid PICC and TPN. WBC still 13.1 (13.6 yesterday) some of this may be stress response. Continue ABX as ordered. Keep in CCU today if possible. Consider transfer to floor tonight or tomorrow. Daily packing changes of the left inguinal wound and plan possible wound vac tomorrow. 03/08/2017: Patient appears more distended today. His weight is up approximately 10 kg. I will encourage him to walk, give Dulcolax suppository, and Bumex 1 mg IV 03/09/2017 Surgery note: Change diet to sips and chips place NG repeat films tomorrow PICC line inserted and TPN started at 50 ml.hr for 8 hours, then 75 ml.hr for 8 hours, then 100 ml/hr. Q6/hr BGM with SSI low dose regular after TPN started 03/10/17- Teressa covering for Dr. Arauz *Resp. failure s/p vent- Now on O2. Continue nebs. MRSA on sputum cx. Will add Vanco. Pharmacy consult for management. *Pulmonary edema- Unknown EF, but has PPM. Will add BID Lasix and replace KCL IV today as well. May need to bump the KCL in TPN. Add tele. *FEN- Stopped IVF. Agree with TPN, Lipids. Routine BG check, PRN insulin. *Intraabdominal abscess s/p surgical resection with ileus- Reviewed cultures from abscess. Need to add better anaerobic coverage. Change Levaquin/Flagyl to Invanz. NGT- pull back 2 inches. Some mild improvement in ileus. Continue supportive care. Change PPI back to IV until able to tolerate PO. Surgery team following. Pain control- consider DC Toradol after 5 day max. Monitor kidney function carefully. *AFib, Chronic anticoagulation Holding pradaxa. Continue low dose LMWH. Add tele. HR is controlled. Not requiring rate controlling meds at home. Hold Statin due to NPO status. Very ill, medically complex. Continue supportive care. Recheck KUB, labs in AM. 03/11/17 Teressa-covering for Dr Arauz Doing okay today. Urinating often with Lasix. Had 3050cc urine out yesterday. No nausea with NG tube - 630cc NG output yesterday (880 today so far). Reports is passing flatus. Breathing stable-some SOA, but little cough/congestion. No chest pain. No f/c. Strength decreased. Continue Vancomycin for MRSA in sputum - Add Nozin nasally. Continue Invanz for abdominal coverage - Day #2. Levaquin/Metronidazole stopped on 03/10. Continue Lasix 40mg IV BID to help motivate fluids. Edema and weight are decreasing. Creatinine stable. Encourage IS and Acapella use. Wean O2 as able. Continue TPN for nutritional support due to NPO for ileus. Monitor lab. Continue with supportive care. Anticipate Dr Arauz's return in am. 03/12/2017: Patient improving. NGT discontinued. He is working with PT today. 03/13/2017: Patient continues to improve. He will probably be discharged to inpatient rehabilitation prior to going home. At this time he is afebrile and risks precipitating well with physical therapy. CARTER DAVIS VEIN ACCESS TECHNICIAN March 14, 2017 07:45
--- NOTE | 2017-03-14 08:15 | PNF ---
DATE OF SERVICE March 13, 2017 FINDINGS Mr. Perales this evening is without complaints. He denies any nausea or vomiting. He did have some lower abdominal discomfort this morning which resolved after a bowel movement. He is requesting some regular food. EXAM VITAL SIGNS: Afebrile, normotensive. The patient was slightly hypotensive this morning with a blood pressure of 82/39. Current blood pressure is 147/65. ABDOMEN: Soft, nontender. Wound VAC in place. LABORATORY/RADIOGRAPHIC EVALUATION Blood sugars have been stable. 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 Patient with development of postoperative ileus that seems to have now resolved. Patient with positive MRSA sputum culture. PLAN From a general surgical standpoint, will go ahead and advance the patient's diet to regular. Will decrease TPN rate in half to 50 cc/hr. Tomorrow if he is tolerating a regular diet will go ahead and DC TPN at that time to limit his fluids. Overall I am pleased with the patient's slow progress. ELSIE
[2017-03-14] MEDS: PANTOPRAZOLE 40mg INJECTION IV SCH (08:27)
[2017-03-14] MEDS: FUROSEMIDE 40 MG/4 ML INJECTION IV SCH ×2 (08:27→17:38)
[2017-03-14] MEDS: MULTI VIT INF IV SCH ×4 (08:41)
[2017-03-14] MEDS: MULTI TRACE ELEMENTS IV SCH ×4 (08:41)
[2017-03-14] MEDS: [UNRECOGNIZED DRUG - OTHER] IV SCH ×4 (08:41)
[2017-03-14] MEDS: POTASSIUM CHLORIDE IV SCH ×4 (08:41)
[2017-03-14] MEDS: ALBUTEROL/IPRATROPIUM INHAL. 2.5mg-0.5mg/3ml Neb. AEROSOL SCH ×2 (09:43→19:55)
--- NOTE | 2017-03-14 10:58 | NUR ---
VANCOMYCIN SHORT REVIEW: Today's SCr = 0.9mg/dL. Calculated CrCl = 71mL/min Will continue the Vancomycin 1,500mg IV Q12hrs. Will continue to monitor and make adjustments accordingly. Thank you.
--- NOTE | 2017-03-14 15:26 | PNPDOC ---
Subjective Date DATE: 03/14/17 TIME: 15:19 Subjective Patient seen and examined. Daughter at bedside. He was sleeping in his recliner , but awakened easily.Hungry today. +BM this AM. He is tolerating his meds and PT well, yet still weak and lightheaded with standing.Denies CP or SOB. Location: abdomen Quality: acute, chronic Duration: other (worsening over 2-3 months) Associated Symptoms: abdominal pain Objective Vital Signs Vital signs Vital Signs 03/14/17 03/14/17 03/14/17 03/14/17 04:41 08:17 09:35 09:35 Temp 97.5 96.2 Pulse 74 79 81 Resp 16 18 24 B/P 110/52 143/67 Pulse Ox 91 90 94 O2 Delivery Room Air Nasal Cannula O2 Flow Rate 1.50 03/14/17 03/14/17 09:47 12:23 Temp 96.3 Pulse 80 81 Resp 16 B/P 95/51 Pulse Ox 89 O2 Delivery Room Air Telemetry Rhythm: Sinus Rhythm Height (Feet): 6 Height (Inches): 1.00 Weight (Kilograms): 93.600 General General Appearance: Alert, Well Nourished, Well Developed, Cooperative, No Acute Distress Eyes (Brief) Eyes: FOUND: EOMI, PERRL, NOT FOUND: scleral icterus Neck (Brief) Neck Brief: NOT FOUND: JVD, adenopathy, carotid bruits, thyromegaly Respiratory (Brief) Respiratory Brief: FOUND: clear all tucker, equal bilaterally, rales, NOT FOUND : wheezes Cardiovascular (Brief) Cardiac: FOUND: pedal edema, regular rate, regular rhythm, NOT FOUND: gallop, murmur Abdomen (Brief) Abdominal: FOUND: soft, NOT FOUND: distended, hepatosplenomegaly, tender Extremities (Brief) Extremity : Side: Bilateral Extremity Finding: FOUND: edema (trace), NOT FOUND: pain Lymphatic (Brief) Lymphatic Brief: NOT FOUND: adenopathy, lymphedema Musculoskeletal (Brief) Musculoskeletal Brief: NOT FOUND: deformity, loss of motion, spasm, tenderness Integumentary (Brief) Integumentary: FOUND: pink, warm, NOT FOUND: rash Neurologic (Brief) Neurologic: FOUND: cranial 2-12 intact, motor, sensory Psychiatric (Brief) Psychiatric: FOUND: alert, attentive, normal affect, oriented Laboratory Laboratory Laboratory Tests 03/14/17 06:24 Sepsis Diagnostic Criteria Sepsis Confirmed/Suspected Infection: Yes SIRS Criteria: Temp<=96.8 or >=100.4, RR > or = to 20 Severe Sepsis None Seen Assessment & Plan Problems: (1) Postoperative ileus Status: Acute Assessment & Plan: 03/09/2017: NG tube placed this morning with good output. NGT removed. (2) Inguinal abscess Status: Acute Assessment & Plan: Pseudomonas cultured. (3) Colocutaneous fistula Status: Resolved Assessment & Plan: 03/02: Abscess was incised and drained. Surgical correction of a colocutaneous fistula scheduled for Sunday (03/05). 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 He is on Vanco (13) Abnormal sputum Status: Acute Assessment & Plan: MRSA in sputum Plan/Intensity of Service Continue Vancomycin for MRSA in sputum - Add Nozin nasally. Continue Invanz for abdominal coverage - Day #2. Levaquin/Metronidazole stopped on 03/10. Continue Lasix 40mg IV BID to help motivate fluids. Edema and weight are decreasing. Creatinine stable. Encourage IS and Acapella use. Wean O2 as able. Continue TPN for nutritional support due to NPO for ileus. Monitor lab. Continue with supportive care. Anticipate Dr Mendoza's return in am. Time spent with pt's care 35 minutes. Code Status Full Code Hospital Course Summary Disclaimer The hospital course summary below is not to be considered part of the above Progress Note. Hospital Course Summary 02/25 Admit patient to outpatient observation under the care of Dr. Worthy for inguinal abscess. ER Provider spoke with Lyle Seth- radiologist. Will plan for ultrasound-guided percutaneous drain tomorrow, Sunday02/26/17. Patient last took Pradaxa this morning 02/25/17. We will place this on hold now for scheduled procedure. He has been on Levaquin and Flagyl for antimicrobial coverage. Will switch to IV Zosyn for ongoing coverage. Will be able follow abscess cultures for further C/S. No evidence of sepsis currently. Normal saline at 100ml/hr for gentle hydration overnight. He may have regular diet now and NPO at midnight for planned procedure tomorrow SCDs to bilateral lower ext for DVT prophylaxis Up in room with assistance Will recheck CBC and BMP tomorrow morning to follow blood counts, renal function and electrolytes. Again he requests to be a Full Code and this order is written Will discuss further orders with attending, Dr Worthy Care will be turned over to PCP tomorrow morning- Dr Mendoza. 02/26/2017: Patient is back from radiology where pigtail catheter drain was placed in the left lower quadrant. He is feeling better at this time. Surgical consultation appreciated. White count remains normal. He is on Zosyn. 02/28/2017: Darvin continues to improve. He does have minimal nausea this evening after supper. His surgical site appears to be without infection. He has minimal brownish material with dark blood in his drain. Should he continue to improve without relapse of fever or an elevation in his white count, I anticipate him going home soon. He would continue with the drain as an outpatient. He would then follow up with myself as well as Dr. Joya as an outpatient final culture and sensitivity is still pending. Gram-negative giorgio as grown but has yet to be identified along with sensitivity. This would determine his outpatient oral antibiotics. 03/01/17: Today Darvin's drain site looks worse. It has erythema, induration, and pain. I have spoken with Dr. Joya and he has evaluated him and agrees. He will order CT with rectal contrast and evaluated for fistula formation tomorrow. He may need surgery following these findings. 03/02/17: Discussed this case with Dr. Joya of surgery earlier today. 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 He is just back from surgery where they incised and drained this site. I agree with the addition of Flagyl to his antibiotic regimen and the plan for surgical resection and primary reanastomosis on Sunday. At this time he is complaining of abdominal pain 4 out of 10. He also has some mild wheezing in his left chest. Family states that he coughed up some dark material earlier today but are unsure of its origin. 03/03/17: Teressa covering for Dr Mendoza: Doing well this morning-less ab pain since I/D yesterday. No nausea-did well with breakfast. Had sweats overnight, but no f/c. Breathing well without SOA cough or congestion. No chest pain. Urinating well. Will D/C IVF as taking po well and weight increased from admit. Continue Zosyn and metronidazole for antibiotic coverage. Continue pain control. Encourage activities. Recheck lab in am. 03/04/17: Teressa covering for Dr Mendoza: Doing okay this afternoon-on bowel prep for tomorrow. Feels stools just about to let go. Some ab bloating and cramping with bowel prep. No nausea. Breathing well, but needed O2 at night the last 2 nights. Rare cough; no pain with breathing. No chest pain or pressure. Denies f/c. Start NS at 75cc/hr this evening in anticipation of Sx tomorrow. Continue Zosyn and metronidazole for antibiotic coverage. Start Incentive Spirometry to help pulmonary toilet. Continue pain control. Encourage activities. Recheck lab in am. Anticipate Dr Mendoza's return in am. 03/06/2017: Patient came back from surgery late last night. He is extubated now awake and still groggy. He answers questions appropriately. He denies any chest pain but does complain of some abdominal pain actually in his upper abdomen. He does have bowel sounds. His surgery appears to have gone well. 03-07 Surgery note Oliguria, will bolus another 500 ml cautiously and give 0.5 mg Bumex IV. Potassium slowly drifting down, will change IVF to D5 1/2 with 10 KCL Encourage Breeze, the high protein juice. KUB indicates likely ileus pattern, although he is passing flatus and not nauseated, will continue clears today, possible advance to fulls this evening if he is still doing well and/or has some stool. HOpe to start feeding the gut soon and avoid PICC and TPN. WBC still 13.1 (13.6 yesterday) some of this may be stress response. Continue ABX as ordered. Keep in CCU today if possible. Consider transfer to floor tonight or tomorrow. Daily packing changes of the left inguinal wound and plan possible wound vac tomorrow. 03/08/2017: Patient appears more distended today. His weight is up approximately 10 kg. I will encourage him to walk, give Dulcolax suppository, and Bumex 1 mg IV 03/09/2017 Surgery note: Change diet to sips and chips place NG repeat films tomorrow PICC line inserted and TPN started at 50 ml.hr for 8 hours, then 75 ml.hr for 8 hours, then 100 ml/hr. Q6/hr BGM with SSI low dose regular after TPN started 03/10/17- Teressa covering for Dr. Mendoza *Resp. failure s/p vent- Now on O2. Continue nebs. MRSA on sputum cx. Will add Vanco. Pharmacy consult for management. *Pulmonary edema- Unknown EF, but has PPM. Will add BID Lasix and replace KCL IV today as well. May need to bump the KCL in TPN. Add tele. *FEN- Stopped IVF. Agree with TPN, Lipids. Routine BG check, PRN insulin. *Intraabdominal abscess s/p surgical resection with ileus- Reviewed cultures from abscess. Need to add better anaerobic coverage. Change Levaquin/Flagyl to Invanz. NGT- pull back 2 inches. Some mild improvement in ileus. Continue supportive care. Change PPI back to IV until able to tolerate PO. Surgery team following. Pain control- consider DC Toradol after 5 day max. Monitor kidney function carefully. *AFib, Chronic anticoagulation Holding pradaxa. Continue low dose LMWH. Add tele. HR is controlled. Not requiring rate controlling meds at home. Hold Statin due to NPO status. Very ill, medically complex. Continue supportive care. Recheck KUB, labs in AM. 03/11/17 Teressa-covering for Dr Mendoza Doing okay today. Urinating often with Lasix. Had 3050cc urine out yesterday. No nausea with NG tube - 630cc NG output yesterday (880 today so far). Reports is passing flatus. Breathing stable-some SOA, but little cough/congestion. No chest pain. No f/c. Strength decreased. Continue Vancomycin for MRSA in sputum - Add Nozin nasally. Continue Invanz for abdominal coverage - Day #2. Levaquin/Metronidazole stopped on 03/10. Continue Lasix 40mg IV BID to help motivate fluids. Edema and weight are decreasing. Creatinine stable. Encourage IS and Acapella use. Wean O2 as able. Continue TPN for nutritional support due to NPO for ileus. Monitor lab. Continue with supportive care. Anticipate Dr Mendoza's return in am. 03/12/2017: Patient improving. NGT discontinued. He is working with PT today. 03/13/2017: Patient continues to improve. He will probably be discharged to inpatient rehabilitation prior to going home. At this time he is afebrile and risks precipitating well with physical therapy. ELLIOT MENDOZA DO March 14, 2017 15:22
[2017-03-14] MEDS ORDERED: ALTEPLASE (Cathflo*) 2mg vial Injection IV ONE (15:45)
--- NOTE | 2017-03-14 16:20 | NUR ---
PICC CATHFLO INSTILLED INTO RED AND PURPLE PORT NEITHER HAVE BLOOD RETURN
--- NOTE | 2017-03-14 16:44 | NUR ---
LIPIDS SCHEDULED 1600 LIPIDS HAVE NOT BEEN ADMINISTERED DUE TO CATHFLO BEING INSTILLED AT THIS TIME. WILL CONTINUE TO MONITOR.
[2017-03-14] MEDS: FAT EMULSION 20% 100 ML IV SCH (17:38)
--- NOTE | 2017-03-14 18:30 | NUR ---
END OF SHIFT REPORT PATIENT A/OX3. 1.5 LITERS O2. VITAL SIGNS STABLE. AFEBRILE. NO PRNS HAVE BEEN ADMINISTERED DURING THE DAY. PT AMBULATED ONCE DURING THE SHIFT BUT WAS WEAK/WINDED POST AMBULATION. PT WORKED WITH PT/OT TWICE. WOUND VAC CLEAN, DRY, INTACT. STEVAN IN PLACE. SLIGHT REDNESS FROM STEVAN BUT NO DRAINAGE/SWELLING. DENIES N/V, CHEST PAIN, AND SOA. ADEQUATE URINARY OUTPUT. BM DURING THE SHIFT. PT UP WITH ASSIST X1. WILL CONTINUE TO MONITOR.
[2017-03-14] MEDS: FLUTICASONE NASAL SPRAY 50 MCG EA NOSTRIL SCH (20:50)
[2017-03-14] MEDS: TAMSULOSIN 0.4 MG CAPSULE PO SCH (20:50)
[2017-03-14] MEDS: ENOXAPARIN 40 MG/0.4 ML INJECTION SQ SCH (20:50)
[2017-03-14] MEDS: HYDROCODONE/APAP 5 mg/325 mg TABLET PO PRN (21:53)
[2017-03-14] MEDS: MAG-AL + SIM LIQUID 30 ML UDC PO PRN (22:08)
[2017-03-15] VITALS (10 sets, daily range): BP systolic 112–160; BP diastolic 51–64; PULSE 76–88; RESP 16–20; TEMP 97.2–98.7; O2SAT 90–96
[2017-03-15] MEDS: NOZIN NASAL SWAB NS SCH ×3 (01:00→16:49)
[2017-03-15] MEDS: NORMAL SALINE IV SCH ×3 (02:42→16:49)
[2017-03-15] MEDS: MEROPENEM IV SCH ×3 (02:42→16:49)
--- NOTE | 2017-03-15 06:15 | NUR ---
SHIFT SUMMARY PT IS ALERT AND ORIENTED X3, VITAL SIGNS HAVE REMAINED STABLE ON 1.5L O2. PT HAS STATED HE HAS BEEN HAVING DIFFICULTY SLEEPING BUT SLEEPS BETTER IN THE RECLINER. PT HAS NEEDED ONE DOSE OF PRN PAIN MEDICATION ON THIS SHIFT. PT HAS CONTINUED TO USE THE URINAL NEEDED WITH ADEQUATE URINE OUTPUT. PT AMBULATED ONCE ON THIS SHIFT WITH STAFF. WILL CONTINUE TO MONITOR.
--- NOTE | 2017-03-15 07:23 | PNF ---
DATE OF SERVICE 03/14/2017 FINDINGS Patient this evening is without complaints. He is getting ready to eat a regular supper. He has not had any further nausea or vomiting. EXAM VITAL SIGNS: Afebrile, normotensive. ABDOMEN: Soft, nontender. Wound VAC is functioning. LABORATORY/RADIOGRAPHIC EVALUATION Blood sugars have been stable. 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 Patient currently doing well from a surgical standpoint. PLAN Will DC TPN, heplock IV fluids. Will discuss with the patient's PCP about timing of discharge. The patient remains fairly weak and may require temporary residential placement, swing bed status, or possible rehab. Will discuss with Case Management as well. ELSIE
[2017-03-15] MEDS: FUROSEMIDE 40 MG/4 ML INJECTION IV SCH ×2 (09:33→16:49)
[2017-03-15] MEDS: PANTOPRAZOLE 40mg INJECTION IV SCH (09:33)
--- NOTE | 2017-03-15 09:38 | NUR ---
HAKAN MCCLENDON SPOKE WITH SPOUSE VIA TELEPHONE TO DISCUSS THE D/C PLAN FOR PT. WOULD LIKE CM TO MAKE REFERRAL TO FACILITIES THAT TAKE PT INSURANCE. HAKAN SPOKE WITH NELLY CHAND AND OPENED PORTAL.
[2017-03-15] MEDS: ALBUTEROL/IPRATROPIUM INHAL. 2.5mg-0.5mg/3ml Neb. AEROSOL SCH ×2 (09:46→19:18)
--- NOTE | 2017-03-15 10:54 | NUR ---
CM CM VISITED PT AND SPOUSE. CM EXPLAINED THAT [facility] IS FULL AND PT/SPOUSE WOULD LIKE CM TO CONTACT [facility]. CM LEFT MESSAGE FOR PAT AT [facility] AND OPENED PORTAL. CM AWAITING RETURN CALL.
--- NOTE | 2017-03-15 11:00 | NUR ---
CM CM MADE REFERRAL TO [facility] PER PT/SPOUSE REQUEST. PORTAL OPEN. PT/PT SPOUSE AWARE OF INSURANCE REQUIREMENTS AND CONTACTS WITH SPECIFIC PROVIDERS.
[2017-03-15] MEDS: VANCOMYCIN 1,500 MG in NORMAL SALINE 500 ML IV SCH ×3 (11:52)
[2017-03-15] MEDS: INSULIN REGULAR 100 UNIT/ML SQ PRN (12:18)
--- NOTE | 2017-03-15 13:32 | NUR ---
HAKAN [facility] HAS ACCEPTED PT PENDING INSURANCE APPROVAL. DR MENDOZA IS ANTICIPATING D/C FOR PT TOMORROW AND IS AWARE OF INSURANCE PRIOR AUTH NEEDS. HAKAN SPOKE WITH PT DAUGHTER CLAUS IN REGARDS TO PT D/C PLAN AND INSURANCE REQUIREMENTS. CLAUS IS PLANNING FOR PT TO RETURN HOME WITH HER IF INSURANCE DOES NOT APPROVE SNU STAY. CM AWAITING TO HER FROM [facility].
--- NOTE | 2017-03-15 14:40 | NUR ---
HAKAN MCCLENDON SPOKE WITH PT DAUGHTER CLAUS IN REGARDS TO ANTICIPATED D/C PLAN FOR TOMORROW AND STILL AWAITING APPROVAL FROM INSURANCE AT [facility]. CLAUS AWARE THAT CM WILL CALL HER IN THE AM REGARDING INSURANCE AUTHORIZATION. CM LEFT MESSAGE FOR PT SPOUSE WITH SAME INFORMATION. DAUGHTER /SPOUSE AWARE TO CONTACT CM IF NEEDS [facility].
[2017-03-15] MEDS: HYDROCODONE/APAP 5 mg/325 mg TABLET PO PRN ×2 (15:05→22:13)
[2017-03-15] MEDS: NS 500 ML IV PRN (16:50)
--- NOTE | 2017-03-15 17:17 | PDWOUND ---
Wound Documentation Wound Management Wound : Location Modifier: Left, Lower Wound Location: Abdomen Wound Type: Surgical Wound Dressing Frequency: three times per week Wound Duration: one week Wound Dressing Status: FOUND: Moist Wound Drainage Amount: Minimal Wound Drainage Description: Serosanguineous (no purulence or feces visible) Wound Bed: gran red Periwound Description: Clear Wound Length (cm): 10 (11 cm) Wound Width (cm): 1 (2 ccm) Wound Depth (cm): 1.5 Exposed: subtissue, muscle Wound Packing Type: FOUND: Black Foam Wound Primary Dressing Type: Clear Adhesive Cover Wound Undermining : Wound Undermining (cm): 1 (5 cm along the cephalad boreder, and aobut 1-2 cm on the medial and lateral corners.) Undermining Location (o'clock): 7-2 CHUCK VAIL RN March 15, 2017 17:17
--- NOTE | 2017-03-15 18:34 | PNPDOC ---
Subjective Date DATE: 03/15/17 TIME: 18:29 Subjective Patient seen and examined in his room. He is up to a chair. Daughter at the bedside. Darvin looks 50-80% better today. He has a smile on his face and converses well. He states that this is the first day that he is felt back to his normal self in some time. He did walk with physical therapy down to the [place] window and back earlier today. He has tolerated his meals well today. He did state that he had a small bowel movement earlier and is still passing some flatus from time to time. His abdomen is much less tender. Location: abdomen Quality: acute, chronic Duration: other (worsening over 2-3 months) Associated Symptoms: abdominal pain Objective Vital Signs Vital signs Vital Signs 03/15/17 03/15/17 03/15/17 03/15/17 08:00 09:50 09:55 09:55 Temp 97.7 Pulse 88 88 80 82 Resp 18 18 B/P 137/59 Pulse Ox 90 O2 Delivery Nasal Cannula O2 Flow Rate 2.00 03/15/17 03/15/17 03/15/17 03/15/17 09:55 09:55 11:52 16:45 Temp 97.5 97.2 Pulse 80 76 Resp 18 18 B/P 118/52 118/57 Pulse Ox 93 93 95 O2 Delivery Nasal Cannula Nasal Cannula Nasal Cannula O2 Flow Rate 2.00 2.00 2.00 Telemetry Rhythm: Sinus Rhythm Height (Feet): 6 Height (Inches): 1.00 Weight (Kilograms): 93.600 General General Appearance: Alert, Orientated x 3, Cooperative, No Acute Distress Eyes (Brief) Eyes: FOUND: EOMI, PERRL, NOT FOUND: scleral icterus Neck (Brief) Neck Brief: NOT FOUND: JVD, adenopathy, carotid bruits, thyromegaly Respiratory (Brief) Respiratory Brief: FOUND: clear all tucker, equal bilaterally, rales (which clear with cough; consistent with atelectasis) Cardiovascular (Brief) Cardiac: FOUND: pedal edema, regular rate, regular rhythm, NOT FOUND: gallop, murmur Abdomen (Brief) Abdominal: FOUND: BS normo active x4, soft, NOT FOUND: distended, hepatosplenomegaly, tender Extremities (Brief) Extremity : Side: Bilateral Extremity Finding: FOUND: edema (trace), NOT FOUND: pain Lymphatic (Brief) Lymphatic Brief: NOT FOUND: adenopathy, lymphedema Musculoskeletal (Brief) Musculoskeletal Brief: FOUND: extremities move equally, NOT FOUND: deformity, loss of motion, spasm, tenderness Integumentary (Brief) Integumentary: FOUND: dry, pink, warm, NOT FOUND: rash Neurologic (Brief) Neurologic: FOUND: cranial 2-12 intact, motor, sensory Psychiatric (Brief) Psychiatric: FOUND: alert, attentive, normal affect, oriented Sepsis Diagnostic Criteria Sepsis Confirmed/Suspected Infection: Yes SIRS Criteria: Temp<=96.8 or >=100.4, RR > or = to 20 Severe Sepsis None Seen Assessment & Plan Problems: (1) Postoperative ileus Status: Resolved Assessment & Plan: 03/09/2017: NG tube placed this morning with good output. NGT removed. (2) Inguinal abscess Status: Resolved Assessment & Plan: Pseudomonas cultured. Abscess has been surgically derided and wound VAC is in place (3) Colocutaneous fistula Status: Resolved Assessment & Plan: 03/02: Abscess was incised and drained. Surgical correction of a colocutaneous fistula scheduled for Sunday (03/05). (4) Diverticulitis Status: Resolved Qualifiers: Diverticulitis site: large intestine Diverticulitis complication: with abscess Assessment & Plan: 02/26: Pigtail catheter drain placed. 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 He is on Vanco (13) Abnormal sputum Status: Acute Assessment & Plan: MRSA in sputum Plan/Intensity of Service Continue Vancomycin for MRSA in sputum - Add Nozin nasally. Continue Invanz for abdominal coverage - Day #2. Levaquin/Metronidazole stopped on 03/10. Continue Lasix 40mg IV BID to help motivate fluids. Edema and weight are decreasing. Creatinine stable. Encourage IS and Acapella use. Wean O2 as able. Continue TPN for nutritional support due to NPO for ileus. Monitor lab. Continue with supportive care. Anticipate Dr Mendoza's return in am. Time spent with pt's care 35 minutes. Code Status Full Code Hospital Course Summary Disclaimer The hospital course summary below is not to be considered part of the above Progress Note. Hospital Course Summary 02/25 Admit patient to outpatient observation under the care of Dr. Worthy for inguinal abscess. ER Provider spoke with Lyle Seth- radiologist. Will plan for ultrasound-guided percutaneous drain tomorrow, Sunday02/26/17. Patient last took Pradaxa this morning 02/25/17. We will place this on hold now for scheduled procedure. He has been on Levaquin and Flagyl for antimicrobial coverage. Will switch to IV Zosyn for ongoing coverage. Will be able follow abscess cultures for further C/S. No evidence of sepsis currently. Normal saline at 100ml/hr for gentle hydration overnight. He may have regular diet now and NPO at midnight for planned procedure tomorrow SCDs to bilateral lower ext for DVT prophylaxis Up in room with assistance Will recheck CBC and BMP tomorrow morning to follow blood counts, renal function and electrolytes. Again he requests to be a Full Code and this order is written Will discuss further orders with attending, Dr Worthy Care will be turned over to PCP tomorrow morning- Dr Mendoza. 02/26/2017: Patient is back from radiology where pigtail catheter drain was placed in the left lower quadrant. He is feeling better at this time. Surgical consultation appreciated. White count remains normal. He is on Zosyn. 02/28/2017: Darvin continues to improve. He does have minimal nausea this evening after supper. His surgical site appears to be without infection. He has minimal brownish material with dark blood in his drain. Should he continue to improve without relapse of fever or an elevation in his white count, I anticipate him going home soon. He would continue with the drain as an outpatient. He would then follow up with myself as well as Dr. Joya as an outpatient final culture and sensitivity is still pending. Gram-negative giorgio as grown but has yet to be identified along with sensitivity. This would determine his outpatient oral antibiotics. 03/01/17: Today Darvin's drain site looks worse. It has erythema, induration, and pain. I have spoken with Dr. Joya and he has evaluated him and agrees. He will order CT with rectal contrast and evaluated for fistula formation tomorrow. He may need surgery following these findings. 03/02/17: Discussed this case with Dr. Joya of surgery earlier today. 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 He is just back from surgery where they incised and drained this site. I agree with the addition of Flagyl to his antibiotic regimen and the plan for surgical resection and primary reanastomosis on Sunday. At this time he is complaining of abdominal pain 4 out of 10. He also has some mild wheezing in his left chest. Family states that he coughed up some dark material earlier today but are unsure of its origin. 03/03/17: Teressa covering for Dr Mendoza: Doing well this morning-less ab pain since I/D yesterday. No nausea-did well with breakfast. Had sweats overnight, but no f/c. Breathing well without SOA cough or congestion. No chest pain. Urinating well. Will D/C IVF as taking po well and weight increased from admit. Continue Zosyn and metronidazole for antibiotic coverage. Continue pain control. Encourage activities. Recheck lab in am. 03/04/17: Teressa covering for Dr Mendoza: Doing okay this afternoon-on bowel prep for tomorrow. Feels stools just about to let go. Some ab bloating and cramping with bowel prep. No nausea. Breathing well, but needed O2 at night the last 2 nights. Rare cough; no pain with breathing. No chest pain or pressure. Denies f/c. Start NS at 75cc/hr this evening in anticipation of Sx tomorrow. Continue Zosyn and metronidazole for antibiotic coverage. Start Incentive Spirometry to help pulmonary toilet. Continue pain control. Encourage activities. Recheck lab in am. Anticipate Dr Mendoza's return in am. 03/06/2017: Patient came back from surgery late last night. He is extubated now awake and still groggy. He answers questions appropriately. He denies any chest pain but does complain of some abdominal pain actually in his upper abdomen. He does have bowel sounds. His surgery appears to have gone well. 03-07 Surgery note Oliguria, will bolus another 500 ml cautiously and give 0.5 mg Bumex IV. Potassium slowly drifting down, will change IVF to D5 1/2 with 10 KCL Encourage Breeze, the high protein juice. KUB indicates likely ileus pattern, although he is passing flatus and not nauseated, will continue clears today, possible advance to fulls this evening if he is still doing well and/or has some stool. HOpe to start feeding the gut soon and avoid PICC and TPN. WBC still 13.1 (13.6 yesterday) some of this may be stress response. Continue ABX as ordered. Keep in CCU today if possible. Consider transfer to floor tonight or tomorrow. Daily packing changes of the left inguinal wound and plan possible wound vac tomorrow. 03/08/2017: Patient appears more distended today. His weight is up approximately 10 kg. I will encourage him to walk, give Dulcolax suppository, and Bumex 1 mg IV 03/09/2017 Surgery note: Change diet to sips and chips place NG repeat films tomorrow PICC line inserted and TPN started at 50 ml.hr for 8 hours, then 75 ml.hr for 8 hours, then 100 ml/hr. Q6/hr BGM with SSI low dose regular after TPN started 03/10/17- Teressa covering for Dr. Mendoza *Resp. failure s/p vent- Now on O2. Continue nebs. MRSA on sputum cx. Will add Vanco. Pharmacy consult for management. *Pulmonary edema- Unknown EF, but has PPM. Will add BID Lasix and replace KCL IV today as well. May need to bump the KCL in TPN. Add tele. *FEN- Stopped IVF. Agree with TPN, Lipids. Routine BG check, PRN insulin. *Intraabdominal abscess s/p surgical resection with ileus- Reviewed cultures from abscess. Need to add better anaerobic coverage. Change Levaquin/Flagyl to Invanz. NGT- pull back 2 inches. Some mild improvement in ileus. Continue supportive care. Change PPI back to IV until able to tolerate PO. Surgery team following. Pain control- consider DC Toradol after 5 day max. Monitor kidney function carefully. *AFib, Chronic anticoagulation Holding pradaxa. Continue low dose LMWH. Add tele. HR is controlled. Not requiring rate controlling meds at home. Hold Statin due to NPO status. Very ill, medically complex. Continue supportive care. Recheck KUB, labs in AM. 03/11/17 Teressa-covering for Dr Mendoza Doing okay today. Urinating often with Lasix. Had 3050cc urine out yesterday. No nausea with NG tube - 630cc NG output yesterday (880 today so far). Reports is passing flatus. Breathing stable-some SOA, but little cough/congestion. No chest pain. No f/c. Strength decreased. Continue Vancomycin for MRSA in sputum - Add Nozin nasally. Continue Invanz for abdominal coverage - Day #2. Levaquin/Metronidazole stopped on 03/10. Continue Lasix 40mg IV BID to help motivate fluids. Edema and weight are decreasing. Creatinine stable. Encourage IS and Acapella use. Wean O2 as able. Continue TPN for nutritional support due to NPO for ileus. Monitor lab. Continue with supportive care. Anticipate Dr Mendoza's return in am. 03/12/2017: Patient improving. NGT discontinued. He is working with PT today. 03/13/2017: Patient continues to improve. He will probably be discharged to inpatient rehabilitation prior to going home. At this time he is afebrile and risks precipitating well with physical therapy. ELLIOT MENDOZA DO March 15, 2017 18:33
--- NOTE | 2017-03-15 19:13 | NUR ---
PROGRESS NOTE PT ALERT AND ORIENTED X3. VITAL SIGNS STABLE, ON 2L OF O2 PER NC. THE PT HAS BEEN UP TO THE RECLINER MULTIPLE TIMES THIS SHIFT AND HAS TOLERATED WELL. THE PT WAS GIVEN 2 NORCO DURING WOUND VAC DRESSING CHANGE FOR INCREASED PAIN. THE PT HAD ADEQUATE URINE OUTPUT THIS SHIFT AND A BOWEL MOVEMENT. PT TOLERATING REGULAR DIET WELL. THE PT HAS FAMILY IN ROOM AT THIS TIME. NO CONCERNS NOTED, CALL LIGHT WITHIN REACH.
[2017-03-15] MEDS: ENOXAPARIN 40 MG/0.4 ML INJECTION SQ SCH (20:03)
[2017-03-15] MEDS: TAMSULOSIN 0.4 MG CAPSULE PO SCH (21:59)
[2017-03-15] MEDS: FLUTICASONE NASAL SPRAY 50 MCG EA NOSTRIL SCH (22:00)
[2017-03-16] VITALS: BP 131/60; PULSE 79; RESP 18; TEMP 98.1; O2SAT 92
[2017-03-16] MEDS: VANCOMYCIN 1,500 MG in NORMAL SALINE 500 ML IV SCH (00:01)
[2017-03-16] MEDS: NOZIN NASAL SWAB NS SCH ×2 (00:50→09:58)
[2017-03-16] MEDS: NORMAL SALINE IV SCH ×2 (01:31→09:58)
[2017-03-16] MEDS: MEROPENEM IV SCH ×2 (01:31→09:58)
--- NOTE | 2017-03-16 02:55 | NUR ---
Chart Check 24 hour chart check completed
[2017-03-16 04:00] VITALS: BP 111/48; PULSE 77; RESP 18; TEMP 97.2; O2SAT 96
[2017-03-16 05:20] LABS: BASOPHILS % (AUTO) 0.4 % (0-2); EOSINOPHILS # (AUTO) 0.4 T/MM3 (0-0.5); EOSINOPHILS % (AUTO) 5.3 % (0-4); HCT - HEMATOCRIT 27.9 % (41-53); HGB - HEMOGLOBIN 8.6 GM/DL (13.5-17.5); IMMATURE GRANULOCYTE # (AUTO) 0.02 T/MM3 (0.00-0.03); IMMATURE GRANULOCYTE % (AUTO) 0.3 % (0.0-0.5); LYMPHOCYTES # (AUTO) 1.1 T/MM3 (1-4.8); LYMPHOCYTES % (AUTO) 16.1 % (23-45); MEAN CORPUSCULAR HGB 26.5 UUG (26-34); MEAN CORPUSCULAR HGB CONC(MCHC 30.8 GM/DL (31-37); MEAN CORPUSCULAR VOLUME 86.1 UM3 (80-100); MEAN PLATELET VOLUME 10.1 UM3 (9.4-12.4); MONOCYTES # (AUTO) 1.1 T/MM3 (0-0.8); MONOCYTES % (AUTO) 16.3 % (0-9.0); NEUTROPHILS #(AUTO)-ABSOLUTE 4.2 T/MM3 (1.8-7.7); NEUTROPHILS % (AUTO) 61.6 % (33-66); RED BLOOD COUNT 3.24 M/MM3 (4.50-5.90); WBC - WHITE BLOOD COUNT 6.8 T/MM3 (4.5-11.0)
[2017-03-16 05:22] LABS: ALBUMIN 2.4 G/DL (3.5-5.0); ALBUMIN/GLOBULIN RATIO 0.8 RATIO (1.1-2.2); ALKALINE PHOSPHATASE 183 U/L (38-126); ALT (SGPT) 45 U/L (21-72); ANION GAP 7 MEQ/L (5-15); AST (SGOT) 67 U/L (17-59); BUN/CREATININE RATIO 24 RATIO (6-26); CALCIUM 7.7 MG/DL (8.4-10.2); CHLORIDE 102 MEQ/L (98-107); CO2 - CARBON DIOXIDE 29 MEQ/L (22-30); GLOMERULAR FILTRATION RATE 72; GLUCOSE 100 MG/DL (75-110); POTASSIUM 3.7 MEQ/L (3.6-5); SODIUM 138 MEQ/L (134-144); TOTAL PROTEIN 5.4 G/DL (6.3-8.2)
--- NOTE | 2017-03-16 05:22 | NUR ---
STATUS PATIENT ALERT AND ORIENTEDX3. 2LO2 VIA NC. PATIENT 'S VITAL SIGN STABLE. PRN NORCO WAS GIVEN. PATIENT HAS CONTINUE TO USE URINAL NEEDED WITH ADEQUATE URINE OUTPUT. PATIENT AMBULATED TO BATHROOM ONE TIME WITH ONE STANDBY ASSIST. WOUND VAC IN PLACE. PATIENT DENIES CHEST PAIN ,SOA, OR N/V. PICC LINE TO THE RIGHT UPPER ARM FLUSHES AND ASPIRATES WELL. PATIENT IS RESTING IN RECLINER CHAIR QUIETLY AND ELEVATED BOTH LEGS. SCDS ON BOTH LOW EXTREMITIES. CALL LIGHT WITHIN REACH.CONTINUE TO MONITOR.
[2017-03-16 07:19] VITALS: O2SAT 93
[2017-03-16] MEDS: ALBUTEROL/IPRATROPIUM INHAL. 2.5mg-0.5mg/3ml Neb. AEROSOL SCH (07:19)
--- NOTE | 2017-03-16 08:21 | NUR ---
Nutrition risk f/u Regular diet: well-tolerated (per nsg). Breakfast (03/15) intake: 100%.
[2017-03-16 08:43] VITALS: BP 126/57; PULSE 79; RESP 18; TEMP 96.8; O2SAT 92
[2017-03-16 09:55] VITALS: PULSE 79; RESP 18
--- NOTE | 2017-03-16 11:33 | NUR ---
CM CM VISITED PT AND SPOUSE. THEY ARE AWARE THAT CM IS AWAITING PRIOR AUTH FROM [facility] AND HAS SPOKE WITH [facility] THIS AM AND THEY ARE CONTACTING PT INSURANCE AND WILL FOLLOW UP WITH CM. PT/SPOUSE AWARE TO CONTACT CM IF NEEDS ARISE.
[2017-03-16 11:43] VITALS: BP 125/52; PULSE 82; RESP 18; TEMP 98.3; O2SAT 91
--- NOTE | 2017-03-16 12:06 | NUR ---
CM CM RECEIVED CALL FROM PAT AT [facility] PT HAS BEEN APPROVED. PT/FAMILY ARE AWARE. ANTICIPATED D/C IS FOR TODAY. [facility] WILL TRANSPORT AND THEY ARE AWARE THAT PT NEEDS OXYGEN. PAT WILL CONTACT CM IF NEEDS ARISE.
--- NOTE | 2017-03-16 12:23 | NUR ---
LAB LAB NOTIFIED THIS NURSE OF HIGH VANCOMYCIN TROUGH VALUE. VALUE WAS 24.9. I VERIFIED THAT PHARMACY WAS NOTIFIED OF LAB VALUE WELL. WILL CONTINUE TO MONITOR.
--- NOTE | 2017-03-16 12:56 | PNF ---
DATE 03/15/2017 FINDINGS Mr. Perales today was in good spirits. He denies any element of abdominal pain or nausea or vomiting. OBJECTIVE VITALS: Afebrile. Normotensive. ABDOMEN: Soft, nontender. Wound VAC present within the left lower quadrant and functioning. Wound VAC changed earlier today. ASSESSMENT Status post robotic assisted laparoscopic takedown of colocutaneous fistula with excision of left inguinal mesh plug. Patient doing well. PLAN I do believe the patient could be discharged from a surgical standpoint at this juncture in time. Will plan on seeing the patient next week in the wound center. Will DC his marina at that time. Will perhaps perform delayed primary closure of his left inguinal wound next week and discontinue the VAC at that time. The patient is apparently being transferred to a nearby correction facility for further strengthening and rehab. ELSIE
--- NOTE | 2017-03-16 12:57 | PDOCECFAO ---
Admission Orders Admission Orders Admit to: Shelter Allergies: Coded Allergies: Soap (Verified Allergy, Unknown, 12/05/15) povidone-iodine (Verified Allergy, Unknown, 12/05/15) promethazine HCl (Verified Adverse Reaction, Intermediate, HALLUCINATIONS , 12/05/15) Admitting Diagnosis Inguinal Abscess Admitting Physician Quincy Mendoza DO Code Status Full Code Anticipated LOS: 30 days or less Rehab Potential: Fair Rehab Prognosis: Fair Diet: Regular Wound/Incision Care: SEE WOUND CARE NOTES-WOUND VAC May use Facility Protocol /SO: Yes May Have Flu Vaccine: Yes Evaluations/Treat: PT, OT Shelter Certification I certify that SNF services are required to be given on an Inpatient basis because of the patients need for senior living care on a continuing basis for the condition(s) for which he/she received inpatient hospital services prior to his/her transfer to the SNF. SNF inpatient care is necessary for the following reasons Other (PT/OT) Cardiac or Respiratory Arrest Resident is Aware of Diagnosis: Yes (INGUINAL ABSCESS) QUINCY MENDOZA DO March 16, 2017 12:57
[2017-03-16] MEDS ORDERED: HYDR-4246 PO (12:59)
--- NOTE | 2017-03-16 13:02 | DSPDOC ---
Discharge Diagnoses Discharge Diagnoses (1) Postoperative ileus Comments: 03/09/2017: NG tube placed this morning with good output. 03/12 NGT removed. (2) Inguinal abscess Comments: Pseudomonas cultured. Abscess has been surgically derided and wound VAC is in place (3) Colocutaneous fistula Comments: 03/02: Abscess was incised and drained. Surgical correction of a colocutaneous fistula scheduled for Sunday (03/05). (4) Diverticulitis Comments: 02/26: Pigtail catheter drain placed. Alex is been removed and wound VAC is in place following surgery (5) Chronic anticoagulation Comments: Pradaxa chronically (6) Essential hypertension (7) Hyperlipidemia (8) Pacemaker (9) Presence of automatic implantable cardioverter-defibrillator (10) Brugada syndrome (11) History of atrial fibrillation (12) Methicillin resistant Staphylococcus aureus culture positive Comments: Sputum . He is on Vanco (13) Abnormal sputum Comments: MRSA in sputum Hospital Course 02/25 Admit patient to outpatient observation under the care of Dr. Worthy for inguinal abscess. ER Provider spoke with Lyle Seth- radiologist. Will plan for ultrasound-guided percutaneous drain tomorrow, Sunday02/26/17. Patient last took Pradaxa this morning 02/25/17. We will place this on hold now for scheduled procedure. He has been on Levaquin and Flagyl for antimicrobial coverage. Will switch to IV Zosyn for ongoing coverage. Will be able follow abscess cultures for further C/S. No evidence of sepsis currently. Normal saline at 100ml/hr for gentle hydration overnight. He may have regular diet now and NPO at midnight for planned procedure tomorrow SCDs to bilateral lower ext for DVT prophylaxis Up in room with assistance Will recheck CBC and BMP tomorrow morning to follow blood counts, renal function and electrolytes. Again he requests to be a Full Code and this order is written Will discuss further orders with attending, Dr Wrothy Care will be turned over to PCP tomorrow morning- Dr Mendoza. 02/26/2017: Patient is back from radiology where pigtail catheter drain was placed in the left lower quadrant. He is feeling better at this time. Surgical consultation appreciated. White count remains normal. He is on Zosyn. 02/28/2017: Darvin continues to improve. He does have minimal nausea this evening after supper. His surgical site appears to be without infection. He has minimal brownish material with dark blood in his drain. Should he continue to improve without relapse of fever or an elevation in his white count, I anticipate him going home soon. He would continue with the drain as an outpatient. He would then follow up with myself as well as Dr. Leo as an outpatient final culture and sensitivity is still pending. Gram-negative giorgio as grown but has yet to be identified along with sensitivity. This would determine his outpatient oral antibiotics. 03/01/17: Today Darvin's drain site looks worse. It has erythema, induration, and pain. I have spoken with Dr. Leo and he has evaluated him and agrees. He will order CT with rectal contrast and evaluated for fistula formation tomorrow. He may need surgery following these findings. 03/02/17: Discussed this case with Dr. Leo of surgery earlier today. 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 He is just back from surgery where they incised and drained this site. I agree with the addition of Flagyl to his antibiotic regimen and the plan for surgical resection and primary reanastomosis on Sunday. At this time he is complaining of abdominal pain 4 out of 10. He also has some mild wheezing in his left chest. Family states that he coughed up some dark material earlier today but are unsure of its origin. 03/03/17: Buck Mason covering for Dr Mendoza: Doing well this morning-less ab pain since I/D yesterday. No nausea-did well with breakfast. Had sweats overnight, but no f/c. Breathing well without SOA cough or congestion. No chest pain. Urinating well. Will D/C IVF as taking po well and weight increased from admit. Continue Zosyn and metronidazole for antibiotic coverage. Continue pain control. Encourage activities. Recheck lab in am. 03/04/17: Teressa covering for Dr Mendoza: Doing okay this afternoon-on bowel prep for tomorrow. Feels stools just about to let go. Some ab bloating and cramping with bowel prep. No nausea. Breathing well, but needed O2 at night the last 2 nights. Rare cough; no pain with breathing. No chest pain or pressure. Denies f/c. Start NS at 75cc/hr this evening in anticipation of Sx tomorrow. Continue Zosyn and metronidazole for antibiotic coverage. Start Incentive Spirometry to help pulmonary toilet. Continue pain control. Encourage activities. Recheck lab in am. Anticipate Dr Mendoza's return in am. 03/06/2017: Patient came back from surgery late last night. He is extubated now awake and still groggy. He answers questions appropriately. He denies any chest pain but does complain of some abdominal pain actually in his upper abdomen. He does have bowel sounds. His surgery appears to have gone well. 03-07 Surgery note Oliguria, will bolus another 500 ml cautiously and give 0.5 mg Bumex IV. Potassium slowly drifting down, will change IVF to D5 1/2 with 10 KCL Encourage Breeze, the high protein juice. KUB indicates likely ileus pattern, although he is passing flatus and not nauseated, will continue clears today, possible advance to fulls this evening if he is still doing well and/or has some stool. HOpe to start feeding the gut soon and avoid PICC and TPN. WBC still 13.1 (13.6 yesterday) some of this may be stress response. Continue ABX as ordered. Keep in CCU today if possible. Consider transfer to floor tonight or tomorrow. Daily packing changes of the left inguinal wound and plan possible wound vac tomorrow. 03/08/2017: Patient appears more distended today. His weight is up approximately 10 kg. I will encourage him to walk, give Dulcolax suppository, and Bumex 1 mg IV 03/09/2017 Surgery note: Change diet to sips and chips place NG repeat films tomorrow PICC line inserted and TPN started at 50 ml.hr for 8 hours, then 75 ml.hr for 8 hours, then 100 ml/hr. Q6/hr BGM with SSI low dose regular after TPN started 03/10/17- Teressa covering for Dr. Mendoza *Resp. failure s/p vent- Now on O2. Continue nebs. MRSA on sputum cx. Will add Vanco. Pharmacy consult for management. *Pulmonary edema- Unknown EF, but has PPM. Will add BID Lasix and replace KCL IV today as well. May need to bump the KCL in TPN. Add tele. *FEN- Stopped IVF. Agree with TPN, Lipids. Routine BG check, PRN insulin. *Intraabdominal abscess s/p surgical resection with ileus- Reviewed cultures from abscess. Need to add better anaerobic coverage. Change Levaquin/Flagyl to Invanz. NGT- pull back 2 inches. Some mild improvement in ileus. Continue supportive care. Change PPI back to IV until able to tolerate PO. Surgery team following. Pain control- consider DC Toradol after 5 day max. Monitor kidney function carefully. *AFib, Chronic anticoagulation Holding pradaxa. Continue low dose LMWH. Add tele. HR is controlled. Not requiring rate controlling meds at home. Hold Statin due to NPO status. Very ill, medically complex. Continue supportive care. Recheck KUB, labs in AM. 03/11/17 Teressa-covering for Dr Mendoza Doing okay today. Urinating often with Lasix. Had 3050cc urine out yesterday. No nausea with NG tube - 630cc NG output yesterday (880 today so far). Reports is passing flatus. Breathing stable-some SOA, but little cough/congestion. No chest pain. No f/c. Strength decreased. Continue Vancomycin for MRSA in sputum - Add Nozin nasally. Continue Invanz for abdominal coverage - Day #2. Levaquin/Metronidazole stopped on 03/10. Continue Lasix 40mg IV BID to help motivate fluids. Edema and weight are decreasing. Creatinine stable. Encourage IS and Acapella use. Wean O2 as able. Continue TPN for nutritional support due to NPO for ileus. Monitor lab. Continue with supportive care. Anticipate Dr Mendoza's return in am. 03/12/2017: Patient improving. NGT discontinued. He is working with PT today. 03/13/2017: Patient continues to improve. He will probably be discharged to inpatient rehabilitation prior to going home. At this time he is afebrile and risks precipitating well with physical therapy. Home Meds Active Scripts Hydrocodone/Acetaminophen ([place] 5-325 Tablet) 5-325 Tablet, 1-2 TAB PO Q6H Y for PAIN for 30 Days, #60 TAB 0 Refills Prov:ELLIOT MENDOZA DO 03/16/17 Reported Medications Acetaminophen (Acetaminophen) 500 Mg Tablet, 1000 MG PO Q8H Y for PAIN 02/25/17 Fluticasone Propionate (Flonase Allergy Relief 50 mcg/actuation Nasal) 9.9 Ml [place].susp, 1 SPRAY EA NOSTRIL HS 02/25/17 Famotidine (Famotidine) 20 Mg Tablet, 20 MG PO DAILY 02/25/17 Dabigatran Etexilate Mesylate (Pradaxa) 150 Mg Capsule, 150 MG PO BID 02/25/17 Calcium Carbonate (Calcium) 600 Mg Tablet, 600 MG PO DAILY 02/25/17 Tamsulosin HCl (Tamsulosin HCl) 0.4 Mg Cap.er.24h, 0.4 MG PO HS 10/24/16 Magnesium Oxide (Magnesium) 400 Mg Capsule, 400 MG PO BID 12/05/15 Lovastatin (Lovastatin) 20 Mg Tablet, 20 MG PO DAILY 12/05/15 Discontinued Reported Medications Levofloxacin (Levaquin) 500 Mg Tablet, 500 MG PO DAILY for diverticulitis 02/25/17 Metronidazole (Metronidazole) 500 Mg Tablet, 500 MG PO TID for diverticulitis 02/25/17 Discharge Disposition to penitentiary Copies To 1: ELLIOT MENDOZA DO Copies To 2: CARLA LEO MD, FACS, CWS Follow up Condition at time of discharge: Good Follow up as above ELLIOT MENDOZA DO March 16, 2017 13:01
--- NOTE | 2017-03-16 13:32 | NUR ---
CM D/C TIME OUT IS COMPLETE. ALL ORDERS SENT TO POST ACUTE CARE SETTING. PAT FROM [facility] AWARE TO CONTACT CM IF NEEDS ARISE.
[2017-03-16] MEDS ORDERED: NEOMYCIN/POLYM/BACITR OINT PACKET TOP ONE (14:00)
--- NOTE | 2017-03-16 14:42 | NUR ---
DISHCARGE PATIENT IS ALERT AND ORIENTED X3. PATIENT VITALS ARE STABLE AND PATIENT IS ON 2L VIA NC. PATIENT WAS DISCHARGED TO [facility] FOR CONTINUED CARE. PICC LINE DISCONTINUED.PERSONAL BELONGINGS RETURNED AND ID BANDS REMOVED. PATIENT DISCHARGE PACKET GIVEN TO [facility] TRANSPORTATION. REPORT GIVEN TO Phillip MARIEE RN AT [facility].
--- NOTE | 2017-03-16 15:49 | WOUNDPN ---
Nurse to Nurse Wound Consult Pt being transferred to SNU today. Upon arrival of hearse driver the vac was stopped and disconnected with a glove on the end of wound vac suction for protection of port. Pt needs to return to the clinic on Sunday for wound vac drsg change. Fridays the SNU can change wound vac. Vac should be on continuous suction at 125mm, when changing vac please protect [place] wound with vac drape, in the medial portion of wound place adaptic or some non adherent mesh then place black foam in wound. Clear occluisve drape on top and applied sensor track. attach to portable wound vac. If any question arise you can call the [phone] that the company provides for the vac if they are unable to help please call the [facility] number and have Alecia Aggarwal called. CHUCK AGGARWAL RN March 16, 2017 15:49
--- NOTE | 2017-03-16 18:09 | PNF ---
DATE OF SERVICE 03/16/2017 FINDINGS Mr. Perales today was in good spirits. Denied any element of abdominal pain, nausea or vomiting. EXAM VITAL SIGNS: Afebrile, normotensive. ABDOMEN: Soft, nontender. Wound VAC in place and functioning within left lower quadrant. ASSESSMENT 81-year-old gentleman status post robotic-assisted laparoscopic takedown of colocutaneous fistula with repair of colotomy and removal of mesh plug from left inguinal region. Patient currently doing well. PLAN Discharge to halfway for additional strengthening. Will see the patient in wound center on Sunday in followup. ELSIE
== END 2017-03-16 14:42 | DRG 357 ==
LOC: ED 10:10 → EDHOLD 16:56 → MED 17:15 → OBSVTOIN 02-26 15:58 → CCU 03-05 21:07 → SRG 03-08 13:35
PROVIDERS: ADMIT Internal Medicine; ATTEND Internal Medicine
PROC: B518ZZA Fluoroscopy of Superior Vena Cava, Guidance (ICD-10-PCS; 2017-03-02)
PROC: 0Y963ZZ Drainage of Left Inguinal Region, Percutaneous Approach (ICD-10-PCS; principal; 2017-03-02 16:34)
PROC: 0WP Anatomical Regions, General, Removal (ICD-10-PCS; 2017-03-05)
PROC: 0DJD8ZZ Inspection of Lower Intestinal Tract, Via Natural or Artificial Opening Endoscopic (ICD-10-PCS; 2017-03-05)
PROC: 02HV33Z Insertion of Infusion Device into Superior Vena Cava, Percutaneous Approach (ICD-10-PCS; 2017-03-09)
PROC: 3E0G36Z Introduction of Nutritional Substance into Upper GI, Percutaneous Approach (ICD-10-PCS; 2017-03-09)
PROC: 0DH67UZ Insertion of Feeding Device into Stomach, Via Natural or Artificial Opening (ICD-10-PCS; 2017-03-09)
DX: K57.20 Diverticulitis of large intestine with perforation and abscess without bleeding (principal); K63.2 Fistula of intestine; K91.3 Postprocedural intestinal obstruction; L02.214 Cutaneous abscess of groin; E78.5 Hyperlipidemia, unspecified; I10 Essential (primary) hypertension; I48.91 Unspecified atrial fibrillation; B96.5 Pseudomonas (aeruginosa) (mallei) (pseudomallei) as the cause of diseases classified elsewhere; B95.62 Methicillin resistant Staphylococcus aureus infection as the cause of diseases classified elsewhere; R34 Anuria and oliguria; Z79.899 Other long term (current) drug therapy; Z79.01 Long term (current) use of anticoagulants; Z95.0 Presence of cardiac pacemaker
CPT/HCPCS: 36415; 36569; 36593; 36600; 49423; 80048; 80053; 80202; 81003; 82803; 82948; 83605; 83690; 83735; 84100; 85007; 85025; 85027; 86850; 86900; 86901; 86922; 87070; 87075; 87076; 87077; 87147; 87181; 87186; 87205; 87493; 88112; 88305; 89220; 94002; 94003; 94640; 94667; 94668; 94799; 96361; 96374; 96375; 99218

== ENCOUNTER → 2017-03-29 | Outpatient (CLI) | payer MEDICARE ==
[~2017-03-29] MED LIST changes: +ACET-62 PO; -AMIO200T7 PO; -ASPI81TA2 PO; -CALC-696 PO; +CALC600T12 PO; +FAMO20TA8 PO; -FERR-70 PO; -FEXO180T94 PO; +FLUT9.9S EA NOSTRIL; +HYDR-4246 PO; -NAPR220C11 PO
[2017-03-29 12:15] LABS: HGB - HEMOGLOBIN 10.2 GM/DL (13.5-17.5); MEAN CORPUSCULAR HGB 26.8 UUG (26-34); MEAN CORPUSCULAR HGB CONC(MCHC 31.9 GM/DL (31-37); MEAN PLATELET VOLUME 9.6 UM3 (9.4-12.4); RED BLOOD COUNT 3.81 M/MM3 (4.50-5.90); WBC - WHITE BLOOD COUNT 10.7 T/MM3 (4.5-11.0)
[2017-03-29 12:25] LABS: ALBUMIN 3.7 G/DL (3.5-5.0); ALBUMIN/GLOBULIN RATIO 0.9 RATIO (1.1-2.2); ALKALINE PHOSPHATASE 257 U/L (38-126); ALT (SGPT) 50 U/L (21-72); ANION GAP 14 MEQ/L (5-15); AST (SGOT) 73 U/L (17-59); BUN/CREATININE RATIO 17 RATIO (6-26); CALCIUM 8.9 MG/DL (8.4-10.2); CHLORIDE 104 MEQ/L (98-107); CO2 - CARBON DIOXIDE 25 MEQ/L (22-30); GLOMERULAR FILTRATION RATE 72; GLUCOSE 114 MG/DL (75-110); SODIUM 143 MEQ/L (134-144); TOTAL PROTEIN 7.6 G/DL (6.3-8.2)
[2017-03-29 12:30] LABS: EOSINOPHILS # (MANUAL) 0.1 T/MM3 (0-0.5); MONOCYTES # (MANUAL) 1.5 T/MM3 (0-0.8); NEUTROPHILS #(MANUAL)-ABSOLUTE 8.1 T/MM3 (1.8-7.7); TOTAL CELLS COUNTED 100 %
--- NOTE | 2017-03-29 12:30 | DI ---
INDICATION: ITS.REASON: R53.83 FATIGUE PROCEDURE: CHEST 2-VIEWS UPRIGHT (PA \T\ LAT) Encounter: Initial COMPARISON: March 09 and March 06, 2017 FINDINGS: Abnormal appearance of the lungs is again noted with significant emphysema and fibrosis changes. No obvious new consolidative pneumonia. No definite pleural effusion or pneumothorax. Cardiac silhouette remains mildly enlarged. Left pacemaker defibrillator. Pulmonary vascularity is stable. Impression: Stable abnormal appearance of the chest with severe emphysema and fibrosis. .
== END ==
LOC: IMA 11:59
PROVIDERS: ATTEND Physician Assistant
DX: J43.9 Emphysema, unspecified (principal); J84.10 Pulmonary fibrosis, unspecified; Z95.810 Presence of automatic (implantable) cardiac defibrillator; R53.83 Other fatigue
CPT/HCPCS: 36415; 80053; 85025